=== PATIENT | female | born 1970 | race Caucasian/White ===

== ENCOUNTER 2020-07-25 13:26 | Outpatient (REF) | payer MEDICAID, SELFPAY | END 2020-07-25 13:27 | disposition home or self-care (01) | LOC: HO.LAB 13:26 | PROVIDERS: Visit Provider Internal Medicine | DX: Z20.828 Contact with and (suspected) exposure to other viral communicable diseases (principal) | CPT/HCPCS: 87635 ==

== ENCOUNTER 2020-08-11 09:08 | Outpatient (REF) | payer MEDICAID, SELFPAY | END 2020-08-11 09:09 | disposition home or self-care (01) | LOC: HO.LAB 09:08 | PROVIDERS: Visit Provider Internal Medicine | DX: Z20.828 Contact with and (suspected) exposure to other viral communicable diseases (principal) | CPT/HCPCS: C9803; U0003 ==

== ENCOUNTER 2020-08-18 15:43 | Outpatient (REF) | payer MEDICAID, SELFPAY | END 2020-08-18 15:44 | disposition home or self-care (01) | LOC: HO.LAB 15:43 | PROVIDERS: PCP Internal Medicine; Visit Provider Internal Medicine | DX: Z20.828 Contact with and (suspected) exposure to other viral communicable diseases (principal) | CPT/HCPCS: C9803; U0003 ==

== ENCOUNTER 2020-09-24 18:15 | Emergency (ER) | payer MEDICAID, SELFPAY ==
[2020-09-24 18:33] VITALS: BP 136/85; PULSE 84; RESP 18; TEMP 37.8; O2SAT 98; BMI 34.8
--- NOTE | 2020-09-24 18:36 | XR_ITS ---
EXAMINATION: PORTABLE CHEST 1 VIEW CLINICAL INFORMATION: Cough/ fever/ asthma . COMPARISON: 12/23/2016. TECHNIQUE: Portable frontal view of the chest was obtained. FINDINGS: The lungs are well expanded. No focal infiltrate, effusion, edema, or pneumothorax. Cardiac and mediastinal silhouettes are within normal limits for technique. No acute bony abnormality seen. XR/XR chest 1V IMPRESSION: No evidence of acute disease compared to 12/23/2016.
[2020-09-24] MEDS: Acetaminophen 325 MG TABLET 975 MG PO (18:50)
[2020-09-24] MEDS: predniSONE 20 MG TABLET 60 MG PO (18:50)
--- NOTE | 2020-09-24 19:15 | PC.NURSE ---
patient a&ox3, covid swab performed, cxr performed, pt medicated per order, vss, will continue to monitor.
[2020-09-24 19:50] LABS: Influenza A PCR NEGATIVE (Negative); Influenza B PCR NEGATIVE (Negative); Resp Syncy Virus RNA Qual PCR NEGATIVE (Negative); SARS COV2 PCR INHOUSE POSITIVE (Negative)
--- NOTE | 2020-09-24 20:41 | ED.URI ---
HPI - URI/Sore Throat General Chief Complaint: Upper Respiratory Symptoms Stated Complaint: COVID SYMPTONS Time Seen by Provider: 09/24/20 18:36 Source: patient Mode of arrival: ambulatory Limitations: no limitations History of Present Illness HPI Narrative: States since yesterday has had some slight ache, body aches, runny nose congestion and cough. Around this time of the year always has URI/influenza. No recent travel or sick contacts. Does have slight cough. Onset (ago): day(s) Exacerbating factors: nothing Treatments prior to arrival: none Related Data Previous Rx's Medication Instructions Recorded azithromycin [Zithromax Z-Gabriel] 250 mg PO DAILY 5 Days #6 tab 09/24/20 prednisone 60 mg PO DAILY 5 Days #15 tab 09/24/20 Allergies Allergy/AdvReac Type Severity Reaction Status Date / Time Sulfa (Sulfonamide Allergy Mild RASH, hives Verified 09/24/20 20:48 Antibiotics) [SULFA(SULFONAMIDE ANTIBIOTICS)] Review of Systems Review of Systems: Constitutional: No Weight loss, No Fever, No Chills, No Night Sweats, No Fatigue, No Malaise ENT/Mouth: No Hearing loss, No Ear Pain, + Nasal Congestion, + Sinus Pain, No Hoarseness, No sore throat, + Rhinorrhea, No Swallowing Difficulty Eyes: No Eye Pain, No Swelling, No Redness, No Foreign Body, No Discharge, No Vision Changes Cardiovascular: No Chest Pain, No SOB, No Dyspnea on Exertion, No Orthopnea, No Edema, No Palpitations Respiratory: + Cough, No Sputum, No Wheezing, No Smoke Exposure, No Dyspnea Gastrointestinal: No Nausea, No Vomiting, No Diarrhea, No Constipation, No abdominal Pain, No Hematochezia, No Melena Genitourinary: no irregular bleeding, No Dysuria, No Urinary Frequency, No Hematuria, No Urinary Incontinence, No Urgency, No Flank Pain, No Urinary Flow Changes Musculoskeletal: No joint pain, No Myalgias, No Joint Swelling Skin: No Skin Lesions, No rash Neuro: No Weakness, No Numbness, No Paresthesias, No Loss of Consciousness, No Dizziness, No Headache Psych: No Social Issues Heme/Lymph: No Bruising, No Bleeding,No Lymphadenopathy Endocrine: No Polyuria, No Polydipsia, No Temperature Intolerance Yes all other systems are reviewed and are negative [facility] Past Medical History Medical History Acid reflux Anemia Asthma HTN (hypertension) Sleep apnea Surgical History H/O bilateral salpingectomy Social History Social History Alcohol intake: current Alcohol intake frequency: holidays/special occasions only Smoking Status: Current some day smoker Use of substances other than those prescribed or required for medical reasons: No Advance Directives: No Advance Directives Information Provided: No Physical Exam Vital Signs: Vital Signs: Last Vital Signs Temp 100.1 F 09/24/20 18:33 Pulse 84 09/24/20 18:33 Resp 18 09/24/20 18:33 BP 136/85 09/24/20 18:33 Pulse Ox 98 09/24/20 18:33 Body Mass Index 34.8 Reviewed Const: General: cooperative and healthy appearing; No acute distress or intoxicated appearing Nutritional Appearance: average body habitus Orientation/consciousness: patient oriented x3 HENMT: Head: Yes normal to inspection Ears: hearing grossly normal bilaterally Eyes: General: appearance normal, both eyes and all related structures Visual De Los Santos: normal visual de los santos by confrontation Neck: Neck: Yes normal visual inspection, No positive Brudzinski's sign, No positive Kernig's sign and No tender Thyroid: Thyroid normal Chest: Chest palpation & inspection: normal inspection of the chest Breast/axilla inspection: normal inspection of the breasts Resp: Effort & Inspection: normal respiratory effort Auscultation: clear to auscultation bilaterally Cardio: Jugular venous distension: no JVD Rate: regular rate Rhythm: regular rhythm Heart sounds: S1 normal heart sound present and S2 normal heart sound present GI: Inspection: Yes normal to inspection Percussion: Yes normal to percussion Auscultation: normal bowel sounds : General: Yes no CVA tenderness Back/Spine/Pelvis: Back: no CVA tenderness Skin: General skin exam: no rashes or lesions noted Neuro: General: patient oriented x3 Extrem: General: Yes normal to inspection Course Course Course Narrative: MDM - URI/Sore Throat MDM Narrative Medical decision making narrative: Hemodynamically stable. Chest x-ray no acute disease. Pulse ox on room air 100. Will discharge home with short course prednisone. Clear home instructions, precautions and follow-up instructions provided. Feels comfortable plan. Stable for discharge. Differential Diagnosis Differential diagnosis: Likely upper respiratory infection, viral infection, bronchitis and influenza; Unlikely croup, otitis media, sinusitis and pharyngitis Lab Data Labs: Lab Results 09/24/20 Range/Units 18:53 Coronavirus (PCR) POSITIVE A (Negative) Influenza Type A (PCR) NEGATIVE (Negative) Influenza Type B (PCR) NEGATIVE (Negative) RSV RNA Qual (PCR) NEGATIVE (Negative) Imaging Data Chest x-ray: Radiologist's impression: [address] [address] XRay Report Signed Patient: Олег Walker#: [id number] : 1970Acct:[id number] Age/Sex: 50 / FADM Date: 09/24/20 Loc: .ED Attending Dr: Ordering Physician: Baen Capps NP Date of Service: 09/24/20 Procedure(s): XR chest 1V Accession Number(s): [id number] cc: Bean Capps STAFFING DIRECTOR~ EXAMINATION: PORTABLE CHEST 1 VIEW CLINICAL INFORMATION: Cough/ fever/ asthma . COMPARISON: 12/23/2016. TECHNIQUE: Portable frontal view of the chest was obtained. FINDINGS: The lungs are well expanded. No focal infiltrate, effusion, edema, or pneumothorax. Cardiac and mediastinal silhouettes are within normal limits for technique. No acute bony abnormality seen. XR/XR chest 1V IMPRESSION: No evidence of acute disease compared to 12/23/2016. Dictated By:HERNANDEZ EAGLE MD Signed By:<Electronically signed by HERNANDEZ EAGLE MD in OV>09/24/204 DD/ 1836 TD/TT: Agriculture Research Director: [place] Discharge Plan Discharge Clinical Impression: Asthma exacerbation, COVID-19 Patient Disposition: Home, Self-Care Instructions: Asthma (ED), How to Use a Nebulizer (ED), COVID-19 (Coronavirus Disease 2019) (ED) Additional Instructions: Self-isolation Social distancing Home care as instructed Take medication prescribed Return if any concerns or worsening symptoms Thank you Prescriptions: New azithromycin [Zithromax Z-Gabriel] 250 mg tablet 250 mg PO DAILY 5 Days Qty: 6 RF: 0 prednisone 20 mg tablet 60 mg PO DAILY 5 Days Qty: 15 RF: 0 Referrals: Melani Anderson MD [Primary Care Provider] - 1 week (Phone visit)
== END 2020-09-24 21:05 | disposition home or self-care (01) ==
PROVIDERS: Nurse Practitioner Primary Care; Emergency Provider Emergency Medicine; PCP Internal Medicine
DX: U07.1 COVID-19 (principal); J45.901 Unspecified asthma with (acute) exacerbation; I10 Essential (primary) hypertension; F17.200 Nicotine dependence, unspecified, uncomplicated
CPT/HCPCS: 0241U; 71045; 99284

== ENCOUNTER 2020-09-30 20:55 | Emergency (ER) | payer MEDICAID, SELFPAY ==
[2020-09-30 21:03] VITALS: PULSE 110; RESP 16; TEMP 38.6; O2SAT 96; BMI 33.2
--- NOTE | 2020-09-30 21:24 | CT_ITS ---
EXAMINATION: CT ABDOMEN AND PELVIS WITHOUT CONTRAST CLINICAL INFORMATION: Abdominal pain. COMPARISON: None TECHNIQUE: Multidetector volumetric imaging was performed from the superior aspect of the liver through the pubic symphysis. Sagittal and coronal reformatted images were obtained on the technologist's workstation. This CT examination was performed using dose optimization techniques as appropriate, variously including the following: *Automated exposure control *Adjustment of mA and/or kV according to patient size (this includes techniques or standardized protocols for targeted exams where dose is matched to indication/reason for exam; i.e. extremities or head) *Use of iterative reconstruction technique DLP: 617 mGy-cm FINDINGS: LUNG BASES: Multifocal airspace opacities in the visualized lower lungs, with peripheral distribution. Findings raise concern for infectious or inflammatory process. LIVER, GALLBLADDER, AND BILIARY TREE: No focal liver lesion. No biliary duct dilatation. Gallbladder appears unremarkable PANCREAS: Unremarkable. SPLEEN: Unremarkable. ADRENAL GLANDS: Unremarkable. KIDNEYS AND URETERS: The kidneys are normal in size, shape, and attenuation. No hydronephrosis, hydroureter, or calculi seen. No perinephric stranding. BLADDER: Unremarkable. GASTROINTESTINAL TRACT: There is a hiatal hernia present. There is apparent prominence of the wall of the stomach, with apparent rugal prominence. This could be due to lack of distention versus gastritis. No dilated small bowel loops. There is moderate fecal matter in the ascending and transverse colon. No colonic wall thickening or pericolonic inflammatory changes. Appendix is normal. No ascites. ABDOMINAL WALL: No significant hernia is appreciated. LYMPH NODES: No lymphadenopathy. VASCULAR: Normal caliber aorta. PELVIC VISCERA: Anteverted uterus. Focus of calcification in the uterus, probable calcified fibroid. No adnexal masses. OSSEOUS STRUCTURES: No suspicious findings. CT/CT abdomen pelvis wo con IMPRESSION: 1. Multifocal airspace opacities in the visualized lower lungs, with peripheral distribution. Findings raise concern for infectious or inflammatory process. 2. Small to moderate hiatal hernia present. Stomach wall appears prominent, with apparent rugal prominence which could be related to lack of distention versus gastritis. 3. Moderate fecal matter in the large colon. No acute inflammatory changes seen.
--- NOTE | 2020-09-30 21:31 | ECG_ITS ---
Test Reason : ABD PAIN Blood Pressure : / mmHG Vent. Rate : 095 BPM Atrial Rate : 095 BPM P-R Int : 178 ms QRS Dur : 088 ms QT Int : 354 ms P-R-T Axes : 047 004 021 degrees QTc Int : 444 ms Normal sinus rhythm Normal ECG No previous ECGs available Referred By: Caryl Abbott Electronically Signed By:ZULMA HERNANDEZ MD
--- NOTE | 2020-09-30 21:45 | PC.NURSE ---
PT OFF FLOOR TO CT.
--- NOTE | 2020-09-30 21:52 | ED.FEVER ---
HPI - Fever General Chief Complaint: Fever Stated Complaint: covid positive Time Seen by Provider: 09/30/20 21:19 Source: patient Mode of arrival: ambulatory Limitations: no limitations History of Present Illness HPI Narrative: 50-year-old female known COVID positive presents with fever, chest tightness and diffuse abdominal pain. She was given azithromycin and prednisone on 09/24/2020 which she took in its entirety. She also reports taking 1000 mg of Tylenol every 4 hours since Friday with the exception of when she was sleeping. She reports muscle aches, fevers, chills, abdominal pain, right upper quadrant tenderness, nausea, vomiting and weakness. Related Data Previous Rx's Medication Instructions Recorded azithromycin [Zithromax Z-Gabriel] 250 mg PO DAILY 5 Days #6 tab 09/24/20 prednisone 60 mg PO DAILY 5 Days #15 tab 09/24/20 ondansetron HCl [Zofran] 4 mg PO Q8H PRN #14 tab 10/01/20 Allergies Allergy/AdvReac Type Severity Reaction Status Date / Time Sulfa (Sulfonamide Allergy Mild RASH, hives Verified 09/24/20 20:48 Antibiotics) [SULFA(SULFONAMIDE ANTIBIOTICS)] Review of Systems Review of Systems: Constitutional: positive Fever, positive Chills, positive fatigue, positive Malaise ENT/Mouth: No sore throat, positive runny nose Eyes: No Discharge Cardiovascular: No Chest Pain, No SOB Respiratory: No Cough, No Sputum, No Wheezing, No Smoke Exposure, No Dyspnea Gastrointestinal: Positive abdominal pain, Positive Nausea, positive Vomiting, No Diarrhea Genitourinary: no irregular bleeding, No Dysuria, No Urinary Frequency, No Hematuria, No Urinary Incontinence, No Urgency, No Flank Pain, Musculoskeletal: positive Myalgia Skin: No rash Neuro: No Headache Yes all other systems are reviewed and are negative PMFSH Past Medical History Source: old records reviewed Medical History Acid reflux Anemia Asthma HTN (hypertension) Sleep apnea Surgical History H/O bilateral salpingectomy Social History Social History Alcohol intake: current Alcohol intake frequency: a few times a month Smoking Status: Light tobacco smoker Advance Directives: No Physical Exam Vital Signs: Vital Signs: Last Vital Signs Temp 99.1 F 09/30/20 23:17 Pulse 92 09/30/20 23:17 Resp 20 09/30/20 23:17 BP 121/81 09/30/20 23:17 Pulse Ox 95 09/30/20 23:17 Body Mass Index 33.2 Appearance: Alert. Oriented X3. Moderate distress. Tachycardic, tachypneic, febrile Eyes: Pupils equal, round and reactive to light. ENT: Pharynx normal. Neck: Normal inspection. Neck supple. CVS: Tachycardic heart rate and rhythm. Pulses normal. Respiratory: No respiratory distress. Breath sounds normal. Abdomen: Soft and diffusely tender, positive Contreras Skin: Skin warm and dry. Normal skin color. Normal skin turgor. Extremities: No lower extremity edema. Neuro: No motor deficit. No sensory deficit. Course Course Course Narrative: 50-year-old female COVID positive on 09/24/2020, given azithromycin and prednisone. Patient stated that she has been taking her medications but feels much worse. Her abdomen is tender to palpation, has nausea, vomiting, and cannot get comfortable. She does report taking 1000 mg of Tylenol approximately every 4 hours since Friday except while she was sleeping. Significant concerns for Tylenol toxicity, RN advised to call poison Control, EKG, rule out ACS, labs and CT scan of abdomen pending. At 10:[address] scan is normal, Tylenol level is 23 micrograms/milliliter, AST and ALT minimally elevated at 32 and 33, alk-phos 34 creatinine kinase 25. After 2 L of normal saline, patient states she feels better, vital signs within normal limits. Plan of care is to discharge home, patient verbalized understanding of and agrees to plan of care. MDM - Fever Differential Diagnosis Differential diagnosis: Likely gastroenteritis, pyelonephritis, viral infection, sepsis and influenza Medical Records Attestation: I reviewed the patient's medical records. Lab Data Attestation: I reviewed the patient's lab results. Result diagrams: 09/30/20 22:07 09/30/20 22:07 Labs: Lab Results 09/30/20 09/30/20 09/30/20 Range/Units 22:07 22:07 22:07 WBC 9.3 (4.8-10.8) X10*3/uL RBC 4.94 (4.20-5.50) X10*6/uL Hgb 12.5 (12.0-16.0) g/dl Hct 39.3 (37-47) % MCV 79.6 L (80-98) fL MCH 25.3 L (27.0-33.0) pg MCHC 31.8 (31.0-35.0) g/dl RDW 15.1 (11.0-16.0) % Plt Count 308 (160-400) X10*3/uL MPV 10.1 (9.4-12.3) fL Immature Gran % (Auto) 0.2 (0.0-0.4) % Neut % (Auto) 68.2 (45-73) % Lymph % (Auto) 28.0 (20-40) % Otero % (Auto) 3.4 (2-11) % Eos % (Auto) 0.0 (0-4) % Baso % (Auto) 0.2 (0-2) % Lymph # (Auto) 2.6 (1.2-4.9) X10*3/uL Otero # (Auto) 0.3 (0.1-1.2) X10*3/uL Eos # (Auto) 0.0 (0.0-0.4) X10*3/uL Baso # (Auto) 0.0 (0.0-0.2) X10*3/uL Abs Immat Gran (auto) 0.02 (0.00-0.03) X10*3/uL Absolute Neuts (auto) 6.3 (2.0-8.3) X10*3/uL Absolute Nucleated RBC 0.000 (0.0-0.012) X10*3/uL Nucleated RBC % (auto) 0.0 (0.0-0.2) /100WBC PT (10.8-13.0) SEC INR (0.9-1.1) APTT (24.1-38.0) SEC Sodium 137 (135-145) mmol/L Potassium 3.9 (3.3-5.1) mmol/l Chloride 101 (96-108) mmol/L Carbon Dioxide 24 (22-29) mmol/L Anion Gap 16 (12-20) BUN 11 (9-16) mg/dL Creatinine 0.87 (0.5-1.4) mg/dL Estim Creat Clear Calc 71.0 Estimated GFR > 60 Random Glucose 90 (60-115) mg/dL Lactic Acid 2.0 (0.5-2.0) mmol/L Calcium 8.5 (8.4-10.2) mg/dL Total Bilirubin 0.3 (0.0-1.0) mg/dL Direct Bilirubin < 0.2 (0.0-0.5) mg/dL AST 32 H (5-31) U/L ALT 33 H (0-31) U/L Alkaline Phosphatase 34 L (39-117) U/L Total Creatine Kinase (26-140) U/L Troponin I High Sens (<3.5-17.0) ng/L Total Protein 7.3 (6.5-8.0) g/dL Albumin 4.0 (3.5-5.0) g/dL Lipase 78 (8-78) U/L Acetaminophen 23 (<30) mcg/mL 09/30/20 09/30/20 09/30/20 Range/Units 22:07 22:07 22:07 WBC (4.8-10.8) X10*3/uL RBC (4.20-5.50) X10*6/uL Hgb (12.0-16.0) g/dl Hct (37-47) % MCV (80-98) fL MCH (27.0-33.0) pg MCHC (31.0-35.0) g/dl RDW (11.0-16.0) % Plt Count (160-400) X10*3/uL MPV (9.4-12.3) fL Immature Gran % (Auto) (0.0-0.4) % Neut % (Auto) (45-73) % Lymph % (Auto) (20-40) % Otero % (Auto) (2-11) % Eos % (Auto) (0-4) % Baso % (Auto) (0-2) % Lymph # (Auto) (1.2-4.9) X10*3/uL Otero # (Auto) (0.1-1.2) X10*3/uL Eos # (Auto) (0.0-0.4) X10*3/uL Baso # (Auto) (0.0-0.2) X10*3/uL Abs Immat Gran (auto) (0.00-0.03) X10*3/uL Absolute Neuts (auto) (2.0-8.3) X10*3/uL Absolute Nucleated RBC (0.0-0.012) X10*3/uL Nucleated RBC % (auto) (0.0-0.2) /100WBC PT 12.2 (10.8-13.0) SEC INR 1.0 (0.9-1.1) APTT 31.9 (24.1-38.0) SEC Sodium (135-145) mmol/L Potassium (3.3-5.1) mmol/l Chloride (96-108) mmol/L Carbon Dioxide (22-29) mmol/L Anion Gap (12-20) BUN (9-16) mg/dL Creatinine (0.5-1.4) mg/dL Estim Creat Clear Calc Estimated GFR Random Glucose (60-115) mg/dL Lactic Acid (0.5-2.0) mmol/L Calcium (8.4-10.2) mg/dL Total Bilirubin (0.0-1.0) mg/dL Direct Bilirubin (0.0-0.5) mg/dL AST (5-31) U/L ALT (0-31) U/L Alkaline Phosphatase (39-117) U/L Total Creatine Kinase 25 L (26-140) U/L Troponin I High Sens < 3.5 (<3.5-17.0) ng/L Total Protein (6.5-8.0) g/dL Albumin (3.5-5.0) g/dL Lipase (8-78) U/L Acetaminophen (<30) mcg/mL Imaging Data CT scan - abdomen: Attestation: I personally reviewed and interpreted this imaging study as follows: Radiologist's impression: EXAMINATION: CT ABDOMEN AND PELVIS WITHOUT CONTRAST CLINICAL INFORMATION: Abdominal pain. COMPARISON: None TECHNIQUE: Multidetector volumetric imaging was performed from the superior aspect of the liver through the pubic symphysis. Sagittal and coronal reformatted images were obtained on the technologist's workstation. This CT examination was performed using dose optimization techniques as appropriate, variously including the following: *Automated exposure control *Adjustment of mA and/or kV according to patient size (this includes techniques or standardized protocols for targeted exams where dose is matched to indication/reason for exam; i.e. extremities or head) *Use of iterative reconstruction technique DLP: 617 mGy-cm FINDINGS: LUNG BASES: Multifocal airspace opacities in the visualized lower lungs, with peripheral distribution. Findings raise concern for infectious or inflammatory process. LIVER, GALLBLADDER, AND BILIARY TREE: No focal liver lesion. No biliary duct dilatation. Gallbladder appears unremarkable PANCREAS: Unremarkable. SPLEEN: Unremarkable. ADRENAL GLANDS: Unremarkable. KIDNEYS AND URETERS: The kidneys are normal in size, shape, and attenuation. No hydronephrosis, hydroureter, or calculi seen. No perinephric stranding. BLADDER: Unremarkable. GASTROINTESTINAL TRACT: There is a hiatal hernia present. There is apparent prominence of the wall of the stomach, with apparent rugal prominence. This could be due to lack of distention versus gastritis. No dilated small bowel loops. There is moderate fecal matter in the ascending and transverse colon. No colonic wall thickening or pericolonic inflammatory changes. Appendix is normal. No ascites. ABDOMINAL WALL: No significant hernia is appreciated. LYMPH NODES: No lymphadenopathy. VASCULAR: Normal caliber aorta. PELVIC VISCERA: Anteverted uterus. Focus of calcification in the uterus, probable calcified fibroid. No adnexal masses. OSSEOUS STRUCTURES: No suspicious findings. CT/CT abdomen pelvis wo con IMPRESSION: 1. Multifocal airspace opacities in the visualized lower lungs, with peripheral distribution. Findings raise concern for infectious or inflammatory process. 2. Small to moderate hiatal hernia present. Stomach wall appears prominent, with apparent rugal prominence which could be related to lack of distention versus gastritis. 3. Moderate fecal matter in the large colon. No acute inflammatory changes seen. ECG Data ECG #1: Attestation: I personally reviewed and interpreted this ECG as follows: ECG interpretation date: 09/30/20 ECG interpretation time: 22:48 Prior ECG tracings: not available for review Interpretation: Vent. Rate : 095 BPM Atrial Rate : 095 BPM P-R Int : 178 ms QRS Dur : 088 ms QT Int : 354 ms P-R-T Axes : 047 004 021 degrees QTc Int : 444 ms Normal sinus rhythm Normal ECG No previous ECGs available Critical Care Time Critical Care Time Critical Care Time: Yes Total Critical Care Time: 65 Attestation: I have personally provided critical care time exclusive of time spent on separately billable procedures. Time includes review of laboratory data, radiology results, discussion with consultants, and monitoring for potential decompensation. Interventions were performed as documented. Discharge Plan Discharge Clinical Impression: COVID-19 Abdominal pain Qualifiers: Abdominal location: right upper quadrant Qualified Code(s): R10.11 - Right upper quadrant pain Patient Disposition: Home, Self-Care Instructions: Abdominal Pain (ED), COVID-19 (Coronavirus Disease 2019) (ED) Additional Instructions: You were evaluated for abdominal pain, nausea, vomiting and shortness of breath consistent with COVID-19. You were dangerously close to overdosing on Tylenol. Tylenol overdose is deadly and will cause irreversible liver damage. Please do not exceed 3000 mg of Tylenol per day. You may alternate Tylenol and Motrin to manage fevers and pain. Please use Zofran as needed for nausea and vomiting. Your lab values were within normal limits, your CT scan of the abdomen was negative for acute findings requiring emergent intervention. Thank you for choosing this emergency department for evaluation. Please follow-up with primary care physician as needed. Return to the emergency department for any new, concerning, or worsening symptoms. Prescriptions: New ondansetron HCl [Zofran] 4 mg tablet 4 mg PO Q8H PRN (Reason: nausea and vomiting) Qty: 14 RF: 0 No Action azithromycin [Zithromax Z-Gabriel] 250 mg tablet 250 mg PO DAILY 5 Days Qty: 6 RF: 0 prednisone 20 mg tablet 60 mg PO DAILY 5 Days Qty: 15 RF: 0 Discharge Date/Time: 10/01/20 00:55
[2020-09-30] MEDS: 0.9 % Sodium Chloride 1,000 ML 999 ML IVCONT ×2 (22:12→23:17)
[2020-09-30] MEDS: ondansetron HCL 4 MG/2 ML VIAL IVPUSH (22:13)
[2020-09-30] MEDS: Ketorolac Tromethamine 30 MG/ML VIAL IVPUSH (22:13)
--- NOTE | 2020-09-30 22:18 | PC.NURSE ---
Spoke w/ Poison Control [phone] stated all orders were fine, no further recommendations at this time. Call back when labs have resulted at number provided.
[2020-09-30 22:19] VITALS: BP 134/95; PULSE 95; RESP 18; O2SAT 96
[2020-09-30 22:23] LABS: Basophils Percent Auto 0.2 % (0-2); Hematocrit 39.3 % (37-47); Hemoglobin 12.5 g/dl (12.0-16.0); Imm Gran Abs Auto 0.02 X10*3/uL (0.00-0.03); Imm Gran Pct Auto 0.2 % (0.0-0.4); Lymphocytes Absolute Auto 2.6 X10*3/uL (1.2-4.9); MANUAL DIFF FLAG NO; Mean Corpuscular HGB Conc 31.8 g/dl (31.0-35.0); Mean Corpuscular Hemoglobin 25.3 pg (27.0-33.0); Mean Corpuscular Volume 79.6 fL (80-98); Mean Platelet Volume 10.1 fL (9.4-12.3); Monocytes Absolute Auto 0.3 X10*3/uL (0.1-1.2); Monocytes Percent Auto 3.4 % (2-11); Neutrophils Absolute Auto 6.3 X10*3/uL (2.0-8.3); Neutrophils Percent Auto 68.2 % (45-73); Platelet Count 308 X10*3/uL (160-400); Red Blood Count 4.94 X10*6/uL (4.20-5.50); Red Cell Distribution Width 15.1 % (11.0-16.0); White Blood Count 9.3 X10*3/uL (4.8-10.8)
--- NOTE | 2020-09-30 22:23 | PC.NURSE ---
IV ACCESS OBTAINED, BLOOD SAMPLES SENT TO LAB, IVF HUNG AND INFUSING WITHOUT DIFFICULTY. ADVERTISING COLUMNIST APPLIED. SINUS TACH ON MONITOR. PT MEDICATED PER DEC FOR HEADACHE/BODY ACHES/ GEN ABD PAIN. PT REPORTS TAKING 1G TYLENOL 4 TIMES IN PAST 24 HOURS- STATES SHE HAS BEEN DOING THAT SINCE FRIDAY. REPORTS HEADACHE, GENERALIZED BODY ACHES, AND DIFFUSE ABD PAIN WITH UNCONTROLLED FEVERS. DENIES N/V/D. DENIES SOB/RESP SYMPTOMS. COVID + ON FRIDAY.
[2020-09-30 22:30] LABS: Prothrombin Time 12.2 SEC (10.8-13.0)
[2020-09-30 22:33] LABS: Partial Thromboplastin Time 31.9 SEC (24.1-38.0)
[2020-09-30 22:59] LABS: Acetaminophen LAB 23 mcg/mL (<30); Alanine Aminotransferase 33 U/L (0-31); Alkaline Phosphatase 34 U/L (39-117); Anion Gap 16 (12-20); Aspartate Amino Transferase 32 U/L (5-31); Bilirubin Direct < 0.2 mg/dL (0.0-0.5); Bilirubin Total 0.3 mg/dL (0.0-1.0); Blood Urea Nitrogen 11 mg/dL (9-16); Calcium 8.5 mg/dL (8.4-10.2); Carbon Dioxide 24 mmol/L (22-29); Chloride 101 mmol/L (96-108); Estimated Glomerular Filt Rate > 60; Glucose Random 90 mg/dL (60-115); Lipase 78 U/L (8-78); Potassium 3.9 mmol/l (3.3-5.1); Sodium 137 mmol/L (135-145); Total Protein 7.3 g/dL (6.5-8.0)
[2020-09-30 23:00] LABS: Troponin-I High Sensitivity < 3.5 ng/L (<3.5-17.0)
--- NOTE | 2020-09-30 23:09 | PC.NURSE ---
spoke with poison control. updated with lab results and ekg. no further recommendations. closing case.
[2020-09-30 23:17] VITALS: BP 121/81; PULSE 92; RESP 20; TEMP 37.3; O2SAT 95
--- NOTE | 2020-09-30 23:18 | PC.NURSE ---
ADDITIONAL LITER OF IVF HUNG AND INFUSING WITHOUT DIFFICULTY. VSS. SINUS TACH ON MONITOR. AWAITING FLUIDS TO FINISH AND PLAN TO DC HOME.PT AWARE OF PLAN OF CARE.
== END 2020-10-01 00:55 | disposition home or self-care (01) ==
PROVIDERS: Nurse Practitioner Family; Emergency Provider Emergency Medicine
DX: U07.1 COVID-19 (principal); R10.11 Right upper quadrant pain; Z79.899 Other long term (current) drug therapy
CPT/HCPCS: 36415; 74176; 80048; 80076; 82550; 83605; 83690; 84484; 85025; 85610; 85730; 87040; 93005; 96361; 96374; 96375; 99284; 99291; G0480; J1885; J2405

== ENCOUNTER 2020-10-02 19:11 | Emergency (ER) | payer MEDICAID, SELFPAY ==
[2020-10-02 19:28] VITALS: BP 105/102; PULSE 87; RESP 18; TEMP 37.4; O2SAT 95; BMI 33.0
--- NOTE | 2020-10-02 19:30 | ECG_ITS ---
Test Reason : CP Blood Pressure : / mmHG Vent. Rate : 086 BPM Atrial Rate : 086 BPM P-R Int : 158 ms QRS Dur : 090 ms QT Int : 368 ms P-R-T Axes : 039 -02 025 degrees QTc Int : 440 ms Normal sinus rhythm Normal ECG When compared with ECG of 30-SEP-2020 22:48, No significant change was found Referred By: Generic ED Physician Electronically Signed By:KVNG SCHULTZ
--- NOTE | 2020-10-02 19:45 | ED.GENADULT ---
HPI - General Adult General Chief complaint: Upper Respiratory Symptoms Stated complaint: UPPER RESPIRATORY Time Seen by Provider: 10/02/20 19:33 Source: patient Mode of arrival: ambulatory Limitations: no limitations History of Present Illness HPI narrative: Patient comes emergency room complaining of a headache. Patient is known to be COVID positive, she was prescribed azithromycin and prednisone on September 24. At this time, patient denies shortness of breath, complaining of severe headache. Patient states she has history of migraines, complaining of right-sided headache. Patient denies vomiting, complaining of nausea, no diarrhea. No abdominal pain. Related Data Previous Rx's Medication Instructions Recorded azithromycin [Zithromax Z-Gabriel] 250 mg PO DAILY 5 Days #6 tab 09/24/20 prednisone 60 mg PO DAILY 5 Days #15 tab 09/24/20 ondansetron HCl [Zofran] 4 mg PO Q8H PRN #14 tab 10/01/20 tppwzhuajc-jaypupgeebibl-ihlj 1 cap PO TID PRN #10 cap 10/02/20 [Fioricet] Allergies Allergy/AdvReac Type Severity Reaction Status Date / Time Sulfa (Sulfonamide Allergy Mild RASH, hives Verified 09/24/20 20:48 Antibiotics) [SULFA(SULFONAMIDE ANTIBIOTICS)] Review of Systems Review of Systems: Constitutional : No Weight loss, No Fever, No Chills, No Night Sweats, No Fatigue, No Malaise ENT/Mouth : No Hearing loss, No Ear Pain, No Nasal Congestion, No Sinus Pain, No Hoarseness, No sore throat, No Rhinorrhea, No Swallowing Difficulty Eyes: No Eye Pain, No Swelling, No Redness, No Foreign Body, No Discharge, No Vision Changes, complaining photophobia Cardiovascular : No Chest Pain, No SOB, No Dyspnea on Exertion, No Orthopnea, No Edema, No Palpitations Respiratory : No Cough, No Sputum, No Wheezing, No Smoke Exposure, No Dyspnea Gastrointestinal : No Nausea, No Vomiting, No Diarrhea, No Constipation, No abdominal Pain, No Hematochezia, No Melena Genitourinary : no irregular bleeding, No Dysuria, No Urinary Frequency, No Hematuria, No Urinary Incontinence, No Urgency, No Flank Pain, No Urinary Flow Changes, No Hesitancy Musculoskeletal : No joint pain, No Myalgias, No Joint Swelling Skin : No Skin Lesions, No rash Neuro : No Weakness, No Numbness, No Paresthesias, No Loss of Consciousness, No Dizziness, complaining right-sided headache Psych : No Anxiety/Panic, No Depression, No SI/HI/AH/VH, No Social Issues, Heme/Lymph: No Bruising, No Bleeding,No Lymphadenopathy Endocrine : No Polyuria, No Polydipsia, No Temperature Intolerance PMFSH Past Medical History Medical History (Updated 10/02/20 @ 23:47 by Cami Ortiz MD) Acid reflux Anemia Asthma HTN (hypertension) Migraines Sleep apnea Surgical History H/O bilateral salpingectomy Social History Social History Alcohol intake: current Alcohol intake frequency: holidays/special occasions only Smoking Status: Unknown if ever smoked Smoked in Last 30 Days: No Use of substances other than those prescribed or required for medical reasons: No Advance Directives: No Advance Directives Information Provided: No Physical Exam Vital Signs: Vital Signs: Last Vital Signs Temp 97.1 F 10/02/20 22:00 Pulse 85 10/02/20 22:00 Resp 15 10/02/20 22:00 BP 128/81 10/02/20 22:00 Pulse Ox 97 10/02/20 22:00 Body Mass Index 33.0 Appearance: Alert. Oriented X3. No acute distress. Eyes: Pupils equal, round and reactive to light. Photophobia ENT: Pharynx normal. Neck: Normal inspection. Neck supple. No lymph nodes noted. No crepitus CVS: Normal heart rate and rhythm. Pulses normal. Normal S1 and S2 Respiratory: No respiratory distress. Breath sounds normal. No Wheezing. No rales Abdomen: Soft and nontender. No rigidity. No distention. good BS x4 Skin: Skin warm and dry. Normal skin color. Normal skin turgor. Extremities: No lower extremity edema. No lower extremity edema. No Lacerations. No Rash Neuro: Oriented X 3. No motor deficit. No sensory deficit. Moving all extermities. No slurred speech. Course Course Course Narrative: Patient states she still had headache after IV Toradol. First it given. Patient states that she feels much better after the tablets of Fioricet. No longer having mild. Discharge Plan Discharge Clinical Impression: Migraines Qualifiers: Migraine type: unspecified Status migrainosus presence: without status migrainosus Intractability: not intractable Qualified Code(s): G43.909 - Migraine, unspecified, not intractable, without status migrainosus Patient Disposition: Home, Self-Care Instructions: Migraine Headache (ED) Additional Instructions: Please follow-up with your primary care physician tomorrow. If you have any worsening or new symptoms, please return to the emergency room or call 911 Prescriptions: New klchiyigum-bxgfqxsafjacm-ucxj [Fioricet] 50-300-40 mg capsule 1 cap PO TID PRN (Reason: pain) Qty: 10 RF: 0 No Action azithromycin [Zithromax Z-Gabriel] 250 mg tablet 250 mg PO DAILY 5 Days Qty: 6 RF: 0 prednisone 20 mg tablet 60 mg PO DAILY 5 Days Qty: 15 RF: 0 ondansetron HCl [Zofran] 4 mg tablet 4 mg PO Q8H PRN (Reason: nausea and vomiting) Qty: 14 RF: 0
[2020-10-02] MEDS: diphenhydrAMINE HCL 50 MG/ML VIAL IVPUSH (19:53)
[2020-10-02] MEDS: ondansetron HCL 4 MG/2 ML VIAL IVPUSH (19:53)
[2020-10-02] MEDS: Ketorolac Tromethamine 30 MG/ML VIAL IVPUSH (19:54)
[2020-10-02 20:00] VITALS: BP 127/81; PULSE 82; RESP 16; TEMP 37.6; O2SAT 96
[2020-10-02 21:07] VITALS: PULSE 75; O2SAT 95
[2020-10-02 22:00] VITALS: BP 128/81; PULSE 85; RESP 15; TEMP 36.2; O2SAT 97
[2020-10-02] MEDS: Butalb/Acetamin/Caff 50/325/40 TABLET 2 TAB PO (22:55)
== END 2020-10-03 00:11 | disposition home or self-care (01) ==
PROVIDERS: Emergency Provider Emergency Medicine
DX: G43.909 Migraine, unspecified, not intractable, without status migrainosus (principal); Z86.19 Personal history of other infectious and parasitic diseases; I10 Essential (primary) hypertension; J45.909 Unspecified asthma, uncomplicated; Z79.899 Other long term (current) drug therapy
CPT/HCPCS: 93005; 96374; 96375; 99284; 99285; J1200; J1885; J2405

== ENCOUNTER 2020-10-09 14:40 | Outpatient (REF) | payer MEDICAID, SELFPAY | END 2020-10-09 14:41 | disposition home or self-care (01) | LOC: HO.LAB 14:40 | PROVIDERS: PCP Internal Medicine; Visit Provider Internal Medicine | DX: Z20.822 Contact with and (suspected) exposure to COVID-19 (principal) | CPT/HCPCS: 36415; C9803; U0003 ==

== ENCOUNTER 2020-12-07 08:38 | Outpatient (REF) | payer MEDICAID, SELFPAY | END 2020-12-07 08:39 | disposition home or self-care (01) | LOC: HO.LAB 08:38 | PROVIDERS: Visit Provider Internal Medicine | DX: Z20.822 Contact with and (suspected) exposure to COVID-19 (principal) | CPT/HCPCS: 36415; C9803; U0003; U0005 ==

== ENCOUNTER 2020-12-11 13:30 | Outpatient (REF) | payer MEDICAID, SELFPAY ==
--- NOTE | ~2020-12-11 | MM_ITS ---
EXAMINATION: MM SCREENING DIGITAL BREAST TOMOSYNTHESIS, BILATERAL CLINICAL INFORMATION: Screening. Asymptomatic. The lifetime risk of breast cancer based on the Tyrer-Cuzick Model is 5%. COMPARISON: Mammography: 07/14/2019, 07/03/2018, 06/13/2017, 12/14/2015 TECHNIQUE: Digital breast tomosynthesis is performed in both the craniocaudal and mediolateral oblique views along with computer-aided detection (CAD). Synthesized 2D images are generated from the tomosynthesis. FINDINGS: There are scattered areas of fibroglandular density (ACR BI-RADS breast composition Category b). There are no significant masses, abnormal calcifications, or other abnormalities. Breast tissue composition borders on heterogeneously dense. Parenchymal pattern is similar to prior studies. No developing density. No significant changes. MM/MM tomosynthesis screening BI IMPRESSION: No mammographic evidence of malignancy. ASSESSMENT: BI-RADS 1: Negative RECOMMENDATION: Routine annual mammography screening. This patient's information was entered into a reminder system with a target due date for their next mammogram.
== END 2020-12-11 13:31 | disposition home or self-care (01) ==
LOC: HO.MAMMO 13:30
PROVIDERS: PCP Internal Medicine; Visit Provider Internal Medicine
DX: Z12.31 Encounter for screening mammogram for malignant neoplasm of breast (principal)
CPT/HCPCS: 77063; 77067

== ENCOUNTER → 2021-02-21 13:04 | Outpatient (BNVA) | payer MEDICAID, SELFPAY | PROVIDERS: PCP Internal Medicine; Visit Provider Physician Assistant | DX: K59.09 Other constipation (principal) | CPT/HCPCS: 99212 ==

== ENCOUNTER 2021-08-25 20:23 | Emergency (ER) | payer MEDICAID, SELFPAY ==
[2021-08-25 21:27] VITALS: BP 144/87; PULSE 67; RESP 18; TEMP 36.9; O2SAT 98; BMI 35.2
[2021-08-25] MEDS: Silver Nitrate Applicator STICK..EA. 2 APPL TOPICAL (23:04)
[2021-08-25] MEDS: Lidocaine HCl 1 % MPF 5 ML VIAL SUBCUT (23:04)
--- NOTE | 2021-08-25 23:41 | ED.LOWEXIN ---
HPI - Extremity Injury (Lower) General Chief Complaint: Extremity Injury, Lower Stated Complaint: Toe pain Time Seen by Provider: 08/25/21 22:57 History of Present Illness HPI Narrative: Patient is a 51-year-old female presents today with having history of ingrown toenail on the left great toe. Complaining of pain is been ongoing. No fever no chills no nausea no vomiting. No systemic complaints Related Data Home Medications Medication Instructions Recorded Confirmed budesonide-formoterol HFA 160 2 puff INHALATION BID 02/21/21 04/24/21 mcg-4.5 mcg/actuation aerosol inhaler (Symbicort) omeprazole 20 mg capsule,delayed 20 mg PO DAILY 02/21/21 04/24/21 release Previous Rx's Medication Instructions Recorded ondansetron HCl 4 mg tablet 4 mg PO Q8H PRN #14 tab 10/01/20 (Zofran) pxyxnucrmr-fwptacsgsdnvo-gzgszehf 1 cap PO TID PRN #10 cap 10/02/20 50 mg-300 mg-40 mg capsule (Fioricet) bisacodyl 10 mg rectal suppository 10 mg TX DAILY PRN #20 ea 02/21/21 (Dulcolax (bisacodyl)) bisacodyl 5 mg tablet,delayed 5 mg PO BEDTIME #20 tab 02/21/21 release (Dulcolax (bisacodyl)) hydrocortisone 2.5 % topical cream 1 appl TX BID PRN #30 g 02/21/21 with perineal applicator (Proctozone-HC) linaclotide 72 mcg capsule 72 mcg PO QAM #30 cap 06/27/21 (Linzess) cephalexin 500 mg capsule 500 mg PO TID #14 cap 08/25/21 ibuprofen 400 mg tablet 400 mg PO Q6H PRN #20 tab 08/25/21 Allergies Allergy/AdvReac Type Severity Reaction Status Date / Time Sulfa (Sulfonamide Allergy Mild RASH, hives Verified 09/24/20 20:48 Antibiotics) [SULFA(SULFONAMIDE ANTIBIOTICS)] Review of Systems Review of Systems: No fever no chills no systemic complaints no trauma Yes all other systems are reviewed and are negative PMFSH Past Medical History Attestation statement: The following information was validated with the patient. Medical History Acid reflux Anemia Asthma Chronic constipation HTN (hypertension) Migraines Sleep apnea Surgical History H/O bilateral salpingectomy H/O hernia repair Hx of carpal tunnel repair Family History Family History Mother Uterine cancer Father HTN (hypertension) Pacemaker Paternal Aunt History of open heart surgery Social History Social History Household Members: None Alcohol intake: current Alcohol intake frequency: a few times a month Advance Directives: No Advance Directives Information Provided: No Patient : No Current occupational status: unemployed Physical Exam Vital Signs: Vital Signs: Last Vital Signs Temp 98.4 F 08/25/21 21:27 Pulse 67 08/25/21 21:27 Resp 18 08/25/21 21:27 BP 144/87 H 08/25/21 21:27 Pulse Ox 98 08/25/21 21:27 Body Mass Index 35.2 Appearance: Alert. Oriented X3. No acute distress. Eyes: Pupils equal, round and reactive to light. ENT: Pharynx normal. Neck: Normal inspection. Neck supple. No lymph nodes noted. No crepitus CVS: Normal heart rate and rhythm. Pulses normal. Normal S1 and S2 Respiratory: No respiratory distress. Breath sounds normal. No Wheezing. No rales Abdomen: Soft and nontender. No rigidity. No distention. good BS x4 Skin: Skin warm and dry. Normal skin color. Normal skin turgor. Extremities: Positive ingrown toenail to the left great toe. Positive redness to the medial aspect of the great toe Neuro: Oriented X 3. No motor deficit. No sensory deficit. Moving all extermities. No slurred speech MDM - Extremity Injury (Lower) MDM Narrative Medical decision making narrative: Patient's toe was clean with alcohol. Subsequently digital block was applied using 1% lidocaine. There is good anesthesia achieved. The medial aspect of the great toes nail was dissected. Subsequently cut made to remove the nail. The matrix was clear of germinal cells using silver nitrate. Wound was clean. Petroleum gauze used to cover the wound. There was no complications. Dressing was applied. Discharge Plan Discharge Clinical Impression: Ingrown left greater toenail Patient Disposition: Home, Self-Care Instructions: Ingrown Nail (ED), Partial Nail Avulsion for Ingrown Nail (DC) Prescriptions: New ibuprofen 400 mg tablet 400 mg PO Q6H PRN (Reason: pain) Qty: 20 RF: 0 cephalexin 500 mg capsule 500 mg PO TID Qty: 14 RF: 0 No Action Linzess 72 mcg capsule 72 mcg PO QAM Qty: 30 RF: 11 ondansetron HCl [Zofran] 4 mg tablet 4 mg PO Q8H PRN (Reason: nausea and vomiting) Qty: 14 RF: 0 rypvmqfqor-yqnlrkjgepord-nnao [Fioricet] 50-300-40 mg capsule 1 cap PO TID PRN (Reason: pain) Qty: 10 RF: 0 budesonide-formoterol [Symbicort] 160-4.5 mcg/actuation HFA aerosol inhaler 2 puff inhalation BID RF: 0 omeprazole 20 mg capsule,delayed release(DR/EC) 20 mg PO DAILY RF: 0 bisacodyl [Dulcolax (bisacodyl)] 10 mg suppository 10 mg TX DAILY PRN (Reason: constipation) Qty: 20 RF: 0 hydrocortisone [Proctozone-HC] 2.5 % cream with perineal applicator 1 appl TX BID PRN (Reason: hemorrhoids) Qty: 30 RF: 3 bisacodyl [Dulcolax (bisacodyl)] 5 mg tablet,delayed release (DR/EC) 5 mg PO BEDTIME Qty: 20 RF: 0 Referrals: Melani Anderson MD [Primary Care Provider] - 2 days
--- NOTE | 2021-08-26 00:26 | PC.NURSE ---
PT RIGHT LARGE TOE NAIL PARTIALLY REMOVED BY DR. GARCIA. XEREFORM DSAndrea HUBBARD.
== END 2021-08-26 00:29 | disposition home or self-care (01) ==
PROVIDERS: Emergency Provider Emergency Medicine Emergency Medical Services; PCP Internal Medicine
DX: L60.0 Ingrowing nail (principal); I10 Essential (primary) hypertension; J45.909 Unspecified asthma, uncomplicated
CPT/HCPCS: 11750; 99283; 99284

== ENCOUNTER 2021-10-08 14:34 | Outpatient (REF) | payer MEDICAID, SELFPAY ==
--- NOTE | ~2021-10-08 | US_ITS ---
EXAMINATION: US PELVIS CLINICAL INFORMATION: Persistent lower abdominal pain. Date of LMP in 2013. COMPARISON: Selected images of the CT abdomen and pelvis of 09/30/2020 TECHNIQUE: Real-time scanning of the pelvis is acquired via transabdominal and transvaginal approach. Transvaginal imaging is performed due to inadequate visualization transabdominally. FINDINGS: Uterus: The uterus is anteflexed and measures 6.0 x 3.0 x 3.8 cm. Cervical length is 2.5 cm. The double wall endometrial thickness is 2 mm. The uterus is smooth in contour and has normal myometrial echogenicity. A shadowing 0.8 cm coarse calcification is noted in the posterior lower uterine body representing a small calcified fibroid. Adnexa: Both ovaries are visualized. There is no pelvic ascites or fluid collection. Right ovary measures 1.6 x 0.8 x 1.7 cm, with a volume of 1.1 mL. Left ovary measures 1.9 x 1.3 x 1.4 cm, with a volume of 1.9 mL. US/US pelvic complete IMPRESSION: A 0.8 cm coarse calcification in the posterior lower uterine body is a stable finding since the previous study of 09/30/2020, finding is of no clinical significance. Otherwise, unremarkable pelvic ultrasound examination.
== END 2021-10-08 14:35 | disposition home or self-care (01) ==
LOC: HO.HMGCX 14:34
PROVIDERS: PCP Internal Medicine; Visit Provider Nurse Practitioner Primary Care
DX: R10.2 Pelvic and perineal pain (principal)
CPT/HCPCS: 76856

== ENCOUNTER 2021-12-26 11:18 | Outpatient (REF) | payer MEDICAID, SELFPAY ==
--- NOTE | ~2021-12-26 | MM_ITS ---
EXAMINATION: MM SCREENING DIGITAL BREAST TOMOSYNTHESIS, BILATERAL CLINICAL INFORMATION: Screening. Asymptomatic. The lifetime risk of breast cancer based on the Tyrer-Cuzick Model is 5.2%. COMPARISON: Mammography: December 11, 2020 and studies dating back to April 14, 2014 TECHNIQUE: Digital breast tomosynthesis is performed in both the craniocaudal and mediolateral oblique views along with computer-aided detection (CAD). Synthesized 2D images are generated from the tomosynthesis. FINDINGS: There are scattered areas of fibroglandular density (ACR BI-RADS breast composition Category b). There are no significant masses, abnormal calcifications, or other abnormalities. MM/MM tomosynthesis screening BI IMPRESSION: There are no significant changes from prior study. ASSESSMENT: BI-RADS 1: Negative RECOMMENDATION: Routine annual mammography screening. This patient's information was entered into a reminder system with a target due date for their next mammogram.
== END 2021-12-26 11:19 | disposition home or self-care (01) ==
LOC: HO.MAMMO 11:18
PROVIDERS: PCP Internal Medicine; Visit Provider Internal Medicine
DX: Z12.31 Encounter for screening mammogram for malignant neoplasm of breast (principal)
CPT/HCPCS: 77063; 77067

== ENCOUNTER 2022-01-24 12:48 | Outpatient (REF) | payer MEDICAID, SELFPAY ==
--- NOTE | ~2022-01-24 | XR_ITS ---
EXAMINATION: XR HAND, LEFT CLINICAL INFORMATION: Pain, worst in the first digit. COMPARISON: X-ray 03/01/2016 TECHNIQUE: PA, lateral, and oblique views of the left hand. FINDINGS: No acute fracture or dislocation. No fracture. Alignment is anatomic. Joint spaces are maintained. No erosions or soft tissue calcifications. XR/XR hand LT min 3V IMPRESSION: No significant osseous abnormality
== END 2022-01-24 12:49 | disposition home or self-care (01) ==
LOC: HO.XRAY 12:48
PROVIDERS: Absent Provider Internal Medicine; PCP Internal Medicine; Visit Provider Nurse Practitioner Primary Care
DX: M79.645 Pain in left finger(s) (principal)
CPT/HCPCS: 73130

== ENCOUNTER 2023-02-05 09:44 | Emergency (ER) | payer OTHER, MEDICAID, SELFPAY ==
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
[2023-02-05 10:18] VITALS: BP 114/67; RESP 18; TEMP 36.6; O2SAT 98; BMI 33.0
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
[2023-02-05] MEDS: Cyclobenzaprine HCl 5 MG TABLET PO (11:10)
[2023-02-05] MEDS: Ketorolac Tromethamine 30 MG/ML VIAL IM (11:11)
== END 2023-02-05 13:41 | disposition home or self-care (01) ==
PROVIDERS: Emergency Provider Student in an Organized Health Care Education/Training Program; PCP Internal Medicine
DX: S39.012A Strain of muscle, fascia and tendon of lower back, initial encounter (principal); V43.52XA Car driver injured in collision with other type car in traffic accident, initial encounter; M79.10 Myalgia, unspecified site; Y93.89 Activity, other specified; Y92.414 Local residential or business street as the place of occurrence of the external cause; Y99.9 Unspecified external cause status
CPT/HCPCS: 72100; 73030; 73090; 96372; 99283; 99284; J1885

== ENCOUNTER 2023-10-11 15:20 | Emergency (ER) | payer OTHER, MEDICAID, SELFPAY ==
--- NOTE | 2023-10-11 16:48 | ED.LOWEXIN ---
HPI - Extremity Injury (Lower) General Chief Complaint: Extremity Injury, Lower Stated Complaint: left knee pain swollen no inj Time Seen by Provider: 10/11/23 18:43 Source: patient and family Mode of arrival: wheelchair Limitations: no limitations History of Present Illness HPI Narrative: 53-year-old female with a past medical history of GERD, anemia, asthma, HTN, migraines, sleep apnea here with complaints of left knee pain intermittent x months with no known injury or trauma. Has not seen her PCP for this problem. Unrelieved with home tramadol. Pain worsening over the last few weeks. No associated redness, swelling, fevers, chills, numbness, tingling or weakness. Related Data Home Medications Medication Instructions Recorded Confirmed budesonide-formoterol HFA 160 2 puff inhalation BID 02/21/21 04/24/21 mcg-4.5 mcg/actuation aerosol inhaler (Symbicort) omeprazole 20 mg capsule,delayed 20 mg PO DAILY 02/21/21 04/24/21 release Previous Rx's Medication Instructions Recorded ondansetron HCl 4 mg tablet 4 mg PO Q8H PRN nausea and 10/01/20 (Zofran) vomiting #14 tabs jiasfskixx-cujwfptyetqri-nxpemrou 1 cap PO TID PRN pain #10 caps 10/02/20 50 mg-300 mg-40 mg capsule (Fioricet) bisacodyl 10 mg rectal suppository 10 mg AL DAILY PRN constipation 02/21/21 (Dulcolax (bisacodyl)) #20 ea bisacodyl 5 mg tablet,delayed 5 mg PO BEDTIME #20 tabs 02/21/21 release (Dulcolax (bisacodyl)) hydrocortisone 2.5 % topical cream 1 appl AL BID PRN hemorrhoids #30 02/21/21 with perineal applicator grams (Proctozone-HC) linaclotide 72 mcg capsule 72 mcg PO QAM #30 caps 06/27/21 (Linzess) cephalexin 500 mg capsule 500 mg PO TID #14 caps 08/25/21 ibuprofen 400 mg tablet 400 mg PO Q6H PRN pain #20 tabs 08/25/21 acetaminophen 500 mg tablet 500 mg PO Q6H PRN fever or pain 02/05/23 (Tylenol Extra Strength) #14 tabs cyclobenzaprine 5 mg tablet 5 mg PO Q8H PRN pain (scale score 02/05/23 7-10) 5 days #14 tabs lidocaine 5 % topical patch 1 patch topical DAILY PRN pain #30 02/05/23 (Lidoderm) ea naproxen 500 mg tablet 500 mg PO BID PRN pain 10 days #20 02/05/23 tabs ibuprofen 600 mg tablet 600 mg PO Q8H PRN fever or pain 10/11/23 #30 tabs tramadol 50 mg tablet 50 mg PO Q8H PRN pain #6 tabs 10/11/23 Allergies Allergy/AdvReac Type Severity Reaction Status Date / Time Sulfa (Sulfonamide Allergy Mild RASH, hives Verified 10/11/23 16:49 Antibiotics) [SULFA(SULFONAMIDE ANTIBIOTICS)] Review of Systems Review of Systems: Yes all other systems are reviewed and are negative Constitutional: Constitutional: Reports no additional constitutional complaints, Denies body ache(s), Denies chills, Denies fever(s), Denies headache(s) and Denies weakness Eyes: Eyes: Reports no additional eye complaints and Denies change in vision ENT: Reports system reviewed and no additional complaints, except as documented, Denies dizziness, Denies headache(s), Denies nasal congestion, Denies nasal discharge and Denies neck pain Cardiovascular: Cardiovascular: Reports no additional cardiovascular complaints, Denies chest pain, Denies leg edema and Denies dyspnea Respiratory: Respiratory: Reports no additional respiratory complaints, Denies cough and Denies dyspnea Gastrointestinal: Gastrointestinal: Reports no additional gastrointestinal complaints, Denies abdominal pain, Denies diarrhea, Denies nausea and Denies vomiting Genitourinary: Genitourinary: Reports no additional female genitourinary complaints and Denies urinary incontinence Musculoskeletal: Musculoskeletal: Reports no additional musculoskeletal complaints, Denies back pain, Reports arthralgias, Denies joint swelling, Denies limited range of motion, Denies neck pain, Denies numbness and Denies tingling Integumentary/Breasts: Skin/Breast: Reports system reviewed and no additional complaints, except as docu and Denies rash Neurologic: Reports system reviewed and no additional complaints, except as documented, Denies Abnormal speech present, Denies dizziness, Denies headache(s), Denies numbness, Denies tingling and Denies weakness PMFSH Past Medical History Attestation statement: The following information was validated with the patient. Source: old records reviewed and nursing notes reviewed Onset Date is defined in the Problem List Problems that require an onset date and time if occurred within 24 hrs of arrival to the ED Aortic Dissection and Rupture; Neurologic impairment; Cardiopulmonary Arrest; Endotracheal Intubation; Insertion or Replacement of Mechanical Circulatory Assist Device Medical History Chronic constipation Migraines Acid reflux HTN (hypertension) Sleep apnea Anemia Asthma Surgical History H/O hernia repair Hx of carpal tunnel repair H/O bilateral salpingectomy Family History Family History Mother Uterine cancer Father HTN (hypertension) Pacemaker Paternal Aunt History of open heart surgery Social History Social History Household Members: None Alcohol intake: current Alcohol intake frequency: a few times a month Advance Directives: No Advance Directives Information Provided: No Current occupational status: unemployed Physical Exam Vital Signs: Vital Signs: Last Vital Signs Temp 97.3 F 10/11/23 16:49 Pulse 58 10/11/23 16:49 Resp 18 10/11/23 16:49 BP 133/85 10/11/23 16:49 Pulse Ox 99 10/11/23 16:49 O2 Del Method Room Air 10/11/23 16:49 BMI result Body Mass Index 34.2 Const: General: cooperative, healthy appearing, comfortable and no acute distress Orientation/consciousness: patient oriented x3 Limitations: no limitations HEENT: Head: Yes normal to inspection Ears: hearing grossly normal bilaterally General nose exam: Normal external nose present Face and sinus: Yes normal facial exam Mouth: Normal oral and palatal mucosa present Throat: Yes posterior oropharynx normal Eyes: General: appearance normal, both eyes and all related structures Pupils: Equal, round and reactive pupils present Neck: Neck: Yes normal visual inspection Chest: Chest palpation & inspection: normal inspection of the chest Resp: Effort & Inspection: normal respiratory effort Auscultation: clear to auscultation bilaterally Cardio: Rate: regular rate Rhythm: regular rhythm Peripheral pulses: Peripheral pulses 2+ throughout GI: Inspection: Yes normal to inspection Palpation (GI): Soft to palpation and nontender Auscultation: normal bowel sounds Back/Spine/Pelvis: Thoracic/Lumbar Spine: thoracic and lumbar spine normal to inspection Skin: General skin exam: no rashes or lesions noted Neuro: General: patient oriented x3, no focal motor deficits and normal sensation to monofilament Cranial nerves: Yes Equal, round and reactive pupils present Cognition (Neuro): normal cognition Speech: No Abnormal speech present Gait exam (Neuro): Normal gait present Motor exam (neuro): 5/5 motor strength present throughout Extrem: Other: TTP to left anterior knee/medial joint line with full active and passive ROM. 2+ DP/PT pulses. Normal distal sensation, No calf pain or swelling. No erythema or warmth or swelling. General: Yes normal to inspection Course Course Course Narrative: This is a rapid medical exam. Deferred additional HPI, ROS, PE to primary provider. 53 yo female with history of anemia, migraines, KELBY here with complaints of left knee pain intermittent x months with no known injury or trauma. Has not seen her PCP for this problem. Unrelieved with home tramadol. Will obtain x-rays VSS Reevaluation(s) Reevaluation #1: x-ray shows denies. Patient will be discharged home with NSAID and small prescription for tramadol. Recommend follow-up with orthopedics outpatient. Reviewed worrisome signs symptoms of when to return to the emergency room. Comfortable plan for discharge home. Medical Decision Making Medical Decision Making MDM Narrative: 53-year-old female with a past medical history of GERD, anemia, asthma, HTN, migraines, sleep apnea here with complaints of left knee pain intermittent x months with no known injury or trauma. Has not seen her PCP for this problem. Unrelieved with home tramadol. Pain worsening over the last few weeks. No associated redness, swelling, fevers, chills, numbness, tingling or weakness. TTP to left anterior knee/medial joint line with full active and passive ROM. 2+ DP/PT pulses. Normal distal sensation, No calf pain or swelling. No erythema or warmth or swelling. Will obtain x-rays Differential Diagnosis Differential Diagnoses: The differential diagnosis associated with the presentation includes tendonitis, sprain, strain, OA No calf pain or calf swelling or risk factors for DVT low concern for fracture, dislocation or vascular injury with no reports of trauma Admission/Observation Consideration of admission/observation: Escalation of care including admission/observation considered No calf pain or calf swelling or risk factors for DVT low concern for fracture, dislocation or vascular injury with no reports of trauma I do not feel the patient needs advanced imaging, urgent orthopedic consultation Independent Interpretation I performed an independent interpretation of an: Plain X-Ray Interpretation: I independently reviewed the x-ray and agree with Radiology report Radiology Impression Discussion of test interpretation with radiology: I have reviewed the radiologist's reading. Radiologist Impression: ECHNIQUE: Four views of the left knee. FINDINGS: No fracture or joint effusion. Alignment is anatomic. Joint spaces are maintained. No abnormal soft tissue calcification. There is mild enthesopathy at the patella XR/XR knee LT 3V IMPRESSION: Patellar enthesopathy. No fracture or joint effusion Independent Historian Clinical information obtained from an independent historian. History obtained from or confirmed by: Spouse Tests considered The following testing was considered but not selected: see discussion above Prescription Management I considered prescription management with: Pain Medication Discharge Plan Discharge Clinical Impression: Patellar tendinitis Patient Disposition: Home, Self-Care Instructions: Patellar Tendinitis (ED) Additional Instructions: heat or ice Gentle stretching Follow-up with [facility] as discussed Prescriptions: New tramadol 50 mg tablet 50 mg PO Q8H PRN (Reason: pain) Qty: 6 0RF ibuprofen 600 mg tablet 600 mg PO Q8H PRN (Reason: fever or pain) Qty: 30 0RF No Action Linzess 72 mcg capsule 72 mcg PO QAM Qty: 30 11RF ondansetron HCl [Zofran] 4 mg tablet 4 mg PO Q8H PRN (Reason: nausea and vomiting) Qty: 14 0RF jqmqnfbadt-xrwhmwsaazmrx-xynh [Fioricet] 50-300-40 mg capsule 1 cap PO TID PRN (Reason: pain) Qty: 10 0RF ibuprofen 400 mg tablet 400 mg PO Q6H PRN (Reason: pain) Qty: 20 0RF cephalexin 500 mg capsule 500 mg PO TID Qty: 14 0RF acetaminophen [Tylenol Extra Strength] 500 mg tablet 500 mg PO Q6H PRN (Reason: fever or pain) Qty: 14 0RF lidocaine [Lidoderm] 5 % adhesive patch,medicated 1 patch topical DAILY MDD remove after 12 hours PRN (Reason: pain) Qty: 30 0RF Rx Instructions: leave on most painful area for up to 12 hrs naproxen 500 mg tablet 500 mg PO BID PRN (Reason: pain) 10 Days Qty: 20 0RF cyclobenzaprine 5 mg tablet 5 mg PO Q8H PRN (Reason: pain (scale score 7-10)) 5 Days Qty: 14 0RF budesonide-formoterol [Symbicort] 160-4.5 mcg/actuation HFA aerosol inhaler 2 puff inhalation BID omeprazole 20 mg capsule,delayed release(DR/EC) 20 mg PO DAILY bisacodyl [Dulcolax (bisacodyl)] 10 mg suppository 10 mg AL DAILY PRN (Reason: constipation) Qty: 20 0RF hydrocortisone [Proctozone-HC] 2.5 % cream with perineal applicator 1 appl AL BID PRN (Reason: hemorrhoids) Qty: 30 3RF Rx Instructions: apply AL BID prn bisacodyl [Dulcolax (bisacodyl)] 5 mg tablet,delayed release (DR/EC) 5 mg PO BEDTIME Qty: 20 0RF Referrals: Melani Anderson MD [Primary Care Provider] - 1 week Interventions: ED Discharge Assessment Last Done: 10/11/23 19:31 Discharge Date/Time: 10/11/23 19:32
[2023-10-11 16:49] VITALS: BP 133/85; PULSE 58; RESP 18; TEMP 36.3; O2SAT 99; BMI 34.2
== END 2023-10-11 19:32 | disposition home or self-care (01) ==
PROVIDERS: Emergency Provider Emergency Medicine; PCP Internal Medicine
DX: M76.52 Patellar tendinitis, left knee (principal)
CPT/HCPCS: 73562; 99282; 99283

== ENCOUNTER 2023-11-03 13:26 | Outpatient (REF) | payer OTHER, MEDICAID, SELFPAY ==
[2023-11-04 16:48] LABS: C. trachomatis RNA TMA NOT DETECTED (NOT DETECTED); Candida glabrata RNA NOT DETECTED (NOT DETECTED); Candida species RNA NOT DETECTED (NOT DETECTED); N. gonorrhoeae RNA TMA NOT DETECTED (NOT DETECTED); Trichomonas vaginalis RNA NOT DETECTED (NOT DETECTED)
== END 2023-11-03 13:27 | disposition home or self-care (01) ==
LOC: HO.HHCLNP 13:26
PROVIDERS: Visit Provider Nurse Practitioner Family
DX: R30.0 Dysuria (principal); N89.8 Other specified noninflammatory disorders of vagina
CPT/HCPCS: 81513; 87086; 87481; 87491; 87591; 87661

== ENCOUNTER 2024-01-26 15:35 | Outpatient (REF) | payer OTHER, MEDICAID, SELFPAY ==
--- NOTE | ~2024-01-26 | XR_ITS ---
EXAMINATION: XR LUMBOSACRAL SPINE CLINICAL INFORMATION: Chronic low back pain with bilateral sciatica. COMPARISON: 02/05/2023 TECHNIQUE: 4 views of the lumbar spine. FINDINGS: Slight rightward curvature of the lumbar spine. Facet arthritis in the lower lumbar spine. Bilateral sacroiliac joints appear symmetric. Mild multilevel lumbar spondylosis with loss of disc space height at L5-S1. Mild grade 1 anterolisthesis of L5 on S1. XR/XR lumbar spine 2-3V IMPRESSION: Mild multilevel lumbar spondylosis with loss of disc space height at L5-S1.
== END 2024-01-26 15:36 | disposition home or self-care (01) ==
LOC: HO.HHCX 15:35
PROVIDERS: Visit Provider Internal Medicine
DX: M54.41 Lumbago with sciatica, right side (principal); M54.42 Lumbago with sciatica, left side; G89.29 Other chronic pain
CPT/HCPCS: 72100

== ENCOUNTER 2024-02-10 21:40 | Emergency (ER) | payer MEDICAID, SELFPAY ==
--- NOTE | 2024-02-10 | ECG_ITS ---
Test Reason : HEARTBURN Blood Pressure : / mmHG Vent. Rate : 071 BPM Atrial Rate : 071 BPM P-R Int : 170 ms QRS Dur : 086 ms QT Int : 420 ms P-R-T Axes : 034 004 016 degrees QTc Int : 456 ms Normal sinus rhythm with sinus arrhythmia Normal ECG When compared with ECG of 02-OCT-2020 19:30, No significant change was found Referred By: Generic ED Physician Electronically Signed By:Cristopher Larsen
[2024-02-10 21:46] VITALS: BP 121/90; PULSE 85; RESP 20; TEMP 37.1; O2SAT 98
[2024-02-10 23:04] LABS: MANUAL DIFF FLAG NO
--- OUTSIDE RECORDS SUMMARY | 2024-02-10 23:04 | XMS_ITS | Continuity of Care Document ---
Author Organization [facility] Address [address] [place] [id number]- Care Team Providers Care Echocardiography Radiology Technologist Name Role Phone Endy Xiong MD, Melani Dueñas Primary Care Physici an Encounter [facility] [place] Date(s): 07/04/23 - 08/03/23 [facility] [address] [place] [id number]- Encounter Diagnosis Asthma(Discharge Diagnosis) - 07/04/23 Allergies, Adverse Reactions, Alerts Substance Reaction Severity Status sulfa drugs hives Active Immunizations Given and Recorded Vaccine Date Status Refusal Reason pneumococcal 23-valent vaccine 03/23/17 Given Medications acetaminophen/butalbital/caffeine 325 mg-50 mg-40 mg oral tablet TAKE 1 TO 2 TABLETS BY MOUTH EVERY 6 HOURS NEEDED .MAX 6/DAY Start Date: 11/09/20 Status: Ordered Aerochamber See Instructions, # 1 each, Maintenance, use with all inhalers, 10/11/19 14:59:00 EST, Compound, 152.4, cm, 10/11/19 14:54:00 EST, Height Start Date: 10/11/19 Status: Ordered Aerochamber See Instructions, # 1 each, Maintenance, For use with MDI, 12/20/22 10:15:00 EDT, Supply, 152.4, cm, 12/20/22 9:37:00 EDT, Height Start Date: 12/20/22 Status: Ordered Albuterol (Eqv-ProAir HFA) 90 mcg/inh inhalation aerosol 2 puffs, Inhalation, Every 6 hours, PRN Wheezing/Shortness of Breath, j44.9, # 3 each, 1 Refills, Maintenance, 04/03/23 16:15:00 EDT, [id number], Partial fill upon patient request if the prescription is for a schedule II opioid drug., 2 puffs... Start Date: 04/03/23 Status: Ordered albuterol 0.083% inhalation solution 3 mL = 2.5 mg, Neb, Every 6 hours, USE 1 VIAL VIA NEBULIZER EVERY 4 HOURS NEEDED, # 60 each, 6 Refills, Maintenance, 12/12/21 14:58:00 EST, Inhalation Solution, [facility]pharmacy #[id number], 152.4, cm, 12/12/21 14:44:00 EST, Height Start Date: 12/12/21 Status: Ordered amitriptyline 25 mg oral tablet TAKE 1 TABLET BY MOUTH EVERYDAY AT BEDTIME Start Date: 11/09/20 Status: Ordered Asmanex HFA 100 mcg/inh inhalation aerosol 2 puffs, Inhalation, 2 times a day, rinse mouth and throat after use j 45.991,, # 1 each, 5 Refills, Maintenance, 01/07/22 11:44:00 EDT, Aerosol, [facility]/pharmacy #[id number], 152.4, cm, 12/12/21 14:44:00 EST,Height Start Date: 01/07/22 Status: Ordered BiPAP Machine See Instructions, # 1 each, Maintenance, AutoBiPAP with Max IPAP of 15 with Min EPAP 7 with PS 6, 02/06/23 16:38:00 EDT, Compound Start Date: 02/06/23 Status: Ordered famotidine 20 mg oral tablet 20 mg, 1, tablet, By Mouth, 2 times a day, Refills 0, Maintenance, 01/29/17 9:39:29 Start Date: 01/29/17 Status: Ordered Ferrous Sulfate Ferrous Sulfate, 324 mg, By Mouth, Daily, Refills 0, Maintenance, 12/24/17 14:42:31 EDT, Compound Start Date: 12/24/17 Status: Ordered Flonase 50 mcg/inh nasal spray 2 sprays, Nares, Both, Daily, # 1 each, 0 Refills, Maintenance, 01/13/17 15:51:20, [place] Start Date: 01/13/17 Stop Date: 01/20/17 Status: Ordered ibuprofen 800 mg oral tablet prn Start Date: 01/29/17 Status: Ordered metoprolol 25 mg oral tablet 25 mg, 1, tablet, By Mouth, Daily, Refills 0, Maintenance, 07/14/17 13:34:10 Start Date: 07/14/17 Status: Ordered montelukast 10 mg oral tablet 10 mg, By Mouth, Daily, J45.991, # 90 tablet, Refills 1, Tot. Refills 1, Maintenance, 04/03/23 16:49:00 EDT, Route to Pharmacy Electronically, [facility]/pharmacy #[id number], 152.4, cm, 02/06/23 15:52:00 EDT, Height Start Date: 04/03/23 Status: Ordered Nebulizer/Compressor See Instructions, # 1 each, Refills 11, Tot. Refills 11, Maintenance, E0570 Nebulizer A7003 Neb Disp Set A7014 Neb non-Disp Filter A7005 Neb Non-Disp set A7015 Aerosol Mask A7013 Neb Disp Filter length of need lifetime 99 months for home use dx... Start Date: 12/12/21 Status: Ordered omeprazole 20 mg oral enteric coated capsule 1 capsule = 20 mg, By Mouth, Daily, # 30 capsule, 0 Refills, Maintenance, 01/29/17 9:12:07 EDT, EC Capsule Start Date: 01/29/17 Status: Ordered ondansetron 4 mg oral tablet 1 tablet = 4 mg, By Mouth, Every 8 hours, PRN as needed for nausea/vomiting, # 90 tablet, 1 Refills, Maintenance, 04/28/17 9:15:39, Tablet Start Date: 04/28/17 Status: Ordered Pepcid AC Maximum Strength 20 mg oral tablet 20 mg, 1, tablet, By Mouth, 2 times a day, # 20 tablet, Refills 0, Tot. Refills 0, Maintenance, 01/13/17 16:03:40, Print Requisition Start Date: 01/13/17 Status: Ordered polyethylene glycol 3350 oral powder for reconstitution TAKE (17G) BY ORAL ROUTE EVERY DAY MIXED WITH 8 OZ. WATER, JUICE, SODA, COFFEE OR TEA Start Date: 01/29/17 Status: Ordered ProAir HFA 90 mcg/inh inhalation aerosol with adapter 2, puffs, Inhalation, 4 times a day, PRN, j 44.9, # 1 each, Refills 11, Tot. Refills 11, Maintenance, 12/12/21 14:55:00 EST, Inhaler, Route to Pharmacy Electronically, [id number], [facility]/pharmacy #[id number], 152.4, cm, 12/12/21 14:44... Start Date: 12/12/21 Status: Ordered Spiriva Respimat 1.25 mcg/inh inhalation aerosol 2 puffs, Inhalation, Daily, j44.9, # 3 each, 1 Refills, Maintenance, 07/04/23 16:22:00 EDT, Aerosol, [facility]/pharmacy #[id number], Partial fill upon patient request if the prescription is for a schedule II opioid drug., 152.4, cm, 02/06/23 15:52:00 EDT, Height Start Date: 07/04/23 Status: Ordered Stool Softner Stool Softner, By Mouth, Daily, Refills 0, Maintenance, 10/11/19 14:57:00 EST, Compound Start Date: 10/11/19 Status: Ordered Symbicort 160mcg/4.5mcg Inhaler 2, puffs, Inhalation, 2 times a day, rinse mouth and throat after use, j44.9, # 3 each, Refills 1, Tot. Refills 1, Maintenance, 04/03/23 16:16:00 EDT, Aerosol, Route to Pharmacy Electronically, NCPDP_[id number], [facility]/pharmacy #[id number], 152.4, cm, 02/06/23... Start Date: 04/03/23 Status: Ordered Problem List Condition Confirmation Course Effective Dates Status Health [facility] Informant Asthma Confirmed Active Central sleep apnea Confirmed Active GERD (gastroesophageal reflux disease) Confirmed Active Migraine Confirmed Active Obese class I Confirmed Active Obstructive sleep apnea Confirmed Active Vocal cord dysfunction Confirmed Active Diagnosis Diagnosis Type Effective Dates Health Status [facility] Informant Asthma Discharge Diagnosis 07/04/23 Non-Specified Social History Social History Type Response Smoking Status Former smoker; Other : Occasional smoker; entered on: 03/09/18 Sex Patient Care team information Care Team Personnel Name: Melani Anderson MD Position: [facility] Outreach Member Role: PCP Address: Address: [address] [place] [address] [address] [place], [place] [id number] Name: Elizabeth Burroughs RN Position: [facility] RN Member Role: Primary Care Nurse Name: Deneen Gerber RN Position: [facility] RN Member Role: Primary Care Nurse Care Team Related Persons Name: LILLY SHORT Address: [address] [place] [address] Name: BRITNI SEARS Address: home [address] [place] [id number]
--- OUTSIDE RECORDS SUMMARY | 2024-02-10 23:04 | XMS_ITS | Continuity of Care Document ---
Author Organization [facility] Address [address] [place] [address]- Care Team Providers Care Sheet Metal Worker Supervisor Name Role Phone Endy Xiong MD, Melani Dueñas Primary Care Physici an [place] [facility] [place] [id number] Date(s): 12/20/22 - 01/19/23 [facility] [address] [place] [address] Attending Physician: Aissatou Mike Admitting Physician: Aissatou Mike Referring Physician: AdmAissatou manzo Allergies, Adverse Reactions, Alerts Substance Reaction Severity [...] Every 6 hours, PRN Wheezing/Shortness of Breath, # 1 each, 6 Refills, Maintenance, 12/20/22 10:16:00 EDT[id number] Partial fill upon patient request if the prescription is for a schedule II opioid drug., 2 puffs Inhalat... Start Date: 12/20/22 Status: Ordered albuterol 0.083% inhalation solution 3 mL = 2.5 mg, Neb, Every 6 hours, USE 1 VIAL VIA NEBULIZER EVERY 4 HOURS NEEDED, # 60 each, 6 Refills, Maintenance, 12/12/21 14:58:00 EST, Inhalation Solution, [facility]/pharmacy #[id number], 152.4, cm, 12/12/21 14:44:00 EST, Height Start Date: 12/12/21 Status: Ordered amitriptyline 25 mg oral tablet TAKE 1 TABLET BY MOUTH EVERYDAY AT BEDTIME Start Date: 11/09/20 Status: Ordered Asmanex HFA 100 mcg/inh inhalation aerosol 2 puffs, Inhalation, 2 times a day, rinse mouth and throat after use j 45.991,, # 1 each, 5 Refills, Maintenance, 01/07/22 11:44:00 EDT, Aerosol, [facility]/pharmacy #[id number], 152.4, cm, 12/12/21 14:44:00 EST,Height Start Date: 01/07/22 Status: Ordered BiPAP Machine See Instructions, # 1 each, Maintenance, AutoBiPAP with Max IPAP of 15 with Min EPAP 7 with PS 6, 09/26/22 17:35:00 EST, Compound Start Date: 09/26/22 Status: Ordered famotidine 20 mg oral tablet [...] 1 each, 0 Refills, Maintenance, 01/13/17 15:51:20, [place] Start Date: 01/13/17 Stop Date: 01/20/17 Status: Ordered ibuprofen 800 mg oral tablet prn Start Date: 01/29/17 Status: Ordered metoprolol 25 mg oral tablet 25 mg, 1, tablet, By Mouth, Daily, Refills 0, Maintenance, 07/14/17 13:34:10 Start Date: 07/14/17 Status: Ordered montelukast 10 mg oral tablet 10 mg, By Mouth, Daily, J45.991, # 30 tablet, Refills 11, Tot. Refills 11, Maintenance, 12/12/21 14:54:00 EST, Route to Pharmacy Electronically, [facility]/pharmacy #[id number], 152.4, cm, 12/12/21 14:44:00 EST, Height Start Date: 12/12/21 Status: Ordered Nebulizer/Compressor See Instructions, # 1 [...] 14:55:00 EST, Inhaler, Route to Pharmacy Electronically, [id number], [facility]/pharmacy #[id number], 152.4, cm, 12/12/21 14:44... Start Date: 12/12/21 Status: Ordered Spiriva Respimat 1.25 mcg/inh inhalation aerosol 2 puffs, Inhalation, Daily, # 1 each, 11 Refills, Maintenance, 12/20/22 10:15:00 EDT, Aerosol, [facility]/pharmacy #[id number], Partial fill upon patient request if the prescription is for a schedule II opioid drug., 152.4, cm, 12/20/22 9:37:00 EDT, Height Start Date: 12/20/22 Status: Ordered Stool Softner Stool Softner, By Mouth, Daily, Refills 0, Maintenance, 10/11/19 14:57:00 EST, Compound Start Date: 10/11/19 Status: Ordered Symbicort 160mcg/4.5mcg Inhaler 2, puffs, Inhalation, 2 times a day, rinse mouth and throat after use, j44.9, # 1 each, Refills 4, Tot. Refills 4, Maintenance, 12/18/22 14:02:00 EDT, Aerosol, Route to Pharmacy Electronically, [id number], [facility]/pharmacy #[id number],... Start Date: 12/18/22 Status: Ordered Problem List Condition Confirmation Course Effective Dates Status Health St atus Informant Asthma Confirmed Active Central sleep apnea Confirmed Active GERD (gastroesophageal reflux disease) Confirmed Active Migraine Confirmed Active Obese class I Confirmed Active Obstructive sleep apnea Confirmed Active Vocal cord dysfunction Confirmed Active Social History Social History Type Response Smoking Status Former smoker; Other : Occasional smoker; entered on: 03/09/18 Sex Patient Care team information Care Team Personnel Name: Melani Anderson MD Position: [facility] Outreach Member Role: PCP Address: Address: [address] [place] [address] [address] [place] [address]- Name: Deneen Gerber RN Position: [facility] RN Member Role: Primary Care Nurse Care Team Related Persons Name: LILLY SHORT Address: home [address] [place] [address] Name: BRITNI SEARS Address: home [address] [place] [address]
--- OUTSIDE RECORDS SUMMARY | 2024-02-10 23:04 | XMS_ITS | Continuity of Care Document ---
Author Organization [facility] Address [address] [place] [address]- Care Team Providers Care Department Store Door Greeter Name Role Phone Endy Xiong MD, Melani Dueñas Primary Care Physici an Encounter [facility] [place] Date(s): 10/27/20 - 11/26/20 [facility] [address] [place] [address]- Allergies, Adverse Reactions, Alerts Substance Reaction Severity [...] EST, Height Start Date: 10/11/19 Status: Ordered albuterol 0.083% inhalation solution USE 1 VIAL VIA NEBULIZER EVERY 4 HOURS NEEDED Start Date: 01/29/17 Status: Ordered amitriptyline 25 mg oral tablet TAKE 1 TABLET BY MOUTH EVERYDAY AT BEDTIME Start Date: 11/09/20 Status: Ordered Asmanex HFA 100 mcg/inh inhalation aerosol 2 puffs, Inhalation, 2 times a day, rinse mouth and throat after use j 45.991,, # 1 each, 3 Refills, Maintenance, 08/19/19 15:53:00 EST, Aerosol Start Date: 08/19/19 Status: Ordered Asmanex HFA 200 mcg/inh inhalation aerosol 2 puffs, Inhalation, 2 times a day, rinse mouth and throat after use, # 1 each, 5 Refills, Maintenance, 09/06/20 8:12:00 EST, Aerosol, [facility]/pharmacy #[id number], 152.4, cm, 10/11/19 14:54:00 EST, Height Start Date: 09/06/20 Status: Ordered BiPAP Machine See Instructions, # 1 each, Maintenance, AutoBiPAP with Max IPAP of 18 with Min EPAP 9 with PS 6, 08/03/18 16:14:47 EDT, Compound Start Date: 08/03/18 Status: Ordered famotidine 20 mg oral tablet [...] 1 each, 0 Refills, Maintenance, 01/13/17 15:51:20, [facility] Start Date: 01/13/17 Stop Date: 01/20/17 Status: Ordered ibuprofen 800 mg oral tablet prn Start Date: 01/29/17 Status: Ordered metoprolol 25 mg oral tablet 25 mg, 1, tablet, By Mouth, Daily, Refills 0, Maintenance, 07/14/17 13:34:10 Start Date: 07/14/17 Status: Ordered montelukast 10 mg oral tablet 10 mg, By Mouth, Daily, J45.991, # 30 tablet, Refills 6, Tot. Refills 6, Maintenance, 10/27/20 12:37:00 EST, Route to Pharmacy Electronically, [facility]/pharmacy #[id number], 152.4, cm, 10/11/19 14:54:00 EST, Height Start Date: 10/27/20 Status: Ordered omeprazole 20 mg oral enteric [...] each, Refills 11, Tot. Refills 11, Maintenance, 06/08/19 12:38:00 EDT, Inhaler, Route to Pharmacy Electronically, [id number], [facility]/pharmacy #[id number] Start Date: 06/08/19 Status: Ordered Spiriva HandiHaler 18 mcg inhalation capsule 1 capsule = 18 mcg, Inhalation, Daily, # 30 capsule, 11 Refills, Maintenance, 04/11/20 15:26:00 EDT, [facility]/pharmacy #[id number], ICD Code J45.41, 152.4, cm, 10/11/19 14:54:00 EST, Height Start Date: 04/11/20 Status: Ordered Stool Softner Stool Softner, By Mouth, Daily, Refills 0, Maintenance, 10/11/19 14:57:00 EST, Compound Start Date: 10/11/19 Status: Ordered Symbicort 160mcg/4.5mcg Inhaler 2, puffs, Inhalation, 2 times a day, j45.991 rinse mouth and throat after use NO SUBSTITUTIONS, # 1each, Refills 6, Tot. Refills 6, Maintenance, 11/15/20 14:14:00 EST, Aerosol, Route to Pharmacy Electronically, [id number]... Start Date: 11/15/20 Status: Ordered Triamcinolone Acetonide prn apply by topical route 2 times every day a thin layer to the affected area(s), 0 Refills, Maintenance, 01/29/17 9:36:52 Start Date: 01/29/17 Status: Ordered Problem List Condition Effective Dates Status Health Status Inform ant Asthma(Confirmed) Active Central sleep apnea(Confirmed) Active GERD (gastroesophageal reflu x disease)(Confirmed) Active Migraine(Confirmed) Active Obstructive sleep apnea(Confirmed) Active Vocal cord dysfunction(Confirmed) Active Social History Social History Type Response Smoking Status Former smoker; Other : Occasional smoker; entered on: 03/09/18 Sex
--- OUTSIDE RECORDS SUMMARY | 2024-02-10 23:04 | XMS_ITS | Continuity of Care Document ---
Author Organization [facility] Address [address] [place] [address]- Care Team Providers Care Refrigeration System Installer Name Role Phone Endy Xiong MD, Melani Dueñas Primary Care Physici an En[place] [facility] [place] Date(s): 09/10/19 - 11/18/19 [facility] [address] [place] [address]- [facility] Attending Physician: Thiago Kate MD Admitting Physician: Thiago Kate MD Allergies, Adverse Reactions, Alerts Substance Reaction Severity Status sulfa drugs hives Active Immunizations Given and Recorded Vaccine Date Status Refusal Reason pneumococcal 23-valent vaccine 03/23/17 Given Medications Aerochamber See Instructions, # 1 each, Maintenance, use with all inhalers, 10/11/19 14:59:00 EST, Compound, 152.4, cm, 10/11/19 14:54:00 EST, Height Start Date: 10/11/19 Status: Ordered albuterol 0.083% inhalation solution USE 1 VIAL VIA NEBULIZER EVERY 4 HOURS NEEDED Start Date: 01/29/17 Status: Ordered Asmanex HFA 100 mcg/inh inhalation aerosol 2 puffs, Inhalation, 2 times a day, rinse mouth and throat after use j 45.991,, # 1 each, 3 Refills, Maintenance, 08/19/19 15:53:00 EST, Aerosol Start Date: 08/19/19 Status: Ordered Asmanex HFA 200 mcg/inh inhalation aerosol 2 puffs, Inhalation, 2 times a day, rinse mouth and throat after use, # 13 Gm, 1 Refills, Maintenance, 10/11/19 14:59:00 EST, Aerosol, [facility][id number], 152.4, cm, 10/11/19 14:54:00 EST, Height Start Date: 10/11/19 Status: Ordered BiPAP Machine See Instructions, # [...] 1 each, 0 Refills, Maintenance, 01/13/17 15:51:20, [place] Start Date: 01/13/17 Stop Date: 01/20/17 Status: Ordered ibuprofen 800 mg oral tablet prn Start Date: 01/29/17 Status: Ordered metoprolol 25 mg oral tablet 25 mg, 1, tablet, By Mouth, Daily, Refills 0, Maintenance, 07/14/17 13:34:10 Start Date: 07/14/17 Status: Ordered montelukast 10 mg oral tablet 10 mg, By Mouth, Daily, J45.991, # 30 tablet, Refills 3, Tot. Refills 3, Maintenance, 08/19/19 15:53:00 EST, Route to Pharmacy Electronically, [id number], [facility]/pharmacy #[id number] Start Date: 08/19/19 Status: Ordered omeprazole 20 mg oral enteric [...] 12:38:00 EDT, Inhaler, Route to Pharmacy Electronically, [id number], [facility]/pharmacy #[id number] Start Date: 06/08/19 Status: Ordered Spiriva HandiHaler 18 mcg inhalation capsule 1 capsule = 18 mcg, Inhalation, Daily, j 45.40, # 30 capsule, 5 Refills, Maintenance, 07/21/19 16:03:00 EDT Start Date: 07/21/19 Status: Ordered Stool Softner Stool Softner, By Mouth, Daily, Refills 0, Maintenance, 10/11/19 14:57:00 EST, Compound Start Date: 10/11/19 Status: Ordered Symbicort 160mcg/4.5mcg Inhaler 2, puffs, Inhalation, 2 times a day, j45.991 rinse mouth and throat after use,, # 1 each, Refills 3, Tot. Refills 3, Maintenance, 08/19/19 15:53:00 EST, Aerosol, Route to Pharmacy Electronically, [id number], [facility]/pharmacy #[id number] Start Date: 08/19/19 Status: Ordered Triamcinolone Acetonide prn apply by [...]
--- OUTSIDE RECORDS SUMMARY | 2024-02-10 23:04 | XMS_ITS | Continuity of Care Document ---
Author Organization [facility] Address [address] [place] [address]- Care Team Providers Care Science Teacher Name Role Phone Endy Xiong MD, Melani Dueñas Primary Care Physici an [place] [facility] [place] 05/03/23 [facility] [address] [place] [address]- Encounter Diagnosis Asthma(Discharge Diagnosis) - 04/03/23 Allergies, Adverse Reactions, Alerts Substance Reaction Severity [...] Refills, Maintenance, 12/12/21 14:58:00 EST, Inhalation Solution, [facility]/pharmacy #[id number], 152.4, cm, 12/12/21 [...] 5 Refills, Maintenance, 01/07/22 11:44:00 EDT, Aerosol, [facility]/pharmacy #[id number], 152.4, cm, 12/12/21 [...] 1 each, 0 Refills, Maintenance, 01/13/17 15:51:20, [place] Start Date: 01/13/17 Stop Date: 01/20/17 Status: [...] 04/03/23 16:49:00 EDT, Route to Pharmacy Electronically, [facility]/pharmacy #[id number], 152.4, cm, 02/06/23 [...] 14:55:00 EST, Inhaler, Route to Pharmacy Electronically, [id number], [facility]/pharmacy #0693, 152.4, cm, 12/12/21 14:44... Start Date: 12/12/21 Status: Ordered Spiriva Respimat 1.25 mcg/inh inhalation aerosol 2 puffs, Inhalation, Daily, j44.9, # 3 each, 1 Refills, Maintenance, 04/03/23 16:15:00 EDT, Aerosol, [facility]/pharmacy #[id number], Partial fill upon patient request if the prescription is for a schedule II opioid drug., 152.4, cm, 02/06/23 15:52:00 EDT, Height Start Date: 04/03/23 Status: Ordered Stool Softner Stool Softner, By Mouth, Daily, Refills 0, Maintenance, 10/11/19 14:57:00 EST, Compound Start Date: 10/11/19 Status: Ordered Symbicort 160mcg/4.5mcg Inhaler 2, puffs, Inhalation, 2 times a day, rinse mouth and throat after use, j44.9, # 3 each, Refills 1, Tot. Refills 1, Maintenance, 04/03/23 16:16:00 EDT, Aerosol, Route to Pharmacy Electronically, NCPDP_[id number], [facility]/pharmacy #0693, 152.4, cm, 02/06/23... [...] [facility] Informant Asthma Discharge Diagnosis 04/03/23 Non-Specified Social History Social History Type Response Smoking Status Former smoker; Other : Occasional smoker; entered on: 03/09/18 Sex Patient Care team information Care Team Personnel Name: Melani Anderson MD Position: [facility] Outreach Member Role: PCP Address: Address: [address] [place] [address] [address] [place], [place] [address] Name: Deneen Gerber RN Position: [facility] RN Member Role: Primary Care Nurse Care Team Related Persons Name: LILLY SHORT Address: home [address] [place] [address] Name: BRITNI SEARS Address: home [address] [place] [address]
--- OUTSIDE RECORDS SUMMARY | 2024-02-10 23:04 | XMS_ITS | Continuity of Care Document ---
Author Organization [facility] Address [address] [place] [address]- Care Team Providers Care Student Assistant Name Role Phone Endy Xiong MD, Melani Dueñas Primary Care Physici an [place] [facility] [place] [id number] Date(s): 02/06/23 - 03/08/[address] [address]- Attending Physician: Aissatou Mike Admitting Physician: Aissatou Mike Referring Physician: Aissatou Mike Allergies, Adverse Reactions, Alerts Substance Reaction Severity [...] PRN Wheezing/Shortness of Breath, # 1 each, 5 Refills, Maintenance, 02/28/23 10:28:00 EDT, [id number] Partial fill upon patient request if the prescription is for a schedule II opioid drug., 2 puffs Inhalat... Start Date: 02/28/23 Status: Ordered albuterol 0.083% inhalation solution 3 mL = 2.5 mg, Neb, Every 6 hours, USE 1 VIAL VIA NEBULIZER EVERY 4 HOURS NEEDED, # 60 each, 6 Refills, Maintenance, 12/12/21 14:58:00 EST, Inhalation Solution, [facility]/pharmacy #[id number], 152.4, cm, 12/12/21 14:44:00 EST, Height Start Date: 12/12/21 Status: Ordered amitriptyline 25 mg oral tablet TAKE 1 TABLET BY MOUTH EVERYDAY AT BEDTIME Start Date: 11/09/20 Status: Ordered Asmanex HFA 100 mcg/inh inhalation aerosol 2 puffs, Inhalation, 2 times a day, rinse mouth and throat after use j 45.991,, # 1 each, 5 Refills, Maintenance, 01/07/22 11:44:00 EDT, [facility]erosol, [facility], 152.4, cm, 12/12/21 14:44:00 EST,Height Start [...] 1 each, 0 Refills, Maintenance, 01/13/17 15:51:20, [place] Start Date: 01/13/17 Stop Date: 01/20/17 Status: Ordered ibuprofen 800 mg oral tablet prn Start Date: 01/29/17 Status: Ordered metoprolol 25 mg oral tablet 25 mg, 1, tablet, By Mouth, Daily, Refills 0, Maintenance, 07/14/17 13:34:10 Start Date: 07/14/17 Status: Ordered montelukast 10 mg oral tablet 10 mg, By Mouth, Daily, J45.991, # 30 tablet, Refills 6, Tot. Refills 6, Maintenance, 01/30/23 8:19:00 EDT, Route to Pharmacy Electronically, [facility]/pharmacy #[id number], 152.4, cm, 12/20/22 9:37:00 EDT, Height Start Date: 01/30/23 Status: Ordered Nebulizer/Compressor See Instructions, # 1 [...] 14:55:00 EST, Inhaler, Route to Pharmacy Electronically, [id number], [facility]/pharmacy #[id number], 152.4, cm, 12/12/21 14:44... Start Date: 12/12/21 Status: Ordered Spiriva Respimat 1.25 mcg/inh inhalation aerosol 2 puffs, Inhalation, Daily, # 1 each, 5 Refills, Maintenance, 02/28/23 10:29:00 EDT, Aerosol, [facility]/pharmacy #[id number], Partial fill upon patient request if the prescription is for a schedule II opioid drug., 152.4, cm, 02/06/23 15:52:00 EDT, Height Start Date: 02/28/23 Status: Ordered Stool Softner Stool Softner, By Mouth, Daily, Refills 0, Maintenance, 10/11/19 14:57:00 EST, Compound Start Date: 10/11/19 Status: Ordered Symbicort 160mcg/4.5mcg Inhaler 2, puffs, Inhalation, 2 times a day, rinse mouth and throat after use, j44.9, # 1 each, Refills 5, Tot. Refills 5, Maintenance, 02/28/23 10:28:00 EDT, Aerosol, Route to Pharmacy Electronically, NCPDP_[id number], [facility]/pharmacy #[id number], 152.4, cm, 02/06/23... Start Date: 02/28/23 Status: Ordered Problem List Condition Confirmation Course [...] Team Personnel Name: Melani Anderson MD Position: [facility] Outreach Member Role: PCP Address: Address: [address] [place] [address] [address] [place] [address]- Name: Deneen Gerber RN Position: [facility] RN Member Role: Primary Care Nurse Care Team Related Persons Name: LILLY SHORT Address: home [address] [place] [address] Name: BRITNI SEARS Address: home [address] [place] [address]
--- OUTSIDE RECORDS SUMMARY | 2024-02-10 23:04 | XMS_ITS | Continuity of Care Document ---
Author Organization [facility] Address [address] [place] [address]- Care Team Providers Care Eye Specialist Name Role Phone Endy Xiong MD, Melani Dueñas Primary Care Physici an Encounter [facility] [place] Date(s): 06/07/21 - 07/07/21 [facility] [address] [place] [address]- [place] Allergies, Adverse Reactions, Alerts Substance Reaction Severity [...] 5 Refills, Maintenance, 09/06/20 8:12:00 EST, Aerosol, [facility]/pharmacy #[id number], 152.4, cm, 10/11/19 14:54:00 EST, Height Start Date: 09/06/20 Status: Ordered BiPAP Machine See Instructions, # 1 each, Maintenance, AutoBiPAP with Max IPAP of 17 with Min EPAP 9 with PS 6, 06/27/21 17:37:00 EDT, Compound Start Date: 06/27/21 Status: Ordered famotidine 20 mg oral tablet [...] 1 each, 0 Refills, Maintenance, 01/13/17 15:51:20, [place] Start Date: 01/13/17 Stop Date: 01/20/17 Status: Ordered ibuprofen 800 mg oral tablet prn Start Date: 01/29/17 Status: Ordered metoprolol 25 mg oral tablet 25 mg, 1, tablet, By Mouth, Daily, Refills 0, Maintenance, 07/14/17 13:34:10 Start Date: 07/14/17 Status: Ordered montelukast 10 mg oral tablet 10 mg, By Mouth, Daily, J45.991, # 30 tablet, Refills 6, Tot. Refills 6, Maintenance, 06/07/21 11:38:00 EDT, Route to Pharmacy Electronically, [facility]/pharmacy #[id number], 152.4, cm, 11/09/20 12:51:00 EST, Height Start Date: 06/07/21 Status: Ordered omeprazole 20 mg oral enteric [...] 12:38:00 EDT, Inhaler, Route to Pharmacy Electronically, [id number], [facility]/pharmacy #[id number] Start Date: 06/08/19 Status: Ordered Spiriva HandiHaler 18 mcg inhalation capsule See Instructions, INHALE 1 CAPSULE VIA HANDIHALER ONCE DAILY AT THE SAME TIME EVERY DAY, # 30 inhalation, 5 Refills, Maintenance, [facility], 152.4, cm, 11/09/20 12:51:00 EST, Height Start Date: 05/03/21 Status: Ordered Stool Softner Stool Softner, By Mouth, Daily, Refills 0, Maintenance, 10/11/19 14:57:00 EST, Compound Start Date: 10/11/19 Status: Ordered Symbicort 160mcg/4.5mcg Inhaler 2, puffs, Inhalation, 2 times a day, j45.991 rinse mouth and throat after use NO SUBSTITUTIONS, # 1each, Refills 6, Tot. Refills 6, Maintenance, 11/15/20 14:14:00 EST, Aerosol, Route to Pharmacy Electronically, [id number]... Start Date: 11/15/20 Status: Ordered Triamcinolone Acetonide [...]
--- OUTSIDE RECORDS SUMMARY | 2024-02-10 23:04 | XMS_ITS | Continuity of Care Document ---
Author Organization [facility] Address [address] [place] [address]- Care Team Providers Care Deputy Chief Executive Name Role Phone Endy Xiong MD, Melani Dueñas Primary Care Physici an En[place] [facility] [place](s): 10/19/19 - 10/29/19 [facility] [address] [place] [address] [facility] Attending Physician: Aissatou Mike Admitting Physician: Aissatou [...] 1 each, 0 Refills, Maintenance, 01/13/17 15:51:20, [place] Start Date: 01/13/17 Stop Date: 01/20/17 Status: [...] 08/19/19 15:53:00 EST, Route to Pharmacy Electronically, [id number], [id number] Start Date: 08/19/19 Status: Ordered omeprazole [...] 12:38:00 EDT, Inhaler, Route to Pharmacy Electronically, [id number], [facility]/pharmacy #[id number] Start Date: 06/08/19 Status: Ordered [...] 15:53:00 EST, Aerosol, Route to Pharmacy Electronically, [id number], [facility]/pharmacy #[id number] Start Date: 08/19/19 Status: Ordered [...]
--- OUTSIDE RECORDS SUMMARY | 2024-02-10 23:04 | XMS_ITS | Continuity of Care Document ---
Author Organization [facility] Address [address] [place] [address]- Care Team Providers Care Top Bottom Attaching Machine Operator Name Role Phone Endy Xiong MD, Melani Dueñas Primary Care Physici an [place] [facility] [place] [id number] Date(s): 06/27/21 - 07/27/[address] [address]- Attending Physician: Aissatou Mike Admitting Physician: Aissatou [...] 5 Refills, Maintenance, 09/06/20 8:12:00 EST, Aerosol, [facility]/pharmacy #[id number], 152.4, cm, 10/11/19 14:54:00 EST, [...] 1 each, 0 Refills, Maintenance, 01/13/17 15:51:20, [place] Start Date: 01/13/17 Stop Date: 01/20/17 Status: [...] 06/07/21 11:38:00 EDT, Route to Pharmacy Electronically, [facility]/pharmacy #[id number], 152.4, cm, 11/09/20 12:51:00 EST, [...] 12:38:00 EDT, Inhaler, Route to Pharmacy Electronically, [id number], [facility]/pharmacy #[id number] Start Date: 06/08/19 Status: Ordered Spiriva HandiHaler 18 mcg inhalation capsule See Instructions, INHALE 1 CAPSULE VIA HANDIHALER ONCE DAILY AT THE SAME TIME EVERY DAY, # 30 inhalation, 5 Refills, Maintenance, [facility] 550[facility], 152.4, cm, 11/09/20 12:51:00 EST, Height Start [...] 14:14:00 EST, Aerosol, Route to Pharmacy Electronically, [id number]... Start Date: 11/15/20 Status: Ordered Triamcinolone Acetonide [...]
--- OUTSIDE RECORDS SUMMARY | 2024-02-10 23:04 | XMS_ITS | Continuity of Care Document ---
Author Organization [facility] Address [address] [place] [address]- Care Team Providers Care Rn Admission Name Role Phone Endy Xiong MD, Melani Dueñas Primary Care Physici an [id number] Date(s): 06/27/21 - 07/04/[address] [address]- Attending Physician: Kellie TINAJERO, Ronaldo Garcia Admitting Physician: Kellie TINAJERO, Ronaldo Garcia Allergies, Adverse Reactions, Alerts Substance Reaction Severity [...] Refills, Maintenance, 09/06/20 8:12:00 EST, Aerosol, [facility]/pharmacy #[id number], 152.4, cm, 10/11/19 14:54:00 EST, [...] 1 each, 0 Refills, Maintenance, 01/13/17 15:51:20, [place] Start Date: 01/13/17 Stop Date: 01/20/17 Status: [...] 11:38:00 EDT, Route to Pharmacy Electronically, [facility]/pharmacy #[id number], 152.4, cm, 11/09/20 12:51:00 EST, [...] 12:38:00 EDT, Inhaler, Route to Pharmacy Electronically, [id number], [facility]/pharmacy #[id number] Start Date: 06/08/19 Status: Ordered Spiriva HandiHaler 18 mcg inhalation capsule See Instructions, INHALE 1 CAPSULE VIA HANDIHALER ONCE DAILY AT THE SAME TIME EVERY DAY, # 30 inhalation, 5 Refills, Maintenance, [facility], 152.4, cm, 11/09/20 12:51:00 EST, Height Start [...] 14:14:00 EST, Aerosol, Route to Pharmacy Electronically, [id number]... Start Date: 11/15/20 Status: Ordered Triamcinolone Acetonide [...] sleep apnea(Confirmed) Active Vocal cord dysfunction(Confirmed) Active Vital Signs Most recent to oldest [Reference Range]: 1 Height 152.40 cm (06/27/21 3:16 PM) Weight 81.0 kg (06/27/21 3:16 PM) Pulse Rate [55-90 bpm] 66 bpm (06/27/21 3:16 PM) Body Mass Index [18.5-24.99] 34.88 *>HHI* (06/27/21 3:16 PM) Blood Pressure [90-138/55-84 mm Hg] 117/ 81mm Hg (06/27/21 3:16 PM) Temperature [96.8-100.4 DegF] 96.3 DegF *L* (06/27/21 3:16 PM) Blood pressure sites Arm, left (06/27/21 3:16 PM) Temperature Route Temporal (06/27/21 3:16 PM) Social History Social History Type Response Smoking Status Former smoker; Other : Occasional smoker; entered on: 03/09/18 Sex
--- OUTSIDE RECORDS SUMMARY | 2024-02-10 23:04 | XMS_ITS | Continuity of Care Document ---
Author Organization [facility] Address [address] [place] [address]- Care Team Providers Care Optician Manager Name Role Phone Endy Xiong MD, Melani Dueñas Primary Care Physici an En[place] [facility] [place](s): 12/10/21 - 01/09/22 [facility] [address] [place] [address]- Allergies, Adverse Reactions, Alerts Substance Reaction Severity [...] 10/11/19 Status: Ordered albuterol 0.083% inhalation solution 3 mL = 2.5 mg, Neb, Every 6 hours, USE 1 VIAL VIA NEBULIZER EVERY 4 HOURS NEEDED, # 60 each, 6 Refills, Maintenance, 12/12/21 14:58:00 EST, Inhalation Solution, [facility]/pharmacy #[id number], 152.4, cm, 12/12/21 14:44:00 EST, Height Start Date: 12/12/21 Status: Ordered amitriptyline 25 mg oral tablet TAKE 1 TABLET BY MOUTH EVERYDAY AT BEDTIME Start Date: 11/09/20 Status: Ordered Asmanex HFA 100 mcg/inh inhalation aerosol 2 puffs, Inhalation, 2 times a day, rinse mouth and throat after use j 45.991,, # 1 each, 5 Refills, Maintenance, 01/07/22 11:44:00 EDT, [id number] 152.4, cm, 12/12/21 14:44:00 EST,Height Start Date: 01/07/22 Status: Ordered BiPAP Machine See Instructions, # 1 each, Maintenance, AutoBiPAP with Max IPAP of 16 with Min EPAP 7 with PS 6, 09/27/21 16:11:00 EST, Compound Start Date: 09/27/21 Status: Ordered famotidine 20 mg oral tablet [...] 1 each, 0 Refills, Maintenance, 01/13/17 15:51:20, [place] Start Date: 01/13/17 Stop Date: 01/20/17 Status: [...] 12/12/21 14:54:00 EST, Route to Pharmacy Electronically, [facility]/pharmacy #[id number], 152.4, cm, 12/12/21 14:44:00 EST, Height [...] 14:55:00 EST, Inhaler, Route to Pharmacy Electronically, [id number], [facility]/pharmacy #0693, 152.4, cm, 12/12/21 14:44... Start Date: 12/12/21 Status: Ordered Spiriva HandiHaler 18 mcg inhalation capsule See Instructions, INHALE 1 CAPSULE VIA HANDIHALER ONCE DAILY AT THE SAME TIME EVERY DAY, # 30 capsule, 11 Refills, 12/12/21 14:56:00 EST, [facility]/pharmacy #[id number], 152.4, cm, 12/12/21 14:44:00 EST, Height Start Date: 12/12/21 Status: Ordered Stool Softner Stool Softner, By Mouth, Daily, Refills 0, Maintenance, 10/11/19 14:57:00 EST, Compound Start Date: 10/11/19 Status: Ordered Symbicort 160mcg/4.5mcg Inhaler 2, puffs, Inhalation, 2 times a day, rinse mouth and throat after use, # 1 each, Refills 11, Tot. Refills 11, Maintenance, 12/12/21 14:57:00 EST, Aerosol, Route to Pharmacy Electronically, [id number], [facility]/pharmacy #0693, 152.... Start Date: 12/12/21 Status: Ordered Problem List Condition Effective Dates Status Health Status Inform ant Asthma(Confirmed) Active Central sleep apnea(Confirmed) Active GERD (gastroesophageal reflu x disease)(Confirmed) Active Migraine(Confirmed) Active Obese class I(Confirmed) Active Obstructive sleep apnea(Confirmed) Active Vocal cord dysfunction(Confirmed) Active Social History Social History Type Response Smoking Status Former smoker; Other : Occasional smoker; entered on: 03/09/18 Sex
--- OUTSIDE RECORDS SUMMARY | 2024-02-10 23:04 | XMS_ITS | Continuity of Care Document ---
Author Organization [facility] Address [address] [place] [address]- Care Team Providers Care Fireworks Inspector Name Role Phone Endy Xiong MD, Melani Dueñas Primary Care Physici an Encounter [facility] Date(s): 04/12/20 - 05/12/20 [facility] [address] [place] [address]- [facility] Allergies, Adverse Reactions, Alerts Substance Reaction Severity [...] 1 each, 0 Refills, Maintenance, 01/13/17 15:51:20, [place] Start Date: 01/13/17 Stop Date: 01/20/17 Status: [...] 08/19/19 15:53:00 EST, Route to Pharmacy Electronically, [id number], [facility]/pharmacy #[id number] Start Date: 08/19/19 Status: Ordered [...] 12:38:00 EDT, Inhaler, Route to Pharmacy Electronically, [id number], [facility]/pharmacy #0693 Start Date: 06/08/19 Status: Ordered Spiriva HandiHaler 18 mcg inhalation capsule 1 capsule = 18 mcg, Inhalation, Daily, # 30 capsule, 11 Refills, Maintenance, 04/11/20 15:26:00 EDT, [facility], ICD Code J45.41, 152.4, cm, 10/11/19 14:54:00 EST, Height Start Date: 04/11/20 Status: Ordered Stool Softner Stool Softner, By Mouth, Daily, Refills 0, Maintenance, 10/11/19 14:57:00 EST, Compound Start Date: 10/11/19 Status: Ordered Symbicort 160mcg/4.5mcg Inhaler 2, puffs, Inhalation, 2 times a day, j45.991 rinse mouth and throat after use,, # 1 each, Refills 5, Tot. Refills 5, Maintenance, 04/12/20 10:55:00 EDT, Aerosol, Route to Pharmacy Electronically, [id number], [facility]/pharmacy #06... Start Date: 04/12/20 Status: Ordered Triamcinolone Acetonide prn apply by [...]
--- OUTSIDE RECORDS SUMMARY | 2024-02-10 23:04 | XMS_ITS | Continuity of Care Document ---
Author Organization [facility] Address [address] [place] [address]- Care Team Providers Care Staff Veterinarian Name Role Phone Endy Xiong MD, Melani Dueñas Primary Care Physici an [place] [facility] [place]s): 09/05/20 - 10/05/20 [facility] [address] [place] [id number] Allergies, Adverse Reactions, Alerts Substance Reaction Severity [...] 5 Refills, Maintenance, 09/06/20 8:12:00 EST, Aerosol, [id number], 152.4, cm, 10/11/19 [...] 1 each, 0 Refills, Maintenance, 01/13/17 15:51:20, [place] Start Date: 01/13/17 Stop Date: 01/20/17 Status: [...] 08/19/19 15:53:00 EST, Route to Pharmacy Electronically, [id number], [facility]/pharmacy #0693 Start Date: 08/19/19 Status: Ordered omeprazole [...] 12:38:00 EDT, Inhaler, Route to Pharmacy Electronically, [id number], [facility]/pharmacy #0693 Start Date: 06/08/19 Status: Ordered Spiriva [...] 10:55:00 EDT, Aerosol, Route to Pharmacy Electronically, [id number], [facility]/pharmacy #06... Start Date: 04/12/20 Status: Ordered Triamcinolone [...]
--- OUTSIDE RECORDS SUMMARY | 2024-02-10 23:04 | XMS_ITS | Continuity of Care Document ---
Author Organization [facility] Address [address] [place] [address]- Care Team Providers Care Gauge Machine Operator Name Role Phone Endy Xiong MD, Melani Dueñas Primary Care Physici an [place] [facility] [place] [id number] Date(s): 11/09/20 - 12/09/20 [facility] [address] [place] [address]- Attending Physician: Aissatou Mike Admitting Physician: Aissatou [...] 5 Refills, Maintenance, 09/06/20 8:12:00 EST, Aerosol, [facility]/pharmacy #[id number], 152.4, cm, 10/11/19 [...] 1 each, 0 Refills, Maintenance, 01/13/17 15:51:20, [place] Start Date: 01/13/17 Stop Date: 01/20/17 Status: [...] 10/27/20 12:37:00 EST, Route to Pharmacy Electronically, [facility]/pharmacy #[id number], 152.4, cm, 10/11/19 [...] 12:38:00 EDT, Inhaler, Route to Pharmacy Electronically, [id number], [facility]/pharmacy #[id number] Start Date: 06/08/19 Status: Ordered Spiriva HandiHaler 18 mcg inhalation capsule 1 capsule = 18 mcg, Inhalation, Daily, # 30 capsule, 11 Refills, Maintenance, 04/11/20 15:26:00 EDT, [facility]/pharmacy #0693, ICD Code J45.41, [...] 14:14:00 EST, Aerosol, Route to Pharmacy Electronically, [id number]... Start Date: 11/15/20 Status: Ordered Triamcinolone Acetonide [...]
--- OUTSIDE RECORDS SUMMARY | 2024-02-10 23:04 | XMS_ITS | Continuity of Care Document ---
Author Organization [facility] Address [address] [place] [address]- Care Team Providers Care Sports Fitness And Wellness Director Name Role Phone Endy Xiong MD, Melani Dueñas Primary Care Physici an [place] [facility] [place] - 11/12/23 [facility] [address] [place] [address]- Encounter Diagnosis Asthma(Discharge Diagnosis) - 10/13/23 Allergies, Adverse Reactions, Alerts Substance Reaction Severity [...] j44.9, # 3 each, 1 Refills, Maintenance, 10/13/23 16:02:00 EST, [facility]/pharmacy #0693, Partial fill upon patient request if the prescription is for a schedule II opioid drug., 2 puffs... Start Date: 10/13/23 Status: Ordered albuterol 0.083% inhalation solution 3 mL = 2.5 mg, Neb, Every 6 hours, USE 1 VIAL VIA NEBULIZER EVERY 4 HOURS NEEDED, # 60 each, 6 Refills, Maintenance, 12/12/21 14:58:00 EST, [facility] 152.4, cm, 12/12/21 14:44:00 EST, Height Start Date: 12/12/21 Status: Ordered amitriptyline 25 mg oral tablet TAKE 1 TABLET BY MOUTH EVERYDAY AT BEDTIME Start Date: 11/09/20 Status: Ordered Asmanex HFA 100 mcg/inh inhalation aerosol 2 puffs, Inhalation, 2 times a day, rinse mouth and throat after use j 45.991,, # 3 each, 1 Refills, Maintenance, 10/13/23 16:03:00 EST, [facility]erosol, [facility] 152.4, cm, 02/06/23 15:52:00 EDT,Height Start Date: 10/13/23 Status: Ordered BiPAP Machine See Instructions, # [...] 1 each, 0 Refills, Maintenance, 01/13/17 15:51:20, [place] Start Date: 01/13/17 Stop Date: 01/20/17 Status: Ordered ibuprofen 800 mg oral tablet prn Start Date: 01/29/17 Status: Ordered metoprolol 25 mg oral tablet 25 mg, 1, tablet, By Mouth, Daily, Refills 0, Maintenance, 07/14/17 13:34:10 Start Date: 07/14/17 Status: Ordered montelukast 10 mg oral tablet 10 mg, By Mouth, Daily, J45.991, # 90 tablet, Refills 1, Tot. Refills 1, Maintenance, 10/13/23 16:03:00 EST, Route to Pharmacy Electronically, [facility]/pharmacy #0693, 152.4, cm, 02/06/23 15:52:00 EDT, Height Start Date: 10/13/23 Status: Ordered Nebulizer/Compressor See Instructions, # 1 [...] 14:55:00 EST, Inhaler, Route to Pharmacy Electronically, [id number], [facility]/pharmacy #0693, 152.4, cm, 12/12/21 14:44... Start Date: 12/12/21 Status: Ordered Spiriva Respimat 1.25 mcg/inh inhalation aerosol 2 puffs, Inhalation, Daily, j44.9, # 3 each, 1 Refills, Maintenance, 10/13/23 16:03:00 EST, Aerosol, [facility]/pharmacy #0693, Partial fill upon patient request if the prescription is for a schedule II opioid drug., 152.4, cm, 02/06/23 15:52:00 EDT, [place] Start Date: 10/13/23 Status: Ordered Stool Softner Stool Softner, By Mouth, Daily, Refills 0, Maintenance, 10/11/19 14:57:00 EST, Compound Start Date: 10/11/19 Status: Ordered Symbicort 160mcg/4.5mcg Inhaler 2, puffs, Inhalation, 2 times a day, rinse mouth and throat after use, j44.9, # 3 each, Refills 1, Tot. Refills 1, Maintenance, 10/13/23 16:03:00 EST, Aerosol, Route to Pharmacy Electronically, NCPDP_[id number], [facility]/pharmacy #0693, 152.4, cm, 02/06/23... Start Date: 10/13/23 Status: Ordered Problem List Condition Confirmation Course Effective Dates Status Health [facility] Informant Asthma Confirmed Active Central sleep apnea Confirmed Active GERD (gastroesophageal reflux disease) Confirmed Active Migraine Confirmed Active Obese class I Confirmed Active Obstructive sleep apnea Confirmed Active Vocal cord dysfunction Confirmed Active Diagnosis Diagnosis Type Effective Dates Health Status [facility] Informant Asthma Discharge Diagnosis 10/13/23 Non-Specified Social History Social History Type Response Smoking Status Former smoker; Other : Occasional smoker; entered on: 03/09/18 Sex Patient Care team information Care Team Personnel Name: Melani Anderson MD Position: [facility] Outreach Member Role: PCP Address: Address: [address] [place] [address] [address] [place], [place] [address] Name: Elizabeth Burroughs RN Position: [facility] RN Member Role: Primary Care Nurse Name: Deneen Gerber RN Position: [place] RN Member Role: Primary Care Nurse Care Team Related Persons Name: LILLY SHORT Address: home [address] [place] [address] Name: BRITNI SEARS Address: [address] [place] [address]
--- OUTSIDE RECORDS SUMMARY | 2024-02-10 23:04 | XMS_ITS | Continuity of Care Document ---
Author Organization [facility] Address [address] [place] [address]- Care Team Providers Care Animal Impersonator Name Role Phone Endy Xiong MD, Melani Dueñas Primary Care Physici [id number]/16[facility] - 06/16/[address] [address]- Attending Physician: Elsa Sanchez MD Admitting Physician: Elsa Sanchez MD Referring Physician: Endy Xiong MD, Melani Dueñas Allergies, Adverse Reactions, Alerts Substance Reaction Severity [...] Refills, Maintenance, 12/12/21 14:58:00 EST, Inhalation Solution, [facility], 152.4, cm, 12/12/21 14:44:00 EST, [place] Start Date: 12/12/21 Status: Ordered amitriptyline 25 mg oral tablet TAKE 1 TABLET BY MOUTH EVERYDAY AT BEDTIME Start Date: 11/09/20 Status: Ordered Asmanex HFA 100 mcg/inh inhalation aerosol 2 puffs, Inhalation, 2 times a day, rinse mouth and throat after use j 45.991,, # 1 each, 5 Refills, Maintenance, 01/07/22 11:44:00 EDT, Aerosol, [facility]/pharmacy #0693, 152.4, cm, 12/12/21 14:44:00 EST,[place] Start Date: 01/07/22 Status: Ordered BiPAP Machine See Instructions, # 1 each, Maintenance, AutoBiPAP with Max IPAP of 15 with Min EPAP 7 with PS 6, 06/14/22 16:09:00 EDT, Compound Start Date: 06/14/22 Status: Ordered famotidine 20 mg oral tablet [...] 1 each, 0 Refills, Maintenance, 01/13/17 15:51:20, [place] Start Date: 01/13/17 Stop Date: 01/20/17 Status: [...] 12/12/21 14:54:00 EST, Route to Pharmacy Electronically, [facility]/pharmacy #0693, 152.4, cm, 12/12/21 14:44:00 EST, [...] 14:55:00 EST, Inhaler, Route to Pharmacy Electronically, [id number], [facility]/pharmacy #0693, 152.4, cm, 12/12/21 14:44... Start Date: 12/12/21 Status: Ordered Spiriva HandiHaler 18 mcg inhalation capsule See Instructions, INHALE 1 CAPSULE VIA HANDIHALER ONCE DAILY AT THE SAME TIME EVERY DAY, # 30 capsule, 11 Refills, 12/12/21 14:56:00 EST, [facility], 152.4, cm, 12/12/21 14:44:00 EST, Height [...] 14:57:00 EST, Aerosol, Route to Pharmacy Electronically, [id number], [facility]/pharmacy #0693, 152.... Start Date: 12/12/21 Status: Ordered Problem List Condition Effective Dates Status Health Status Inform ant Asthma(Confirmed) Active Central sleep apnea(Confirmed) Active GERD (gastroesophageal reflu x disease)(Confirmed) Active Migraine(Confirmed) Active Obese class I(Confirmed) Active Obstructive sleep apnea(Confirmed) Active Vocal cord dysfunction(Confirmed) Active Social History Social History Type Response Smoking Status Former smoker; Other : Occasional smoker; entered on: 03/09/18 Sex Care Team Personnel Name: Melani Anderson MD Address: [address] [place] [address] [address]
--- OUTSIDE RECORDS SUMMARY | 2024-02-10 23:04 | XMS_ITS | Continuity of Care Document ---
Author Organization [facility] Address [address] [place] [address]- Care Team Providers Care Project Management Name Role Phone Endy Xiong MD, Melani Dueñas Primary Care Physici an [place] [facility] [place](s): 04/11/20 - 05/11/20 [facility] [address] [place] [address]- [facility] Allergies, Adverse Reactions, Alerts Substance Reaction Severity [...] 1 each, 0 Refills, Maintenance, 01/13/17 15:51:20, [place] Start Date: 01/13/17 Stop Date: 01/20/17 Status: [...] 08/19/19 15:53:00 EST, Route to Pharmacy Electronically, [id number], [facility]/pharmacy #[id number] Start Date: 08/19/19 Status: Ordered omeprazole [...] 12:38:00 EDT, Inhaler, Route to Pharmacy Electronically, [id number], [facility]/pharmacy #0693 Start Date: [...] 10:55:00 EDT, Aerosol, Route to Pharmacy Electronically, [id number], [facility]/pharmacy #06... Start Date: 04/12/20 Status: Ordered Triamcinolone [...]
--- OUTSIDE RECORDS SUMMARY | 2024-02-10 23:04 | XMS_ITS | Continuity of Care Document ---
Author Organization [facility] Address [address] [place] [address]- Care Team Providers Care Osteopathy Doctor Name Role Phone Endy Xiong MD, Melani Dueñas Primary Care Physici an Encounter [facility] [place] [id number] Date(s): 12/12/21 - 01/11/22 [facility] [address] [place] [address]- Attending Physician: Aissatou Mike Admitting Physician: Aissatou [...] 5 Refills, Maintenance, 01/07/22 11:44:00 EDT, Aerosol, [facility]/pharmacy #0693, 152.4, cm, 12/12/21 14:44:00 EST,Height Start [...] 1 each, 0 Refills, Maintenance, 01/13/17 15:51:20, [place] Start Date: 01/13/17 Stop Date: 01/20/17 Status: [...] 14:55:00 EST, Inhaler, Route to Pharmacy Electronically, [id number], [facility]/pharmacy #0693, 152.4, [...] 14:57:00 EST, Aerosol, Route to Pharmacy Electronically, [id number], [facility]/pharmacy #0693, 152.... [...]
--- OUTSIDE RECORDS SUMMARY | 2024-02-10 23:04 | XMS_ITS | Continuity of Care Document ---
Author Organization [facility] Address [address] [place] [address]- Care Team Providers Care Provider Relations Representative Name Role Phone Endy Xiong MD, Melani Dueñas Primary Care Physici an En[place] [facility] [place] Date(s): 10/25/21 - 11/24/21 [facility] [address] [place] [address]- Allergies, Adverse Reactions, Alerts Substance Reaction Severity [...] 5 Refills, Maintenance, 09/06/20 8:12:00 EST, Aerosol, [facility]/pharmacy #0693, 152.4, cm, 10/11/19 14:54:00 [...] 1 each, 0 Refills, Maintenance, 01/13/17 15:51:20, [place] Start Date: 01/13/17 Stop Date: 01/20/17 Status: [...] 06/07/21 11:38:00 EDT, Route to Pharmacy Electronically, [facility]/pharmacy #0693, 152.4, cm, 11/09/20 12:51:00 EST, Height [...] 12:38:00 EDT, Inhaler, Route to Pharmacy Electronically, [id number], [facility]/pharmacy #0693 Start Date: 06/08/19 Status: Ordered Spiriva HandiHaler 18 mcg inhalation capsule See Instructions, INHALE 1 CAPSULE VIA HANDIHALER ONCE DAILY AT THE SAME TIME EVERY DAY, # 30 capsule, 5 Refills, 10/25/21 14:19:00 EST, [facility]/pharmacy #0693, 152.4, cm, 09/27/21 10:40:00 EST, [place] Start Date: 10/25/21 Status: Ordered Stool Softner Stool Softner, By Mouth, Daily, Refills 0, Maintenance, 10/11/19 14:57:00 EST, [place] Start Date: 10/11/19 Status: Ordered Symbicort 160mcg/4.5mcg Inhaler 2, puffs, Inhalation, 2 times a day, j45.991 rinse mouth and throat after use NO SUBSTITUTIONS, # 1each, Refills 6, Tot. Refills 6, Maintenance, 11/15/20 14:14:00 EST, Aerosol, Route to Pharmacy Electronically, [id number]... Start Date: 11/15/20 Status: Ordered Triamcinolone Acetonide [...]
--- OUTSIDE RECORDS SUMMARY | 2024-02-10 23:04 | XMS_ITS | Continuity of Care Document ---
Author Organization [facility] Address [address] [place] [id number]- Care Team Providers Care Camp Head Counselor Name Role Phone Endy Xiong MD, Melani Dueñas Primary Care Physici an [place]counter [facility] [place](s): 06/13/23 - 07/13/[address] [address]- Allergies, Adverse Reactions, Alerts Substance Reaction Severity [...] 1 Refills, Maintenance, 04/03/23 16:15:00 EDT, [id number], Partial fill upon patient request if the prescription is for a schedule II opioid drug., 2 puffs... Start Date: 04/03/23 Status: Ordered albuterol 0.083% inhalation solution 3 mL = 2.5 mg, Neb, Every 6 hours, USE 1 VIAL VIA NEBULIZER EVERY 4 HOURS NEEDED, # 60 each, 6 Refills, Maintenance, 12/12/21 14:58:00 EST, Inhalation Solution, [facility]/pharmacy #[id number], 152.4, cm, 12/12/21 14:44:00 EST, Height Start Date: 12/12/21 Status: Ordered amitriptyline 25 mg oral tablet TAKE 1 TABLET BY MOUTH EVERYDAY AT BEDTIME Start Date: 11/09/20 Status: Ordered Asmanex HFA 100 mcg/inh inhalation aerosol 2 puffs, Inhalation, 2 times a day, rinse mouth and throat after use j 45.991,, # 1 each, 5 Refills, Maintenance, 01/07/22 11:44:00 EDT, Aerosol, [facility]/pharmacy #[id number], 152.4, cm, 12/12/21 14:44:00 EST,Height Start [...] 1 each, 0 Refills, Maintenance, 01/13/17 15:51:20, [place] Start Date: 01/13/17 Stop Date: 01/20/17 Status: [...] 04/03/23 16:49:00 EDT, Route to Pharmacy Electronically, [facility]/pharmacy #[id number], 152.4, cm, 02/06/23 15:52:00 EDT, Height [...] 14:55:00 EST, Inhaler, Route to Pharmacy Electronically, [id number], [facility]/pharmacy #[id number], 152.4, cm, 12/12/21 14:44... Start Date: 12/12/21 Status: Ordered Spiriva Respimat 1.25 mcg/inh inhalation aerosol 2 puffs, Inhalation, Daily, j44.9, # 3 each, 1 Refills, Maintenance, 07/04/23 16:22:00 EDT, Aerosol, [facility]/pharmacy #[id number], Partial fill upon patient request if [...] 16:16:00 EDT, Aerosol, Route to Pharmacy Electronically, NCPDP_[id number], [facility]/pharmacy #[id number], 152.4, cm, 02/06/23... Start Date: 04/03/23 [...] Team Personnel Name: Melani Anderson MD Position: [facility] Outreach Member Role: PCP Address: Address: [address] [place] [address] [place] [id number] Name: Elizabeth Burroughs RN Position: [facility] RN Member Role: Primary Care Nurse Name: Deneen Gerber RN Position: S RN Member Role: Primary Care Nurse Care Team Related Persons Name: LILLY SHORT Address: home [address] [place] [address] Name: BRITNI SEARS Address: home [address] [place] [address]
[2024-02-10 23:05] LABS: Basophils Absolute Auto 0.1 X10*3/uL (0.0-0.2); Basophils Percent Auto 0.5 % (0-2); Eosinophils Absolute Auto 0.1 X10*3/uL (0.0-0.4); Eosinophils Percent Auto 0.4 % (0-4); Hematocrit 36.3 % (37.0-47.0); Hemoglobin 11.4 g/dl (12.0-16.0); Imm Gran Abs Auto 0.06 X10*3/uL (0.00-0.03); Imm Gran Pct Auto 0.4 % (0.0-0.4); Lymphocytes Absolute Auto 2.8 X10*3/uL (1.2-4.9); Lymphocytes Percent Auto 16.4 % (20-40); Mean Corpuscular HGB Conc 31.4 g/dl (31.0-35.0); Mean Corpuscular Hemoglobin 24.7 pg (27.0-33.0); Mean Corpuscular Volume 78.6 fL (80.0-98.0); Mean Platelet Volume 10.9 fL (9.4-12.3); Monocytes Absolute Auto 0.9 X10*3/uL (0.1-1.2); Monocytes Percent Auto 5.6 % (2-11); Neutrophils Absolute Auto 12.9 x10*3/uL (2.0-8.3); Neutrophils Percent Auto 76.7 % (45-73); Platelet Count 330 X10*3/uL (160-400); Red Blood Count 4.62 X10*6/uL (4.20-5.50); White Blood Count 16.8 X10*3/uL (4.8-10.8)
[2024-02-10 23:30] LABS: Troponin-I High Sensitivity 3.4 ng/L (<3.5-17.0)
[2024-02-10 23:35] LABS: Alanine Aminotransferase 53 U/L (0-31); Albumin Level 4.1 g/dL (3.5-5.0); Alkaline Phosphatase 45 U/L (39-117); Anion Gap 15 (12-20); Aspartate Amino Transferase 53 U/L (5-31); Bilirubin Total 0.2 mg/dL (0.0-1.0); Blood Urea Nitrogen 11 mg/dL (9-16); Calcium 9.9 mg/dL (8.4-10.2); Carbon Dioxide 24 mmol/L (22-29); Chloride 105 mmol/L (96-108); Creatinine Clr Calc Pharmacy 72.1; Estimated Glomerular Filt Rate > 60; Glucose Random 111 mg/dL (60-115); Lipase 27 U/L (8-78); Magnesium 1.9 mg/dL (1.6-2.6); Sodium 140 mmol/L (135-145); Total Protein 7.8 g/dL (6.5-8.0)
--- NOTE | 2024-02-11 01:02 | ED.ABDPAIN ---
HPI - Abdominal Pain General Chief Complaint: Abdominal Pain Stated Complaint: heartburn x3 wks Time Seen by Provider: 02/11/24 00:17 Source: patient Mode of arrival: ambulatory History of Present Illness HPI narrative: 53-year-old female who reports 3 weeks epigastric discomfort that extends up into her chest and not associated with fever/chills/nausea/vomiting/diarrhea/lower abdominal discomfort, denies any urinary symptoms and endorses that she does smoke cigarettes and consume alcohol. Patient reports that when she coughs that the pain radiates onto the right side. Related Data Home Medications ?Medication ?Instructions ?Recorded ?Confirmed budesonide-formoterol HFA 160 2 puff inhalation BID 02/21/21 04/24/21 mcg-4.5 mcg/actuation aerosol inhaler (Symbicort) omeprazole 20 mg capsule,delayed 20 mg PO DAILY 02/21/21 04/24/21 release Previous Rx's ?Medication ?Instructions ?Recorded ondansetron HCl 4 mg tablet 4 mg PO Q8H PRN nausea and 10/01/20 (Zofran) vomiting #14 tabs bxnalaokza-ccjaaziidviya-irzgkdsm 1 cap PO TID PRN pain #10 caps 10/02/20 50 mg-300 mg-40 mg capsule (Fioricet) bisacodyl 10 mg rectal suppository 10 mg WV DAILY PRN constipation 02/21/21 (Dulcolax (bisacodyl)) #20 ea bisacodyl 5 mg tablet,delayed 5 mg PO BEDTIME #20 tabs 02/21/21 release (Dulcolax (bisacodyl)) hydrocortisone 2.5 % topical cream 1 appl WV BID PRN hemorrhoids #30 02/21/21 with perineal applicator grams (Proctozone-HC) linaclotide 72 mcg capsule 72 mcg PO QAM #30 caps 06/27/21 (Linzess) cephalexin 500 mg capsule 500 mg PO TID #14 caps 08/25/21 ibuprofen 400 mg tablet 400 mg PO Q6H PRN pain #20 tabs 08/25/21 acetaminophen 500 mg tablet 500 mg PO Q6H PRN fever or pain 02/05/23 (Tylenol Extra Strength) #14 tabs cyclobenzaprine 5 mg tablet 5 mg PO Q8H PRN pain (scale score 02/05/23 7-10) 5 days #14 tabs lidocaine 5 % topical patch 1 patch topical DAILY PRN pain #30 02/05/23 (Lidoderm) ea naproxen 500 mg tablet 500 mg PO BID PRN pain 10 days #20 02/05/23 tabs ibuprofen 600 mg tablet 600 mg PO Q8H PRN fever or pain 10/11/23 #30 tabs tramadol 50 mg tablet 50 mg PO Q8H PRN pain #6 tabs 10/11/23 sucralfate 100 mg/mL oral 10 ml PO BID #420 mL 02/11/24 suspension (Carafate) Allergies Allergy/AdvReac Type Severity Reaction Status Date / Time Sulfa (Sulfonamide Allergy Mild RASH, hives Verified 02/10/24 21:50 Antibiotics) [SULFA(SULFONAMIDE ANTIBIOTICS)] Review of Systems Review of Systems Pertinent positives and negatives as stated in HPI [facility] Past Medical History Source: nursing notes reviewed Medical History Chronic constipation Migraines Acid reflux HTN (hypertension) Sleep apnea Anemia Asthma Surgical History H/O hernia repair Hx of carpal tunnel repair H/O bilateral salpingectomy Family History Family History Mother Uterine cancer Father HTN (hypertension) Pacemaker Paternal Aunt History of open heart surgery Social History Social History Household Members: None Alcohol intake: current Alcohol intake frequency: a few times a month Advance Directives: No Advance Directives Information Provided: Yes Do you have a plan to hurt others: No Plan Current occupational status: unemployed Physical Exam ED Vital Signs: Vital Signs - 24 hr 02/10/24 21:46 Temperature 98.8 F Pulse Rate 85 Respiratory Rate 20 Blood Pressure 121/90 H Pulse Oximetry 98 Oxygen Delivery Method Room Air BMI result Body Mass Index 30.0 VITAL SIGNS: Reviewed. GENERAL: Well developed, well nourished, in no acute distress. HEAD: Normocephalic/atraumatic EYES: PERRLA, EOMI EARS: Ext canals without abnormality NOSE: Nares patent bilateral OROPHARYNX: no oral lesions noted, posterior pharynx clear NECK: Supple, no adenopathy LUNGS: Normal breath sounds. No adventitious sounds or accessory muscle use. SpO2<98> CARDIOVASCULAR: Regular rate and rhythm without noted murmurs ABDOMEN: Soft, non-tender, non-distended with bowel sounds. MUSCULOSKELETAL: No tenderness, deformities, or effusions noted on gross inspection. EXTREMITIES: No cyanosis, clubbing or edema. SKIN: Inspection of the skin reveals no rashes NEUROLOGIC: Alert and oriented x 4. Strength and sensation to light touch were grossly intact x 4. Medical Decision Making Medical Decision Making [facility] Narrative: 53-year-old female with history and clinical presentation, DDX: Gastritis, GERD, no clinical suspicion for cholecystitis/pancreatitis, possible viral illness and no clinical suspicion for pneumonia I reviewed all investigations and patient has a chronically elevated noninfectious leukocytosis, she is otherwise afebrile. Patient has a chronic anemia and no thrombocytopenia. Chemistry indices negative for DAVE/electrolyte derangements, high sensitivity troponin is detectable but not elevated and there is a slight elevation of AST/ALT. Patient provided with GI cocktail and Carafate solution and all results and findings discussed with her at bedside and she will be discharged on a course of Carafate and instructed to follow-up with your primary care doctor. Differential Diagnosis Differential Diagnoses: The differential diagnosis associated with the presentation includes Please see the discussion above Admission/Observation Consideration of admission/observation: Escalation of care including admission/observation considered Please see the discussion above Lab Data [facility] Lab Attestation statement: I reviewed the patient's lab results. Please see the discussion above 02/10/24 22:51 02/10/24 22:51 Labs: Lab Results 02/10/24 Range/Units 22:51 WBC 16.8 H (4.8-10.8) X10*3/uL RBC 4.62 (4.20-5.50) X10*6/uL Hgb 11.4 L (12.0-16.0) g/dl Hct 36.3 L (37.0-47.0) % MCV 78.6 L (80.0-98.0) fL MCH 24.7 L (27.0-33.0) pg MCHC 31.4 (31.0-35.0) g/dl RDW 15.0 (11.0-16.0) % Plt Count 330 (160-400) X10*3/uL MPV 10.9 (9.4-12.3) fL Immature Gran % (Auto) 0.4 (0.0-0.4) % Neut % (Auto) 76.7 H (45-73) % Lymph % (Auto) 16.4 L (20-40) % [place] % (Auto) 5.6 (2-11) % Eos % (Auto) 0.4 (0-4) % Baso % (Auto) 0.5 (0-2) % Lymph # (Auto) 2.8 (1.2-4.9) X10*3/uL [place] # (Auto) 0.9 (0.1-1.2) X10*3/uL Eos # (Auto) 0.1 (0.0-0.4) X10*3/uL Baso # (Auto) 0.1 (0.0-0.2) X10*3/uL Abs Immat Gran (auto) 0.06 H (0.00-0.03) X10*3/uL Absolute Neuts (auto) 12.9 H (2.0-8.3) x10*3/uL Absolute Nucleated RBC 0.000 (0.0-0.012) X10*3/uL Nucleated RBC % (auto) 0.0 (0.0-0.2) /100WBC Sodium 140 (135-145) mmol/L Potassium 4.0 (3.3-5.1) mmol/L Chloride 105 (96-108) mmol/L Carbon Dioxide 24 (22-29) mmol/L Anion Gap 15 (12-20) BUN 11 (9-16) mg/dL Creatinine 0.92 (0.5-1.4) mg/dL Estim Creat Clear Calc 72.1 Estimated GFR > 60 Random Glucose 111 (60-115) mg/dL Calcium 9.9 D (8.4-10.2) mg/dL Magnesium 1.9 (1.6-2.6) mg/dL Total Bilirubin 0.2 (0.0-1.0) mg/dL AST 53 H (5-31) U/L ALT 53 H (0-31) U/L Alkaline Phosphatase 45 (39-117) U/L Troponin I High Sens 3.4 (<3.5-17.0) ng/L Total Protein 7.8 (6.5-8.0) g/dL Albumin 4.1 (3.5-5.0) g/dL Lipase 27 (8-78) U/L Independent Interpretation I performed an independent interpretation of an: EKG Interpretation: Sinus rhythm, HR-71, no STEMI, WV/QRS/QTC is within normal limits External Record Review External record reviewed: Outpatient record, Prior outpatient labs and Prior outpatient radiology Critical Care Time Critical Care Time Critical Care Time: Yes Total Critical Care Time: 30 Attestation: I personally attest to this time spent taking care of the patient. Discharge Plan Discharge Clinical Impression: GERD (gastroesophageal reflux disease), Gastritis Patient Disposition: Home, Self-Care Instructions: Gastritis (ED), Diet for Stomach Ulcers and Gastritis (ED), Gastroesophageal Reflux Disease (ED) Additional Instructions: 1. Resume all medications, a prescription for Carafate has been provided to you. 2. Please follow-up with your primary care doctor. Your workup has otherwise been negative today. Return to the ED for any worsening symptoms Prescriptions: New sucralfate [Carafate] 100 mg/mL suspension 10 ml PO BID Qty: 420 0RF No Action Linzess 72 mcg capsule 72 mcg PO QAM Qty: 30 11RF ondansetron HCl [Zofran] 4 mg tablet 4 mg PO Q8H PRN (Reason: nausea and vomiting) Qty: 14 0RF bqpodggfxv-tlvsallvxpghh-cllx [Fioricet] 50-300-40 mg capsule 1 cap PO TID PRN (Reason: pain) Qty: 10 0RF ibuprofen 400 mg tablet 400 mg PO Q6H PRN (Reason: pain) Qty: 20 0RF cephalexin 500 mg capsule 500 mg PO TID Qty: 14 0RF acetaminophen [Tylenol Extra Strength] 500 mg tablet 500 mg PO Q6H PRN (Reason: fever or pain) Qty: 14 0RF lidocaine [Lidoderm] 5 % adhesive patch,medicated 1 patch topical DAILY MDD remove after 12 hours PRN (Reason: pain) Qty: 30 0RF Rx Instructions: leave on most painful area for up to 12 hrs naproxen 500 mg tablet 500 mg PO BID PRN (Reason: pain) 10 Days Qty: 20 0RF cyclobenzaprine 5 mg tablet 5 mg PO Q8H PRN (Reason: pain (scale score 7-10)) 5 Days Qty: 14 0RF tramadol 50 mg tablet 50 mg PO Q8H PRN (Reason: pain) Qty: 6 0RF ibuprofen 600 mg tablet 600 mg PO Q8H PRN (Reason: fever or pain) Qty: 30 0RF budesonide-formoterol [Symbicort] 160-4.5 mcg/actuation HFA aerosol inhaler 2 puff inhalation BID omeprazole 20 mg capsule,delayed release(DR/EC) 20 mg PO DAILY bisacodyl [Dulcolax (bisacodyl)] 10 mg suppository 10 mg WV DAILY PRN (Reason: constipation) Qty: 20 0RF hydrocortisone [Proctozone-HC] 2.5 % cream with perineal applicator 1 appl WV BID PRN (Reason: hemorrhoids) Qty: 30 3RF Rx Instructions: apply WV BID prn bisacodyl [Dulcolax (bisacodyl)] 5 mg tablet,delayed release (DR/EC) 5 mg PO BEDTIME Qty: 20 0RF Referrals: Melani Anderson MD [Primary Care Provider] - Print Language: Fijian
[2024-02-11 01:28] VITALS: BP 112/72; PULSE 77; RESP 14; TEMP 36.7; O2SAT 97
[2024-02-11] MEDS: Sucralfate Oral Suspension 1 GM/10 ML ORAL.SUSP PO (01:31)
[2024-02-11] MEDS: Magnesium Hydrox/Alum Hydrox 30 ML ORAL.SUSP PO (01:31)
[2024-02-11] MEDS: Lidocaine HCl Viscous 2 % 15 ML SOLUTION 10 ML MUCOUS MEM (01:31)
[2024-02-11 01:45] VITALS: BP 112/72; PULSE 77; RESP 14; TEMP 36.7; O2SAT 97
== END 2024-02-11 01:46 | disposition home or self-care (01) ==
PROVIDERS: Emergency Provider Student in an Organized Health Care Education/Training Program; PCP Internal Medicine
DX: K29.70 Gastritis, unspecified, without bleeding (principal); K21.9 Gastro-esophageal reflux disease without esophagitis; I10 Essential (primary) hypertension
CPT/HCPCS: 36415; 80053; 83690; 83735; 84484; 85025; 93005; 99283; 99285

== ENCOUNTER → 2024-02-10 22:39 | Outpatient (BNV) | payer MEDICAID, SELFPAY | PROVIDERS: Emergency Provider Student in an Organized Health Care Education/Training Program; PCP Internal Medicine; Visit Provider Internal Medicine Cardiovascular Disease | DX: R12 Heartburn (principal) | CPT/HCPCS: 93010 ==

== ENCOUNTER 2024-03-05 13:50 | Outpatient (REF) | payer MEDICAID, SELFPAY ==
[2024-03-05 15:58] LABS: MANUAL DIFF FLAG NO
[2024-03-05 16:19] LABS: Basophils Absolute Auto 0.1 X10*3/uL (0.0-0.2); Basophils Percent Auto 0.5 % (0-2); Eosinophils Absolute Auto 0.3 X10*3/uL (0.0-0.4); Eosinophils Percent Auto 1.3 % (0-4); Hematocrit 36.9 % (37.0-47.0); Hemoglobin 11.6 g/dl (12.0-16.0); Imm Gran Abs Auto 0.08 X10*3/uL (0.00-0.03); Imm Gran Pct Auto 0.4 % (0.0-0.4); Lymphocytes Absolute Auto 2.7 X10*3/uL (1.2-4.9); Lymphocytes Percent Auto 13.9 % (20-40); Mean Corpuscular HGB Conc 31.4 g/dl (31.0-35.0); Mean Corpuscular Hemoglobin 24.7 pg (27.0-33.0); Mean Corpuscular Volume 78.7 fL (80.0-98.0); Mean Platelet Volume 11.4 fL (9.4-12.3); Monocytes Absolute Auto 0.9 X10*3/uL (0.1-1.2); Monocytes Percent Auto 4.7 % (2-11); Neutrophils Absolute Auto 15.6 x10*3/uL (2.0-8.3); Neutrophils Percent Auto 79.2 % (45-73); Platelet Count 407 X10*3/uL (160-400); Red Blood Count 4.69 X10*6/uL (4.20-5.50); Red Cell Distribution Width 15.4 % (11.0-16.0); White Blood Count 19.7 X10*3/uL (4.8-10.8)
[2024-03-05 16:40] LABS: Alanine Aminotransferase 35 U/L (0-31); Albumin Level 4.1 g/dL (3.5-5.0); Alkaline Phosphatase 47 U/L (39-117); Anion Gap 9 (12-20); Aspartate Amino Transferase 28 U/L (5-31); Bilirubin Total 0.3 mg/dL (0.0-1.0); Blood Urea Nitrogen 18 mg/dL (9-16); Calcium 10.1 mg/dL (8.4-10.2); Carbon Dioxide 25 mmol/L (22-29); Chloride 91 mmol/L (96-108); Estimated Glomerular Filt Rate > 60; Glucose Random 116 mg/dL (60-115); Lipase 53 U/L (8-78); Potassium 3.2 mmol/L (3.3-5.1); Sodium 122 mmol/L (135-145)
== END 2024-03-05 13:51 | disposition home or self-care (01) ==
LOC: HO.HHCL 13:50
PROVIDERS: Visit Provider General Practice
DX: R10.84 Generalized abdominal pain (principal)
CPT/HCPCS: 36415; 80053; 83690; 85025

== ENCOUNTER 2024-03-12 14:41 | Outpatient (REF) | payer MEDICAID, SELFPAY ==
[2024-03-12 16:04] LABS: MANUAL DIFF FLAG NO
[2024-03-12 16:13] LABS: Basophils Absolute Auto 0.1 X10*3/uL (0.0-0.2); Basophils Percent Auto 0.7 % (0-2); Eosinophils Absolute Auto 0.2 X10*3/uL (0.0-0.4); Hematocrit 35.5 % (37.0-47.0); Hemoglobin 11.1 g/dl (12.0-16.0); Imm Gran Abs Auto 0.06 X10*3/uL (0.00-0.03); Imm Gran Pct Auto 0.4 % (0.0-0.4); Lymphocytes Absolute Auto 3.2 X10*3/uL (1.2-4.9); Lymphocytes Percent Auto 19.5 % (20-40); Mean Corpuscular HGB Conc 31.3 g/dl (31.0-35.0); Mean Corpuscular Hemoglobin 24.7 pg (27.0-33.0); Mean Corpuscular Volume 79.1 fL (80.0-98.0); Mean Platelet Volume 11.2 fL (9.4-12.3); Monocytes Absolute Auto 1.1 X10*3/uL (0.1-1.2); Monocytes Percent Auto 6.8 % (2-11); Neutrophils Absolute Auto 11.9 x10*3/uL (2.0-8.3); Neutrophils Percent Auto 71.6 % (45-73); Platelet Count 356 X10*3/uL (160-400); Red Blood Count 4.49 X10*6/uL (4.20-5.50); Red Cell Distribution Width 15.6 % (11.0-16.0); White Blood Count 16.6 X10*3/uL (4.8-10.8)
[2024-03-12 16:25] LABS: Anion Gap 14 (12-20); Blood Urea Nitrogen 13 mg/dL (9-16); Calcium 9.7 mg/dL (8.4-10.2); Carbon Dioxide 26 mmol/L (22-29); Chloride 106 mmol/L (96-108); Estimated Glomerular Filt Rate > 60; Glucose Random 91 mg/dL (60-115); Potassium 3.8 mmol/L (3.3-5.1); Sodium 142 mmol/L (135-145)
== END 2024-03-12 14:42 | disposition home or self-care (01) ==
LOC: HO.HHCL 14:41
PROVIDERS: Visit Provider General Practice
DX: E87.1 Hypo-osmolality and hyponatremia (principal); D72.829 Elevated white blood cell count, unspecified
CPT/HCPCS: 36415; 80048; 85025

== ENCOUNTER 2024-05-05 08:39 | Outpatient (REF) | payer MEDICAID, SELFPAY ==
[2024-05-05 11:22] LABS: MANUAL DIFF FLAG NO
[2024-05-05 11:34] LABS: Basophils Absolute Auto 0.1 X10*3/uL (0.0-0.2); Basophils Percent Auto 0.6 % (0-2); Eosinophils Absolute Auto 0.1 X10*3/uL (0.0-0.4); Hematocrit 32.5 % (37.0-47.0); Hemoglobin 10.1 g/dl (12.0-16.0); Imm Gran Abs Auto 0.04 X10*3/uL (0.00-0.03); Imm Gran Pct Auto 0.4 % (0.0-0.4); Lymphocytes Absolute Auto 4.5 X10*3/uL (1.2-4.9); Lymphocytes Percent Auto 40.1 % (20-40); Mean Corpuscular HGB Conc 31.1 g/dl (31.0-35.0); Mean Corpuscular Hemoglobin 24.8 pg (27.0-33.0); Mean Corpuscular Volume 79.7 fL (80.0-98.0); Mean Platelet Volume 12.2 fL (9.4-12.3); Monocytes Absolute Auto 0.7 X10*3/uL (0.1-1.2); Monocytes Percent Auto 5.9 % (2-11); Neutrophils Absolute Auto 5.8 x10*3/uL (2.0-8.3); Platelet Count 302 X10*3/uL (160-400); Red Blood Count 4.08 X10*6/uL (4.20-5.50); Red Cell Distribution Width 16.3 % (11.0-16.0); White Blood Count 11.2 X10*3/uL (4.8-10.8)
[2024-05-05 12:05] LABS: Anion Gap 10 (12-20); Blood Urea Nitrogen 13 mg/dL (9-16); Calcium 9.6 mg/dL (8.4-10.2); Carbon Dioxide 27 mmol/L (22-29); Chloride 108 mmol/L (96-108); Cholesterol 130 mg/dL (<200); Estimated Glomerular Filt Rate > 60; Glucose Random 106 mg/dL (60-115); HDL Cholesterol 37 mg/dL (>40); Iron 66 mcg/dL (30-160); LDL Cholesterol Calculated 68 mg/dL (<100); Percent Iron Saturation 22 % (15-50); Potassium 3.8 mmol/L (3.3-5.1); Sodium 141 mmol/L (135-145); Total Iron Binding Capacity 302 mcg/dL (228-428); Triglycerides 128 mg/dL (<150); Unsaturated Iron Binding 236 ug/dL
[2024-05-05 13:05] LABS: Reflex LDLD? No
== END 2024-05-05 08:40 | disposition home or self-care (01) ==
LOC: HO.HHCL 08:39
PROVIDERS: Visit Provider Internal Medicine
DX: I10 Essential (primary) hypertension (principal); D64.9 Anemia, unspecified
CPT/HCPCS: 36415; 80048; 80061; 83540; 85025

== ENCOUNTER → 2024-06-10 15:03 | Outpatient (RCR) | payer MEDICAID, SELFPAY ==
[2020-10-24 12:45] VITALS: BP 131/88; PULSE 90; RESP 14; TEMP 36.6; O2SAT 98; BMI 33.2
--- NOTE | 2020-10-24 13:07 | PM.HEMONCPN ---
Medical Summary - Medical Summary Date of Service: 10/24/20 Chief complaint: Follow-up Medical Summary: DIAGNOSIS: Long-standing iron deficiency anemia. Attributes this to hemorrhoidal bleeding. Unable to tolerate oral iron because of constipation. Serum protein electrophoresis consistent with acute inflammation. No monoclonal protein. Normal LDH. Normal B12, thyroid functions, kidney and liver functions. Postmenopausal since 40s. EGD/colonoscopy performed in 2019, polypectomy. Interval History Interval history: Patient is here in follow-up. She is doing much better now but she was diagnosed with COVID-19 in September. She had bad body aches and fevers. She did not have significant shortness of breath and did not need hospitalization. She was treated with antibiotics and prednisone. She continues to have constipation and hemorrhoids that bleed occasionally. She is now on a stool softener. She is scheduled for another colonoscopy in 5 years from the last one. She denies any abdominal complaints such as bloating, heartburn or reflux symptoms. No melena. She denies any exertional chest pain or shortness of breath. Review of Systems - Constitutional Reports as per HPI, Reports no additional constitutional complaints - Gastrointestinal Reports no additional gastrointestinal complaints [facility] Medical History: Medical History (Last Updated 10/02/20 @ 19:47 by Cami Ortiz MD) Acid reflux Anemia Asthma HTN (hypertension) Migraines Sleep apnea Family History: Family History (Last Updated 10/24/20 @ 12:52 by Sammi Arboleda) Mother Uterine cancer Father HTN (hypertension) Pacemaker Paternal Aunt History of open heart surgery Surgical History: Surgical History (Last Updated 10/24/20 @ 12:54 by Sammi Arboleda) H/O bilateral salpingectomy H/O hernia repair Hx of carpal tunnel repair Smoking status: Light tobacco smoker Home Medications and Allergies Allergies Allergy/AdvReac Type Severity Reaction Status Date / Time Sulfa (Sulfonamide Allergy Mild RASH, hives Verified 09/24/20 20:48 Antibiotics) [SULFA(SULFONAMIDE ANTIBIOTICS)] Exam Vital signs: Vital Signs Temp 97.9 F 10/24/20 12:45 Pulse 90 10/24/20 12:45 Resp 14 10/24/20 12:45 BP 131/88 10/24/20 12:45 Pulse Ox 98 10/24/20 12:45 Intake & Output 10/23/20 10/24/20 10/24/20 18:59 06:59 18:59 Other: Weight 77.1 kg Weight 77.1 kg Body Mass Index 33.2 - Constitutional Present: no acute distress - Routine HEENT Exam Head: Present: normal inspection Eye: Present: EOMI, conjunctivae pink - Routine Respiratory Exam Absent: respiratory distress - Routine Cardiovascular Exam Cardiovascular: Present: S1, S2 Progress Note: A/P (1) Anemia Status: Chronic Assessment and plan: 1. This is a pleasant 49-year-old lady, with chronic Iron Deficiency Anemia. She received Iron Dextran, in February 2019. She responded well. She is not on any oral iron supplementation at this time, she does not tolerate it because of constipation. CBC in September 2020 showed normal hemoglobin. 2. Chronic intermittent neutrophilic leukocytosis. Probably related to smoking. Hematological workup was negative. Follow-up in 6 months. - Time Spent With Patient Total time spent is greater than 50% in coordination of care (as documented) at patient's floor/unit and/or counseling patient: 15 - 24 minutes
[2021-04-24 15:25] VITALS: BP 124/64; PULSE 72; RESP 12; TEMP 36.4; O2SAT 99; BMI 35.5
--- NOTE | 2021-04-24 15:34 | P.PNHO_ITS ---
Medical Summary - Medical Summary Date of Service: 04/24/21 Chief complaint: Fatigue Medical Summary: DIAGNOSIS: Long-standing iron deficiency anemia. Attributes this to hemorrhoidal bleeding. Unable to tolerate oral iron because of constipation. Serum protein electrophoresis consistent with acute inflammation. No monoclonal protein. Normal LDH. Normal B12, thyroid functions, kidney and liver functions. Postmenopausal since 40s. EGD/colonoscopy performed in 2019, polypectomy. Interval History Interval history: Patient is here in follow-up. She states that ever since her COVID infection in September she has been feeling rather tired. She no longer menstruates. She denies any gastrointestinal symptoms such as abdominal discomfort, change in bowel habits, hematochezia melena. No exertional chest pain or shortness of breath. She just feels like sleeping all the time and wakes up tired. Review of Systems - Constitutional Reports system reviewed and no additional complaints, except as documented - Eyes Reports system reviewed and no additional complaints, except as documented - ENT Reports system reviewed and no additional complaints, except as documented - Cardiovascular Reports system reviewed and no additional complaints, except as documented - Respiratory Reports no additional respiratory complaints - Gastrointestinal Reports system reviewed and no additional complaints, except as documented - Genitourinary Reports no additional female genitourinary complaints - Musculoskeletal Reports system reviewed and no additional complaints, except as documented - Integumentary/Breasts Skin/Breast: Reports no additional skin complaints - Neurologic Reports system reviewed and no additional complaints, except as documented - Psychiatric Reports system reviewed and no additional complaints, except as documented - Endocrine Reports no additional endocrine complaints - Hematologic/Lymphatic Reports system reviewed and no additional complaints, except as documented - Allergic/Immunologic Reports system reviewed and no additional complaints, except as documented PMFSH Medical History: Medical History (Last Reviewed 04/24/21 @ 15:38 by Radha Luu) Acid reflux Anemia Asthma Chronic constipation HTN (hypertension) Migraines Sleep apnea Family History: Family History (Last Reviewed 04/24/21 @ 15:38 by Radha Luu) Mother Uterine cancer Father HTN (hypertension) Pacemaker Paternal Aunt History of open heart surgery Surgical History: Surgical History (Last Reviewed 04/24/21 @ 15:38 by Radha Luu) H/O bilateral salpingectomy H/O hernia repair Hx of carpal tunnel repair Social History: Social History (Last Reviewed 02/21/21 @ 15:53 by Olivia Nickerson PA-C) Living Situation History: Household Members: None Alcohol History: Alcohol intake: current Alcohol History Details: Alcohol intake frequency: a few times a month Substance Use History: Use of substances other than those prescribed or required for medical reasons : No Occupation Assessmet: Current occupational status: unemployed Oncology Screenings - ECOG Performance Status ECOG Performance Status: 1 Home Medications and Allergies Home Medications Medication Instructions Recorded Confirmed Type budesonide-formoterol HFA 160 2 puff INHALATION BID 02/21/21 04/24/21 History mcg-4.5 mcg/actuation aerosol inhaler omeprazole 20 mg capsule,delayed 20 mg PO DAILY 02/21/21 04/24/21 History release Allergies Allergy/AdvReac Type Severity Reaction Status Date / Time Sulfa (Sulfonamide Allergy Mild RASH, hives Verified 09/24/20 20:48 Antibiotics) [SULFA(SULFONAMIDE ANTIBIOTICS)] Exam Vital signs: Vital Signs Temp 97.9 F 10/24/20 12:45 Pulse 90 10/24/20 12:45 Resp 14 10/24/20 12:45 BP 131/88 10/24/20 12:45 Pulse Ox 98 10/24/20 12:45 Weight 77.1 kg Body Mass Index 33.2 - Constitutional Present: no acute distress - Routine HEENT Exam Head: Present: normal inspection - Routine Respiratory Exam Absent: respiratory distress - Routine Cardiovascular Exam Cardiovascular: Present: S1, S2 Data - Labs CBC & Chem 7: 04/24/21 15:25 Progress Note: A/P (1) Anemia Status: Chronic Assessment and plan: 1. This is a pleasant 49-year-old lady, with chronic Iron Deficiency Anemia. She received Iron Dextran, in February 2019. She responded well. She is not on any oral iron supplementation at this time, she does not tolerate it because of constipation. She has worsening anemia and slight worsening of neutrophilic leukocytosis. Iron studies are normal. Submit blood flow cytometry and bcr/ abl translocation. Follow-up in 3 months. - Time Spent With Patient Time Spent with Patient (in minutes): 15
[2021-04-24 15:36] LABS: Hematocrit 34.9 % (37-47); Hemoglobin 10.9 g/dl (12.0-16.0); Mean Corpuscular HGB Conc 31.2 g/dl (31.0-35.0); Mean Corpuscular Hemoglobin 25.4 pg (27.0-33.0); Mean Corpuscular Volume 81.4 fL (80-98); Mean Platelet Volume 11.1 fL (9.4-12.3); Platelet Count 319 X10*3/uL (160-400); Red Blood Count 4.29 X10*6/uL (4.20-5.50); Red Cell Distribution Width 15.8 % (11.0-16.0); White Blood Count 15.5 X10*3/uL (4.8-10.8)
[2021-04-24 15:55] LABS: Iron 70 mcg/dL (30-160); Percent Iron Saturation 22 % (15-50); Total Iron Binding Capacity 324 mcg/dL (228-428); Unsaturated Iron Binding 254 ug/dL
--- NOTE | 2021-04-24 16:23 | MHC.HEMONCMA ---
Pt was in today for hem f/u and states she is feeling tired ever since she had COVID.pt had labs drawn. clinical data was updated and patient will be in for follow up in 3 months.
[2021-04-24 17:17] LABS: Retic HGB Equivalent 29.9 pg (30.0-35.0); Reticulocyte Percent 1.4 % (0.5-1.8); Reticulocytes Absolute 0.062 X10*6/uL (0.026-0.095)
[2021-04-24 17:23] LABS: Lactate Dehydrogenase 180 U/L (122-220)
[2021-04-25 16:41] LABS: Vitamin B12 405 pg/mL (200-900)
--- NOTE | 2021-05-10 13:09 | MHC.HEMONC ---
pt called re: ? need for iron infusion s/p labs on 04/24. She also asked about special bloodwork on 04/[address] Mckeon had ordered. Dr Garcia (covering) reviewed all of the above and I called pt with report. Pt is not deficient in iron and does not need iron. She also had negative leukemia w/u. She was relieved. She will come in for July appt to f/u with Dr Mckeon.
== END | disposition home or self-care (01) ==
LOC: HO.ONC 10-24 12:30
PROVIDERS: PCP Internal Medicine; Visit Provider Internal Medicine
DX: D50.9 Iron deficiency anemia, unspecified (principal); D72.829 Elevated white blood cell count, unspecified
CPT/HCPCS: 36415; 81206; 81207; 82607; 82746; 83540; 83615; 85027; 85045; 88184; 88185; 99213

== ENCOUNTER → 2024-06-16 14:00 | Outpatient (BNV) | payer MEDICAID, SELFPAY | PROVIDERS: PCP Internal Medicine; Referring Provider Internal Medicine; Visit Provider Internal Medicine | DX: D64.9 Anemia, unspecified (principal) | CPT/HCPCS: 99204 ==

== ENCOUNTER 2024-08-03 14:00 | Outpatient (RCR) | payer MEDICAID, SELFPAY | END 2024-08-10 14:20 | disposition home or self-care (01) | LOC: HO.PT 14:00 | PROVIDERS: PCP Internal Medicine; Visit Provider Internal Medicine | DX: S93.492D Sprain of other ligament of left ankle, subsequent encounter (principal) | CPT/HCPCS: 97110; 97140; 97162; 97530 ==

== ENCOUNTER 2024-09-20 17:33 | Outpatient (REF) | payer MEDICAID, SELFPAY ==
[2024-09-21 11:44] LABS: Bacterial Vaginosis PCR NEGATIVE (Negative); Candida Group PCR DETECTED (Not Detect); Candida glab krusei PCR NOT DETECTED (Not Detect); Trichomonas vaginalis PCR NOT DETECTED (Not Detect)
[2024-09-21 14:02] LABS: CT PCR NOT DETECTED (Not Detect.); NG PCR NOT DETECTED (Not Detect.)
== END 2024-09-20 17:34 | disposition home or self-care (01) ==
LOC: HO.HHCLNP 17:33
PROVIDERS: Visit Provider Nurse Practitioner Family
DX: N76.0 Acute vaginitis (principal)
CPT/HCPCS: 0352U; 87491; 87591

== ENCOUNTER 2024-12-07 10:30 | Outpatient (REF) | payer MEDICAID, SELFPAY ==
[2024-12-07 11:25] LABS: MANUAL DIFF FLAG NO
[2024-12-07 11:33] LABS: Basophils Absolute Auto 0.1 X10*3/uL (0.0-0.2); Basophils Percent Auto 0.5 % (0-2); Eosinophils Absolute Auto 0.1 X10*3/uL (0.0-0.4); Eosinophils Percent Auto 1.1 % (0-4); Hematocrit 32.8 % (37.0-47.0); Hemoglobin 10.2 g/dl (12.0-16.0); Imm Gran Abs Auto 0.04 X10*3/uL (0.00-0.03); Imm Gran Pct Auto 0.4 % (0.0-0.4); Lymphocytes Absolute Auto 3.7 X10*3/uL (1.2-4.9); Mean Corpuscular HGB Conc 31.1 g/dl (31.0-35.0); Mean Corpuscular Hemoglobin 23.9 pg (27.0-33.0); Mean Platelet Volume 11.6 fL (9.4-12.3); Monocytes Absolute Auto 0.6 X10*3/uL (0.1-1.2); Monocytes Percent Auto 6.1 % (2-11); Neutrophils Absolute Auto 5.4 x10*3/uL (2.0-8.3); Neutrophils Percent Auto 54.9 % (45-73); Platelet Count 317 X10*3/uL (160-400); Red Blood Count 4.26 X10*6/uL (4.20-5.50); Red Cell Distribution Width 15.4 % (11.0-16.0); White Blood Count 9.9 X10*3/uL (4.8-10.8)
[2024-12-07 11:48] LABS: Immature Retic Fraction 11.1 % (3.0-15.9); Retic HGB Equivalent 26.9 pg (30.0-35.0); Reticulocytes Absolute 0.043 X10*6/uL (0.026-0.095)
[2024-12-07 11:51] LABS: Estimated Average Glucose 123 mg/dL; Hemoglobin A1C 111.8263 umol/L; Hemoglobin A1c % 5.9 % (<6.0); Total Hemoglobin (HGBA1C) 2721.0564 umol/L
[2024-12-07 12:38] LABS: HIV AB/AG Nonreactive (Nonreactive); HIV Num 1 0.07 S/CO (0.00-0.99); ~HepC Num1 0.12 S/CO (0.00-0.79); ~Hepatitis C Antibody Nonreactive (Nonreactive)
--- OUTSIDE RECORDS SUMMARY | 2024-12-07 12:45 | XMS_ITS | Encounter Summary ---
Author Organization [employer] Address [address] [place] [address] Care Team Providers Care Supervisor Twisting Department Name Role Phone Melani Anderson MD Primary Care Provide r Reason for Visit * Reason Comments Med Refill Encounter Details Date Type Department Care Team ([facility] Contact Info) Description 12/06/2024 Refill [facility] [address] [place], [place] [id number] Kaykay Dunlap MD [address] [place] [address] Social History Tobacco Use Types Packs/Day Years Used Date Smoking Tobacco: Some Days Cigarettes Passive Smoke Exposure: Current Passive Exposure Comments:oc Alcohol Use Standard Drinks/Week Comments Yes 0 (1 standard drink = 0.6 oz pur e alcohol) oca Depression Answer Date Recorded Patient Health Questionnaire-9 Score 0 12/07/2024 Patient Health Questionnaire-9 Score 0 12/07/2024 Last PHQ-9: Questionnaire Data Not on file 0 12/07/2024 Housing Stability Answer Date Recorded What is your housing situation today? I have jacquie weathers 04/19/[address] you li ve. Do you have problems with any of the following? None of the above 04/19/2024 Food Insecurity Answer Date Recorded Within the past 12 months, y ou worried that your food would run out before you got money to buy more: Never True 04/19/2024 Within the past 12 months,th e food you bought just didn't last and you didn't have enough money to get more: Never True Transportation Answer Date Recorded In the past 12 months, has l ack of transportation kept you from medical appts, meetings, work or from getting things needed for daily living? No 04/19/2024 Utilities Answer Date Recorded In the past 12 months, has t he electric, gas, oil or water company threatened to shut off services in your home? No 04/19/2024 Depression Answer Date Recorded Patient Health Questionnaire-2 Score 0 12/07/2024 Internet Access Answer Date Recorded Internet Access Q1 Yes 06/07/2024 Internet Access Q2 Not on file 06/07/2024 Comments Unknown Sex and Gender Information Value Date Recorded Sex Assigned at Female 08/05/2022 10:16 AM EDT Legal Sex Female 10:16 AM EDT Gender Identity Female 08/05/2022 10:16 AM EDT Sexual Orientation Choose not to disclose 2021 10:16 AM EDT documented as of this encounter Plan of Treatment Not on file documented as of this encounter Visit Diagnoses Not on filedocumented in this encounter Additional Health Concerns Assessment Noted Time PHQ-9 Depression Total Score: 1 02/11/20 24 11:34 AM EDT documented as of this encounter Care Teams Supervisor Twisting Department Relationship Specialty Start Date End Date Melani Anderson MD [address] [place] [id number] PCP - General Family Medicine 07/20/19 Darlene Lassiter Storm Window InstallerControl Room Operator 10/08/23 Marilynn Garcia Storm Window InstallerControl Room Operator 08/19/24 documented as of this encounter
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
--- OUTSIDE RECORDS SUMMARY | 2024-12-07 12:45 | XMS_ITS | Encounter Summary ---
Author Organization [employer] Address [address] [place] [address] Care Team Providers Care Textile Screen Printer Name Role Phone Melani Anderson MD Primary Care Provide r Encounter Details Date Type Department Care Team (Latest Contact Info) Description 12/07/2024 Travel Social History Tobacco Use Types Packs/Day Years [...] documented as of this encounter Care Teams Textile Screen Printer Relationship Specialty Start Date End Date Melani Anderson MD [address] [place] [phone] PCP - General Family Medicine 07/20/19 Darlene Lassiter Sandwich And Drink Cart OperatorMotors And Controls Tester 10/08/23 Marilynn Garcia Sandwich And Drink Cart OperatorMotors And Controls Tester 08/19/24 documented as of this encounter
--- OUTSIDE RECORDS SUMMARY | 2024-12-07 12:45 | XMS_ITS | Encounter Summary ---
Author Organization [employer] Address [address] [place] [address] Care Team Providers Care Certified Detention Deputy Name Role Phone Melani Anderson MD Primary Care Provide r Reason for Visit * Reason Onset Date Comments Med Refill 10/13/2023 Encounter Details Date Type Department Care Team ([facility] st Contact Info) Description 10/13/[address] [facility] [address] [place] [address] Melani Anderson MD [address] [place] [address] Multiple joint pain (Primary Dx) Social History Tobacco Use Types Packs/Day Years Used Date Smoking Tobacco: Former Cigarettes Alcohol Use Standard Drinks/Week Comments Yes 0 (1 standard drink = 0.6 oz pur e alcohol) Comments Unknown Sex and Gender Information Value Date Recorded Sex Assigned at Female 08/05/2022 10:16 AM EDT Legal Sex Female 10:16 AM EDT Gender Identity Female 08/05/2022 10:16 AM EDT Sexual Orientation Choose not to disclose 2021 10:16 AM EDT documented as of this encounter Miscellaneous Notes * Telephone Encounter - Julia Mancilla - 10/13/2023 3:12 PM EST TC from pt requesting medication refill. Medications needing refill : Tramadol To be sent to: [facility]/pharmacy #[id number] - [place] - [address] documented in this encounter Plan of Treatment Not on file documented as of this encounter Visit Diagnoses Diagnosis Multiple joint pain- Primary Pain in joint, multiple sites documented in this encounter Care Teams Certified Detention Deputy Relationship Specialty Start Date End Date Melani Anderson MD [address] [place] [address] PCP - General Family Medicine 07/20/[address] WorkerFile Keeper 10/08/[address] WorkerFile Keeper 08/19/24 documented as of this encounter
--- OUTSIDE RECORDS SUMMARY | 2024-12-07 12:45 | XMS_ITS | Encounter Summary ---
Author Organization [employer] Address [address] [facility] [address] [place] [address] Care Team Providers Care Student Counselor Name Role Phone Melani Anderson MD Primary Care Provide r Reason for Visit * Reason Comments Pre-visit Planning (Unable to complete PVP screening due to poor environmental health physician of phone line) Encounter Details Date Type Department Care Team ([facility] Contact Info) Description 11/25/2024 Patient Outreach [facility] [address] [place] [address] Melani Anderson MD [address] [place] [address] Pre-visit Planning ((Unable to complete PVP screening due to poor environmental health physician of phone line)) Social History Tobacco Use Types Packs/Day Years Used Date Smoking Tobacco: Some Days Cigarettes Passive Smoke Exposure: Current Passive Exposure Comments:oc Alcohol Use Standard Drinks/Week Comments Yes 0 (1 standard drink = 0.6 oz pur e alcohol) oca Depression Answer Date Recorded Patient Health Questionnaire-9 Score 1 02/11/2024 Patient Health Questionnaire-9 Score 1 02/11/2024 Last PHQ-9: Questionnaire Data Not on file 0 02/11/2024 Housing Stability Answer Date Recorded What is [...] Date Recorded Patient Health Questionnaire-2 Score 0 02/11/2024 Internet Access Answer Date Recorded Internet Access Q1 Yes 06/07/2024 Internet Access Q2 Not on file 06/07/2024 Comments Unknown Sex and Gender Information Value Date Recorded Sex Assigned at Female 08/05/2022 10:16 AM EDT Legal Sex Female 10:16 AM EDT Gender Identity Female 08/05/2022 10:16 AM EDT Sexual Orientation Choose not to disclose 2021 10:16 AM EDT documented as of this encounter Progress Notes * Shantell Daley - 11/25/2024 8:41 AM EST CC Shantell placed successful outbound call to patient for pre-visit planning. Patient name and confirmed. Patient confirms appt date and time, unable to complete screening due to poor environmental health physician stewart completed in office documented in this encounter Plan of Treatment Not on file documented as of this encounter Visit Diagnoses Not on filedocumented in this encounter Additional Health Concerns Assessment Noted Time PHQ-9 Depression Total Score: 1 02/11/20 11:34 AM EDT documented as of this encounter Care Teams Student Counselor Relationship Specialty Start Date End Date Melani Anderson MD [address] [place] [phone] PCP - General Family Medicine 07/20/[address] AbstractorBefore School Babysitter 10/08/[address] AbstractorBefore School Babysitter 08/19/24 documented as of this encounter
--- OUTSIDE RECORDS SUMMARY | 2024-12-07 12:45 | XMS_ITS | Encounter Summary ---
Author Organization [employer] Address [address] [facility] 7t [place] [address] Care Team Providers Care Materials Scientist Name Role Phone Melani Anderson MD Primary Care Provide r Encounter Details Date Type Department Care Team ([facility] st Contact Info) Description 11/01/2022 Telephone [facility] ADULT DENTAL [address] [place], [place] [id number] Sanchez Edwards, DMD [address] [place] [address] Social History Tobacco Use Types Packs/Day Years Used Date Smoking Tobacco: Never Assessed Comments Unknown Sex and Gender Information Value [...] Diagnoses Not on filedocumented in this encounter Care Teams Materials Scientist Relationship Specialty Start Date End Date Melani Anderson MD [address] [place] [address] PCP - General Family Medicine 07/20/19 Darlene Lassiter Folder Stitcher OperatorChemistry Manager 10/08/23 Marilynn Garcia Folder Stitcher OperatorChemistry Manager 08/19/24 documented as of this encounter
--- OUTSIDE RECORDS SUMMARY | 2024-12-07 12:45 | XMS_ITS | Encounter Summary ---
Author Organization [employer] Address [address] [facility] 7t [place] [address] Care Team Providers Care Swage Tender Name Role Phone Mealni Anderson MD Primary Care Provide r Reason for Visit * Reason Onset Date Comments Med Refill 12/19/2022 Encounter Details Date Type Department Care Team ([facility] st Contact Info) Description 12/19/2022 Telephone [facility] MEDICINE [address] [place] [address] Melani Anderson MD [address] [place] [address] Med Refill Social History Tobacco Use Types Packs/Day Years [...] not to disclose 2021 10:16 AM EDT COVID-19 Exposure Response Date Recorded In the last 10 days, have yo u been in contact with someone who was confirmed or suspected to have Coronavirus/COVID-19? No / Unsure 12/19/2022 9:41 AM EDT documented as of this encounter Miscellaneous Notes * Telephone Encounter - Julia Graves Charo - 12/19/2022 2:22 PM EDT Tc from pt requesting med refill status on previous message. * Telephone Encounter - Anjelkimberley Star Mancilla - 12/19/2022 12:06 PM EDT Tc from pt requesting med refill on Tramadol 50 mg tablet. Please sen to [facility]/pharmacy #[id number] - LEVI DIAZ - [facility] documented in this encounter Plan of Treatment Not on file documented as of this encounter Visit Diagnoses Not on filedocumented in this encounter Care Teams Swage Tender Relationship Specialty Start Date End Date Melani Anderson MD [address] [place] [address] PCP - General Family Medicine 07/20/19 Darlene Lassiter Pilot Control Operator HelperElementary Summer School Teacher 10/08/23 Marilynn Garcia Pilot Control Operator HelperElementary Summer School Teacher 08/19/24 documented as of this encounter
--- OUTSIDE RECORDS SUMMARY | 2024-12-07 12:45 | XMS_ITS | Clinical Summary ---
Author Organization [address] [facility] Address [address] [place] [address] Phone Care Team Providers Care Manufacturing Technology Professor Name Role Phone Manjula Brasher VANDA Primary Care Provider [phone] Social History Tobacco Use Types Packs/Day Years Used Date Smoking Tobacco: Never Assessed Comments Unknown Sex and Gender Information Value Date Recorded Sex Assigned at Not on file Legal Sex Female 12:51 PM EST Gender Identity Not on file Sexual Orientation Not on file Plan of Treatment Upcoming Encounters Date Type Department Care Team ([facility] Contact Info) Description 01/12/2025 2:45 PM EDT Consult Orthopedic Surgery [place] [id number] [phone] Sergio Martino, DPM [address] [address] Health Maintenance Due Date Last Done Comments Breast Cancer Screening 1970 DTaP,Tdap,and Td Vaccines (1 - Tdap) 1989 Hepatitis B Vaccines (1 of 3 - 19+ 3-dose series) 1989 Cervical Cancer Screening: P ap Smear 1991 Pneumococcal Vaccine: 50+ Ye ars (1 of 1 - PCV) 2020 Zoster Vaccines (1 of 2) 2020 COVID-19 Vaccine ( - 2023-2 5 season) 2024 Influenza Vaccine (#1) 2024 Colorectal Cancer Screening: Colonoscopy 11/18/2024 Depression Screening 11/18/2024 HIV Screening 11/18/2024 Hepatitis C Screening 11/18/2024 Social Influencers of Health Screening 11/18/2024 HIB Vaccines Aged Out No longer eligi ble based on patient's age to complete this topic HPV Vaccines Aged Out No longer eligi ble based on patient's age to complete this topic Hepatitis A Vaccines Aged Out No long er eligible based on patient's age to complete this topic IPV Vaccines Aged Out No longer eligi ble based on patient's age to complete this topic MMR Vaccines Aged Out No longer eligi ble based on patient's age to complete this topic Meningococcal ACWY Vaccine Aged Out N o longer eligible based on patient's age to complete this topic Meningococcal B Vacine Aged Out No lo nger eligible based on patient's age to complete this topic Pneumococcal Vaccine: Pediat rics (0 to 5 Years) and At-Risk Patients (6 to 64 Years) Aged Out No longer eligible b ased on patient's age to complete this topic RSV Immunization Patients Un jesus 20 months Aged Out No longer eligible b ased on patient's age to complete this topic Varicella Vaccines Aged Out No longer eligible based on patient's age to complete this topic [place] [id number] Care Teams Manufacturing Technology Professor Relationship Specialty Start Date End Date Manjula Brasher FNP [address] [place] [address] PCP - General Nurse Practitioner 11/17/24
--- OUTSIDE RECORDS SUMMARY | 2024-12-07 12:45 | XMS_ITS | Encounter Summary ---
Author Organization [employer] Address [address] [place] [address] [address] [place] [address] Care Team Providers Care Engineering Administrator Name Role Phone Melani Anderson MD Primary Care Provide r Reason for Visit * Reason Comments Med Refill Encounter Details Date Type Department Care Team ([facility] st Contact Info) Description 2023 Refill [facility] MEDICINE [address] [place] [address] Sherice Kramer MD [address] [place] [phone] Left shoulder tendinitis Social History Tobacco Use Types Packs/Day Years [...] as of this encounter Visit Diagnoses Diagnosis Left shoulder tendinitis documented in this encounter Care Teams Engineering Administrator Relationship Specialty Start Date End Date Melani Anderson MD [address] [place] [address] PCP - General Family Medicine 07/20/19 Darlene Lassiter Potato SorterInteractive Media Marketing Director 10/08/23 Marilynn Garcia Potato SorterInteractive Media Marketing Director 08/19/24 documented as of this encounter
--- OUTSIDE RECORDS SUMMARY | 2024-12-07 12:45 | XMS_ITS | Encounter Summary ---
Author Organization [employer] Address [address] [facility] [address] [place] [address] Care Team Providers Care Furnace Maintenance Name Role Phone Melani Anderson MD Primary Care Provide r Encounter Details Date Type Department Care Team ([facility] Contact Info) Description 12/07/2024 Orders Only GENERIC EXTERNAL DATA DEPARTMENT Provider, Generic External Data Social History Tobacco Use Types Packs/Day Years [...] on file documented as of this encounter Procedures Procedure Name Priority Date/Time Associated Diagnosis Comments RETICULOCYTE COUNT Routine 12/07/2024 10 :36 AM EST documented in this encounter Results * (ABNORMAL) Reticulocyte Count (12/07/2024 10:36 AM EST) Reticulocytes Absolute 0.043 0.026 - 0.095 X10*6/uL [facility] Immature Retic Fraction 11.1 3.0 - 15.9 % [facility] Retic HGB Equivalent 26.9(L) 30.0 - 35.0 pg [facility] Reticulocyte Percent 1.0 0.5 - 1.8 % [facility] 12/07/2024 10:3 6 AM EST 12/07/2024 11:19 AM EST us Generic External Data Provider LAB BLOOD ORDERAB LES Final Result [facility] [address] [place] [address] [phone] documented in this encounter Visit Diagnoses Not on filedocumented in this encounter Additional Health Concerns Assessment Noted Time PHQ-9 Depression Total Score: 0 12/08/19 25 9:41 AM EST documented as of this encounter Care Teams Furnace Maintenance Relationship Specialty Start Date End Date Melani Anderson MD [address] [place] [phone] PCP - General Family Medicine 07/20/19 Darlene Lassiter Boot TurnerSoftware Computer Specialist 10/08/23 Marilynn Garcia Boot TurnerSoftware Computer Specialist 08/19/24 documented as of this encounter
--- OUTSIDE RECORDS SUMMARY | 2024-12-07 12:45 | XMS_ITS | Encounter Summary ---
Author Organization [employer] Address [address] [place] [address] [address] [place] [address] Care Team Providers Care Manager Completions Name Role Phone Melani Anderson MD Primary Care Provide r Reason for Visit * Reason Comments Med Refill Encounter Details Date Type Department Care Team ([facility] st Contact Info) Description 10/11/2023 Refill [facility] MEDICINE [address] [place] [address] Sherice Kramer MD [address] [place] [phone] Left shoulder tendinitis Social History Tobacco Use [...] tendinitis documented in this encounter Care Teams Manager Completions Relationship Specialty Start Date End Date Melani Anderson MD [address] [place] [address] PCP - General Family Medicine 07/20/19 Darlene Lassiter Administrative CoordinatorOrthotic/Prosthetic Clinician 10/08/23 Marilynn Garcia Administrative CoordinatorOrthotic/Prosthetic Clinician 08/19/24 documented as of this encounter
--- OUTSIDE RECORDS SUMMARY | 2024-12-07 12:46 | XMS_ITS | Clinical Summary ---
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 collection, concurrent antibiotic therapy,or the number of organisms in the specimen which may bebelow the sensitivity of the test. As with many diagnostictests, results from the Xpert CT/NG assay should beinterpreted in conjunction with other laboratory andclinical data available to the clinician.Xpert CT/NG performance has not been evaluated in patientsless than 14 years of age. The assay should not be used forthe evaluationof suspected sexual abuse or for other medico-legalindications. Additional testing is recommended in anycircumstance when false positive or false negative resultscould lead to adverse medical, social or psychologicalconsequences. Swab Cervical swab / Unknown 09/20/2024 4:20 PM EST 09/20/2024 5:35 PM EST Narrative [facility] - 09/21/2024 2:02 PM EST Vaginal us Manjula Brasher NP LAB MICROBIOLOGY - GENERAL ORDER MEENA Final Result [facility] [address] [place] [phone] * (ABNORMAL) Lipid Panel with Reflex to Direct LDL (05/05/2024 8:44 AM EDT) Triglycerides 128 <150 mg/dL [facility] Comment:Desirable Triglyceri de: less than 150 mg/dLBorderline High Triglyceride 150-199 mg/dLHigh Triglyceride: 200-499 mg/dLVery High Triglyceride: greater than or equal to 5OO mg/dL Cholesterol 130 <200 mg/dL [facility] Comment:Desirable Cholestero l: less than 200 mg/dLBorderline High Cholesterol: 200-239 mg/dLHigh Cholesterol: greater than 239 mg/dL LDL Cholesterol Calculated 68 <100 mg/dL [facility] Comment:Desirable LDL: less than 100 mg/dLNear Optimal/Above Optimal LDL: 110- 129 mg/dLBorderline High LDL: 130-159 mg/dLHigh LDL: 160-189 mg/dLVery High LDL: greater than or equal to 190 mg/dL HDL Cholesterol 37(L) >40 mg/dL [facility] Comment:Desirable HDL: great er than 40 mg/dL Note: This HDL assay may give artificially low results in patients with liver disease. Blood 05/05/2024 8:44 AM EDT 05/05/2024 11:17 AM EDT Melani Xiong MD LAB BLOOD ORDERABLES Final Result [facility] [address] [place] [phone] * Mammography Report 1 (12/26/2021 11:45 AM EDT) Anatomical Region Laterality Modality Breast Bilateral Mammography 12/26/2021 11:4 5 AM EDT Narrative 12/27/2021 5:11 PM EDT Refer to the Notes tab for result details [facility] Procedure: Mammography Report 1 Procedure Note Provider, Zuri, - 12/29/2022 Refer to the Notes tab for result details [facility] Procedure: Mammography Report 1 Melani Xiong MD IMG BI PROCEDURES Fin al Result * THINPREP PAP (04/24/2021 12:00 AM EDT) Clinical Information: None given [facility] COMMENT SEE COMMENT [facility] Comment: EXPLANATORY NOTE: ? The Pap is a screening test for cervical cancer. It is ?? not a diagnostic test and is subject to false negative ?? and false positive results. It is most reliable when a ?? satisfactory sample, regularly obtained, is submitted ?? with relevant clinical findings and history, and when ?? the Pap result is evaluated along with historic and ?? current clinical information. ?? Field Consultant : SEE COMMENT [facility] Comment: HJP, CT(ASCP) CT screening location: [address] ??[id number] Infection Shift in vaginal tomasa suggestive of bacterial vaginosis. [facility] Interpretation/R esult: Negative for intraepithelial lesion or malignancy. [facility] LMP: NONE [facility]IV[facility] Prev. BX: NONE [facility]IV[facility] Prev. PAP: NONE [facility]IV[facility] SOURCE: None given [facility] Statement Of Adequacy: SEE COMMENT [facility] Comment: Satisfactory for evaluation. Endocervical/transformation zone component absent. Age and/or menstrual status not provided 04/24/2021 Melani Xiong MD LAB PATHOLOGY ORDERAB LES Final Result Performing Organization Address [facility] de Phone Number [facility] [address] * HPV GENOTYPES 16,18/45 (04/24/2021 12:00 AM EDT) HPV 16 RNA NOT DETECTED NOT DETECTED [facility] HPV 18/45 RNA NOT DETECTED NOT DETECTED [facility] Comment: Methodology: Supervisor Special Effects Mediated Amplification The analytical performance characteristics of this assay have been determined by [employer]. The modifications have not been cleared or approved by the FDA. This assay has been validated pursuant to the CLIA regulations and is used for clinical purposes. 04/24/2021 Melani Xiong MD LAB BLOOD ORDERABLES Final Result Performing Organization Address [facility] de Phone Number [facility] [address] from Last 3 Months or Most Recently Relevant to Health Maintenance Insurance [facility] C3 DENTAL-[facility] MEDICAID STAND ADULT Care Teams Push Bench Operator Helper Relationship Specialty Start Date End Date Melani Anderson MD [address] [place] [phone] PCP - General Family Medicine 07/20/19 Darlene Lassiter Finish Production ManagerClinic Office Assistant 10/08/23 Marilynn Garcia Finish Production ManagerClinic Office Assistant 08/19/24
--- OUTSIDE RECORDS SUMMARY | 2024-12-07 12:46 | XMS_ITS | Encounter Summary ---
Author Organization [employer] Address [address] [place] [address] Care Team Providers Care Supervisor Filter Assembly Name Role Phone Melani Anderson MD Primary Care Provide r Encounter Details Date Type Department Care Team ([facility] Contact Info) Description 09/13/2024 Orders Only [facility] [address] [place], [place] [phone] Kaykay Dunlap MD [address] [place] [address] Social History Tobacco Use Types Packs/Day Years [...] as of this encounter Care Teams Supervisor Filter Assembly Relationship Specialty Start Date End Date Melani Anderson MD [address] [place] [phone] PCP - General Family Medicine 07/20/19 Darlene Lassiter Cotton OpenerCustodial Engineer 10/08/23 Marilynn Garcia Cotton OpenerCustodial Engineer 08/19/24 documented as of this encounter
--- OUTSIDE RECORDS SUMMARY | 2024-12-07 12:46 | XMS_ITS | Encounter Summary ---
Author Organization [employer] [facility] Address [address] [place] [address] [address] [place] [address] Care Team Providers Care Hat Lining Blocker Name Role Phone Melani Anderson MD Primary Care Provide r Encounter Details Date Type Department Care Team (Latest Contact Info) Description 06/08/2021 Abstract [facility] CONVERSIONS Dental, Provider, DDS Social History Tobacco Use Types Packs/Day Years [...] on filedocumented in this encounter Care Teams Hat Lining Blocker Relationship Specialty Start Date End Date Melani Anderson MD [address] [place] [phone] PCP - General Family Medicine 07/20/19 Darlene Lassiter Head Bander And Liner OperatorHigh Lift Mule Operator 10/08/23 Marilynn Garcia Head Bander And Liner OperatorHigh Lift Mule Operator 08/19/24 documented as of this encounter
--- OUTSIDE RECORDS SUMMARY | 2024-12-07 12:46 | XMS_ITS | Encounter Summary ---
Author Organization [employer] Address [address] [facility] 7t [place] [address] Care Team Providers Care Manager Visual Name Role Phone Melani Anderson MD Primary Care Provide r Reason for Visit * Reason Onset Date Comments Error 09/08/2024 Encounter Details Date Type Department Care Team ([facility] Contact Info) Description 09/08/2024 Telephone [facility] [address] [place] [address] Melani Anderson MD [address] [place] [address] Error Social History Tobacco Use Types Packs/Day Years [...] your housing situation today? I have jacquie sarahy 04/19/[address] you li [...] documented as of this encounter Care Teams Manager Visual Relationship Specialty Start Date End Date Melani Anderson MD [address] [place] [phone] PCP - General Family Medicine 07/20/19 Darlene Lassiter Spot WasherBasket Weaver 10/08/23 Marilynn Garcia Spot WasherBasket Weaver 08/19/24 documented as of this encounter
--- OUTSIDE RECORDS SUMMARY | 2024-12-07 12:46 | XMS_ITS | Encounter Summary ---
Author Organization [employer] Address [address] [place] [address] Care Team Providers Care Sheet Metal Apprentice Name Role Phone Melani Anderson MD Primary Care Provide r Encounter Details Date Type Department Care Team ([facility] Contact Info) Description 06/12/2024 Orders Only [facility] [place] [address] [place] [address] Joby Smallwood MD [address] [place] [address] Social History Tobacco Use Types Packs/Day Years [...] documented as of this encounter Care Teams Sheet Metal Apprentice Relationship Specialty Start Date End Date Melani Anderson MD [address] [place] [phone] PCP - General Family Medicine 07/20/19 Darlene Lassiter Side Door ManHr Associate 10/08/23 Marilynn Garcia Side Door ManHr Associate 08/19/24 documented as of this encounter
--- OUTSIDE RECORDS SUMMARY | 2024-12-07 12:46 | XMS_ITS | Encounter Summary ---
Author Organization [employer] Address [address] [facility] [address]t [place] [address] Care Team Providers Care Bouffant Curtain Machine Tender Name Role Phone Melani Anderson MD Primary Care Provide r Reason for Visit * Reason Onset Date Comments Nurse Triage 09/13/2024 Encounter Details Date Type Department Care Team ([facility] Contact Info) Description 09/13/2024 Telephone [facility] [address] [place] [address] Melani Anderson MD [address] [place] [address] Nurse Triage Social History Tobacco Use Types Packs/Day Years [...] encounter Miscellaneous Notes * Telephone Encounter - Kelsea Caceres RN - 09/13/2024 10:23 AM EST Triage call Pt reports right middle toe with pus present, redness, swelling. Neg for injury, fever.Pt is concerned about the possibility of infection. Pt does have allergies and is taking antihistamines. Pt is advised to use tylenol/motrin for pain as needed. Pt is advised to come to [facility] for Provider to see Pt. Pt agrees with this disposition . Insurance is verified as active. Protocol Used: Toe Pain (Adult) Protocol-Based Disposition: See in Office or Video Visit Today Positive Triage Question: * Yellow pus seen in skin around toenail (cuticle area), or pus seen under toenail * All higher-acuity triage questions were negative * Telephone Encounter - Robyn Baltazar - 09/13/2024 9:53 AM EST Symptom: Toe Pain - Not From Injury Outcome: Schedule an urgent appointment (within 1 hour) or talk to a nurse or provider soon Reason: Severe pain now The caller accepted this outcome. Contact pt at [phone] documented in this encounter Plan of Treatment Not on file documented as of this encounter Visit Diagnoses Not on filedocumented in this encounter Additional Health Concerns Assessment Noted Time PHQ-9 Depression Total Score: 1 02/11/20 24 11:34 AM EDT documented as of this encounter Care Teams Bouffant Curtain Machine Tender Relationship Specialty Start Date End Date Melani Anderson MD [address] [place] [phone] PCP - General Family Medicine 07/20/19 Darlene Lasister Merchandise Support AssociateVault Worker 10/08/23 Marilynn Garcia Merchandise Support AssociateVault Worker 08/19/24 documented as of this encounter
--- OUTSIDE RECORDS SUMMARY | 2024-12-07 12:46 | XMS_ITS | Data Portability ---
Author Organization [place] [facility], Allergy Address [address] [address] Care Team Providers Care Local Company Truck Driver Name Role Phone MATTHEW CONN, SHEREE Primary Care Provider Assessment Encounter Date Assessment Date Assessment LastModified by Organization Details LastModified Time 11/09/2024 11/09/2024 Patient describes dysphagia to liquids and ice cream with choking episode over the summer. Review of chart identifies that she has had dysphagia in the past, her most recent visit to the office in 2019 she was recommended to have a modified barium swallow as well but did not completed. Fiberoptic laryngoscopy today was benign with no pooling of secretions or abnormal findings of the larynx. Recommend modified barium swallow. We may review results through the portal [email or web address] Not available 11/09/2024 13:27:15 Plan of Treatment Reminders Order Date Submit Date Provider Last Modified By Organization Details Last Modified Time Details Appointments None recorded. Lab None recorded. Referral None recorded. Procedures None recorded. Surgeries None recorded. Imaging [place], modified barium swallow study [address] [facility] Diagnosit Imaging Dept, [address] [place], [address], 12:42:17 Medication Orders None recorded. Patient TargetsNo targets recorded. Patient InstructionsNo instructions recorded. Reason for Referral None Reported. Problems Name Problem SNOMED Code Status Onset Date Resolution Date Notes Provider Name and Address Organization Details Recorded Time Otalgia of left ear 1621116909 Active 2015 Otalgia, left ear; Note: Date Diagnosed : 01/17/2016 2:00 PM (H92.02) Not Available [facility] 4 03:15:30 Dysphagia 47525321 Active 2018 Dysphagia , unspecifi ed; Note: Date Diagnosed : 01/05/2019 11:10 AM (R13.10) Not Available [facility] 4 03:15:29 Dysphonia 42471828 Active 2017 Other voice and resonance disorders ; Note: Date Diagnosed : 05/22/2018 9:13 AM (R49.8) Not Available [facility] 4 03:15:30 Finding of resonance of voice 224392700 Active 2017 Other voice and resonance disorders ; Note: Date Diagnosed : 05/22/2018 9:13 AM (R49.8) Not Available [facility] 4 03:15:30 Problem Notes None recorded. Procedures Surgical History Date Name Laterality Status Provider Name and Address Organization Details Recorded Time 11/09/2024 FOL_DP completed MARYJANE ELI MD [address] [place] [address], [phone] 11/09/2024 13:23:35 Imaging Results None recorded. Procedure Notes None recorded. Medical Equipment None Reported. Allergies Allergen ID Allergen Name Allergen Category Reaction Reaction Severity Criticality Documentation Date Start Date Code Code System Note Provider Name and Address Organization Details Recorded Time 678365 acetamino phen / oxycodone medicatio n other Not available Not available 02/17/2024 41050 3 RxNorm React ion: unkno wn, unspe cifie d;; Not Available [facility] 4 01:20:45 615784 Substance with sulfonami de structure and antibacte rial mechanism of action (substanc e) medicatio n other Not available Not available 02/17/2024 76357 8003 SNOMED React ion: unkno wn, unspe cifie d;; Not Available [facility] 4 01:20:46 Medications Name Sig Start Date Stop Date Status Note LastModified by Organization Details LastModified Time cyclobenz aprine 10 mg tablet TAKE 1 TABLET BY MOUTH EVERYDAY AT BEDTIME FOR 10 DAYS 11/09 completed Not Available Not Available Not Available clotrimaz ole 10 mg carrington TAKE 1 TABLET (10 MG) BY MOUTH 5 (FIVE) TIMES A DAY FOR 10 DAYS. 11/09 completed Not Available Not Available Not Available atorvasta tin 80 mg tablet TAKE 1 TABLET BY MOUTH AT BEDTIME active Not Available Not Available No t Available Carafate 100 mg/mL oral suspensio n SHAKE WELL AND TAKE 10 ML BY MOUTH TWICE DAILY. 11/09 completed Not Available Not Available Not Available cetirizin e 10 mg tablet TAKE 1 TABLET BY MOUTH EVERY DAY IN THE MORNING 11/09 completed Not Available Not Available Not Available ibuprofen 800 mg tablet TAKE 1 TABLET BY MOUTH THREE TIMES A DAY IF NEEDED. TAKE WITH FOOD. 11/09 completed Not Available Not Available Not Available fluconazo le 150 mg tablet TAKE 1 TABLET (150 MG) BY MOUTH EVERY 3RD (THIRD) DAY FOR 6 DAYS. 11/09 completed Not Available Not Available Not Available meloxicam 15 mg tablet 11/09 completed Medicati on ID: [id number] D uration Value: 30 Brand Name: marky smith Send Method: E-Prescr ibed Sub s Allowed: subs OK Speci al Instruct ion: TAKE 1 TABLET BY MOUTH WITH FOOD NEEDED Leeanna hess nGeneric Name: marky smith Not Available Not Available Not Available polyvinyl alcohol 1.4 % eye drops PLACE 1 DROP IN EACH EYE THREE TIMES DAILY IN THE MORNING, AT NOON, AND AT BEDTIME NEEDED FOR DRY EYES active Not Available Not Available No t Available ondansetr on HCl 4 mg tablet TAKE 1 TABLET BY MOUTH EVERY 8 HOURS NEEDED FOR NAUSEA AND VOMITING FOR UP TO 7 DAYS 11/09 completed Not Available Not Available Not Available topiramat e 25 mg tablet TAKE 1 TABLET BY MOUTH EVERY DAY active Not Available Not Available No t Available clopidogr el 75 mg tablet TAKE 1 TABLET BY MOUTH EVERY DAY active Not Available Not Available No t Available fexofenad ine 180 mg tablet TAKE 1 TABLET (180 MG) BY MOUTH IF NEEDED EACH DAY (ALLERGI ES). active Not Available Not Available No t Available aspirin 81 mg tablet,de layed release TAKE 1 TABLET BY MOUTH EVERY DAY TOO SOON, RETRY ON OR AFTER 05/15 active Not Available Not Available No t Available tramadol 50 mg tablet TAKE 1 TABLET (50 MG) BY MOUTH EVERY 6 (SIX) HOURS IF NEEDED FOR SEVERE PAIN FOR UP TO 7 DAYS. active Not Available Not Available No t Available acetamino phen 500 mg tablet TAKE 2 TABLETS (1,000 MG) BY MOUTH EVERY 8 (EIGHT) HOURS IF NEEDED FOR MILD PAIN FOR UP TO 10 DAYS. active Not Available Not Available No t Available nicotine (polacril ex) 4 mg gum CHEW 1 EACH (4 MG) IF NEEDED FOR SMOKING CESSATIO N (USE IN PLACE OF CIGARETT ES). active Not Available Not Available No t Available cephalexi n 500 mg capsule TAKE 1 CAPSULE BY MOUTH 2 TIMES DAILY FOR 5 DAYS. 11/09 completed Not Available Not Available Not Available pantopraz ole 40 mg tablet,de layed release TAKE 1 TABLET BY MOUTH TWICE A DAY. DO NOT CRUSH, CHEW OR SPLIT. active Not Available Not Available No t Available lidocaine 5 % topical patch APPLY 1 PATCH TOPICALL Y TO SKIN, LEAVE ON FOR 12 HOURS AND OFF FOR 12 HOURS DIRECTED active Not Available Not Available No t Available diclofena c potassium 50 mg tablet TAKE 1 TABLET BY MOUTH 3 TIMES DAILY 11/09 completed Not Available Not Available Not Available docusate sodium 100 mg capsule TAKE 1 CAPSULE BY MOUTH TWICE A DAY active Not Available Not Available No t Available omeprazol e 20 mg capsule,d elayed release TAKE 1 CAPSULE BY MOUTH TWICE DAILY 11/09 completed Not Available Not Available Not Available monteluka st 10 mg tablet TAKE 1 TABLET BY MOUTH DAILY. active Not Available Not Available No t Available codeine 10 mg-guaife nesin 100 mg/5 mL oral liquid TAKE 5 ML'S BY MOUTH EVERY 6 HOURS IF NEEDED FOR COUGH FOR UP TO 5 DAYS. 11/09 completed Not Available Not Available Not Available bisacodyl 5 mg tablet,de layed release TAKE 1 TABLET BY MOUTH EVERY DAY NEEDED FOR CONSTIPA TION active Not Available Not Available No t Available lisinopri l 5 mg tablet 2018 active Medicati on ID: [id number] D uration Value: 30 Brand Name: lisinopr il Send Method: E-Prescr ibed Sub s Allowed: subs OK Speci al Instruct ion: TAKE 1 TABLET BY MOUTH EVERY DAY Medi cationGe nericNam e: lisinopr il Not Available Not Available Not Available mupirocin 2 % topical ointment APPLY TOPICALL Y IN THE MORNING, AT NOON, AND AT BEDTIME FOR 10 DAYS 11/09 completed Not Available Not Available Not Available metoprolo l succinate ER 25 mg tablet,ex tended release 24 hr TAKE 1 TABLET BY MOUTH EVERY DAY IN THE MORNING active Not Available Not Available No t Available azelastin e 137 mcg (0.1 %) nasal spray USE 2 SPRAYS INTO EACH NOSTRIL DAILY NEEDED FOR ALLERGIE S active Not Available Not Available No t Available Ventolin HFA 90 mcg/actua tion aerosol inhaler INHALE 2 PUFFS INTO THE LUNGS EVERY 6 HOURS NEEDED FOR WHEEZING /SHORTNE SS OF BREATH,J 44.9 active Not Available Not Available No t Available Spiriva with HandiHale r 18 mcg and inhalatio n capsules INHALE 1 CAPSULE VIA HANDIHAL ER USING 2 INHALATI ONS ONCE DAILY AT THE SAME TIME EVERY DAY 11/09 completed Not Available Not Available Not Available duloxetin e 30 mg capsule,d elayed release 2017 active Medicati on ID: [id number] D uration Value: 30 Brand Name: duloxeti ne Send Method: E-Prescr ibed Sub s Allowed: subs OK Speci al Instruct ion: TAKE 1 CAPSULE BY MOUTH EVERY DAY Medi cationGe nericNam e: duloxeti ne Not Available Not Available Not Available Symbicort 160 mcg-4.5 mcg/actua tion HFA aerosol inhaler INHALE 2 PUFFS BY MOUTH 2 TIMES A DAY, RINSE MOUTH AND THROAT AFTER USE active Not Available Not Available No t Available diclofena c 1 % topical gel APPLY 1 INCH TOPICALL Y IF NEEDED IN THE MORNING AND AT BEDTIME (PAIN). active Not Available Not Available No t Available cholecalc iferol (vitamin D3) 50 mcg (2,000 unit) capsule TAKE 1 CAPSULE (50 MCG) BY MOUTH IN THE MORNING active Not Available Not Available No t Available Miriamluke aguilera Lilian [facility] spacer 2015 active Medicati on ID: [id number] D uration Value: 1 Brand Name: Miriam neumann Lilian [facility] Send Method: E-Prescr ibed Sub s Allowed: subs OK Medic ationGen ericName : Miriam Quintana [facility] Not Available Not Available Not Available Asmanex HFA 100 mcg/actua tion aerosol inhaler INHALE 2 PUFFS INTO THE LUNGS 2 TIMES A DAY, RINSE MOUTH AND THROAT AFTER USE J 45.991, active Not Available Not Available No t Available Spiriva Respimat 1.25 mcg/actua tion solution for inhalatio n INHALE 2 PUFFS INTO THE LUNGS DAILY, J45.40 active Not Available Not Available No t Available Vitals Date Recorded Body height Body mass index (BMI) Body weight Provider Name and Address Organization Details Last Updated DateTime 11/09/2024 152.4 cm 33.2 kg/m2 21600.7 g Almita Chicas [place] [facility] 11/09/2024 12:59:13 Social History None recorded. Functional Status None recorded. Mental Status None recorded. Family History Nothing Reported. Medical History No medical history recorded. Gynecological HistoryNo gynecological history recorded. Obstetrics History GPAL:G 0 P 0 0 0 0 Past Encounters Encounter ID Performer Location Encounter Start Date Encounter Closed Date Diagnosis/Indication Diagnosis SNOMED-CT Code Diagnosis ICD10 Code Diagnosis Note [id number] MARYJANE ELI MD [facility] [address] [address] 11/09/2024 12:49:40 11/09/2024 13:27:39 Dysphagia 27472419 R13.10 Health Concerns Section Related Observation LastModified by Organization Detai ls LastModified Time None Recorded Concern Status LastModified by Organization Details LastModified Time None Recorded Advance Directives Directive None Recorded Payers Encounter Date Sequence Insurance Name Policy Number Policy Norris Covered Member ID Norris Member ID Guarantor Name 11/09/2024 1 [place] [facility] PL[facility] [id number] [facility] Notes Date Note Type Note Provider Name and Address Organization Details Recorded Time 11/09/2024 text/html dysphagiachoking on water, ice creamno swallow evaluationno CVA hx pmhx - 2022 NSTEMI, cath, stents PV 01/05/2019 Hieu dysphagia for saliva, mod ba swallow requested MARYJANE ELI MD [address] [place] [address], [place], [address], [place] [facility] 11/09/2024 13:27:41 OBGyn Episode No OBEpisode recorded.
--- OUTSIDE RECORDS SUMMARY | 2024-12-07 12:46 | XMS_ITS | Encounter Summary ---
Author Organization [employer] [facility] Address [address] [facility] [address]t [place] [address] Care Team Providers Care Tube Buffer Name Role Phone Melani Anderson MD Primary Care Provide r Encounter Details Date Type Department Care Team (Latest Contact Info) Description 11/03/2019 Abstract [facility] CONVERSIONS Dental, Provider, DDS Social [...] on filedocumented in this encounter Care Teams Tube Buffer Relationship Specialty Start Date End Date Melani Anderson MD [address] [place] [address] PCP - General Family Medicine 07/20/19 Darlene Lassiter Book MenderGroundskeeping Maintenance Worker 10/08/23 Marilynn Garcia Book MenderGroundskeeping Maintenance Worker 08/19/24 documented as of this encounter
--- OUTSIDE RECORDS SUMMARY | 2024-12-07 12:47 | XMS_ITS | Continuity of Care Document ---
Author Organization [place] [facility], [facility] Address [address] [place] [address] Care Team Providers Care Staff Antisubmarine Officer Name Role Phone MATTHEW CONNSHEREE Primary Care Provider Assessment Encounter Date Assessment [...] We may review results through the portal [employer] Not available 11/09/2024 13:27:15 Plan of Treatment Reminders Order Date Submit Date Provider Last Modified By Organization Details Last Modified Time Details Appointments None recorded. Lab None recorded. Referral None recorded. Procedures None recorded. Surgeries None recorded. Imaging [place], modified barium swallow study 2024 025 [facility] Diagnosit Imaging Dept, [address] [place], [address], 12:42:17 Medication Orders None recorded. Patient TargetsNo targets recorded. Patient InstructionsNo instructions recorded. Reason for Referral None Reported. Problems Name Problem SNOMED Code Status Onset Date Resolution Date Notes Provider Name and Address Organization Details Recorded Time Otalgia of left ear 4488523117 Active 2015 Otalgia, left ear; Note: Date Diagnosed : 01/17/2016 2:00 PM (H92.02) Not Available [facility] 4 03:15:30 Dysphagia 81929083 Active 2018 Dysphagia , unspecifi ed; Note: Date Diagnosed : 01/05/2019 11:10 AM (R13.10) Not Available [facility] 4 03:15:29 Dysphonia 56013726 Active 2017 Other voice and resonance disorders ; Note: Date Diagnosed : 05/22/2018 9:13 AM (R49.8) Not Available [facility] 4 03:15:30 Finding of resonance of voice 311523890 Active 2017 Other voice and resonance disorders ; Note: Date Diagnosed : 05/22/2018 9:13 AM (R49.8) Not Available [facility] 4 03:15:30 Problem Notes None recorded. Procedures Surgical History Date Name Laterality Status Provider Name and Address Organization Details Recorded Time 11/09/2024 FOL_DP completed MARYJANE ELI MD [address] [place] [address], [phone] 11/09/2024 13:23:35 Imaging Results None recorded. Procedure Notes None recorded. Medical Equipment None Reported. Allergies Allergen ID Allergen Name Allergen Category Reaction Reaction Severity Criticality Documentation Date Start Date Code Code System Note Provider Name and Address Organization Details Recorded Time 869557 acetamino phen / oxycodone medicatio n other Not available Not available 02/17/2024 41910 3 RxNorm React ion: unkno wn, unspe cifie d;; Not Available [facility] 4 01:20:45 730225 Substance with sulfonami de structure and antibacte rial mechanism of action (substanc e) medicatio n other Not available Not available 02/17/2024 09014 8003 SNOMED React ion: unkno wn, unspe cifie d;; Not Available [facility] 4 01:20:46 Medications Name Sig Start Date [...] mg tablet 11/09 completed Medicati on ID: [id number] D uration Value: 30 Brand Name: marky smith Send Method: E-Prescr ibed Sub s Allowed: subs OK Speci al Instruct ion: TAKE 1 TABLET BY MOUTH WITH FOOD NEEDED M edicatio nGeneric Name: marky smith Not Available Not [...] mg tablet 2018 active Medicati on ID: 973050 D uration Value: 30 Brand Name: lisinopr [...] elayed release 2017 active Medicati on ID: 172415 D uration Value: 30 Brand Name: duloxeti [...] Not Available Not Available No t Available [employer] [facility] spacer 2015 active Medicati on ID: [id number] D uration Value: 1 Brand Name: Miriam Quintana [facility] Send Method: E-Prescr ibed Sub s Allowed: subs OK Medic ationGen ericName : Miriam neumann [facility] Not Available Not Available Not Available Asmanex [...] Updated DateTime 11/09/2024 152.4 cm 33.2 kg/m2 52079.7 g Almita Chicas [place] - [facility] 11/09/2024 12:59:13 Social History None recorded. Functional Status None recorded. Mental Status None recorded. Family History Nothing Reported. Medical History No medical history recorded. Gynecological HistoryNo gynecological history recorded. Obstetrics History GPAL:G 0 P 0 0 0 0 Past Encounters Encounter ID Performer Location Encounter Start Date Encounter Closed Date Diagnosis/Indication Diagnosis SNOMED-CT Code Diagnosis ICD10 Code Diagnosis Note [id number] MARYJANE ELI MD [facility] [address] [address] 11/09/2024 12:49:40 11/09/2024 13:27:39 Dysphagia 59460094 R13.10 Health Concerns Section Related Observation LastModified by Organization Detai ls LastModified Time None Recorded Concern Status LastModified by Organization Details LastModified Time None Recorded Payers Encounter Date Sequence Insurance Name Policy Number Policy Norris Covered Member ID Norris Member ID Guarantor Name 11/09/2024 1 [place] [facility] [id number] [facility] Notes Date Note Type Note Provider Name and Address Organization Details Recorded Time 11/09/2024 text/html dysphagiachoking on water, ice creamno swallow evaluationno CVA hx pmhx - 2022 NSTEMI, cath, stents PV 01/05/2019 Hieu dysphagia for saliva, mod ba swallow requested MARYJANE ELI MD [address] [place] [address], [place], [address], [place] [facility] 11/09/2024 13:27:41 OBGyn Episode No OBEpisode recorded.
[2024-12-07 12:48] LABS: Anion Gap 12 (12-20); TSH reflex Free T4 0.85 uIU/mL (0.32-4.0); Vitamin D 25-OH Total 54.5 ng/mL (>30)
[2024-12-07 12:53] LABS: Alanine Aminotransferase 47 U/L (0-31); Albumin Level 3.7 g/dL (3.5-5.0); Alkaline Phosphatase 41 U/L (39-117); Aspartate Amino Transferase 56 U/L (5-31); Bilirubin Total 0.3 mg/dL (0.0-1.0); Blood Urea Nitrogen 18 mg/dL (9-16); Calcium 9.1 mg/dL (8.4-10.2); Carbon Dioxide 25 mmol/L (22-29); Chloride 109 mmol/L (96-108); Cholesterol 193 mg/dL (<200); Estimated Glomerular Filt Rate > 60; Glucose Random 104 mg/dL (60-115); HDL Cholesterol 34 mg/dL (>40); LDL Cholesterol Calculated 123 mg/dL (<100); Potassium 4.5 mmol/L (3.3-5.1); Sodium 141 mmol/L (135-145); Triglycerides 183 mg/dL (<150)
[2024-12-09 18:38] LABS: Copper, serum 149 mcg/dL (70-175)
[2024-12-10 11:58] LABS: Hematocrit 33.1 % (35.0-45.0); Hemoglobin 10.3 g/dL (11.7-15.5); MCH 24.4 pg (27.0-33.0); MCV 78.4 fL (80.0-100.0); RBC 4.22 Million/uL (3.80-5.10); RDW 14.8 % (11.0-15.0)
[2024-12-10 14:43] LABS: Venous Lead 1.5 mcg/dL (<3.5)
[2024-12-10 16:18] LABS: LEAD 1.4 mcg/dL (<40.0)
== END 2024-12-07 10:31 | disposition home or self-care (01) ==
LOC: HO.HHCL 10:30
PROVIDERS: Internal Medicine; Visit Provider Internal Medicine
DX: Z00.00 Encounter for general adult medical examination without abnormal findings (principal); D64.9 Anemia, unspecified
CPT/HCPCS: 36415; 80053; 80061; 82306; 82525; 83020; 83036; 83655; 84202; 84443; 85014; 85018; 85025; 85041; 85045; 86803; 87389

== ENCOUNTER → 2025-01-17 15:30 | Outpatient (BNV) | payer MEDICAID, SELFPAY | PROVIDERS: PCP Internal Medicine; Visit Provider Internal Medicine | DX: Z12.31 Encounter for screening mammogram for malignant neoplasm of breast (principal) | CPT/HCPCS: 77063; 77067 ==

== ENCOUNTER 2025-01-17 15:32 | Outpatient (REF) | payer MEDICAID, SELFPAY ==
--- OUTSIDE RECORDS SUMMARY | 2025-01-17 18:00 | XMS_ITS | Encounter Summary ---
Author Organization [employer] Address [address] [facility] 7t [place] [address] Care Team Providers Care Gearman Name Role Phone Melani Anderson MD Primary Care Provide r Encounter Details Date Type Department Care Team ([facility] Contact Info) Description 11/01/2022 Telephone [facility] [address] [place] [address] Sanchez Edwards, JOSÉ [address] [place] [address] Social History Tobacco Use Types Packs/Day Years Used Date Smoking Tobacco: Never Assessed Comments Unknown Sex and Gender Information Value Date Recorded Sex Assigned at Female 08/05/2022 10:16 AM EDT Legal Sex Female 10:16 AM EDT Gender Identity Female 08/05/2022 10:16 AM EDT Sexual Orientation Choose not to disclose 2021 10:16 AM EDT documented as of this encounter Plan of Treatment Upcoming Encounters Date Type Department Care Team ([facility] Contact Info) Description 03/09/2025 9:00 AM EDT Office Visit [facility] [address] [place] [address] Melani Anderson MD [address] [place] [address] documented as of this encounter Visit Diagnoses Not on filedocumented in this encounter Care Teams Gearman Relationship Specialty Start Date End Date Melani Anderson MD [address] [place] [address] PCP - General Family Medicine 07/20/19 Darlene Lassiter Virology TeacherSplicing Technician 10/08/23 Marilynn Garcia Virology TeacherSplicing Technician 08/19/24 documented as of this encounter
--- OUTSIDE RECORDS SUMMARY | 2025-01-17 18:00 | XMS_ITS | Encounter Summary ---
Author Organization [email or web address] Address [address] [facility] [address]t [place] [address] Care Team Providers Care Student Recruiter Name Role Phone Melani Anderson MD Primary Care Provide r Reason for Visit * Reason Onset Date Comments Nurse Triage 09/13/2024 Encounter Details Date Type Department Care Team ([facility] Contact Info) Description 09/13/2024 Telephone [facility] [address] [place] [address] Melani Anderson MD [address] [place] [address] Nurse Triage Social History Tobacco Use Types [...] needed. Pt is advised to come to [facility] for Provider to see Pt. Pt [...] caller accepted this outcome. Contact pt at [phone] documented in this encounter Plan of Treatment Upcoming Encounters Date Type Department Care Team (Late st Contact Info) Description 03/09/2025 9:00 AM EDT Office Visit [facility] [address] [place] [address] Melani Anderson MD [address] [place] [address] documented as of this encounter Visit Diagnoses Not on filedocumented in this encounter Additional Health Concerns Assessment Noted Time PHQ-9 Depression Total Score: 1 02/11/20 24 11:34 AM EDT documented as of this encounter Care Teams Student Recruiter Relationship Specialty Start Date End Date Melani Anderson MD [address] [place] [address] PCP - General Family Medicine 07/20/19 Darlene Lassiter Cardiothoracic PhysiotherapistLife Consultant 10/08/23 Marilynn Garcia Cardiothoracic PhysiotherapistLife Consultant 08/19/24 documented as of this encounter
--- OUTSIDE RECORDS SUMMARY | 2025-01-17 18:00 | XMS_ITS | Encounter Summary ---
Author Organization [employer] Address [address] [facility] 7t [place] [address] Care Team Providers Care Car Wash Attendant Automatic Name Role Phone Melani Anderson MD Primary Care Provide r Reason for Visit * Reason Onset Date Comments Error 09/08/2024 Encounter Details Date Type Department Care Team ([facility] Contact Info) Description 09/08/2024 Telephone [facility] [address] [place] [address] Melani Anderson MD [address] [place] [address] Error Social History Tobacco Use Types Packs/Day [...] Description 03/09/2025 9:00 AM EDT Office Visit [facility] [address] [place] [address] Melani Anderson MD [address] [place] [address] documented as of this encounter Visit Diagnoses Not on filedocumented in this encounter Additional Health Concerns Assessment Noted Time PHQ-9 Depression Total Score: 1 02/11/20 24 11:34 AM EDT documented as of this encounter Care Teams Car Wash Attendant Automatic Relationship Specialty Start Date End Date Melani Anderson MD [address] [place] [address] PCP - General Family Medicine 07/20/19 Darlene Lassiter Sales Service TechnicianCorn Breeder 10/08/23 Marilynn Garcia Sales Service TechnicianCorn Breeder 08/19/24 documented as of this encounter
--- OUTSIDE RECORDS SUMMARY | 2025-01-17 18:00 | XMS_ITS | Encounter Summary ---
Author Organization [employer] Address [address] [facility] [address] [place] [address] Care Team Providers Care Mix Crusher Operator Name Role Phone Melani Anderson MD Primary Care Provide r Encounter Details Date Type Department Care Team ([facility] Contact Info) Description 09/13/2024 Orders Only [facility] [address] [place], [place] [phone] Kaykay Dunlap MD [address] [place] [address] Social History Tobacco Use Types Packs/Day Years [...] Description 03/09/2025 9:00 AM EDT Office Visit [facility] MEDICINE [address] [place] [address] Melani Anderson MD [address] [place] [address] documented as of this encounter Visit Diagnoses Not on filedocumented in this encounter Additional Health Concerns Assessment Noted Time PHQ-9 Depression Total Score: 1 02/11/20 24 11:34 AM EDT documented as of this encounter Care Teams Mix Crusher Operator Relationship Specialty Start Date End Date Melani Anderson MD [address] [place] [address] PCP - General Family Medicine 07/20/19 Darlene Lassiter Social Media Campaign ManagerFood Service Representative 10/08/23 Marilynn Garcia Social Media Campaign ManagerFood Service Representative 08/19/24 documented as of this encounter
--- OUTSIDE RECORDS SUMMARY | 2025-01-17 18:00 | XMS_ITS | Encounter Summary ---
Author Organization [employer] [facility] Address [address] [facility] 7t [place] [address] Care Team Providers Care Milk Handler Name Role Phone Melani Anderson MD Primary Care Provide r Encounter Details Date Type Department Care Team (Latest Contact Info) Description 06/08/2021 Abstract [facility] CONVERSIONS Dental, Provider, DDS Social History Tobacco [...] Description 03/09/2025 9:00 AM EDT Office Visit [facility] MEDICINE [address] [place] [address] Melani Anderson MD [address] [place] [address] documented as of this encounter Visit Diagnoses Not on filedocumented in this encounter Care Teams Milk Handler Relationship Specialty Start Date End Date Melani Anderson MD [address] [place] [address] [phone] PCP - General Family Medicine 07/20/19 Darlene Lassiter Doll DresserCement Cutter 10/08/23 Marilynn Garcia Doll DresserCement Cutter 08/19/24 documented as of this encounter
--- OUTSIDE RECORDS SUMMARY | 2025-01-17 18:00 | XMS_ITS | Encounter Summary ---
Author Organization [employer] [facility] Address [address] [facility] 7t [place] [address] Care Team Providers Care Manager Progressive Care Name Role Phone Melani Anderson MD Primary Care Provide r Encounter Details Date Type Department Care Team (Latest Contact Info) Description 11/03/2019 Abstract [facility] CONVERSIONS Dental, Provider, DDS Social [...] Upcoming Encounters Date Type Department Care Team ([facility] st Contact Info) Description 03/09/2025 9:00 AM EDT Office Visit [facility] MEDICINE [address] [place] [address] Melani Anderson MD [address] [place] [address] documented as of this encounter Visit Diagnoses Not on filedocumented in this encounter Care Teams Manager Progressive Care Relationship Specialty Start Date End Date Melani Anderson MD [address] [place] [phone] PCP - General Family Medicine 07/20/19 Darlene Lassiter Plating And Point Assembly SupervisorRoller Inspector And Mender 10/08/23 Marilynn Garcia Plating And Point Assembly SupervisorRoller Inspector And Mender 08/19/24 documented as of this encounter
--- OUTSIDE RECORDS SUMMARY | 2025-01-17 18:00 | XMS_ITS | Encounter Summary ---
Author Organization [employer] Address [address] [facility] 7t [place] [address] Care Team Providers Care Broadband Technician Name Role Phone Melani Anderson MD Primary Care Provide r Reason for Visit * Reason Onset Date Comments Med Refill 12/19/2022 Encounter Details Date Type Department Care Team ([facility] st Contact Info) Description 12/19/2022 Telephone [facility] MEDICINE [address] [place] [address] Melani Anderson MD [address] [place] [address] Med Refill Social History Tobacco Use Types [...] on previous message. * Telephone Encounter - Julia Mancilla - 12/19/2022 12:06 PM EDT Tc from pt requesting med refill on Tramadol 50 mg tablet. Please sen to [facility]/pharmacy #[id number] - [place]I DIAZ - [facility] documented in this encounter Plan of Treatment Upcoming Encounters Date Type Department Care Team (Late st Contact Info) Description 03/09/2025 9:00 AM EDT Office Visit [facility] MEDICINE [address] [place] [phone] Melani Anderson MD [address] [place] [address] documented as of this encounter Visit Diagnoses Not on filedocumented in this encounter Care Teams Broadband Technician Relationship Specialty Start Date End Date Melani Anderson MD [address] [place] [address] [phone] PCP - General Family Medicine 07/20/19 Darlene Lassiter Seasonal Package HandlerProperty Management Coordinator 10/08/23 Marilynn Garcia Seasonal Package HandlerProperty Management Coordinator 08/19/24 documented as of this encounter
--- OUTSIDE RECORDS SUMMARY | 2025-01-17 18:00 | XMS_ITS | Clinical Summary ---
Author Organization [facility] Address [address] [place] [address] Phone Care Team Providers Care Swimming Coach Name Role Phone Manjula rBasher VANDA Primary Care Provider [phone] Social History Tobacco Use Types Packs/Day Years Used Date Smoking Tobacco: Never Assessed Comments Unknown Sex and Gender Information Value Date Recorded Sex Assigned at Not on file Legal Sex Female 12:51 PM EST Gender Identity Not on file Sexual Orientation Not on file Plan of Treatment Upcoming Encounters Date Type Department Care Team ([facility] Contact Info) Description 03/03/2025 9:[address] [facility] Xray [address] [place] [address] Health Maintenance Due Date Last Done Comments Breast Cancer Screening 1970 DTaP,Tdap,and Td Vaccines (1 - Tdap) 1989 Hepatitis B Vaccines (1 of 3 - 19+ 3-dose series) 1989 Cervical Cancer Screening: P ap Smear 1991 Pneumococcal Vaccine: 50+ Ye ars (1 of 1 - PCV) 2020 Zoster Vaccines (1 of 2) 2020 COVID-19 Vaccine ( - 2023-2 5 season) 2024 Colorectal Cancer Screening: Colonoscopy 11/18/2024 Depression Screening 11/18/2024 HIV Screening 11/18/2024 Hepatitis C Screening 11/18/2024 Social Influencers of Health Screening 11/18/2024 Influenza Vaccine (Season Ended) 2025 HIB Vaccines Aged Out No longer eligi [...] age to complete this topic Meningococcal B Vaccine Aged Out No l onger eligible based on patient's age to complete [...] complete this topic Insurance MEDICAID - [place] Care Teams Swimming Coach Relationship Specialty Start Date End Date Manjula Brasher FNP [address] [place] [phone] PCP - General Nurse Practitioner 11/17/24
--- OUTSIDE RECORDS SUMMARY | 2025-01-17 18:00 | XMS_ITS | Encounter Summary ---
Author Organization [employer] Address [address] [place] [address] 7t [place] [address] Care Team Providers Care Metal Washing Machine Operator Name Role Phone Melani Anderson MD Primary Care Provide r Reason for Visit * Reason Comments Med Refill Encounter Details Date Type Department Care Team ([facility] Contact Info) Description 10/11/2023 Refill [facility] MEDICINE [address] [place] [address] [phone] Sherice Kramer MD [address] [place] [address] [phone] Left shoulder tendinitis Social History Tobacco Use [...] Upcoming Encounters Date Type Department Care Team ([facility] Contact Info) Description 03/09/2025 9:00 AM EDT Office Visit [facility] MEDICINE [address] [place], [place] [phone] Melani Anderson MD [address] [place] [address] [phone] documented as of this encounter Visit Diagnoses Diagnosis Left shoulder tendinitis documented in this encounter Care Teams Metal Washing Machine Operator Relationship Specialty Start Date End Date Melani Anderson MD [address] [place] [phone] PCP - General Family Medicine 07/20/19 Darlene Lassiter Shop CooperOre Tester 10/08/23 Marilynn Garcia Shop CooperOre Tester 08/19/24 documented as of this encounter
--- OUTSIDE RECORDS SUMMARY | 2025-01-17 18:00 | XMS_ITS | Encounter Summary ---
Author Organization [employer] Address [address] [facility] 7t [place] [address] Care Team Providers Care Employment Clerk Name Role Phone Melani Anderson MD Primary Care Provide r Reason for Visit * Reason Onset Date Comments Med Refill 10/13/2023 Encounter Details Date Type Department Care Team ([facility] st Contact Info) Description 10/13/2023 Refill [facility] MEDICINE [address] [place] [address] Melani Anderson MD [address] [place] [address] Multiple joint pain (Primary Dx) Social History [...] : Tramadol To be sent to: [facility]/pharmacy #[id number] - [place] DIAZ - [address] documented in this encounter Plan of Treatment Upcoming Encounters Date Type Department Care Team (Late st Contact Info) Description 03/09/2025 9:00 AM EDT Office Visit [facility] MEDICINE [address] [place] [address] Melani Anderson MD [address] [place], [place] [phone] documented as of this encounter Visit Diagnoses Diagnosis Multiple joint pain- Primary Pain in joint, multiple sites documented in this encounter Care Teams Employment Clerk Relationship Specialty Start Date End Date Melani Anderson MD [address] [place] [address] [phone] PCP - General Family Medicine 07/20/19 Darlene Lassiter Director OrganizationalNut Steamer 10/08/23 Marilynn Garcia Director OrganizationalNut Steamer 08/19/24 documented as of this encounter
--- OUTSIDE RECORDS SUMMARY | 2025-01-17 18:00 | XMS_ITS | Encounter Summary ---
Author Organization [employer] Address [address] [place] [address] 7t [place] [address] Care Team Providers Care Cook Relief Name Role Phone Melani Anderson MD Primary Care Provide r Reason for Visit * Reason Comments Med Refill Encounter Details Date Type Department Care Team ([facility] Contact Info) Description 2023 Refill [facility] MEDICINE [address] [place] [address] [phone] Sherice Kramer MD [address] [place] [address] [phone] Left shoulder tendinitis Social History Tobacco Use [...] Upcoming Encounters Date Type Department Care Team ([facility] Contact Info) Description 03/09/2025 9:00 AM EDT Office Visit [facility] MEDICINE [address] [place], [place] [phone] Melani Anderson MD [address] [place] [address] [phone] documented as of this encounter Visit Diagnoses Diagnosis Left shoulder tendinitis documented in this encounter Care Teams Cook Relief Relationship Specialty Start Date End Date Melani Anderson MD [address] [place] [phone] PCP - General Family Medicine 07/20/19 Darlene Lassiter Insurance Agents SupervisorBlind Eyeletter 10/08/23 Marilynn Garcia Insurance Agents SupervisorBlind Eyeletter 08/19/24 documented as of this encounter
--- OUTSIDE RECORDS SUMMARY | 2025-01-17 18:00 | XMS_ITS | Clinical Summary ---
Author Organization [employer] Address [address] [place] [address] 7[address] [place] [address] Care Team Providers Care Teenage Babysitter Name Role Phone Melani Anderson MD Primary Care Provide r Allergies Active Allergy Reactions Criticality Noted Date Comments Sulfa Antibiotics Hives Low 12/19/2022 Other reaction(s): RASH, hives Other Reaction(s): RASH, hives Medications Nebulizers (Comp Air Compressor Nebulizer) [facility] [place] Instructions, # 1 each, Refills 11, Tot. Refills 11, Maintenance, E0570 Nebulizer A7003 Neb Disp Set A7014 Neb non-Disp Filter A7005 Neb Non-Disp set A7015 Aerosol Mask A7013 Neb Disp Filter length of need lifetime 99 months for home use dx... 12/13/19 22 Active albuterol (2.5 MG/3ML) 0.083% nebulizer solution INHALE 1 VIAL VIA NEBULIZER EVERY 4 HOURS NEEDED 12/13/19 22 Active Sod Fluoride-Potass ium Nitrate (Sodium Fluoride 5000 Sensitive) 1.1-5 % paste USE TO BRUSH TEETH TWICE DAILY 01/06/20 22 Active Symbicort 160-4.5 MCG/ACT inhaler INHALE 2 PUFFS BY MOUTH TWICE A DAY for control of asthma. Use one puff for rescue every 6 hours as needed. RINSE MOUTH AND THROAT AFTER USE. 1 each 02/15/20 23 Active bisacodyl (Bisacodyl EC) 5 MG EC tabletIndicatio ns:Left shoulder tendinitis TAKE 1 TABLET BY MOUTH EVERY DAY NEEDED FOR CONSTIPATION 90 tablet 1 11/25/19 24 Active montelukast (Singulair) 10 MG tabletIndicatio ns:Moderate persistent asthma without complication Take 1 tablet (10 mg) by mouth Once per day. 30 tablet 2 01/26/20 24 Active ProAir HFA 108 (90 Base) MCG/ACT inhalerIndicati ons:Moderate persistent asthma without complication TAKE 2 PUFF INHALATIONS 4 TIMES DAILY NEEDED FOR WHEEZING 18 g 2 01/26/20 24 Active docusate sodium (Colace) 100 MG capsuleIndicati ons:Chronic constipation TAKE 1 CAPSULE BY MOUTH TWICE A DAY 180 capsule 3 02/03/20 24 Active tiotropium (Spiriva HandiHaler) 18 MCG inhalation capsuleIndicati ons:Moderate persistent asthma without complication USE 1 CAPSULE FOR INHALATION ONCE A DAY DO NOT SWALLOW CAPSULE AT THE SAME TIME 30 capsule 3 02/18/20 24 Active Aspirin Low Dose 81 MG EC tablet Take 1 tablet by mouth Once per day. 02/18/20 24 Active atorvastatin (Lipitor) 80 MG tablet Take 1 tablet by mouth at bedtime. 02/18/20 24 Active clopidogrel (Plavix) 75 MG tablet Take 1 tablet by mouth Once per day. 02/18/20 24 Active Asmanex HFA 100 MCG/ACT aerosol Inhale 2 puffs 2 times daily. RINSE MOUTH AND THROAT AFTER USE Active sucralfate (Carafate) 1 GM/10ML suspension Take 1 g by mouth. 02/15/20 24 Active calcium carbonate (Tums) 500 MG chewable tablet Chew 500 mg. 02/15/20 24 Active lidocaine (Lidoderm) 5 % patch Apply 1 patch topically Once per day. Remove & discard patch within 12 hours or as directed by MD. 30 patch 3 03/05/20 24 Active nicotine polacrilex (Nicorette) 4 MG gumIndications: Tobacco use Chew 1 each (4 mg) if needed for smoking cessation (use in place of cigarettes). 100 each 1 03/05/20 24 Active topiramate (Topamax) 25 MG tabletIndicatio ns:Migraine without status migrainosus, not intractable, unspecified migraine type TAKE 1 TABLET BY MOUTH EVERY DAY 90 tablet 1 03/09/20 24 Active cholecalciferol VITAMIN D (Vitamin D-3) 50 MCG (2000 UT) capsule TAKE 1 CAPSULE (50 MCG) BY MOUTH IN THE MORNING 90 capsule 1 07/26/20 24 Active cetirizine (ZyrTEC) 10 MG tablet TAKE 1 TABLET BY MOUTH EVERY DAY IN THE MORNING 90 tablet 2 08/26/20 24 Active pantoprazole (ProtoNix) 40 MG EC tablet TAKE 1 TABLET BY MOUTH TWICE A DAY. DO NOT CRUSH, CHEW OR SPLIT. 180 tablet 09/08/20 24 Active azelastine (Astelin) 0.1 % nasal spray Administer 1 spray into each nostril 2 times daily. Use in each nostril as directed 30 mL 12 09/13/20 24 2024 Active dextran 70-hypromellose (artificial tears) 0.1-0.3 % ophthalmic solutionIndicat ions:Dry eyes, bilateral Administer 1 drop into both eyes if needed in the morning, at noon, and at bedtime for dry eyes. 15 mL 6 09/15/20 24 2024 Active Acetaminophen Extra Strength 500 MG tabletIndicatio ns:Pain, unspecified TAKE 2 TABLETS (1,000 MG) BY MOUTH EVERY 8 (EIGHT) HOURS IF NEEDED FOR MILD PAIN FOR UP TO 10 DAYS. 90 tablet 1 10/22/19 25 Active bacitracin-poly myxin b (Polysporin) ointment Apply topically 2 times daily. 15 g 10/22/19 25 Active fexofenadine (Darlyn) 180 MG tablet TAKE 1 TABLET BY MOUTH EVERY DAY NEEDED FOR ALLERGIES 90 tablet 12/08/19 25 Active fexofenadine (Darlyn) 180 MG tabletIndicatio ns:Seasonal allergies Take 1 tablet (180 mg) by mouth if needed each day (Allergies). 30 tablet 2 12/08/19 25 2024 Active metoprolol succinate XL (Toprol-XL) 25 MG 24 hr tabletIndicatio ns:Essential hypertension TAKE 1 TABLET BY MOUTH EVERY DAY IN THE MORNING 90 tablet 1 01/05/20 25 Active metoprolol succinate XL (Toprol-XL) 25 MG 24 hr tabletIndicatio ns:Essential hypertension TAKE 1 TABLET BY MOUTH EVERY DAY IN THE MORNING 90 tablet 1 06/24/20 24 2024 Discontinued Active Problems Problem Noted Date Diagnosed Date [...] has f/u with cards 03/16, cardiac rehab 03/17, and sleep medicine for KELBY 04/06 Is [...] to take x 1 month sent to [facility] - counsled regarding weight reduction Assessment & Plan (01/26/2024 3:39 PM EDT): I advise patient to avoid NSAIDs, spicy and acid food, I advise to eat at the same time every day, I advise to elevate the head of the bed and take medications as prescribe Encounters Date Type Department Care Team Description 01/03/2025 Refill [facility] MEDICINE [address] [place] [phone] Melani Anderson MD Essential hypertension 12/17/2024 Population Health Risk Score [facility] (C3) Department [address] [place] [phone] Provider, Population Health Generic 12/08/[address] [address] Melani Anderson MD 12/08/2024 Orders Only [address] [address] Melani Anderson MD Hair loss (Primary Dx) 12/07/2024 9:30 AM EST Office Visit [address] [address] Melani Anderson MD Encounter for preventive care (Primary Dx); Essential hypertension; Coronary artery disease due to calcified coronary lesion; Encounter for screening mammogram for malignant neoplasm of breast; Hair loss; Acute pain of left knee; Seasonal allergies; Encounter for immunization 12/07/2024 Orders Only GENERIC EXTERNAL DATA DEPARTMENT Provider, Generic External Data 12/07/2024 Travel 12/06/2024 Refill [facility] CHC MED & PEDS [address] [place], [place] [phone] Kaykay Dunlap MD 11/25/2024 Patient Outreach [address] [address] Melani Anderson MD Pre-visit Planning ((Unable to complete PVP screening due to poor sign language instructor of phone line)) 10/28/2024 Outside Procedure [facility] OPTOMETRY [address] [place] [phone] Godfrey, Bernadette, OD Presbyopia (Primary Dx) 10/27/2024 Telephone [facility] MEDICINE [address] [place] [address] [phone] Zenia Cunningham, RN NTTS 10/26/2024 2:30 PM EST Office Visit [facility] OPTOMETRY [address] [place] [address] [phone] Godfrey, Bernadette, OD Hypermetropia, bilateral (Primary Dx) 10/22/2024 3:20 PM EST Office Visit [facility] WALK-IN CENTER [address] [place], [place] [phone] Sherice Kramer MD Bilateral chronic knee pain (Primary Dx); Chronic bilateral low back pain with bilateral sciatica; Pain, unspecified; Multiple joint pain 10/22/2024 Telephone [facility] MEDICINE [address] [place] [phone] Cony Chaparro MD 10/22/2024 Travel 10/22/2024 Telephone [facility] MEDICINE [address] [place] [address] Melani Anderson MD Error (VOID this visit) 10/22/2024 Refill [facility] MEDICINE [address] [place], [place] [phone] Melani Anderson MD Pain, unspecified; Chronic bilateral low back pain with bilateral sciatica 10/22/2024 Telephone [facility] MEDICINE [address] [place], [place] [phone] Melani Anderson MD Nurse Triage from Last 3 Months Immunizations Name Administration [...] 12/07/2024 9:40 AM EST Plan of Treatment Upcoming Encounters Date Type Department Care Team (Late st Contact Info) Description 03/09/2025 9:00 AM EDT Office Visit [facility] MEDICINE [address] [place], [place] [phone] Melani Anderson MD [address] [place], [place] [phone] Health Maintenance Due Date Last Done Comments CT Colonography 1970 Colonoscopy 1970 Colorectal Cancer Screening 1970 Dental Prophylaxis 1970 Dental X-Ray: Bitewings 1970 Dental X-Ray: Full Mouth 1970 FIT DNA/Cologuard 1970 FIT 1970 FOBT 1970 Sigmoidoscopy 1970 Zoster Vaccines (1 of 2) 2020 Dental Oral Exam 05/28/2023 11/27/2022 DTaP/Tdap/Td Vaccines (2 - Td or Tdap) 11/02/2023 11/02/2013, 10/06/2007 Mammogram 12/27/2023 12/26/2021, 05/2021, 07/15/2019, Additional history exists Pap Smear 04/24/2024 04/24/2021 COVID-19 Vaccine ( season) 2024 02/22/2021, 01/25/2021 Influenza Vaccine (#1) 2024 SDOH Screening 04/19/2025 04/19/2024 Alcohol/Substance Use Screening 12/07/2025 12/07/2024 Depression Screening 12/07/2025 12/07/2024, 12/08/19 Diabetes: Hemoglobin A1C 12/07/2025 025, 04/27/2024, 08/28/2021, Additional history exists Tobacco Screening 12/07/2025 12/07/2024 Cervical Cancer Screening 04/24/2026 HPV/Cotest 04/24/2026 04/24/2021, 03/10/2017 Lipid Panel 12/07/2029 12/07/2024, 04/07, 08/28/2021 RSV Patients and Patients Aged 60 [...] Procedure Name Priority Date/Time Associated Diagnosis Comments LEAD (VENOUS), OSHA AND ZINC PROTOPORPHYRIN EVALUATION Routine 12/07/2024 10:36 AM EST LEAD (VENOUS) Routine 12/07/2024 10:36 AM EST HEMOGLOBIN ELECTROPHORESIS Routine 12/07/2024 10:36 AM EST COPPER Routine 12/07/2024 10:36 AM EST RETICULOCYTE COUNT Routine 12/07/2024 10 :36 AM EST TSH W/REFLEX TO FT4 Routine 12/07/2024 1 0:36 AM EST Encounter for preventive care VITAMIN D,25-OH,TOTAL,IA Routine 12/07/2024 10:36 AM EST Encounter for preventive care LIPID PANEL, STANDARD Routine 12/07/2024 10:36 AM EST Encounter for preventive care HEPATITIS C AB W/REFL TO HCV RNA, QN, PCR Routine 12/07/2024 10:36 AM EST Encounter for preventive care HIV 1/2 ANTIGEN/ANTIBODY, FOURTH GENERATION W/RFL Routine 12/07/2024 10:36 AM EST Encounter for preventive care HEMOGLOBIN A1C Routine 12/07/2024 10:36 AM EST Encounter for preventive care COMPREHENSIVE METABOLIC PANEL Routine 12/07/2024 10:36 AM EST Encounter for preventive care CBC WITH AUTO DIFFERENTIAL Routine 12/07/2024 10:36 AM EST Encounter for preventive care PERIODIC ORAL EVALUATION - ESTABLISHED PATIENT Routine 11/27/2022 2:30 PM EST MAMMOGRAM GENERIC Routine 12/26/2021 11: 45 AM EDT HPV GENOTYPES 16,18/45 Routine 12:00 AM EDT THINPREP PAP Routine 04/24/2021 12:00 AM EDT from Last 3 Months or Most Recently Relevant to Health Maintenance Results * Lead (Venous), OSHA and Zinc Protoporphyrin Evaluation (12/07/2024 10:36 AM EST) Zinc Protoporphyrin (ZZP) <50 <100 mcg/dL [facility] Comment:Industrial Exposure <100 mcg/dL(Refer to current Occupational Safety and HealthAdministration (OSHA) regulation for exposure criteria)This test was developed and its analytical performancecharacteristics have been determined by [employer] [place], [place]. It hasnot been cleared or approved by the U.S. Food and DrugAdministration. This assay has been validated pursuantto the CLIA regulations and is used for clinicalpurposes.THIS TEST WAS PERFORMED AT:[employer] [place] [address]HCJNSBCMICHAEL RANDALL MD,PHD Lead (Venous), OSHA 1.4 <40.0 mcg/dL [facility] Comment:Industrial exposure: <40.0 mcg/dL mcg/dL = mcg/100g for OSHA(Refer to current governmental regulations for exposurecriteria.)Analysis was performed by Inductively CoupledPlasma Mass Spectrometry (ICPMS)This test was developed and its analytical performancecharacteristics have been determined by [employer] [place], [place]. It hasnot been cleared or approved by the U.S. Food and DrugAdministration. This assay has been validated pursuantto the CLIA regulations and is used for clinicalpurposes.THIS TEST WAS PERFORMED AT:[employer] [place] [address]LIVMLKYMICHAEL RANDALL MD,PHD 12/07/2024 10:3 6 AM EST 12/07/2024 11:19 AM EST us Generic External Data Provider LAB BLOOD ORDERAB LES Final Result Performing Organization Address [facility]/ZIP Co de Phone Number [facility] [address] [place] [phone] * Vitamin D, 25-Hydroxy, Total, Immunoassay (12/07/2024 10:36 AM EST) Vitamin D 25-OH Total 54.5 >30 ng/mL [facility] Comment:Health Based Referen ce Values*< 20 ng/mL Hwstmtaii85-53 ng/mL Insufficient> 30 ng/mL Sufficient*Dorita BUTLER. N Engl J Med. 2007;357:266-280Care must be taken in interpreting Vitamin D results fromdifferent laboratories and methodologies. Published datademonstrated that results from patients undergoinghemodialysis may show a negative bias when tested withvarious automated 25-OH vitamin D assays when compared toLC-MS/MS.When testing samples from patients whose predominant form ofVitamin D is Vitamin D2, such as patients receiving VitaminD2 supplementation, results that are subtherapeutic shouldbe confirmed with another method such as LC-MS/MS. Blood Venous blood specimen / Unknown 12/07/2024 10:36 AM EST 12/07/2024 11:19 AM EST us Melani Xiong MD LAB BLOOD ORDERABLES Final Result [facility] [address] [place] [phone] [phone] * TSH with Reflex to Free T4 (12/07/2024 10:36 AM EST) Pathologist [facility] TSH reflex Free T4 0.85 0.32 - 4.0 uIU/mL [facility] Blood Venous blood specimen / Unknown 12/07/2024 10:36 AM EST 12/07/2024 11:19 AM EST us Melani Xiong MD LAB BLOOD ORDERABLES Final Result [facility] [address] [place] [phone] * (ABNORMAL) CBC auto differential (12/07/2024 10:36 AM EST) Pathologist [facility] White Blood Count 9.9 4.8 - 10.8 X10*3/uL [facility] Red Blood Count 4.26 4.20 - 5.50 X10*6/uL [facility] Hemoglobin 10.2(L) 12.0 - 16.0 g/dl [facility] Hematocrit 32.8(L) 37.0 - 47.0 % [facility] Mean Corpuscular Volume 77.0(L) 80.0 - 98.0 fL [facility] Mean Corpuscular Hemoglobin 23.9(L) 27.0 - 33.0 pg [facility] Mean Corpuscular HGB Conc 31.1 31.0 - 35.0 g/dl [facility] Red Cell Distribution Width 15.4 11.0 - 16.0 % [facility] Platelet Count 317 160 - 400 X10*3/uL [facility] Mean Platelet Volume 11.6 9.4 - 12.3 fL [facility] Neutrophils Percent Auto 54.9 45 - 73 % [facility] Imm Gran Pct Auto 0.4 0.0 - 0.4 % [facility] Lymphocytes Percent Auto 37.0 20 - 40 % [facility] Monocytes Percent Auto 6.1 2 - 11 % [facility] Eosinophils Percent Auto 1.1 0 - 4 % [facility] Basophils Percent Auto 0.5 0 - 2 % [facility] NRBC Pct Auto 0.0 0.0 - 0.2 /100WBC [facility] Neutrophils Absolute Auto 5.4 2.0 - 8.3 x10*3/uL [facility] Imm Gran Abs Auto 0.04(H) 0.00 - 0.03 X10*3/uL [facility] Lymphocytes Absolute Auto 3.7 1.2 - 4.9 X10*3/uL [facility] Monocytes Absolute Auto 0.6 0.1 - 1.2 X10*3/uL [facility] Eosinophils Absolute Auto 0.1 0.0 - 0.4 X10*3/uL [facility] Basophils Absolute Auto 0.1 0.0 - 0.2 X10*3/uL [facility] NRBC Abs Auto 0.000 0.0 - 0.012 X10*3/uL [facility] Blood Venous blood specimen / Unknown 12/07/2024 10:36 AM EST 12/07/2024 11:19 AM EST us Melani Xiong MD LAB BLOOD ORDERABLES Final Result [facility] [address] [place] [address] [phone] * (ABNORMAL) Hemoglobin Electrophoresis (12/07/2024 10:36 AM EST) RBC 4.22 3.80 - 5.10 Million/u L [facility] Hemoglobin 10.3(A) 11.7 - 15.5 g/dL [facility] Hematocrit 33.1(A) 35.0 - 45.0 % [facility] MCV 78.4(A) 80.0 - 100.0 fL [facility] MCH 24.4(A) 27.0 - 33.0 pg [facility] RDW 14.8 11.0 - 15.0 % [facility] Hemoglobin A 97.4 >96.0 % [facility] Hemoglobin A2 2.6 2.0 - 3.2 % [facility] Hemoglobin F <1.0 <2.0 % [facility] Hemoglobin S TNP [facility] Hemoglobin C TNP [facility] Hemoglobin E TNP [facility] Other Hemoglobin TNP [facility] Other Hemoglobin 2 TNP H [facility] Hgb Interpretation SEE NOTE H [facility] Comment:Microcytosis and nor mal hemoglobin pattern may be seen in irondeficiency or alpha thalassemia. If iron deficiency is corrected /ruled out but MCV remains in low range molecular testing should beconsidered for genetic counselling reasons ([employer] TestCode 89715).THIS TEST WAS PERFORMED AT:[email or web address] [place] [phone] MCMULLEN MD 12/07/2024 10:3 6 AM EST 12/07/2024 11:19 AM EST us Generic External Data Provider LAB BLOOD ORDERAB LES Final Result Performing Organization Address [facility]/ZIP Co de Phone Number [facility] [address] [place] [phone] * Hepatitis C Antibody with Reflex to HCV, RNA, Quantitative, Real-Time PCR (12/07/2024 10:36 AM EST) Hepatitis C Antibody Nonreactive Nonreactive [facility] Comment:Antibodies to HCV no t detected; does not exclude early acuteHCV infection. Blood Venous blood specimen / Unknown 12/07/2024 10:36 AM EST 12/07/2024 11:19 AM EST us Melani Xiong MD LAB BLOOD ORDERABLES Final Result Performing Organization Address [facility]/ZIP Co de Phone Number [facility] [address] [place] [phone] * Copper (12/07/2024 10:36 AM EST) Copper 149 70 - 175 mcg/dL [facility] Comment:This test was develo ped and its analytical performancecharacteristics have been determined by [employer] [place], [place]. It hasnot been cleared or approved by the U.S. Food and DrugAdministration. This assay has been validated pursuantto the CLIA regulations and is used for clinicalpurposes.THIS TEST WAS PERFORMED AT:[employer] [place] [address]AQPMPTIMICHAEL RANDALL MD,PHD 12/07/2024 10:3 6 AM EST 12/07/2024 11:19 AM EST us Generic External Data Provider LAB BLOOD ORDERAB LES Final Result [facility] [address] [place] [phone] * HIV-1/2 Antigen and Antibodies, Fourth Generation, with Reflexes (12/07/2024 10:36 AM EST) Pathologist [facility] HIV AB/AG Nonreactive Nonreactive [facility] Comment:HIV-1 p24 Ag and/or HIV-1/HIV-2 Ab not detected.A test result that is nonreactive does not exclude thepossibility of exposure to or infection with HIV-1 and/orHIV-2. Nonreactive results in this assay for individualswith prior exposure to HIV-1 and/or HIV-2 may be due toantigen and antibody levels that are below the limit ofdetection of this assay.The [employer] HIV Ag/Ab Combo assay result andsupplemental assay results should be interpreted inconjunction with the patient's clinical presentation,history and other laboratory results. If the results areinconsistent with clinical evidence, additional testing issuggested to confirm the result. Blood Venous blood specimen / Unknown 12/07/2024 10:36 AM EST 12/07/2024 11:19 AM EST us Melani Xiong MD LAB BLOOD ORDERABLES Final Result Performing Organization Address [facility] Co de Phone Number [facility] [address] [place] [phone] * (ABNORMAL) Reticulocyte Count (12/07/2024 10:36 AM EST) Pathologist [facility] Reticulocytes Absolute 0.043 0.026 - 0.095 X10*6/uL [facility] Immature Retic Fraction 11.1 3.0 - 15.9 % [facility] Retic HGB Equivalent 26.9(L) 30.0 - 35.0 pg [facility] Reticulocyte Percent 1.0 0.5 - 1.8 % [facility] 12/07/2024 10:3 6 AM EST 12/07/2024 11:19 AM EST us Generic External Data Provider LAB BLOOD ORDERAB LES Final Result Performing Organization Address [facility] Co de Phone Number [facility] [address] [place] [phone] * Lead, Venous (12/07/2024 10:36 AM EST) Pathologist [facility] Venous Lead 1.5 <3.5 mcg/dL [facility] Comment:A blood lead referen ce value of <5 mcg/dL should applyto only [facility] residents per [facility].Analysis was performed by Inductively CoupledPlasma Mass Spectrometry (ICPMS)This test was developed and its analytical performancecharacteristics have been determined by [email or web address] [place], [place]. It hasnot been cleared or approved by the U.S. Food and DrugAdministration. This assay has been validated pursuantto the CLIA regulations and is used for clinicalpurposes.THIS TEST WAS PERFORMED AT:[employer]/[facility]FGTRUBBIA[address] [place] [address]NZVQJGNMICHAEL RANDALL MD,PHD 12/07/2024 10:3 6 AM EST 12/07/2024 11:19 AM EST Narrative [facility] - 12/10/2024 2:43 PM EST Venous us Generic External Data Provider LAB BLOOD ORDERAB LES Final Result Performing Organization Address [facility]/ZIP Co de Phone Number [facility] [address] [place] [phone] * Hemoglobin A1c (12/07/2024 10:36 AM EST) Hemoglobin A1c 5.9 <6.0 % [facility] Comment:Hemoglobin A1C Refer ence Range Adults: 4.8 - 6.0 % Non diabetic: < 6.0 % Goal: < 7.0 %Additional Action Suggested: > 8.0 %Note: Hemoglobin A1c results are invalid for patients with abnormal amounts of HbF. Blood transfusions may impact the HbA1c concentration in the patient sample. Estimated Average Glucose 123 mg/dL [facility] Comment:eAG = Estimated ave rage glucose which is %A1C expressed asaverage glucose, using the formula of the P6P-KerxzkeCmzldkw Glucose study (ADAG), Diabetes Care, Vol.31,#8,May. 2007 Blood Venous blood specimen / Unknown 12/07/2024 10:36 AM EST 12/07/2024 11:19 AM EST us Melani Xiong MD LAB BLOOD ORDERABLES Final Result Performing Organization Address City/[facility]/ZIP Co de Phone Number [facility] [address] [place] [phone] * (ABNORMAL) Lipid Panel, Standard (12/07/2024 10:36 AM EST) Triglycerides 183(H) <150 mg/dL [facility] Comment:Desirable Triglyceri de: less than 150 mg/dLBorderline High Triglyceride 150-199 mg/dLHigh Triglyceride: 200-499 mg/dLVery High Triglyceride: greater than or equal to 5OO mg/dL Cholesterol 193 <200 mg/dL [facility] Comment:Desirable Cholestero l: less than 200 mg/dLBorderline High Cholesterol: 200-239 mg/dLHigh Cholesterol: greater than 239 mg/dL LDL Cholesterol Calculated 123(H) <100 mg/dL [facility] [facility] Comment:Desirable LDL: less than 100 mg/dLNear Optimal/Above Optimal LDL: 110- 129 mg/dLBorderline High LDL: 130-159 mg/dLHigh LDL: 160-189 mg/dLVery High LDL: greater than or equal to 190 mg/dL HDL Cholesterol 34(L) >40 mg/dL [facility] Comment:Desirable HDL: great er than 40 mg/dL Note: This HDL assay may give artificially low results in patients with liver disease. Blood Venous blood specimen / Unknown 12/07/2024 10:36 AM EST 12/07/2024 11:19 AM EST Melani Xiong MD LAB BLOOD ORDERABLES Final Result [facility] [address] [place] [address] [phone] * (ABNORMAL) Comprehensive Metabolic Panel (12/07/2024 10:36 AM EST) Sodium 141 135 - 145 mmol/L [facility] Potassium 4.5 3.3 - 5.1 mmol/L [facility] Comment:MILD HEMOLYSIS.Inter pret result with caution Chloride 109(H) 96 - 108 mmol/L [facility] Carbon Dioxide 25 22 - 29 mmol/L [facility] Anion Gap 12 12 - 20 [facility] Urea Nitrogen (BUN) 18(H) 9 - 16 mg/dL [facility] Creatinine, Serum 0.87 0.5 - 1.4 mg/dL [facility] Estimated Glomerular Filt Rate >60 [facility] Comment:Chronic Kidney Disea se: Estimated GFR < 60 mL/min/1.64e6Doazgj Kidney Disease: Estimated GFR < 15 mL/min/1.73m2 Glucose 104 60 - 115 mg/dL [facility] Calcium 9.1 8.4 - 10.2 mg/dL [facility] Bilirubin, Total 0.3 0.0 - 1.0 mg/dL [facility] Aspartate Amino Transferase 56(H) 5 - 31 U/L [facility] Comment:Mild Hemolysis.Inter pret result with caution Alanine Aminotransferase 47(H) 0 - 31 U/L [facility] Total Protein 8.0 6.5 - 8.0 g/dL [facility] Comment:Mild Hemolysis.Inter pret result with caution Albumin Level 3.7 3.5 - 5.0 g/dL [facility] Alkaline Phosphatase 41 39 - 117 U/L [facility] Blood Venous blood specimen / Unknown 12/07/2024 10:36 AM EST 12/07/2024 11:19 AM EST us Melani Xiong MD LAB BLOOD ORDERABLES Final Result Performing Organization Address City/State/[facility] Co de Phone Number [facility] [address] [place] [phone] * Mammography Report 1 (12/26/2021 11:45 AM EDT) Anatomical Region Laterality Modality Breast Bilateral Mammography 12/26/2021 11:4 5 AM EDT Narrative 12/27/2021 5:11 PM EDT Refer to the Notes tab for result details [facility] Procedure: Mammography Report 1 Procedure Note ProviderZuri MD - 12/29/2022 Refer to the Notes tab for result details [facility] Procedure: Mammography Report 1 us Melani Xiong MD IMG BI PROCEDURES Fin al Result * THINPREP PAP (04/24/2021 12:00 AM EDT) Clinical Information: None given [facility] COMMENT SEE COMMENT [facility] [...] historic and ?? current clinical information. ?? Braille Typist : SEE COMMENT [facility] Comment: HJP, CT(ASCP) CT screening location: [address] ??[address] Infection Shift in vaginal tomasa suggestive of bacterial vaginosis. [facility] Interpretation/R esult: Negative for intraepithelial lesion or malignancy. [facility] LMP: NONE GIVEN [facility] Prev. BX: NONE GIVEN [facility] Prev. PAP: NONE GIVEN [facility] SOURCE: None given [facility] Statement Of Adequacy: SEE COMMENT [facility] Comment: Satisfactory for evaluation. Endocervical/transformation zone component absent. Age and/or menstrual status not provided 04/24/2021 us Melani Xiong MD LAB PATHOLOGY ORDERAB LES Final Result Performing Organization Address [facility] de Phone Number [facility] [address] * HPV GENOTYPES 16,18/45 (04/24/2021 12:00 AM EDT) HPV 16 RNA NOT DETECTED NOT DETECTED [facility] HPV 18/45 RNA NOT DETECTED NOT DETECTED [facility] Comment: Methodology: Record Clerk Salesperson Mediated Amplification The analytical performance characteristics of this assay have been determined by [employer]. The modifications have not been cleared or approved by the FDA. This assay has been validated pursuant to the CLIA regulations and is used for clinical purposes. 04/24/2021 Melani Xiong MD LAB CYTOLOGY ORDERABL ES Final Result Performing Organization Address [facility] de Phone Number [facility] [address] from Last 3 Months or Most Recently Relevant to Health Maintenance [place] [facility] ST[facility] AD[facility] Care Teams Teenage Babysitter Relationship Specialty Start Date End Date Melani Anderson MD [address] [place] [phone] PCP - General Family Medicine 07/20/19 Darlene Lassiter Architectural ManagerMaritime Officer 10/08/23 Marilynn Garcia Architectural ManagerMaritime Officer 08/19/24
--- OUTSIDE RECORDS SUMMARY | 2025-01-17 18:01 | XMS_ITS | Encounter Summary ---
Author Organization [employer] Address [address] [facility] [address] [place] [address] Care Team Providers Care Extension Supervisor Name Role Phone Melani Anderson MD Primary Care Provide r Encounter Details Date Type Department Care Team ([facility] Contact Info) Description 06/12/2024 Orders Only [facility] [address] [place] [address] Joby Smallwood MD [address] [place] [address] Social History Tobacco Use Types Packs/Day Years [...] 9:00 AM EDT Office Visit [facility] [address] [place] [address] Melani Anderson MD [address] [place] [address] documented as of this encounter Visit Diagnoses Not on filedocumented in this encounter Additional Health Concerns Assessment Noted Time PHQ-9 Depression Total Score: 1 02/11/20 24 11:34 AM EDT documented as of this encounter Care Teams Extension Supervisor Relationship Specialty Start Date End Date Melani Anderson MD [address] [place] [address] PCP - General Family Medicine 07/20/19 Darlene Lassiter Progress DeveloperOccupational Therapy Assist 10/08/23 Marilynn Garcia Progress DeveloperOccupational Therapy Assist 08/19/24 documented as of this encounter
--- OUTSIDE RECORDS SUMMARY | 2025-01-17 18:01 | XMS_ITS | Data Portability ---
Author Organization [place] - [facility], Allergy Address [address] [address] Care Team Providers Care Supervisor Pigment Making Name Role Phone MATTHEW CONN, SHEREE Primary Care Provider [phone] Assessment Encounter Date Assessment Date Assessment LastModified [...] We may review results through the portal [email or web address] Not available 11/09/2024 13:27:15 Plan of Treatment Reminders Order Date Submit Date Provider Last Modified By Organization Details Last Modified Time Details Appointments None recorded. Lab None recorded. Referral None recorded. Procedures None recorded. Surgeries None recorded. Imaging [place], modified barium swallow study 2024 025 [facility] Diagnosit Imaging Dept, [address] [place], [address], 10:04:28 Medication Orders None recorded. Patient TargetsNo targets recorded. Patient InstructionsNo instructions recorded. Reason for Referral None Reported. Problems Name Problem SNOMED Code Status Onset Date Resolution Date Notes Provider Name and Address Organization Details Recorded Time Otalgia of left ear 4376843793 Active 2015 Otalgia, left ear; Note: Date Diagnosed : 01/17/2016 2:00 PM (H92.02) Not Available [facility] 4 03:15:30 Dysphagia 18464306 Active 2018 Dysphagia , unspecifi ed; Note: Date Diagnosed : 01/05/2019 11:10 AM (R13.10) Not Available [facility] 4 03:15:29 Dysphonia 86587037 Active 2017 Other voice and resonance disorders ; Note: Date Diagnosed : 05/22/2018 9:13 AM (R49.8) Not Available [facility] 4 03:15:30 Finding of resonance of voice 189495802 Active 2017 Other voice and resonance disorders ; Note: Date Diagnosed : 05/22/2018 9:13 AM (R49.8) Not Available [facility] 4 03:15:30 Problem Notes None recorded. Procedures Surgical History Date Name Laterality Status Provider Name and Address Organization Details Recorded Time 11/09/2024 FOL_DP completed MARYJANE ELI MD [address] [place] [address], [phone] 11/09/2024 13:23:35 Imaging Results None recorded. Procedure Notes None recorded. Medical Equipment None Reported. Allergies Allergen ID Allergen Name Allergen Category Reaction Reaction Severity Criticality Documentation Date Start Date Code Code System Note Provider Name and Address Organization Details Recorded Time 878944 acetamino phen / oxycodone medicatio n other Not available Not available 02/17/2024 88511 3 RxNorm React ion: unkno wn, unspe cifie d;; Not Available [facility] 4 01:20:45 451897 Substance with sulfonami de structure and antibacte rial mechanism of action (substanc e) medicatio n other Not available Not available 02/17/2024 44104 8003 SNOMED React ion: unkno wn, unspe cifie d;; Not Available [facility] 4 01:20:46 Medications Name Sig Start [...] mg tablet 11/09 completed Medicati on ID: [id number] D uration Value: 30 Brand Name: marky [...] mg tablet 2018 active Medicati on ID: [id number] D uration Value: 30 Brand Name: lisinopr [...] elayed release 2017 active Medicati on ID: [id number] D uration Value: 30 Brand Name: duloxeti [...] Available No t Available Miriamluke aguilera Lilian [facility] spacer 2015 active Medicati on ID: [id number] D uration Value: 1 Brand Name: Miriam neumann Lilian [facility] Send Method: E-Prescr ibed Sub s Allowed: subs OK Medic ationGen ericName : Miriam Quintana [facility] Not Available Not Available Not Available [...] Updated DateTime 11/09/2024 152.4 cm 33.2 kg/m2 91517.7 g Almita Chicas [place] - [facility] 11/09/2024 12:59:13 Social History None recorded. Functional Status None recorded. Mental Status None recorded. Family History Nothing Reported. Medical History No medical history recorded. Gynecological HistoryNo gynecological history recorded. Obstetrics History GPAL:G 0 P 0 0 0 0 Past Encounters Encounter ID Performer Location Encounter Start Date Encounter Closed Date Diagnosis/Indication Diagnosis SNOMED-CT Code Diagnosis ICD10 Code Diagnosis Note [id number] MARYJANE ELI MD [facility] [address] [phone] 11/09/2024 12:49:40 11/09/2024 13:27:39 Dysphagia 24333132 R13.10 Health Concerns Section Related Observation LastModified by Organization Detai ls LastModified Time None Recorded Concern Status LastModified by Organization Details LastModified Time None Recorded Advance Directives Directive None Recorded Payers Encounter Date Sequence Insurance Name Policy Number Policy Norris Covered Member ID Norris Member ID Guarantor Name 11/09/2024 1 [place] [facility] [id number] [facility] Notes Date Note Type Note Provider Name and Address Organization Details Recorded Time 11/09/2024 text/html dysphagiachoking on water, ice creamno swallow evaluationno CVA hx pmhx - 2022 NSTEMI, cath, stents PV 01/05/2019 Hieu dysphagia for saliva, mod ba swallow requested MARYJANE ELI MD [address] [place] [address], [place], [phone], [place] - [facility] 11/09/2024 13:27:41 OBGyn Episode No OBEpisode recorded.
== END 2025-01-17 15:33 | disposition home or self-care (01) ==
LOC: HO.MAMMO 15:32
PROVIDERS: PCP Internal Medicine; Visit Provider Internal Medicine
DX: Z12.31 Encounter for screening mammogram for malignant neoplasm of breast (principal)
CPT/HCPCS: 77063; 77067

== ENCOUNTER 2025-07-12 13:44 | Outpatient (REF) | payer MEDICAID, SELFPAY ==
--- NOTE | ~2025-07-12 | XR_ITS ---
EXAMINATION: XR SHOULDER, LEFT CLINICAL INFORMATION: pain COMPARISON: 02/05/2023 TECHNIQUE: AP external rotation, Grashey, scapular Y, and axillary views of the left shoulder. FINDINGS: Normal bone mineralization. No fracture, dislocation, or suspicious bone lesion. Normal alignment. The glenohumeral joint is normal. The AC joint demonstrates minimal spurring. There is a neutral lateral acromion. No undersurface spurring. The subacromial space is preserved. There is mild calcification of the supraspinatus and infraspinatus tendons abutting the footplate attachment. Remainder of the soft tissue and bony structures appear normal. XR/XR shoulder LT min 2V IMPRESSION: 1. Mild calcific tendinopathy of the supraspinatus and infraspinatus tendons. 2. Otherwise normal right shoulder. Electronically signed by: Mao Moore MD 07/12/2025 02:07 PM EDT
--- OUTSIDE RECORDS SUMMARY | 2025-07-12 13:20 | XMS_ITS | Encounter Summary ---
Author Organization [employer] Address [address] [facility] [address] [place] [address] Care Team Providers Care Electroencephalographic Technician Name Role Phone Melani Anderson MD Primary Care Provide r Reason for Visit * Reason Comments Shoulder Pain Left. Patient report s was hit by a softball about 15 years ago. Reports pain for 3 years after that. Reports pain was relieved, now has returned. Encounter Details Date Type Department Care Team ([facility] st Contact Info) Description 07/12/2025 1:20 PM EDT Office Visit [facility] [address] [place] [address] Melani Anderson MD [address] [place] [address] Acute pain of left shoulder Social History Tobacco Use Types Packs/Day Years Used Date Smoking Tobacco: Some Days Cigarettes Passive Smoke Exposure: Current Passive Exposure Comments:oc Alcohol Use Standard Drinks/Week Comments Yes 0 (1 standard drink = 0.6 oz pur e alcohol) oca Depression Answer Date Recorded Patient Health Questionnaire-9 Score 1 03/09/2025 Patient Health Questionnaire-9 Score 1 03/09/2025 Last PHQ-9: Questionnaire Data Not on file 0 03/09/2025 Housing Stability Answer Date Recorded What is [...] Answer Date Recorded Patient Health Questionnaire-2 Score 1 03/09/2025 Internet Access Answer Date Recorded Internet Access [...] Sign Reading Time Taken Comments Blood Pressure 122/94 07/12/2025 1:16 PM EDT Pulse 68 07/12/2025 1:16 PM EDT Temperature 36.7 C (98.1 F) 07/12/2025 1:16 PM EDT Respiratory Rate 16 07/12/2025 1:16 PM EDT Oxygen Saturation - - Inhaled Oxygen Concentration - - Weight 73.8 kg (162 lb 12.8 oz) 07/12/2025 1:16 PM EDT Height - - Body Mass Index 31.79 06/03/2025 10:28 AM EDT documented in this encounter Progress Notes * Melani Xiong MD - 07/12/2025 1:20 PM EDT SUBJECTIVE: Krys Walker is a 55 y.o. year old female who presents for acute visit . Acute Concerns: Left shoulder pain reports for the past 2 weeks, she tells me she had trauma on this shoulder many years ago went away bit now she is having again same issue, denies any new trauma or triggering activity Social History Social History Narrative Not on file Problem List[1] Mitral valve regurgitation Back problem Bleeding external hemorrhoids Cannabis dependence (HCC) Chronic constipation Class 1 obesity Cocaine abuse (HCC) Depressive disorder Essential hypertension Fatigue GERD (gastroesophageal reflux disease) Iron deficiency anemia due to chronic blood loss Left shoulder tendinitis Migraine without aura, not refractory Moderate persistent asthma Multiple joint pain Central sleep apnea Onychomycosis Prediabetes Prolapsed hemorrhoids Tobacco dependence syndrome Vocal cord dysfunction Anemia Asthma Calcific tendinitis Migraines Myalgia Chronic bilateral low back pain with bilateral sciatica Bilateral chronic knee pain Costochondritis Patellar tendinitis Unstable angina (CMS/HCC) (HCC) Chronic tonsillar hypertrophy Leukocytosis Coronary artery disease due to calcified coronary lesion Other chest pain Hair loss Acute pain of left knee Seasonal allergies Class 1 obesity due to excess calories with serious comorbidity and body mass index (BMI) of 34.0 to 34.9 in adult Acute pain of left shoulder Family History[2] Review of Systems Constitutional: Negative. HENT: Negative. Respiratory: Negative. Cardiovascular: Negative. Musculoskeletal: Positive for arthralgias and myalgias. OBJECTIVE: Vitals: 07/12/25 1316 BP: (!) 122/94 BP Location: Right arm Patient Position: Sitting BP Cuff Size: Adult Pulse: 68 Resp: 16 Temp: 98.1 ??F (36.7 ??C) TempSrc: Temporal Weight: 162 lb 12.8 oz (73.8 kg) Physical Exam Constitutional: Appearance: Normal appearance. Cardiovascular: Rate and Rhythm: Normal rate and regular rhythm. Pulmonary: Effort: Pulmonary effort is normal. Breath sounds: Normal breath sounds. Musculoskeletal: Right shoulder: Normal. Left shoulder: Tenderness and bony tenderness present. Decreased range of motion. Neurological: Mental Status: She is alert. Follow Up: No follow-ups on file. Medications Ordered Prior to Encounter[3] Problem List Items Addressed This Visit Acute pain of left shoulder Relevant Medications tiZANidine (Zanaflex) 6 MG capsule Other Relevant Orders XR Shoulder 2+ Views Left (Completed) [1] Patient Active Problem List Diagnosis Mitral valve regurgitation Back problem Bleeding external hemorrhoids Cannabis dependence (HCC) Chronic constipation Class 1 obesity Cocaine abuse (HCC) Depressive disorder Essential hypertension Fatigue GERD (gastroesophageal reflux disease) Iron deficiency anemia due to chronic blood loss Left shoulder tendinitis Migraine without aura, not refractory Moderate persistent asthma Multiple joint pain Central sleep apnea Onychomycosis Prediabetes Prolapsed hemorrhoids Tobacco dependence syndrome Vocal cord dysfunction Anemia Asthma Calcific tendinitis Migraines Myalgia Chronic bilateral low back pain with bilateral sciatica Bilateral chronic knee pain Costochondritis Patellar tendinitis Unstable angina (CMS/HCC) (HCC) Chronic tonsillar hypertrophy Leukocytosis Coronary artery disease due to calcified coronary lesion Other chest pain Hair loss Acute pain of left knee Seasonal allergies Class 1 obesity due to excess calories with serious comorbidity and body mass index (BMI) of 34.0 to 34.9 in adult Acute pain of left shoulder [2] No family history on file. [3] Current Outpatient Medications on File Prior to Visit Medication Sig Dispense Refill Acetaminophen Extra Strength 500 MG tablet TAKE 2 TABLETS (1,000 MG) BY MOUTH EVERY 8 (EIGHT) HOURSIF NEEDED FOR MILD PAIN FOR UP TO 10 DAYS. 90 tablet 1 albuterol (2.5 MG/3ML) 0.083% nebulizer solution Asmanex HFA 100 MCG/ACT aerosol Inhale 2 puffs in the morning and 2 puffs in the evening. RINSE MOUTH AND THROAT AFTER USE. Aspirin Low Dose 81 MG EC tablet [...] TABLET BY MOUTH EVERY DAY NEEDED FOR FEUZHYOMIYEV14 tablet 1 calcium carbonate (Tums) 500 MG [...] bedtime for dry eyes. 15 mL 6 diphenhydrAMINE (BENADryl) 2 % cream Apply topically if needed in the morning, at noon, and at bedtime for itching. 30 g 0 diphenhydrAMINE (BENADryl) 25 MG tablet Take 1 tablet (25 mg) by mouth if needed at bedtime for itching. 30 tablet 0 docusate sodium (Colace) 100 MG capsule TAKE 1 CAPSULE BY MOUTH TWICE A DAY 180 capsule 3 fexofenadine (Darlyn) 180 MG tablet TAKE 1 TABLET BY MOUTH EVERY DAY NEEDED FOR ALLERGIES 90 tablet 0 fexofenadine (Darlyn) 180 MG tablet TAKE 1 [...] tablet 2 Nebulizers (Comp Air Compressor Nebulizer) misc nicotine polacrilex (Nicorette) 4 MG gum Chew 1 each (4 mg) if needed for smoking cessation (use inplace of cigarettes). 100 each 1 pantoprazole (ProtoNix) 40 MG EC tablet TAKE 1 TABLET BY MOUTH TWICE DAILY. DO NOT CRUSH, CHEW, OR SPLIT. 180 tablet 0 ProAir HFA 108 (90 Base) MCG/ACT inhaler TAKE 2 PUFF INHALATIONS 4 TIMES DAILY NEEDED FOR WHEEZING 18 g 2 Sod Fluoride-Potassium Nitrate (Sodium Fluoride 5000 Sensitive) 1.1-5 % paste sucralfate (Carafate) 1 GM/10ML suspension Take 1 [...] AT THE SAME TIME 30 capsule 3 Tirzepatide-Weight Management (Zepbound) 10 MG/0.5ML solution auto-injector Inject 0.5 mL (10 mg) under the skin 1 (one) time per week. INJECT ONE PEN (=10 MG) SUBCUTANEOUSLY ONCE A WEEK 2 mL 0 Tirzepatide-Weight Management (Zepbound) 2.5 MG/0.5ML solution auto-injector Inject 0.5 mL (2.5 mg)under the skin 1 (one) time per week. 2 mL 0 Tirzepatide-Weight Management (Zepbound) 7.5 MG/0.5ML solution auto-injector Inject 0.5 mL (7.5 mg)under the skin 1 (one) time per week. INJECT ONE PEN (=7.5 MG) SUBCUTANEOUSLY ONCE A WEEK 2 mL 0 topiramate (Topamax) 25 MG tablet TAKE 1 TABLET BY MOUTH EVERY DAY 90 tablet 1 triamcinolone (Kenalog) 0.1 % ointment Apply topically 2 times daily. 80 g 0 No current facility-administered medications on file prior to visit. documented in this encounter Plan of Treatment Upcoming Encounters Date Type Department Care Team (Late st Contact Info) Description 09/19/2025 10:00 AM EST Office Visit [facility] [address] [place] [phone] Melani Anderson MD [address] [place] [phone] documented as of this encounter Procedures Procedure Name Priority Date/Time Associated Diagnosis Comments XR SHOULDER 2+ VIEWS LEFT Routine 07/12/2025 2:00 PM EDT Acute pain of left shoulder documented in this encounter Results * XR Shoulder 2+ Views Left (07/12/2025 2:00 PM EDT) Anatomical Region Laterality Modality Upper Extremities, Shoulder Left Radi ographic Imaging 07/12/2025 2:00 PM EDT Narrative 07/12/2025 2:10 PM EDT [address] [address] XRay Report Signed Patient: Krys Walker MR#: [id number] 59 : 1970 Acct:[id number] Age/Sex: 55 / F ADM Date: 07/12/25 Loc: [facility] Attending Dr: Melani Xiong MD Ordering Physician: Melani Anderson MD Date of Service: 07/12/25 Procedure(s): XR shoulder LT min 2V Accession Number(s): [id number] cc: Melani Adnerson MD Reason for Exam: pain EXAMINATION: XR SHOULDER, LEFT CLINICAL INFORMATION: pain COMPARISON: 02/05/2023 TECHNIQUE: AP external rotation, Grashey, scapular Y, and axillary views of the left shoulder. FINDINGS: Normal bone mineralization. No fracture, dislocation, or suspicious bone lesion. Normal alignment. The glenohumeral joint is normal. The AC joint demonstrates minimal spurring. There is a neutral lateral acromion. No undersurface spurring. The subacromial space is preserved. There is mild calcification of the supraspinatus and infraspinatus tendons abutting the footplate attachment. Remainder of the soft tissue and bony structures appear normal. XR/XR shoulder LT min 2V IMPRESSION: 1. Mild calcific tendinopathy of the supraspinatus and infraspinatus tendons. 2. Otherwise normal right shoulder. Electronically signed by: Mao Moore MD 07/12/2025 02:07 PM EDT Dictated By: Mao Moore MD Signed By: <Electronically signed by Mao Moore MD in OV> 07/12/25 1407 DD/ 1400 TD/TT: 07/12/25 1402 Wire Setter: Procedure Note Donotuseinterpreter, Image - 07/12/[address] [address] XRay Report Signed Patient: Олег Walker#: [id number] 59 : 1970Acct:[id number] Age/Sex: 55 / FADM Date: 07/12/25 Loc: [facility] Attending Dr: Melani Xiong MD Ordering Physician: Melani Anderson MD Date of Service: 07/12/25 Procedure(s): XR shoulder LT min 2V Accession Number(s): [id number] cc: Melani Anderson MD Reason for Exam: pain EXAMINATION: XR SHOULDER, LEFT CLINICAL INFORMATION: pain COMPARISON: 02/05/2023 TECHNIQUE: AP external rotation, Grashey, scapular Y, and axillary views of the left shoulder. FINDINGS: Normal bone mineralization. No fracture, dislocation, or suspicious bone lesion. Normal alignment. The glenohumeral joint is normal. The AC joint demonstrates minimal spurring. There is a neutral lateral acromion. No undersurface spurring. The subacromial space is preserved. There is mild calcification of the supraspinatus and infraspinatus tendons abutting the footplate attachment. Remainder of the soft tissue and bony structures appear normal. XR/XR shoulder LT min 2V IMPRESSION: 1. Mild calcific tendinopathy of the supraspinatus and infraspinatus tendons. 2. Otherwise normal right shoulder. Electronically signed by: Mao Moore MD 07/12/2025 02:07 PM EDT RP Dictated By: Mao Moore MD Signed By: <Electronically signed by Mao Moore MD in OV> 07/12/25 1407 DD/ 1400 TD/TT: 07/12/25 1402 Wire Setter: Melani Xiong MD IMG XR PROCEDURES Fin al Result documented in this encounter Visit Diagnoses Diagnosis Acute pain of left shoulder documented in this encounter Additional Health Concerns Assessment Noted Time PHQ-9 Depression Total Score: 1 03/09/20 25 9:07 AM EDT documented as of this encounter Care Teams Electroencephalographic Technician Relationship Specialty Start Date End Date Melani Anderson MD [address] [place] [phone] PCP - General Family Medicine 07/20/19 Darlene Lassiter Geophysical Prospecting Permit AgentEmbroidery Worker 10/08/23 Marilynn Garcia Geophysical Prospecting Permit AgentEmbroidery Worker 08/19/24 documented as of this encounter
--- OUTSIDE RECORDS SUMMARY | 2025-07-12 16:56 | XMS_ITS | Encounter Summary ---
Author Organization [employer] Address [address] [place] [address] 7t [place] [address] Care Team Providers Care Secy Name Role Phone Melani Anderson MD Primary Care Provide r Reason for Visit * Reason Onset Date Comments Med Refill 10/13/2023 Encounter Details Date Type Department Care Team ([facility] st Contact Info) Description 10/13/2023 Refill [facility] MEDICINE [address] [place] [address] Melani Anderson MD [address] [place] [address] Multiple joint pain (Primary Dx) Social History [...] refill : Tramadol To be sent to: [facility]/pharmacy #[id number] - L[place]I DIAZ - [address] documented in this encounter Plan of Treatment Upcoming Encounters Date Type Department Care Team (Late st Contact Info) Description 09/19/2025 10:00 AM EST Office Visit [facility] MEDICINE [address] [place] [address] Melani Anderson MD [address] [place] [address] documented as of this encounter Visit Diagnoses Diagnosis Multiple joint pain- Primary Pain in joint, multiple sites documented in this encounter Care Teams Secy Relationship Specialty Start Date End Date Melani Anderson MD [address] [place] [id number] PCP - General Family Medicine 07/20/19 Darlene Lassiter Slide Forming Machine TenderChiller Operator 10/08/23 Marilynn Garcia Slide Forming Machine TenderChiller Operator 08/19/24 documented as of this encounter
--- OUTSIDE RECORDS SUMMARY | 2025-07-12 16:56 | XMS_ITS | Encounter Summary ---
Author Organization [email or web address] Address [address] [place] [address] Care Team Providers Care Tile Layer Drainage Name Role Phone Melani Anderson MD Primary Care Provide r Encounter Details Date Type Department Care Team ([facility] Contact Info) Description 09/13/2024 Orders Only [facility] CH[facility] MED & PEDS [address] [place], [place] [phone] Kaykay Dunlap MD [address] [place] [address] Social History Tobacco Use Types Packs/Day Years [...] Description 09/19/2025 10:00 AM EST Office Visit [facility] MEDICINE [address] [place] [address] Melani Anderson MD [address] [place] [address] documented as of this encounter Visit Diagnoses Not on filedocumented in this encounter Additional Health Concerns Assessment Noted Time PHQ-9 Depression Total Score: 1 02/11/20 24 11:34 AM EDT documented as of this encounter Care Teams Tile Layer Drainage Relationship Specialty Start Date End Date Melani Anderson MD [address] [place] [address] PCP - General Family Medicine 07/20/19 Darlene Lassiter Ice Cream VendorContact Lens Flashing Puncher 10/08/23 Marilynn Garcia Ice Cream VendorContact Lens Flashing Puncher 08/19/24 documented as of this encounter
--- OUTSIDE RECORDS SUMMARY | 2025-07-12 16:56 | XMS_ITS | Encounter Summary ---
Author Organization [employer] Address [address] [place] [address] 7t [place] [address] Care Team Providers Care Education Consultant Name Role Phone Melani Anderson MD Primary Care Provide r Encounter Details Date Type Department Care Team (Latest Contact Info) Description 06/08/2021 Abstract [facility] CONVERSIONS Dental, Provider, DDS Social History Tobacco [...] Upcoming Encounters Date Type Department Care Team ([facility] st Contact Info) Description 09/19/2025 10:00 AM EST Office Visit [facility] MEDICINE [address] [place] [address] Melani Anderson MD [address] [place] [address] documented as of this encounter Visit Diagnoses Not on filedocumented in this encounter Care Teams Education Consultant Relationship Specialty Start Date End Date Melani Anderson MD [address] [place] [address] PCP - General Family Medicine 07/20/19 Darlene Lassiter Floor SanderBrick Shader 10/08/23 Marilynn Garcia Floor SanderBrick Shader 08/19/24 documented as of this encounter
--- OUTSIDE RECORDS SUMMARY | 2025-07-12 16:56 | XMS_ITS | Encounter Summary ---
Author Organization [employer] Address [address] [place] [address] 7t [place] [address] Care Team Providers Care Ultrasonographer Name Role Phone Melani Anderson MD Primary Care Provide r Encounter Details Date Type Department Care Team (Latest Contact Info) Description 11/03/2019 Abstract [facility] CONVERSIONS Dental, Provider, DDS Social History Tobacco [...] Upcoming Encounters Date Type Department Care Team ([facility] st Contact Info) Description 09/19/2025 10:00 AM EST Office Visit [facility] MEDICINE [address] [place] [address] Melani Anderson MD [address] [place] [address] documented as of this encounter Visit Diagnoses Not on filedocumented in this encounter Care Teams Ultrasonographer Relationship Specialty Start Date End Date Melani Anderson MD [address] [place] [address] PCP - General Family Medicine 07/20/19 Darlene Lassiter Silverware SupervisorCryptanalyst 10/08/23 Marilynn Garcia Silverware SupervisorCryptanalyst 08/19/24 documented as of this encounter
--- OUTSIDE RECORDS SUMMARY | 2025-07-12 16:56 | XMS_ITS | Clinical Summary ---
Author Organization [facility] Address [address] [place] [address] Phone Care Team Providers Care Regulatory And Compliance Technician Name Role Phone Manjula Brasher GENERAL PRACTICE Primary Care Provider [phone] Allergies No known active allergies Encounters Date Type Department Care Team Description 07/04/2025 3:30 PM EDT Office Visit [facility] [address] [address] Sergio Martino DPM Ingrowing nail (Primary Dx) 05/16/2025 1:45 PM EDT Office Visit [place] [address] [address] Sergio Martino DPM Ingrowing nail (Primary Dx) from Last 3 Months Social History Tobacco Use Types Packs/Day Years Used Date Smoking Tobacco: Never Assessed Comments Unknown Sex and Gender Information Value Date Recorded Sex Assigned at Female 02/22/2025 10:43 PM EDT Legal Sex Female 12:51 PM EST Gender Identity Female 02/22/2025 10:43 PM EDT Sexual Orientation Straight 02/22/2025 10 :43 PM EDT Plan of Treatment Upcoming Encounters Date Type Department Care Team ([facility] st Contact Info) Description 09/05/2025 1:45 PM EST Office Visit [place] [address] [address] Sergio Martino DPM [address] [address] Health Maintenance Due Date Last Done Comments Breast Cancer Screening 1970 Colorectal Cancer Screening: Colonoscopy 1970 Hepatitis A Vaccines (1 of 2 - Risk 2-dose series) 1989 Cervical Cancer Screening: P ap Smear 1991 Zoster Vaccines (1 of 2) 2020 DTaP,Tdap,and Td Vaccines (3 - Td or Tdap) 11/02/2023 11/02/2013, 10/06/2007 Depression Screening 10/06/2024 Social Influencers of Health Screening 11/18/2024 COVID-19 Vaccine (3 - 2024-2 6 season) 2025 02/22/2021, 01/25/2021 Influenza Vaccine (#1) 2025 Hypertension/CHF/CAD Annual BMP Blood Test 12/07/2025 12/07/2024 Cholesterol Screening (Lipid Panel) 12/07/2029 12/07/2024 RSV Immunization Adult Patients (1 - 1-dose 75+ series) 2045 Hepatitis B Vaccines Completed 03/22/2011, 09/24/2010, 05/16/2010 HIV Screening Completed 12/07/2024 Hepatitis C Screening Completed 12/07/2024 Pneumococcal Vaccine: 50+ Years Completed 12/07/2024, 03/23/2017 [...] to complete this topic RSV Immunization Patients Under 20 months Aged Out No longer eligible b ased on patient's age to complete this topic Varicella Vaccines Aged Out No longer eligible based on patient's age to complete this topic [place] Care Teams Regulatory And Compliance Technician Relationship Specialty Start Date End Date Manjula Brasher FNP [address] [place] [id number] PCP - General Nurse Practitioner 11/17/24
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
--- OUTSIDE RECORDS SUMMARY | 2025-07-12 16:56 | XMS_ITS | Clinical Summary ---
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 validated pursuant to the CLIA regulations and is used for clinical purposes. 04/24/2021 Melani Xiong MD LAB CYTOLOGY ORDERABL ES Final Result Performing Organization Address [facility] de Phone Number [facility] [address] from Last 3 Months or Most Recently Relevant to Health Maintenance Insurance [facility] ST[facility] ADULT Care Teams Podiatric Medicine Professor Relationship Specialty Start Date End Date Melani Anderson MD [address] [place] [phone] PCP - General Family Medicine 07/20/19 Darlene Lassiter Automotive Lube TechnicianOnline Content Developer 10/08/23 Marilynn Garcia Automotive Lube TechnicianOnline Content Developer 08/19/24
--- OUTSIDE RECORDS SUMMARY | 2025-07-12 16:56 | XMS_ITS | Encounter Summary ---
Author Organization [employer] Address [address] [place] [address] 7 [place] [address] Care Team Providers Care Learning Specialist Name Role Phone Melani Anderson MD Primary Care Provide r Reason for Visit * Reason Comments Med Refill Encounter Details Date Type Department Care Team (Late Contact Info) Description 10/11/2023 Refill [facility] [address] [place] [address] [phone] Sherice Kramer MD [address] [place] [address] [phone] Left shoulder tendinitis Social History Tobacco Use [...] Upcoming Encounters Date Type Department Care Team ([facility] Contact Info) Description 09/19/2025 10:00 AM EST Office Visit [facility] [address] [place], [place] [phone] Melani Anderson MD [address] [place] [address] [phone] documented as of this encounter Visit Diagnoses Diagnosis Left shoulder tendinitis documented in this encounter Care Teams Learning Specialist Relationship Specialty Start Date End Date Melani Anderson MD [address] [place] [address] PCP - General Family Medicine 07/20/19 Darlene Lassiter Maple Products MakerTechnology Internship 10/08/23 Marilynn Garcia [employer] MakerTechnology Internship 08/19/24 documented as of this encounter
--- OUTSIDE RECORDS SUMMARY | 2025-07-12 16:56 | XMS_ITS | Encounter Summary ---
Author Organization [employer] Address [address] [facility] 7t [place] [address] Care Team Providers Care Ripsaw Grader Name Role Phone Melani Anderson MD Primary Care Provide r Reason for Visit * Reason Onset Date Comments Med Refill 12/19/2022 Encounter Details Date Type Department Care Team ([facility] Contact Info) Description 12/19/2022 Telephone [facility] 230 [place] [address] Melani Anderson MD 230 [place] [address] Med Refill Social History Tobacco Use Types [...] Miscellaneous Notes * Telephone Encounter - Julia rGaves Charo - 12/19/2022 2:22 PM EDT Tc from pt requesting med refill status on previous message. * Telephone Encounter - Julia Graves Mancilla - 12/19/2022 12:06 PM EDT Tc from pt requesting med refill on Tramadol 50 mg tablet. Please sen to [facility]/pharmacy #[id number] - LEVI DIAZ - [address] [facility] documented in this encounter Plan of Treatment Upcoming Encounters Date Type Department Care Team (Late st Contact Info) Description 09/19/2025 10:00 AM EST Office Visit [facility] [address] [place] [address] Melani Anderson MD [address] [place] [phone] documented as of this encounter Visit Diagnoses Not on filedocumented in this encounter Care Teams Ripsaw Grader Relationship Specialty Start Date End Date Melani Anderson MD [address] [place] [address] PCP - General Family Medicine 07/20/19 Darlene Lassiter Manager PhotoRegister Repairer 10/08/23 Marilynn Garcia Manager PhotoRegister Repairer 08/19/24 documented as of this encounter
--- OUTSIDE RECORDS SUMMARY | 2025-07-12 16:56 | XMS_ITS | Encounter Summary ---
Author Organization [employer] Address [address] [facility] 7t [place] [address] Care Team Providers Care Job Coach Name Role Phone Melani Anderson MD Primary Care Provide r Reason for Visit * Reason Comments Med Refill Encounter Details Date Type Department Care Team ([facility] st Contact Info) Description 04/03/2025 Refill [facility] 230 [place] [address] Melani Anderson MD 230 [place] [address] Class 1 obesity due to excess calories with serious comorbidity and body mass index (BMI) of 34.0 to 34.9 in adult Social History Tobacco Use Types Packs/Day Years [...] Description 09/19/2025 10:00 AM EST Office Visit [facility] [address] [place] [phone] Melani Anderson MD [address] [place] [phone] documented as of this encounter Visit Diagnoses Diagnosis Class 1 obesity due to excess calories with serious comorbidity and body mass index (BMI) of 34.0 to 34.9 in adult documented in this encounter Additional Health Concerns Assessment Noted Time PHQ-9 Depression Total Score: 1 03/09/20 25 9:07 AM EDT documented as of this encounter Care Teams Job Coach Relationship Specialty Start Date End Date Melani Anderson MD [address] [place] [address] PCP - General Family Medicine 07/20/19 Darlene Lassiter Antenna RiggerPanelboard Assembler 10/08/23 Marilynn Garcia Antenna RiggerPanelboard Assembler 08/19/24 documented as of this encounter
--- OUTSIDE RECORDS SUMMARY | 2025-07-12 16:56 | XMS_ITS | Encounter Summary ---
Author Organization [employer] Address [address] [facility] [address] 7t [place] [address] Care Team Providers Care Laundry Tub Maker Name Role Phone Melani Anderson MD Primary Care Provide r Encounter Details Date Type Department Care Team ([facility] Contact Info) Description 06/12/2024 Orders Only [facility] 230 [place] [address] Joby Smallwood MD 230 [place] [address] Social History Tobacco Use Types Packs/Day Years [...] Description 09/19/2025 10:00 AM EST Office Visit [facility] 230 [place] [address] Melani Anderson MD 230 [place] [address] documented as of this encounter Visit Diagnoses Not on filedocumented in this encounter Additional Health Concerns Assessment Noted Time PHQ-9 Depression Total Score: 1 02/11/20 24 11:34 AM EDT documented as of this encounter Care Teams Laundry Tub Maker Relationship Specialty Start Date End Date Melani Anderson MD 230 [place] [address] PCP - General Family Medicine 07/20/19 Darlene Lassiter Therapist RespiratoryInspection Engineer 10/08/23 Marilynn Garcia Therapist RespiratoryInspection Engineer 08/19/24 documented as of this encounter
--- OUTSIDE RECORDS SUMMARY | 2025-07-12 16:56 | XMS_ITS | Encounter Summary ---
Author Organization [employer] Address [address] [facility] 7t [place] [address] Care Team Providers Care Purchasing Specialist Name Role Phone Melani Anderson MD Primary Care Provide r Encounter Details Date Type Department Care Team (Latest Contact Info) Description 07/12/2025 Travel Social History Tobacco Use Types Packs/Day [...] Description 09/19/2025 10:00 AM EST Office Visit [facility] 230 [place], [place] [phone] Melani Anderson MD 230 [place] [address] documented as of this encounter Visit Diagnoses Not on filedocumented in this encounter Additional Health Concerns Assessment Noted Time PHQ-9 Depression Total Score: 1 03/09/20 25 9:07 AM EDT documented as of this encounter Care Teams Purchasing Specialist Relationship Specialty Start Date End Date Melani Anderson MD 230 [place] [address] PCP - General Family Medicine 07/20/19 Darlene Lassiter Platinum SmithBottom Brusher 10/08/23 Marilynn Garcia Platinum SmithBottom Brusher 08/19/24 documented as of this encounter
--- OUTSIDE RECORDS SUMMARY | 2025-07-12 16:56 | XMS_ITS | Encounter Summary ---
Author Organization [employer] Address [address] [place] [address] 7 [place] [address] Care Team Providers Care Technical Support Consultant Name Role Phone Melani Anderson MD Primary Care Provide r Reason for Visit * Reason Comments Med Refill Encounter Details Date Type Department Care Team ([facility] Contact Info) Description 2023 Refill [facility] [address] [place] [address] [phone] Sherice Kramer MD [address] [place] [address] [phone] Left shoulder tendinitis Social History Tobacco Use [...] Upcoming Encounters Date Type Department Care Team ([facility] Contact Info) Description 09/19/2025 10:00 AM EST Office Visit [facility] 230 [place], [place] [phone] Melani Anderson MD 230 [place], [place] [phone] documented as of this encounter Visit Diagnoses Diagnosis Left shoulder tendinitis documented in this encounter Care Teams Technical Support Consultant Relationship Specialty Start Date End Date Melani Anderson MD [address] [place] [address] PCP - General Family Medicine 07/20/19 Darlene Lassiter Technical Report WriterMuseum Service Scheduler 10/08/23 Marilynn Garcia Technical Report WriterMuseum Service Scheduler 08/19/24 documented as of this encounter
--- OUTSIDE RECORDS SUMMARY | 2025-07-12 16:56 | XMS_ITS | Encounter Summary ---
Author Organization [employer] Address [address] [facility] 7t [place] [address] Care Team Providers Care Ota Name Role Phone Melani Anderson MD Primary Care Provide r Reason for Visit * Reason Onset Date Comments Nurse Triage 09/13/2024 Encounter Details Date Type Department Care Team ([facility] Contact Info) Description 09/13/[address] [facility] 230 [place] [address] Melani Anderson MD [address] [place] [address] Nurse Triage Social History Tobacco Use Types [...] your housing situation today? I have jacquie sing 04/19/[address] you li [...] needed. Pt is advised to come to [facility] for Provider to see Pt. Pt agrees [...] caller accepted this outcome. Contact pt at [phone] documented in this encounter Plan of Treatment Upcoming Encounters Date Type Department Care Team (Late st Contact Info) Description 09/19/2025 10:00 AM EST Office Visit [facility] MED[facility] 230 [place] [address] Melani Anderson MD [address] [place], [place] [phone] documented as of this encounter Visit Diagnoses Not on filedocumented in this encounter Additional Health Concerns Assessment Noted Time PHQ-9 Depression Total Score: 1 02/11/20 24 11:34 AM EDT documented as of this encounter Care Teams Ota Relationship Specialty Start Date End Date Melani Anderson MD [address] [place] [address] PCP - General Family Medicine 07/20/19 Darlene Lassiter Straight Knife Machine CutterSupervisor White Sugar 10/08/23 Marilynn Garcia Straight Knife Machine CutterSupervisor White Sugar 08/19/24 documented as of this encounter
--- OUTSIDE RECORDS SUMMARY | 2025-07-12 16:56 | XMS_ITS | Encounter Summary ---
Author Organization [employer] Address [address] [place] [address] 7t [place] [address] Care Team Providers Care Image Assembler Name Role Phone Melani Anderson MD Primary Care Provide r Encounter Details Date Type Department Care Team ([facility] Contact Info) Description 11/01/2022 Telephone [facility] 230 [place] [address] Sanchez Edwards, JOSÉ [address] [place] [address] Social History Tobacco Use Types Packs/Day Years [...] Encounters Date Type Department Care Team (Late Contact Info) Description 09/19/2025 10:00 AM EST Office Visit [facility] [address] [place] [address] Melani Anderson MD 230 [place] [address] documented as of this encounter Visit Diagnoses Not on filedocumented in this encounter Care Teams Image Assembler Relationship Specialty Start Date End Date Melani Anderson MD [address] [place] [address] [place] [address] PCP - General Family Medicine 07/20/19 Darlene Lassiter Banking SpecialistProcess Description Writer 10/08/23 Marilynn Garcia Banking SpecialistProcess Description Writer 08/19/24 documented as of this encounter
--- OUTSIDE RECORDS SUMMARY | 2025-07-12 16:56 | XMS_ITS | Encounter Summary ---
Author Organization [employer] Address [address] [place] [address] 7t [place] [address] Care Team Providers Care Gas And Oil Checker Name Role Phone Melani Anderson MD Primary Care Provide r Reason for Referral * Consultation (Routine) - Pending Review Specialty Diagnoses / Procedures Referred By Robina march Referred To Contact Physical Therapy Diagnoses Tendinopathy of left shoulder Procedures [facility] [place] [facility] [address] [place] [address] Phone: tel: fax: Referral ID Status Reason Start Date Expiration Date Visits Requested Visits Authorized [id number] Pending Review Specialty Services Required 07/12/2025 07/12/2026 1 1 Encounter Details Date Type Department Care Team ([facility] st Contact Info) Description 07/12/2025 Results Follow-Up [facility] [address] [place] [address] Melani Anderson MD 230 [place], [place] [phone] XR Shoulder 2+ Views Left Social History Tobacco Use Types Packs/Day Years [...] encounter Miscellaneous Notes * Telephone Encounter - Mindy Giles RN - 07/12/2025 4:00 PM EDT TC placed to pt and the message below was dixcussed, pt want to use AT offices in [place] on [facility] ----- Message from Melani Xiong MD sent at 07/12/2025 3:17 PM EDT ----- Please let patient know I reviewed her x-ray she has mild calcified tendinopathy on her shoulder I recommend for her to have physical therapy I will put in the order right now thank you ----- Message ----- From: Interface, Ris Results In Sent: 07/12/2025 2:11 PM EDT To: Melani Xiong MD documented in this encounter Plan of Treatment Upcoming Encounters Date Type Department Care Team (Late st Contact Info) Description 09/19/2025 10:00 AM EST Office Visit [facility] [address] [place] [address] Melani Anderson MD [address] [place] [address] Scheduled Referrals Name Type Priority Associated Diagnoses Orde r Schedule Referral to Physical Therapy Outpatient Referral Routine Tendinopathy of left shoulder Expected: 07/12/2025 (Approximate), Expires: 07/12/2026 documented as of this encounter Visit Diagnoses Diagnosis Tendinopathy of left shoulder- Primary documented in this encounter Additional Health Concerns Assessment Noted Time PHQ-9 Depression Total Score: 1 03/09/20 25 9:07 AM EDT documented as of this encounter Care Teams Gas And Oil Checker Relationship Specialty Start Date End Date Melani Anderson MD [address] [place] [address] PCP - General Family Medicine 07/20/19 Darlene Lassiter Lot AssociateBlock Operator 10/08/23 Marilynn Garcia Lot AssociateBlock Operator 08/19/24 documented as of this encounter
--- OUTSIDE RECORDS SUMMARY | 2025-07-12 16:56 | XMS_ITS | Encounter Summary ---
Author Organization [employer] Address [address] [facility] 7t [place] [address] Care Team Providers Care Computerized Machine Fabric Cutter Name Role Phone Melani Anderson MD Primary Care Provide r Reason for Visit * Reason Onset Date Comments Error 09/08/2024 Encounter Details Date Type Department Care Team ([facility] st Contact Info) Description 09/08/2024 Telephone [facility] 230 [place] [address] Melani Anderson MD [address] [place] [address] Error Social History Tobacco Use Types Packs/Day [...] is your housing situation today? I have jacquieraudel weathers 04/19/[address] you [...] 10:00 AM EST Office Visit [facility] 230 [place] [address] Melani Anderson MD [address] [place] [address] documented as of this encounter Visit Diagnoses Not on filedocumented in this encounter Additional Health Concerns Assessment Noted Time PHQ-9 Depression Total Score: 1 02/11/20 24 11:34 AM EDT documented as of this encounter Care Teams Computerized Machine Fabric Cutter Relationship Specialty Start Date End Date Melani Anderson MD [address] [place] [address] PCP - General Family Medicine 07/20/19 Darlene Lassiter Ribbon TierQuality Control Microbiologist 10/08/23 Marilynn Garcia Ribbon TierQuality Control Microbiologist 08/19/24 documented as of this encounter
== END 2025-07-12 13:45 | disposition home or self-care (01) ==
LOC: HO.HHCX 13:44
PROVIDERS: Visit Provider Internal Medicine
DX: M25.512 Pain in left shoulder (principal)
CPT/HCPCS: 73030

== ENCOUNTER → 2025-07-12 13:46 | Outpatient (BNV) | payer MEDICAID, SELFPAY | PROVIDERS: Visit Provider Radiology Diagnostic Radiology | DX: M75.32 Calcific tendinitis of left shoulder (principal) | CPT/HCPCS: 73030 ==

== ENCOUNTER 2025-08-06 13:21 | Emergency (ER) | payer MEDICAID, SELFPAY ==
--- NOTE | 2025-08-06 13:28 | ED_ITS ---
HPI - Abdominal Pain General Chief Complaint: Abdominal Pain Stated Complaint: pain in mid abd radiating to back Time Seen by Provider: 08/06/25 13:52 Source: patient Mode of arrival: ambulatory Limitations: no limitations History of Present Illness ED Provider: Maricruz Blakely APRN HPI narrative: 55 yo female with history of anemia, migraines, chronic constipation, fatty liver disease on a GLP here with complaints of deep back pain since Friday. Denies injury or trauma. Has history of chronic back pain which she takes tramadol for. Pain is worsened with movement. This morning pain was worsened when she woke and she felt stiff and had a hard time getting out of bed. Denies radiation of pain. No numbness, tingling or weakness of the extremities. No numbness in the groin. No bowel or bladder incontinence. No fevers or chills. No abdominal pain, diarrhea. Patient has chronic constipation unchanged from baseline. She reports she had 2 episodes of nausea and vomiting is not feeling nauseous anymore. Related Data Home Medications ?Medication ?Instructions ?Recorded ?Confirmed budesonide-formoterol HFA 160 2 puff inhalation BID 06/13/25 mcg-4.5 mcg/actuation aerosol inhaler (Symbicort) omeprazole 20 mg capsule,delayed 20 mg PO DAILY 06/13/25 release tirzepatide (weight loss) 7.5 7.5 mg subcut QWEEK 05/3006/13/25 mg/0.5 mL subcutaneous pen injector (Zepbound) Previous Rx's ?Medication ?Instructions ?Recorded ondansetron HCl 4 mg tablet 4 mg PO Q8H PRN nausea and 10/01/20 (Zofran) vomiting #14 tabs tifwgfkvth-ayiokcqonvdzk-mireyiyj 1 cap PO TID PRN deepa n #10 caps 10/02/20 50 mg-300 mg-40 mg capsule (Fioricet) bisacodyl 10 mg rectal suppository 10 mg ME DAILY PRN constipation 02/21/21 (Dulcolax (bisacodyl)) #20 ea bisacodyl 5 mg tablet,delayed 5 mg PO BEDTIME #20 tabs 02/21/21 release (Dulcolax (bisacodyl)) hydrocortisone 2.5 % topical cream 1 appl ME BID PRN h emorrhoids #30 02/21/21 with perineal applicator grams (Proctozone-HC) linaclotide 72 mcg capsule 72 mcg PO QAM #30 caps 06/07 11/26 (Linzess) cephalexin 500 mg capsule 500 mg PO TID #14 caps 08/25 ibuprofen 400 mg tablet 400 mg PO Q6H PRN pain #20 t abs 08/25/21 acetaminophen 500 mg tablet 500 mg PO Q6H PRN fever or pain 02/05/23 (Tylenol Extra Strength) #14 tabs cyclobenzaprine 5 mg tablet 5 mg PO Q8H PRN pain (scal e score 02/05/23 7-10) 5 days #14 tabs lidocaine 5 % topical patch 1 patch topical DAILY PRN pain #30 02/05/23 (Lidoderm) ea naproxen 500 mg tablet 500 mg PO BID PRN pain 10 da ys #20 02/05/23 tabs ibuprofen 600 mg tablet 600 mg PO Q8H PRN fever or p ain 10/11/23 #30 tabs tramadol 50 mg tablet 50 mg PO Q8H PRN pain #6 tab s 10/11/23 sucralfate 100 mg/mL oral 10 ml PO BID #420 mL 4 suspension (Carafate) folic acid 1 mg tablet 1 mg PO DAILY #90 tabs 06/13 cyclobenzaprine 10 mg tablet 10 mg PO TID PRN muscle s pasm #15 08/06/25 tabs Allergies Allergy/AdvReac Type Severity Reaction Status Date / Time Sulfa (Sulfonamide Allergy Mild RASH, hives Verified 08/06/25 13:32 Antibiotics) (SULFA(SULFONAMIDE ANTIBIOTICS)) Review of Systems Review of Systems Yes all other systems are reviewed and are negative Constitutional: Reports no additional constitutional complaints, Denies body ache(s), Denies chills, Denies fever(s), Denies headache(s) and Denies weakness Eyes: Reports no additional eye complaints and Denies change in vision Reports system reviewed and no additional complaints, except as documented, Denies dizziness, Denies headache(s), Denies nasal congestion, Denies nasal discharge and Denies neck pain Cardiovascular: Reports no additional cardiovascular complaints, Denies chest pain, Denies leg edema and Denies dyspnea Respiratory: Reports no additional respiratory complaints, Denies cough and Denies dyspnea Gastrointestinal: Reports no additional gastrointestinal complaints, Denies abdominal pain, Denies diarrhea, Reports nausea and Reports vomiting Genitourinary: Reports no additional female genitourinary complaints and Denies urinary incontinence Musculoskeletal: Reports no additional musculoskeletal complaints, Reports back pain, Denies arthralgias, Denies joint swelling, Denies neck pain, Denies numbness and Denies tingling Skin/Breast: Reports system reviewed and no additional complaints, except as docu and Denies rash Reports system reviewed and no additional complaints, except as documented, Denies Abnormal speech present, Denies dizziness, Denies headache(s), Denies numbness, Denies tingling and Denies weakness PMFSH Past Medical History Attestation statement: The following information was validated with the patient. Source: old records reviewed and nursing notes reviewed Medical History Chronic constipation Migraines Acid reflux HTN (hypertension) Sleep apnea Anemia Asthma Surgical History H/O hernia repair Hx of carpal tunnel repair H/O bilateral salpingectomy Family History Family History Mother Uterine cancer Father HTN (hypertension) Pacemaker Paternal Aunt History of open heart surgery Social History Social History Household Members: None Alcohol intake: current Alcohol intake frequency: does not drink Patient Tobacco Use Status: Current everyday Tobacco user Tobacco use type: Cigarette Substance Use Type: Marijuana Advance Directives: No Advance Directives Information Provided: Yes Do you have a plan to hurt others: No Plan service: No Current occupational status: unemployed and disabled Gender identity: Female Physical Exam ED Vital Signs: Vital Signs - 24 hr 08/06/25 13:29 08/06/25 14:11 08/06/25 17:18 Temperature 97.6 F 97.6 F Pulse Rate 76 81 66 Respiratory Rate 18 16 16 Blood Pressure 160/84 H 143/91 H 141/77 H Pulse Oximetry 99 99 98 Oxygen Delivery Method Room Air Room Air Room Air 08/06/25 17:18 Temperature 97.6 F Pulse Rate 66 Respiratory Rate 16 Blood Pressure 141/77 H Pulse Oximetry 98 Oxygen Delivery Method Room Air BMI result Body Mass Index 30.8 Const General: cooperative, healthy appearing, comfortable and no acute distress Orientation/consciousness: patient oriented x3 Limitations: no limitations HENMT Head: Yes normal to inspection Ears: hearing grossly normal bilaterally General nose exam: Normal external nose present Face and sinus: Yes normal facial exam Mouth: Normal oral and palatal mucosa present Throat: Yes posterior oropharynx normal Eyes General: appearance normal, both eyes and all related structures Pupils: Equal, round and reactive pupils present Neck Neck: Yes normal visual inspection Chest Chest palpation & inspection: normal inspection of the chest Resp Effort & Inspection: normal respiratory effort Auscultation: clear to auscultation bilaterally Cardio Rate: regular rate Rhythm: regular rhythm Peripheral pulses: Peripheral pulses 2+ throughout GI Inspection: Yes normal to inspection and No distended Palpation (GI): Soft to palpation and nontender Auscultation: normal bowel sounds General: Yes no CVA tenderness Back/Spine/Pelvis Back: no CVA tenderness Thoracic/Lumbar Spine: thoracic and lumbar spine normal to inspection and straight leg raise positive Skin General skin exam: no rashes or lesions noted Neuro General: patient oriented x3, moves all extremities, no focal motor deficits and normal sensation to monofilament Cranial nerves: Yes CN's II-XII intact bilaterally, Yes Equal, round and reactive pupils present, Yes Bilaterally intact EOM present, Yes Nystagmus not present, Yes Normal facial strength present and Yes Midline tongue present Cognition (Neuro): normal cognition Speech: No Abnormal speech present Motor exam (neuro): 5/5 motor strength present throughout Sensory Exam: Normal double simultaneous stimulation for sensation Deep tendon reflexes (DTR's): Right patellar reflex intensity grade: 2+ and Left patellar reflex intensity grade: 2+ Extrem General: Yes normal to inspection Course Course Course Narrative: This is a Rapid Medical Exam performed in triage by Angy Holloway PA-C. Full HPI, ROS and PE to be performed by primary ED provider. 55yo F w/pmhx HTN, sleep apnea, migraines, asthma, anemia presenting to the ED c/o R side/back pain x few days w/assoc N/V. denies dysuria, hematuria. States she is on Zepbound PE: uncomfortable, abdomen soft w/mild right sided ttp, no rebound or guarding Plan: labs, UA Reevaluation(s) Reevaluation #1: Lab work is normal. Urine shows no signs of infection. Patient reports feeling improved after receiving Tylenol, Toradol and a dose of Valium. Pain seems more musculoskeletal. I recommend that she follow up outpatient with her primary care doctor. Reviewed worrisome signs and symptoms of when to return to the emergency room. Comfortable plan for discharge home. Medical Decision Making Medical Decision Making [facility] Narrative: 55 yo female with history of anemia, migraines, chronic constipation, fatty liver disease on a GLP here with complaints of deep back pain since Friday. Denies injury or trauma. Has history of chronic back pain which she takes tramadol for. Pain is worsened with movement. This morning pain was worsened when she woke and she felt stiff and had a hard time getting out of bed. Denies radiation of pain. No numbness, tingling or weakness of the extremities. No numbness in the groin. No bowel or bladder incontinence. No fevers or chills. No abdominal pain, diarrhea. Patient has chronic constipation unchanged from baseline. She reports she had 2 episodes of nausea and vomiting is not feeling nauseous anymore. I am unable to illicit any pain on exam NO AP/CVAT or lumbar bony tenderness Normal neuro exam with no focal deficits Pain is worsened with bilateral straight leg raise This likely a back source. Denies acute abdomen Will obtain labs, UA, provide analgesia Differential Diagnosis Differential Diagnoses: The differential diagnosis associated with the presentation includes Doubt epidural abscess, caude equina, cord compression, malignancy, fracture, ACS, AAA, pyelo, renal colic with no neurological deficits or red flag symptom Also r/o pancreatitis, acute chile Admission/Observation Consideration of admission/observation: Escalation of care including admission/observation considered Lab Data [facility] Lab Attestation statement: I reviewed the patient's lab results. 08/06/25 13:42 08/06/25 13:42 Labs: Lab Results 08/06/25 08/06/25 Range/Units 13:42 14:40 WBC 10.8 (4.8-10.8) X10*3/uL RBC 3.85 L (4.20-5.50) X10*6/uL Hgb 9.8 L (12.0-16.0) g/dl Hct 30.5 L (37.0-47.0) % MCV 79.2 L (80.0-98.0) fL MCH 25.5 L (27.0-33.0) pg MCHC 32.1 (31.0-35.0) g/dl RDW 15.9 (11.0-16.0) % Plt Count 305 (160-400) X10*3/uL MPV 10.3 (9.4-12.3) fL Immature Gran % (Auto) 0.2 (0.0-0.4) % Neut % (Auto) 61.3 (45-73) % Lymph % (Auto) 32.3 (20-40) % [place] % (Auto) 5.1 (2-11) % Eos % (Auto) 0.6 (0-4) % Baso % (Auto) 0.5 (0-2) % Lymph # (Auto) 3.5 (1.2-4.9) X10*3/uL [place] # (Auto) 0.6 (0.1-1.2) X10*3/uL Eos # (Auto) 0.1 (0.0-0.4) X10*3/uL Baso # (Auto) 0.1 (0.0-0.2) X10*3/uL Abs Immat Gran (auto) 0.02 (0.00-0.03) X10*3/uL Absolute Neuts (auto) 6.6 (2.0-8.3) x10*3/uL Absolute Nucleated RBC 0.000 (0.0-0.012) X10*3/uL Nucleated RBC % (auto) 0.0 (0.0-0.2) /100WBC Sodium 142 (135-145) mmol/L Potassium 3.7 (3.3-5.1) mmol/L Chloride 112 H (96-108) mmol/L Carbon Dioxide 22 (22-29) mmol/L Anion Gap 12 (12-20) BUN 18 H (9-16) mg/dL Creatinine 0.76 (0.5-1.4) mg/dL Estim Creat Clear Calc 73.8 Estimated GFR > 60 Random Glucose 80 (60-115) mg/dL Calcium 9.2 (8.4-10.2) mg/dL Magnesium 2.1 (1.6-2.6) mg/dL Total Bilirubin 0.1 (0.0-1.0) mg/dL Direct Bilirubin < 0.2 (0.0-0.5) mg/dL AST 30 (5-31) U/L ALT 20 (0-31) U/L Alkaline Phosphatase 46 (39-117) U/L Total Protein 7.2 (6.5-8.0) g/dL Albumin 4.0 (3.5-5.0) g/dL Lipase 63 (8-78) U/L Urine Color Yellow Urine Appearance Clear Urine pH 5.5 (5.0-9.0) Ur Specific [place] 1.015 (1.005-1.025) Urine Protein >=1000 (4+) H (Neg-Trace) mg/dL Urine Glucose (UA) Negative (Negative) mg/dL Urine Ketones Negative (Negative) mg/dL Urine Blood Small (1+) H (Negative) Urine Nitrite Negative (Negative) Ur Leukocyte Esterase Negative (Negative) Urine RBC 0-2 (0-2) /HPF Urine WBC 0-5 (0-5) /HPF Ur Squamous Epith Cells 6-10 (0-2) /HPF Urine Bacteria None Seen (None Seen) Hyaline Casts 0-2 (0-2) /LPF Urine Test NEGATIVE (NEGATIVE) Independent Historian Clinical information obtained from an independent historian. History obtained from or confirmed by: Spouse and EMS Prescription Management I considered prescription management with: Pain Medication Medications Administered Discontinued Medications Generic Name Dose Route Start Last Admin Trade Name Yesenia PRN Reason Stop Dose Admin Acetaminophen 975 mg 08/06/25 14:18 08/06/25 14:45 Acetaminophen 325 Mg Tablet PO 08/06/25 14:19 975 mg ONCE ONE Administration Diazepam 2 mg 08/06/25 14:18 08/06/25 14:45 Diazepam 2 Mg Tablet PO 08/06/25 14:19 2 mg ONCE ONE Administration Ketorolac Tromethamine 30 mg 08/06/25 14:18 08/06/25 14:46 Ketorolac Tromethamine 30 Mg/Ml Vial IM 08/06/25 14:19 30 mg ONCE ONE Administration Discharge Plan Discharge Clinical Impression: Back pain Patient Disposition: Home, Self-Care Instructions: Back Pain (ED) Additional Instructions: Continue tylenol, naproxen, tramadol as needed at home Gentle stretching No heavy lifting or bending Heat or ice to the area Follow-up with your PCP for any continued pain Prescriptions: New cyclobenzaprine 10 mg tablet 10 mg PO TID PRN (Reason: muscle spasm) Qty: 15 0RF No Action Linzess 72 mcg capsule 72 mcg PO QAM Qty: 30 11RF ondansetron HCl [Zofran] 4 mg tablet 4 mg PO Q8H PRN (Reason: nausea and vomiting) Qty: 14 0RF rtwfcwdajk-lcgdkqssxipkz-inld [Fioricet] 50-300-40 mg capsule 1 cap PO TID PRN (Reason: pain) Qty: 10 0RF ibuprofen 400 mg tablet 400 mg PO Q6H PRN (Reason: pain) Qty: 20 0RF cephalexin 500 mg capsule 500 mg PO TID Qty: 14 0RF acetaminophen [Tylenol Extra Strength] 500 mg tablet 500 mg PO Q6H PRN (Reason: fever or pain) Qty: 14 0RF lidocaine [Lidoderm] 5 % adhesive patch,medicated 1 patch topical DAILY MDD remove after 12 hours PRN (Reason: pain) Qty: 30 0RF Rx Instructions: leave on most painful area for up to 12 hrs naproxen 500 mg tablet 500 mg PO BID PRN (Reason: pain) 10 Days Qty: 20 0RF cyclobenzaprine 5 mg tablet 5 mg PO Q8H PRN (Reason: pain (scale score 7-10)) 5 Days Qty: 14 0RF tramadol 50 mg tablet 50 mg PO Q8H PRN (Reason: pain) Qty: 6 0RF ibuprofen 600 mg tablet 600 mg PO Q8H PRN (Reason: fever or pain) Qty: 30 0RF sucralfate [Carafate] 100 mg/mL suspension 10 ml PO BID Qty: 420 0RF Zepbound 7.5 mg/0.5 mL Pen Injector 7.5 mg SUBCUT QWEEK folic acid 1 mg Tablet 1 mg PO DAILY Qty: 90 2RF budesonide-formoterol [Symbicort] 160-4.5 mcg/actuation HFA aerosol inhaler 2 puff inhalation BID omeprazole 20 mg capsule,delayed release(DR/EC) 20 mg PO DAILY bisacodyl [Dulcolax (bisacodyl)] 10 mg suppository 10 mg ME DAILY PRN (Reason: constipation) Qty: 20 0RF hydrocortisone [Proctozone-HC] 2.5 % cream with perineal applicator 1 appl ME BID PRN (Reason: hemorrhoids) Qty: 30 3RF Rx Instructions: apply ME BID prn bisacodyl [Dulcolax (bisacodyl)] 5 mg tablet,delayed release (DR/EC) 5 mg PO BEDTIME Qty: 20 0RF Referrals: Melani Anderson MD [Primary Care Provider, Internal Medicine] Interventions: ED Discharge Assessment Last Done: 08/06/25 17:18 Discharge Date/Time: 08/06/25 17:19 Print Language: Greek
[2025-08-06 13:29] VITALS: BP 160/84; PULSE 76; RESP 18; TEMP 36.4; O2SAT 99; BMI 30.8
[2025-08-06 13:47] LABS: MANUAL DIFF FLAG NO
[2025-08-06 13:48] LABS: Hematocrit 30.5 % (37.0-47.0); Hemoglobin 9.8 g/dl (12.0-16.0); Imm Gran Abs Auto 0.02 X10*3/uL (0.00-0.03); Imm Gran Pct Auto 0.2 % (0.0-0.4); Lymphocytes Absolute Auto 3.5 X10*3/uL (1.2-4.9); Mean Corpuscular HGB Conc 32.1 g/dl (31.0-35.0); Mean Corpuscular Hemoglobin 25.5 pg (27.0-33.0); Mean Corpuscular Volume 79.2 fL (80.0-98.0); NRBC Abs Auto 0.000 X10*3/uL (0.0-0.012); NRBC Pct Auto 0.0 /100WBC (0.0-0.2); Platelet Count 305 X10*3/uL (160-400); Red Blood Count 3.85 X10*6/uL (4.20-5.50); White Blood Count 10.8 X10*3/uL (4.8-10.8)
--- OUTSIDE RECORDS SUMMARY | 2025-08-06 13:50 | XMS_ITS | Encounter Summary ---
Author Organization [employer] Address [address] [place] [address] [address] [place] [address] Care Team Providers Care Spring Clipper Name Role Phone Melani Anderson MD Primary Care Provide r Encounter Details Date Type Department Care Team (Latest Contact Info) Description 06/08/[address] [facility] CONVERSIONS Dental, Provider, DDS Social History [...] Upcoming Encounters Date Type Department Care Team ([facility] st Contact Info) Description 09/19/2025 10:00 AM EST Office Visit [facility] MEDICINE [address] [place] [phone] Melani Anderson MD [address] [place] [address] documented as of this encounter Visit Diagnoses Not on filedocumented in this encounter Care Teams Spring Clipper Relationship Specialty Start Date End Date Melani Anderson MD [address] [place] [id number] PCP - General Family Medicine 07/20/19 Darlene Lassiter Beef Cattle Farm ManagerHigh School Tutor 10/08/23 Marilynn Garcia Beef Cattle Farm ManagerHigh School Tutor 08/19/24 documented as of this encounter
--- OUTSIDE RECORDS SUMMARY | 2025-08-06 13:50 | XMS_ITS | Encounter Summary ---
Author Organization [employer] Address [address] [facility] [address] [place] [address] Care Team Providers Care Monogram Maker Name Role Phone Melani Anderson MD Primary Care Provide r Reason for Visit * Reason Onset Date Comments Nurse Triage 09/13/2024 Encounter Details Date Type Department Care Team ([facility] Contact Info) Description 09/13/2024 Telephone [facility] MEDICINE [address] [place] [address] Melani Anderson MD [address] [place] [address] Nurse Triage Social History Tobacco Use Types [...] needed. Pt is advised to come to [facility] for Provider to see Pt. Pt agrees [...] caller accepted this outcome. Contact pt at [phone] documented in this encounter Plan of Treatment Upcoming Encounters Date Type Department Care Team (Late st Contact Info) Description 09/19/2025 10:00 AM EST Office Visit [facility] MEDICINE [address] [place] [address] Melani Anderson MD [address] [place], [place] [phone] documented as of this encounter Visit Diagnoses Not on filedocumented in this encounter Additional Health Concerns Assessment Noted Time PHQ-9 Depression Total Score: 1 02/11/20 24 11:34 AM EDT documented as of this encounter Care Teams Monogram Maker Relationship Specialty Start Date End Date Melani Anderson MD [address] [place] [address] PCP - General Family Medicine 07/20/19 Darlene Lassiter Tank Terminal GaugerGlass Vial Filler 10/08/23 Marilynn Garcia Tank Terminal GaugerGlass Vial Filler 08/19/24 documented as of this encounter
--- OUTSIDE RECORDS SUMMARY | 2025-08-06 13:50 | XMS_ITS | Encounter Summary ---
Author Organization [employer] Address [address] [facility] [address] [place] [address] Care Team Providers Care Senior Mechanical Technician Name Role Phone Melani Anderson MD Primary Care Provide r Encounter Details Date Type Department Care Team ([facility] Contact Info) Description 09/13/2024 Orders Only [facility] MED & PEDS [address] [place], [place] [phone] Kaykay Dunlap MD [address] [place] [address] Social History Tobacco Use Types Packs/Day Years [...] Description 09/19/2025 10:00 AM EST Office Visit [facility] MEDICINE [address] [place] [address] Melani Anderson MD [address] [place] [address] documented as of this encounter Visit Diagnoses Not on filedocumented in this encounter Additional Health Concerns Assessment Noted Time PHQ-9 Depression Total Score: 1 02/11/20 24 11:34 AM EDT documented as of this encounter Care Teams Senior Mechanical Technician Relationship Specialty Start Date End Date Melani Anderson MD [address] [place] [address] PCP - General Family Medicine 07/20/19 Darlene Lassiter Soap Press FeederRetail Key Holder 10/08/23 Marilynn Garcia Soap Press FeederRetail Key Holder 08/19/24 documented as of this encounter
--- OUTSIDE RECORDS SUMMARY | 2025-08-06 13:50 | XMS_ITS | Encounter Summary ---
Author Organization [employer] Address [address] [place] [address] 7t [place] [address] Care Team Providers Care Anthropology Department Chair Name Role Phone Melani Anderson MD Primary Care Provide r Encounter Details Date Type Department Care Team (Latest Contact Info) Description 11/03/2019 Abstract [facility] CONVERSIONS Dental, Provider, DDS Social [...] [facility] st Contact Info) Description 09/19/2025 10:00 AM EST Office Visit [facility] MEDICINE [address] [place] [address] Melani Anderson MD [address] [place] [address] documented as of this encounter Visit Diagnoses Not on filedocumented in this encounter Care Teams Anthropology Department Chair Relationship Specialty Start Date End Date Melani Anderson MD [address] [place] [phone] PCP - General Family Medicine 07/20/19 Darlene Lassiter Food Service HelperStraw Hat Brim Raiser Operator 10/08/23 Marilynn Garcia Food Service HelperStraw Hat Brim Raiser Operator 08/19/24 documented as of this encounter
--- OUTSIDE RECORDS SUMMARY | 2025-08-06 13:50 | XMS_ITS | Encounter Summary ---
Author Organization [employer] Address [address] [place] [address] Care Team Providers Care Center Medical And Lab Director Name Role Phone Melani Anderson MD Primary Care Provide r Encounter Details Date Type Department Care Team ([facility] Contact Info) Description 07/27/2025 Orders Only [facility] MEDICINE [address] [place], [place] [phone] Melani Anderson MD [address] [place] [address] Social History Tobacco Use Types Packs/Day Years [...] Description 09/19/2025 10:00 AM EST Office Visit [facility] MEDICINE [address] [place] [address] Melani Anderson MD [address] [place] [address] documented as of this encounter Visit Diagnoses Not on filedocumented in this encounter Additional Health Concerns Assessment Noted Time PHQ-9 Depression Total Score: 1 03/09/20 25 9:07 AM EDT documented as of this encounter Care Teams Center Medical And Lab Director Relationship Specialty Start Date End Date Melani Anderson MD [address] [place] [address] PCP - General Family Medicine 07/20/19 Darlene Lassiter Commercial Finance AnalystResearch Archaeologist 10/08/23 Marilynn Garcia Commercial Finance AnalystResearch Archaeologist 08/19/24 documented as of this encounter
--- OUTSIDE RECORDS SUMMARY | 2025-08-06 13:50 | XMS_ITS | Encounter Summary ---
Author Organization [employer] Address [address] [facility] 7t [place] [address] Care Team Providers Care Ocean Forwarder Name Role Phone Melani Anderson MD Primary Care Provide r Reason for Visit * Reason Onset Date Comments Med Refill 12/19/2022 Encounter Details Date Type Department Care Team ([facility] Contact Info) Description 12/19/2022 Telephone [facility] MEDICINE [address] [place] [address] Melani Anderson MD [address] [place] [address] Med Refill Social History Tobacco Use Types [...] Tramadol 50 mg tablet. Please sen to [facility]pharmacy #[id number] - [place]IA[place] - [phone] [facility] documented in this encounter Plan of Treatment Upcoming Encounters Date Type Department Care Team (Late st Contact Info) Description 09/19/2025 10:00 AM EST Office Visit [facility]INE [address] [place] [address] Melani Anderson MD [address] [place] [phone] documented as of this encounter Visit Diagnoses Not on filedocumented in this encounter Care Teams Ocean Forwarder Relationship Specialty Start Date End Date Melani Anderson MD [address] [place] [phone] PCP - General Family Medicine 07/20/19 Darlene Lassiter Human Resources InternHousekeeper Cleaning Cooking 10/08/23 Marilynn Garcia Human Resources InternHousekeeper Cleaning Cooking 08/19/24 documented as of this encounter
--- OUTSIDE RECORDS SUMMARY | 2025-08-06 13:50 | XMS_ITS | Clinical Summary ---
Author Organization [employer] Address [address] [place] [address] 7t [place] [address] Care Team Providers Care Community Facilitator Name Role Phone Melani Anderson MD Primary [...] FOR CONSTIPATION 90 tablet 1 025 Active diphenhydrAMINE (BENADryl) 25 MG tabletIndicatio [...] MG) SUBCUTANEOUSLY ONCE A WEEK 2 mL Active pantoprazole (ProtoNix) 40 MG EC tablet TAKE 1 TABLET BY MOUTH TWICE DAILY. DO NOT CRUSH, CHEW, OR SPLIT. 180 tablet Active metoprolol succinate XL (Toprol-XL) 25 MG 24 hr tabletIndicatio ns:Essential hypertension TAKE 1 TABLET BY MOUTH EVERY DAY IN THE MORNING 90 tablet 1 Active tiZANidine (Zanaflex) 6 MG capsuleIndicati ons:Acute pain of left shoulder Take 1 capsule (6 mg) by mouth 3 times daily. 30 capsule 025 2025 Active triamcinolone (Kenalog) 0.1 % ointmentIndicat ions:Atopic dermatitis in adult APPLY TO AFFECTED AREA TWICE A DAY 80 g Active Tirzepatide-Neftaly ght Management (Zepbound) 12.5 MG/0.5ML solution auto-injector Inject 0.5 mL (12.5 mg) under the skin 1 (one) time per week. INJECT ONE PEN (=12.5 MG) SUBCUTANEOUSLY ONCE A WEEK 2 mL Active traMADol (Ultram) 50 MG tabletIndicatio ns:Acute pain of left knee Take 1 tablet (50 mg) by mouth every 6 (six) hours if needed for severe pain for up to 7 days. 28 tablet 025 2024 Discontinued triamcinolone (Kenalog) 0.1 % ointmentIndicat ions:Atopic dermatitis in adult Apply topically 2 times daily. 80 g 025 2024 Discontinued Tirzepatide-Neftaly ght Management (Zepbound) 10 MG/0.5ML solution auto-injector Inject 0.5 mL (10 mg) under the skin 1 (one) time per week. INJECT ONE PEN (=10 MG) SUBCUTANEOUSLY ONCE A WEEK 2 mL 025 2024 Discontinued traMADol (Ultram) 50 MG tabletIndicatio ns:Acute pain of left knee TAKE 1 TABLET (50 MG) BY MOUTH EVERY 6 (SIX) HOURS IF NEEDED FOR SEVERE PAIN FOR UP TO 7 DAYS. 28 tablet 025 2024 Active Problems Problem Noted Date Diagnosed Date [...] Leukocytosis 04/27/2024 Patellar tendinitis 03/05/2024 Unstable angina (CMS/HCC) 02/18/2024 Assessment & Plan (03/09/2025 12:01 PM [...] Encounters Date Type Department Care Team Description 08/06/2025 Orders Only GENERIC EXTERNAL DATA DEPARTMENT Provider, Generic External Data 07/27/2025 Orders Only [facility] MEDICINE [address] [place] [address] Melani Anderson MD 07/26/2025 Refill [facility] MEDICINE [address] [place] [address] Melani Anderson MD 07/16/2025 Refill [facility] MEDICINE [address] [place] [address] Melani Anderson MD Class 1 obesity due to excess calories with serious comorbidity and body mass index (BMI) of 34.0 to 34.9 in adult 07/16/2025 Refill [facility] MEDICINE [address] [place] [address] Marci Blackman CNP Atopic dermatitis in adult 07/16/2025 Refill [facility] MEDICINE [address] [place] [address] Vida Qureshi DO Acute pain of left knee 07/12/2025 1:20 PM EDT Office Visit [facility] WALK-IN CENTER [address] [place] [address] Melani Anderson MD Acute pain of left shoulder 07/12/2025 Results Follow-Up [facility] MEDICINE [address] [place] [address] Melani Anderson MD XR Shoulder 2+ Views Left 07/12/2025 Travel 07/12/2025 Telephone [facility] MEDICINE [address] [place] [address] Melani Anderson MD Nurse Triage 07/01/2025 Outside Procedure [facility] OPTOMETRY [address] [place] [address] Gaston Donahuen, OD Presbyopia (Primary Dx) 06/29/2025 10:45 AM EDT Office Visit [facility] OPTOMETRY [address] [place] [address] Bernadette Donahue, OD Hyperopia of left eye (Primary Dx) 06/29/2025 Travel 06/29/2025 Refill [facility] MEDICINE [address] [place] [address] Melani Anderson MD Essential hypertension 06/27/2025 Refill [facility] MEDICINE [address] [place] [address] Melani Anderson MD 06/07/2025 1:15 PM EDT Office Visit [facility] OPTOMETRY [address] [place] [address] Michelle Beck, OD Refractive amblyopia of right eye (Primary Dx); Hypermetropia, bilateral 06/07/2025 Travel 06/03/2025 10:30 AM EDT Office Visit [facility] MEDICINE [address] [place] [address] Eugene Sarabia MD Androgenic alopecia (Primary Dx); Xerosis of skin 06/03/2025 Travel 06/02/2025 Telephone [facility] OPTOMETRY [address] [place] [address] Michelle Beck, OD 06/02/2025 Refill [facility] MEDICINE [address] [place] [address] Melani Anderson MD Seasonal allergies 05/31/2025 Refill [facility] MEDICINE [address] [place] [address] Melani Anderson MD Class 1 obesity due to excess calories with serious comorbidity and body mass index (BMI) of 34.0 to 34.9 in adult 05/31/2025 Refill [facility] MEDICINE [address] [place] [address] Melani Anderson MD Seasonal allergies 05/12/2025 11:30 AM EDT Telemedicine [facility] MEDICINE [address] [place] [address] Melani Anderson MD Class 1 obesity (Primary Dx); Essential hypertension; Coronary artery disease due to calcified coronary lesion; Moderate persistent asthma without complication; Pain, unspecified 05/12/2025 Travel from Last 3 Months Immunizations Immunization Administration [...] t he electric, gas, oil or water [employer] threatened to shut off services in your [...] [facility] [address] [place] [address] Melani Anderson MD [address] [place] [address] Health Maintenance Due Date Last Done Comments [...] Vaccine (#1) 2025 Diabetes: Hemoglobin A1C 12/07/2025 025, 04/27/2024, 08/28/2021, Additional history exists Alcohol/Substance Use Screening 03/09/2026 03/09/2025 Depression Screening 03/09/2026 03/09/2025, 03/09/20 Disability Screening 03/09/2026 03/09/2025 SDOH Screening 03/09/2026 [...] Diagnosis Comments CBC WITH AUTO DIFFERENTIAL Routine 08/06/2025 1:42 PM EDT XR SHOULDER 2+ VIEWS LEFT Routine 07/12/2025 [...] Maintenance Results * (ABNORMAL) CBC auto differential (08/06/2025 1:42 PM EDT) White Blood Count 10.8 4.8 - 10.8 X10*3/uL [facility] Red Blood Count 3.85(L) 4.20 - 5.50 X10*6/uL [facility] Hemoglobin 9.8(L) 12.0 - 16.0 g/dl [facility] Hematocrit 30.5(L) 37.0 - 47.0 % [facility] Mean Corpuscular Volume 79.2(L) 80.0 - 98.0 fL [facility] Mean Corpuscular Hemoglobin 25.5(L) 27.0 - 33.0 pg [facility] Mean Corpuscular HGB Conc 32.1 31.0 - 35.0 g/dl [facility] Red Cell Distribution Width 15.9 11.0 - 16.0 % [facility] Platelet Count 305 160 - 400 X10*3/uL [facility] Mean Platelet Volume 10.3 9.4 - 12.3 fL [facility] Neutrophils Percent Auto 61.3 45 - 73 % [facility] Imm Gran Pct Auto 0.2 0.0 - 0.4 % [facility] Lymphocytes Percent Auto 32.3 20 - 40 % [facility] Monocytes Percent Auto 5.1 2 - 11 % [facility] Eosinophils Percent Auto 0.6 0 - 4 % [facility] Basophils Percent Auto 0.5 0 - 2 % [facility] NRBC Pct Auto 0.0 0.0 - 0.2 /100WBC [facility] Neutrophils Absolute Auto 6.6 2.0 - 8.3 x10*3/uL [facility] Imm Gran Abs Auto 0.02 0.00 - 0.03 X10*3/uL [facility] Lymphocytes Absolute Auto 3.5 1.2 - 4.9 X10*3/uL [facility] Monocytes Absolute Auto 0.6 0.1 - 1.2 X10*3/uL [facility] Eosinophils Absolute Auto 0.1 0.0 - 0.4 X10*3/uL [facility] Basophils Absolute Auto 0.1 0.0 - 0.2 X10*3/uL [facility] NRBC Abs Auto 0.000 0.0 - 0.012 X10*3/uL [facility] 08/06/2025 1:42 PM EDT 08/06/2025 1:46 PM EDT us Generic External Data Provider LAB BLOOD ORDERAB LES Final Result [facility] [address] [place] [address] [phone] * XR Shoulder 2+ Views Left (07/12/2025 2:00 PM EDT) Anatomical Region Laterality Modality Upper Extremities, Shoulder Left Radi ographic Imaging 07/12/2025 2:00 PM EDT Narrative 07/12/2025 2:10 PM EDT [facility] [address] [place] [address] XRay Report Signed Patient: Krys Walker MR#: [id number] [birth year] : 1970 Acct:[id number] Age/Sex: 55 / F ADM Date: 07/12/25 Loc: HO.HHCX Attending Dr: Melani Xiong MD Ordering Physician: Melani Anderson MD Date of Service: 07/12/25 Procedure(s): XR shoulder LT min 2V Accession Number(s): [id number] cc: Melani Anderson MD Reason for Exam: [...] 07/12/25 1407 DD/ 1400 TD/TT: 07/12/[address] Judge: Procedure Note Donotuseinterpreter, Image - 07/12/[address] [address] XRay Report Signed Patient: Олег Walker#: [id number] [birth year] : 1970Acct:[id number] Age/Sex: 55 / FADM Date: 07/12/25 Loc: .HHCX Attending Dr: Melani Xiong MD Ordering Physician: Melani Anderson MD Date of Service: 07/12/25 Procedure(s): XR shoulder LT min 2V Accession Number(s): [id number] cc: Melani Anderson MD Reason for Exam: [...] 07/12/25 1407 DD/ 1400 TD/TT: 07/12/[address] Judge: Melani Xiong MD IMG XR PROCEDURES Fin al Result * BI Mammogram Screening Tomosynthesis Bilateral (01/17/2025 3:33 PM EDT) Anatomical Region Laterality Modality Breast Bilateral Mammography 01/17/2025 3:33 PM EDT Narrative 01/28/2025 10:37 AM EDT [facility] [place] [address] Mammography Report Signed Patient: Krys Walker MR#: [id number] [birth year] : 1970 Acct:[id number] Age/Sex: 54 / F ADM Date: 01/17/25 Loc: HO.MAMMO Attending Dr: Melani Xiong MD Ordering Physician: Melani Anderson MD Results: 1Negative Date of Service: 01/17/25 Follow Up: 1 Year From [facility] Mammogram Procedure(s): MM tomosynthesis screening BI Accession Number(s): [id number] cc: Melani Anderson MD EXAMINATION: MM SCREENING [...] 01/28/25 1033 DD/ 1533 TD/TT: 01/17/[address] Judge: Procedure Note Donotuseinterpreter, Image - [facility]/28/20[facility] [address] [place] [address] Mammography Report Signed Patient: Олег Walker#: [id number] [birth year] : 1970Acct:[id number] Age/Sex: 54 / FADM Date: 01/17/25 Loc: HO.MAMMO Attending Dr: Melani Xiong MD Ordering Physician: Melani Anderson MDResults: 1Negative Date of Service: 01/17/25Follow Up: 1 Year From Orig inal Mammogram Procedure(s): MM tomosynthesis screening BI Accession Number(s): [id number] cc: Melani Anderson MD EXAMINATION: MM SCREENING [...] 01/28/25 1033 DD/ 1533 TD/TT: 01/17/[address] Judge: Melani Xiong MD IMG BI PROCEDURES Joshua hai Result - Final * Hepatitis C Antibody with Reflex to HCV, RNA, Quantitative, Real-Time PCR (12/07/2024 10:36 AM EST) Hepatitis C Antibody Nonreactive Nonreactive [facility] Comment:Antibodies to HCV no t detected; does not exclude early acuteHCV infection. Blood Venous blood specimen / Unknown 12/07/2024 10:36 AM EST 12/07/2024 11:19 AM EST Melani Xiong MD LAB BLOOD ORDERABLES Final Result [facility] [address] [place] [phone] * HIV-1/2 Antigen and Antibodies, Fourth Generation, with Reflexes (12/07/2024 10:36 AM EST) HIV AB/AG Nonreactive Nonreactive [facility] Comment:HIV-1 p24 Ag and/or HIV-1/HIV-2 Ab not detected.A test result that is nonreactive does not exclude thepossibility of exposure to or infection with HIV-1 and/orHIV-2. Nonreactive results in this assay for individualswith prior exposure to HIV-1 and/or HIV-2 may be due toantigen and antibody levels that are below the limit ofdetection of this assay.The ReamazeniCoinex-IO HIV Ag/Ab Combo assay result andsupplemental assay results should be interpreted inconjunction with the patient's clinical presentation,history and other laboratory results. If the results areinconsistent with clinical evidence, additional testing issuggested to confirm the result. Blood Venous blood specimen / Unknown 12/07/2024 10:36 AM EST 12/07/2024 11:19 AM EST us Melani Xiong MD LAB BLOOD ORDERABLES Final Result Performing Organization Address [facility] Co de Phone Number [facility] [address] [place] [phone] * Hemoglobin A1c (12/07/2024 10:36 AM EST) Hemoglobin A1c 5.9 <6.0 % [facility] Comment:Hemoglobin A1C Refer ence Range Adults: 4.8 - 6.0 % Non diabetic: < 6.0 % Goal: < 7.0 %Additional Action Suggested: > 8.0 %Note: Hemoglobin A1c results are invalid for patients with abnormal amounts of HbF. Blood transfusions may impact the HbA1c concentration in the patient sample. Estimated Average Glucose 123 mg/dL [facility] Comment:eAG = Estimated ave rage glucose which is %A1C expressed asaverage glucose, using the formula of the V6D-[id number] Glucose study (ADAG), Diabetes Care, Vol.31,#8,May. 2007 Blood Venous blood specimen / Unknown 12/07/2024 10:36 AM EST 12/07/2024 11:19 AM EST us Melani Xiong MD LAB BLOOD ORDERABLES Final Result Performing Organization Address [facility] Co de Phone Number [facility] [address] [place] [phone] * (ABNORMAL) Lipid Panel, Standard (12/07/2024 10:36 AM EST) Triglycerides 183(H) <150 mg/dL [facility] Comment:Desirable Triglyceri de: less than 150 mg/dLBorderline High Triglyceride 150-199 mg/dLHigh Triglyceride: 200-499 mg/dLVery High Triglyceride: greater than or equal to 5OO mg/dL Cholesterol 193 <200 mg/dL [facility] Comment:Desirable Cholestero l: less than 200 mg/dLBorderline High Cholesterol: 200-239 mg/dLHigh Cholesterol: greater than 239 mg/dL LDL Cholesterol Calculated 123(H) <100 mg/dL [facility] Comment:Desirable LDL: less than 100 mg/dLNear Optimal/Above Optimal LDL: 110- 129 mg/dLBorderline High LDL: 130-159 mg/dLHigh LDL: 160-189 mg/dLVery High LDL: greater than or equal to 190 mg/dL HDL Cholesterol 34(L) >40 mg/dL [facility] Comment:Desirable HDL: great er than 40 mg/dL Note: This HDL assay may give artificially low results in patients with liver disease. Blood Venous blood specimen / Unknown 12/07/2024 10:36 AM EST 12/07/2024 11:19 AM EST Melani Xiong MD LAB BLOOD ORDERABLES Final Result [facility] [address] [place] [phone] * THINPREP PAP (04/24/2021 12:00 AM EDT) Clinical Information: None given [facility] COMMENT SEE COMMENT [facility] [...] along with historic and current clinical information. Director Peoplesoft : SEE COMMENT [facility] Comment: HJP, CT(ASCP) CT screening location: [place] [address] Infection Shift in vaginal tomasa suggestive of bacterial vaginosis. [facility] Interpretation/R esult: Negative for intraepithelial lesion or malignancy. [facility] LMP: NONE GIVEN [facility] Prev. BX: NONE GIVEN [facility] Prev. PAP: NONE GIVEN [facility] SOURCE: None given [facility] Statement Of Adequacy: SEE COMMENT [facility] Comment: Satisfactory for evaluation. Endocervical/transformation zone component absent. Age and/or menstrual status not provided 04/24/2021 Melani Xiong MD LAB PATHOLOGY ORDERAB LES Final Result Performing Organization Address [facility] Co de Phone Number [facility] [address] * HPV GENOTYPES 16,18/45 (04/24/2021 12:00 AM EDT) HPV 16 RNA NOT DETECTED NOT DETECTED [facility] HPV 18/45 RNA NOT DETECTED NOT DETECTED [facility] Comment: Methodology: Control Room Helper Mediated Amplification The analytical performance characteristics of this assay have been determined by [employer]. The modifications have not been cleared or approved by the FDA. This assay has been validated pursuant to the CLIA regulations and is used for clinical purposes. 04/24/2021 Melani Xiong MD LAB CYTOLOGY ORDERABL ES Final Result Performing Organization Address [facility] Co de Phone Number [facility] [address] from Last 3 Months or Most Recently Relevant to Health Maintenance Insurance [facility] C[facility] [place] AD[place] Care Teams Community Facilitator Relationship Specialty Start Date End Date Melani Anderson MD [address] [place] [phone] PCP - General Family Medicine 07/20/19 Darlene Lassiter Psychiatric Aides TeacherPulmonary Nurse Practitioner 10/08/23 Marilynn Garcia Psychiatric Aides TeacherPulmonary Nurse Practitioner 08/19/24
--- OUTSIDE RECORDS SUMMARY | 2025-08-06 13:50 | XMS_ITS | Encounter Summary ---
Author Organization [employer] Address [address] [facility] [place] [address] Care Team Providers Care Review Manager Name Role Phone Melani Anderson MD Primary Care Provide r Encounter Details Date Type Department Care Team ([facility] Contact Info) Description 06/12/2024 Orders Only [facility]ALK[facility] [address] [place] [address] Joby Smallwood MD [address] [place] [address] Social History Tobacco Use Types Packs/Day Years [...] Description 09/19/2025 10:00 AM EST Office Visit [facility] MED[facility] [address] [place] [address] Melani Anderson MD [address] [place] [address] documented as of this encounter Visit Diagnoses Not on filedocumented in this encounter Additional Health Concerns Assessment Noted Time PHQ-9 Depression Total Score: 1 02/11/20 24 11:34 AM EDT documented as of this encounter Care Teams Review Manager Relationship Specialty Start Date End Date Melani Anderson MD [address] [place] [address] PCP - General Family Medicine 07/20/19 Darlene Lassiter Ship EngineerFlatwork Supervisor 10/08/23 Marilynn Garcia Ship EngineerFlatwork Supervisor 08/19/24 documented as of this encounter
--- OUTSIDE RECORDS SUMMARY | 2025-08-06 13:50 | XMS_ITS | Encounter Summary ---
Author Organization [employer] Address [address] [facility] 7t [place] [address] Care Team Providers Care Fur Liner Name Role Phone Melani Anderson MD Primary Care Provide r Reason for Visit * Reason Comments Med Refill Encounter Details Date Type Department Care Team ([facility] st Contact Info) Description 04/03/2025 Refill [facility] [address] [place] [address] Melani Anderson MD [address] [place] [address] Class 1 obesity due to excess calories [...] 10:00 AM EST Office Visit [facility] [address] [place] [phone] Melani Anderson MD [address] [place] [phone] documented as of this encounter Visit Diagnoses Diagnosis Class 1 obesity due to excess calories with serious comorbidity and body mass index (BMI) of 34.0 to 34.9 in adult documented in this encounter Additional Health Concerns Assessment Noted Time PHQ-9 Depression Total Score: 1 03/09/20 25 9:07 AM EDT documented as of this encounter Care Teams Fur Liner Relationship Specialty Start Date End Date Melani Anderson MD [address] [place] [phone] PCP - General Family Medicine 07/20/19 Darlene Lassiter Sewer HeadRegister Of Deeds 10/08/23 Marilynn Garcia Sewer HeadRegister Of Deeds 08/19/24 documented as of this encounter
--- OUTSIDE RECORDS SUMMARY | 2025-08-06 13:50 | XMS_ITS | Encounter Summary ---
Author Organization [employer] Address [address] [place] [address] 7t [place] [address] Care Team Providers Care Security Solutions Architect Name Role Phone Melani Anderson MD Primary Care Provide r Reason for Visit * Reason Onset Date Comments Med Refill 10/13/2023 Encounter Details Date Type Department Care Team ([facility] st Contact Info) Description 10/13/2023 Refill [facility] [address] [place] [address] Melani Anderson MD [address] [place] [address] Multiple joint pain (Primary Dx) Social History [...] refill : Tramadol To be sent to: [facility]/pharmacy #[id number] - [place]IAZ - [address] documented in this encounter Plan of Treatment Upcoming Encounters Date Type Department Care Team (Late st Contact Info) Description 09/19/2025 10:00 AM EST Office Visit [facility] MED[facility] [address] [place] [address] Melani Anderson MD [address] [place] [address] documented as of this encounter Visit Diagnoses Diagnosis Multiple joint pain- Primary Pain in joint, multiple sites documented in this encounter Care Teams Security Solutions Architect Relationship Specialty Start Date End Date Melani Anderson MD [address] [place] [address] PCP - General Family Medicine 07/20/19 Darlene Lassiter Staff Development EducatorInseam Trimming Machine Operator 10/08/23 Marilynn Garcia Staff Development EducatorInseam Trimming Machine Operator 08/19/24 documented as of this encounter
--- OUTSIDE RECORDS SUMMARY | 2025-08-06 13:50 | XMS_ITS | Encounter Summary ---
Author Organization [email or web address] Address [address] [facility] 7t [place] [address] Care Team Providers Care Print Traffic Manager Name Role Phone Melani Anderson MD Primary Care Provide r Reason for Visit * Reason Comments Med Refill Encounter Details Date Type Department Care Team ([facility] st Contact Info) Description 07/16/2025 Refill [facility] MED[facility]INE [address] [place] [address] Melani Anderson MD [address] [place] [address] Class 1 obesity due to excess calories [...] Description 09/19/2025 10:00 AM EST Office Visit [facility] MEDICINE [address] [place] [phone] Melani Anderson MD [address] [place] [phone] documented as of this encounter Visit Diagnoses Diagnosis Class 1 obesity due to excess calories with serious comorbidity and body mass index (BMI) of 34.0 to 34.9 in adult documented in this encounter Additional Health Concerns Assessment Noted Time PHQ-9 Depression Total Score: 1 03/09/20 25 9:07 AM EDT documented as of this encounter Care Teams Print Traffic Manager Relationship Specialty Start Date End Date Melani Anderson MD [address] [place] [phone] PCP - General Family Medicine 07/20/19 Darlene Lassiter Entry Level Sales RepresentativeManager Float 10/08/23 Marilynn Garcia Entry Level Sales RepresentativeManager Float 08/19/24 documented as of this encounter
--- OUTSIDE RECORDS SUMMARY | 2025-08-06 13:50 | XMS_ITS | Encounter Summary ---
Author Organization [employer] Address [address] [place] [address] 7t [place] [address] Care Team Providers Care Print Designer Name Role Phone Melani Anderson MD Primary Care Provide r Encounter Details Date Type Department Care Team ([facility] Contact Info) Description 11/01/2022 Telephone [facility] [address] [place] [address] Sanchez Edwrads, JOSÉ [address] [place] [address] Social History Tobacco Use Types Packs/Day Years [...] Description 09/19/2025 10:00 AM EST Office Visit [facility] [address] [place] [address] Melani Anderson MD [address] [place] [address] documented as of this encounter Visit Diagnoses Not on filedocumented in this encounter Care Teams Print Designer Relationship Specialty Start Date End Date Melani Anderson MD [address] [place] [address] [place] [address] PCP - General Family Medicine 07/20/19 Darlene Lassiter Warp Dyeing TenderLoan Review Analyst 10/08/23 Marilynn Garcia Warp Dyeing TenderLoan Review Analyst 08/19/24 documented as of this encounter
--- OUTSIDE RECORDS SUMMARY | 2025-08-06 13:50 | XMS_ITS | Clinical Summary ---
Author Organization [facility] Address [address] [place] [address] Phone Care Team Providers Care Exam Proctor Name Role Phone Manjula Brasher ASIAN STUDIES PROFESSOR Primary Care Provider Allergies No known active allergies Encounters Date Type Department Care Team Description 07/04/2025 3:30 PM EDT Office Visit [place] [address] [address] Sergio Martino DPM Ingrowing nail (Primary Dx) 05/16/2025 1:45 PM EDT Office Visit [facility] [address] [address] Sergio Martino DPM Ingrowing nail [...] [facility] st Contact Info) Description 09/05/2025 1:45 PM EST Office Visit [place] [address] [address] Sergio Martino DPM [address] [place] [phone] Health Maintenance Due Date Last Done Comments Breast Cancer Screening 1970 Colorectal Cancer Screening: Colonoscopy 1970 Hepatitis A Vaccines (1 of 2 - Risk 2-dose series) 1989 Cervical Cancer Screening: P ap Smear 1991 RSV Immunization Adult Patients (1 - Risk 50-74 years 1-dose series) 2020 Zoster Vaccines (1 of 2) 2020 DTaP,Tdap,and Td Vaccines (3 - Td or Tdap) 11/02/2023 11/02/2013, 10/06/2007 Depression Screening 10/06/2024 Social Influencers of Health Screening 11/18/2024 COVID-19 Vaccine (3 - 2024-2 6 season) 2025 02/22/2021, 01/25/2021 Influenza Vaccine (#1) 2025 Hypertension/CHF/CAD Annual BMP Blood Test 12/07/2025 12/07/2024 Cholesterol Screening (Lipid Panel) 12/07/2029 12/07/2024 Hepatitis B Vaccines Completed 03/22/2011, 09/24/2010, 05/16/2010 [...] topic Insurance MEDICAID - [place] Care Teams Exam Proctor Relationship Specialty Start Date End Date Manjula Brasher FNP [address] [place] [phone] PCP - General Nurse Practitioner 11/17/24
--- OUTSIDE RECORDS SUMMARY | 2025-08-06 13:50 | XMS_ITS | Encounter Summary ---
Author Organization [employer] Address [address] [place] [address] 7 [place] [address] Care Team Providers Care Chief Operator Lock Tender Name Role Phone Melani Anderson MD Primary Care Provide r Reason for Visit * Reason Comments Med Refill Encounter Details Date Type Department Care Team (Late Contact Info) Description 10/11/2023 Refill [facility] MEDICINE [address] [place] [address] [phone] Sherice Kramer MD [address] [place] [address] [phone] Left shoulder tendinitis Social History Tobacco Use [...] Upcoming Encounters Date Type Department Care Team ([facility] Contact Info) Description 09/19/2025 10:00 AM EST Office Visit [facility] MEDICINE [address] [place], [place] [phone] Melani Anderson MD [address] [place] [address] [phone] documented as of this encounter Visit Diagnoses Diagnosis Left shoulder tendinitis documented in this encounter Care Teams Chief Operator Lock Tender Relationship Specialty Start Date End Date Melani Anderson MD [address] [place] [address] PCP - General Family Medicine 07/20/19 Darlene Lassiter Industrial Cleaning TechnicianLidar Technician 10/08/23 Marilynn Garcia Industrial Cleaning TechnicianLidar Technician 08/19/24 documented as of this encounter
--- OUTSIDE RECORDS SUMMARY | 2025-08-06 13:50 | XMS_ITS | Data Portability ---
Author Organization [place] - [facility], Allergy Address [address] [place] [phone] Care Team Providers Care Clerical Clerk Name Role Phone MATTHEW CONN, SHEREE Primary [...] We may review results through the portal [employer] Not available 11/09/2024 13:27:15 Plan of Treatment Reminders Order Date Submit Date Provider Last Modified By Organization Details Last Modified Time Details Appointments None recorded. Lab None recorded. Referral None recorded. Procedures None recorded. Surgeries None recorded. Imaging NM, modified barium swallow study 2024 025 [facility] Diagnosit Imaging Dept, [address] [place], [address], 10:04:28 Medication Orders None recorded. Patient TargetsNo targets recorded. Patient InstructionsNo instructions recorded. Reason for Referral None Reported. Results Created Date Observation Date Name Description Value Unit Range Abnormal Flag Note LastModifiedBy Organization Detail LastModifiedTime 03/03/20 25 03/03/2025 proce shiela No observ ation record ed. ccomi [facility] U/S Dept [address] [facility], [place], [address], 03/14/2025 10:47:51 03/03/20 25 03/03/2025 xr dawson sterling ow with video and speec h See Note [facility] , a member of [facility] Erin march Name: GALE WALKER Date of : 1969 Reason for Exam: dyspha concha Exam Date: 2024 [id number] EST Report Status : Final Orderi ng Provid er: MARYJANE ELI PCP: [facility] HISTOR Y: dyspha concha. STUDY: Modifi ed barium swallo w study COMPAR KRISTINA: None. HISTOR Y: Erin march is a 54-yea r-old female with histor y of dyspha concha. TECHNI QUE: Multip le sequen tial fluoro scopic images of the latera l neck were obtain ed for a swallo wing functi on study. Barium enhanc ed consis tencie s of puddin g, honey, nectar , thin liquid , semi-s olid, and a 13 mm barium tablet were utiliz ed for evalua tion. Examin ation was perfor med with the speech therap ist kim WAYNE GS: There was no eviden ce for penetr ation or aspira tion of the variou s consis tencie s. 13mm barium tablet was swallo wed withou t diffic ulty with prompt passag e of pill from the esopha grover into the stomac h. Air kerma: 2.07 mGy IMPRES ISABEL: Normal swallo wing functi on. Please refer to the roshan valles speech pathol ogist report for furthe r detail s as clinic floresita valles. ------ -- FINAL REPORT ------ -- Dictat ed By: Karrie Rinaldi Dictat ed Date: 2024 10:37 ET Assign ed Physic flako: Ginger Obrien Review ed and Electr onical ly Signed By: Ginger Obrien Signed Date: 2024 16:09 ET Workst ation ID: [id number] Transc ribed By: Self Edit Transc ribed Date: 2024 10:39 ET Reside nt/PA/ WATER SUPERVISOR: Karrie Rinaldi [facility] U/S Dept [address] [place], [address], 03/14/2025 10:47:51 Result Notes None recorded. Problems Name Problem SNOMED Code Status Onset Date Resolution Date Notes Provider Name and Address Organization Details Recorded Time Otalgia of left ear 9386596341 Active 2015 Otalgia, left ear; Note: Date Diagnosed : 01/17/2016 2:00 PM (H92.02) Not Available [facility] 4 03:15:30 Dysphonia 90744674 Active 2017 Other voice and resonance disorders ; Note: Date Diagnosed : 05/22/2018 9:13 AM (R49.8) Not Available [facility] 4 03:15:30 Finding of resonance of voice 274579508 Active 2017 Other voice and resonance disorders ; Note: Date Diagnosed : 05/22/2018 9:13 AM (R49.8) Not Available [facility] 4 03:15:30 Dysphagia 55968367 Active 2018 Dysphagia , unspecifi ed; Note: Date Diagnosed : 01/05/2019 11:10 AM (R13.10) Not Available [facility] 4 03:15:29 Problem Notes None recorded. Procedures Surgical History Date Name Laterality Status Provider Name and Address Organization Details Recorded Time 11/09/2024 FOL_DP completed MARYJANE ELI MD [address] [place] [address], [phone], [place] - [facility] 11/09/2024 13:23:35 Imaging Results None recorded. Procedure Notes None recorded. Medical Equipment None Reported. Allergies Allergen ID Allergen Name Allergen Category Reaction Reaction Severity Criticality Documentation Date Start Date Code Code System Note Provider Name and Address Organization Details Recorded Time 918140 acetamino phen / oxycodone medicatio n other Not available Not available 02/17/2024 07312 3 RxNorm React ion: unkno wn, unspe cifie d;; Not Available [facility] 4 01:20:45 216016 Substance with sulfonami de structure and antibacte rial mechanism of action (substanc e) medicatio n other Not available Not available 02/17/2024 78939 8003 SNOMED React ion: unkno wn, unspe cifie d;; Not Available [facility] 4 01:20:46 Medications Name Sig Start Date [...] mg tablet 11/09 completed Medicati on ID: 514344 D uration Value: 30 Brand Name: marky [...] mg tablet 2018 active Medicati on ID: 113005 D uration Value: 30 Brand Name: lisinopr [...] elayed release 2017 active Medicati on ID: 043190 D uration Value: 30 Brand Name: duloxeti [...] Not Available Not Available No t Available Kristina Quintana [facility] spacer 2015 active Medicati on ID: 087119 D uration Value: 1 Brand Name: [facility] Send Method: E-Prescr ibed Sub s Allowed: subs [place] Medic at[facility] : [facility] Not Available Not Available Not Available [employer] [...] Updated DateTime 11/09/2024 152.4 cm 33.2 kg/m2 10528.7 g Almita Hale [facility] 11/09/2024 12:59:13 Social History None recorded. Functional Status None recorded. Mental Status None recorded. Family History Nothing Reported. Medical History No medical history recorded. Gynecological HistoryNo gynecological history recorded. Obstetrics History GPAL:G 0 P 0 0 0 0 Past Encounters Encounter ID Performer Location Encounter Start Date Encounter Closed Date Diagnosis/Indication Diagnosis SNOMED-CT Code Diagnosis ICD10 Code Diagnosis IMO Codes Diagnosis Note [id number] MARYJANE ELI MD [facility] [address] [phone] 11/09/2024 12:49:40 11/09/2024 13:27:39 Dysphagia 06100385 R13.10 Health Concerns Section Related Observation LastModified by Organization Detai ls LastModified Time None Recorded Concern Status LastModified by Organization Details LastModified Time None Recorded Advance Directives Directive None Recorded Payers Insurance Date Sequence Insurance Name Policy Number Policy Norris Covered Member ID Norris Member ID Guarantor Name 11/09/2024 1 [place] [facility] Krys Walker [id number] Krys Jaquanpas 11/09/2024 1 [place] [facility] Krys Partidapas [id number] Krys Jaquanpas Notes Date Note Type Note Provider Name and Address Organization Details Recorded Time 11/09/2024 text/html ROS as noted in the HPI dysphagiachoking on water, ice creamno swallow evaluationno CVA hx pmhx - 2022 NSTEMI, cath, stents PV 01/05/2019 Hieu dysphagia for saliva, mod ba swallow requested MARYJANE ELI MD [address] [place] [address], [phone], [place] - [facility] 11/09/2024 13:27:41 OBGyn Episode No OBEpisode recorded.
--- OUTSIDE RECORDS SUMMARY | 2025-08-06 13:50 | XMS_ITS | Encounter Summary ---
Author Organization [employer] Address [address] [facility] [address] [place] [address] Care Team Providers Care Manager Clinic Name Role Phone Melani Anderson MD Primary Care Provide r Reason for Visit * Reason Onset Date Comments Error 09/08/2024 Encounter Details Date Type Department Care Team ([facility] st Contact Info) Description 09/08/2024 Telephone [facility] MEDICINE [address] [place] [address] Melani Anderson MD [address] [place] [address] Error Social History Tobacco Use Types Packs/Day [...] 10:00 AM EST Office Visit [facility] MEDICINE [address] [place] [address] Melani Anderson MD [address] [place] [address] documented as of this encounter Visit Diagnoses Not on filedocumented in this encounter Additional Health Concerns Assessment Noted Time PHQ-9 Depression Total Score: 1 02/11/20 24 11:34 AM EDT documented as of this encounter Care Teams Manager Clinic Relationship Specialty Start Date End Date Melani Anderson MD [address] [place] [phone] PCP - General Family Medicine 07/20/19 Darlene Lassiter Coding Quality AnalystClaims Account Manager 10/08/23 Marilynn Garcia Coding Quality AnalystClaims Account Manager 08/19/24 documented as of this encounter
--- OUTSIDE RECORDS SUMMARY | 2025-08-06 13:50 | XMS_ITS | Encounter Summary ---
Author Organization [employer] Address [address] [place] [address] 7 [place] [address] Care Team Providers Care Mailing Jogger Name Role Phone Melani Anderson MD Primary Care Provide r Reason for Visit * Reason Comments Med Refill Encounter Details Date Type Department Care Team ([facility] Contact Info) Description 2023 Refill [facility] MEDICINE [address] [place] [address] [phone] Sherice Kramer MD [address] [place] [address] [phone] Left shoulder tendinitis Social History Tobacco Use [...] Upcoming Encounters Date Type Department Care Team ([facility] Contact Info) Description 09/19/2025 10:00 AM EST Office Visit [facility] MEDICINE [address] [place], [place] [phone] Melani Anderson MD [address] [place], [place] [phone] documented as of this encounter Visit Diagnoses Diagnosis Left shoulder tendinitis documented in this encounter Care Teams Mailing Jogger Relationship Specialty Start Date End Date Melani Anderson MD [address] [place] [address] PCP - General Family Medicine 07/20/19 Darlene Lassiter Pole Lift OperatorMachinist Apprentice 10/08/23 Marilynn Garcia Pole Lift OperatorMachinist Apprentice 08/19/24 documented as of this encounter
[2025-08-06 14:02] LABS: Alanine Aminotransferase 20 U/L (0-31); Albumin Level 4.0 g/dL (3.5-5.0); Alkaline Phosphatase 46 U/L (39-117); Anion Gap 12 (12-20); Aspartate Amino Transferase 30 U/L (5-31); Blood Urea Nitrogen 18 mg/dL (9-16); Calcium 9.2 mg/dL (8.4-10.2); Carbon Dioxide 22 mmol/L (22-29); Chloride 112 mmol/L (96-108); Creatinine Clr Calc Pharmacy 73.8; Estimated Glomerular Filt Rate > 60; Lipase 63 U/L (8-78); Magnesium 2.1 mg/dL (1.6-2.6); Potassium 3.7 mmol/L (3.3-5.1); Sodium 142 mmol/L (135-145); Total Protein 7.2 g/dL (6.5-8.0)
[2025-08-06 14:11] VITALS: BP 143/91; PULSE 81; RESP 16; O2SAT 99
[2025-08-06 15:01] LABS: Appearance Urine Clear; Glucose Urine UA Negative (Negative); PH 5.5 (5.0-9.0); Specific Gravity - Urine 1.015 (1.005-1.025); UMIC TRIGGER UACC YES
[2025-08-06 15:02] LABS: UPreg QC Valid YES
[2025-08-06 17:18] VITALS: BP 141/77; PULSE 66; RESP 16; TEMP 36.4; O2SAT 98
== END 2025-08-06 17:19 | disposition home or self-care (01) ==
PROVIDERS: Physician Assistant; Emergency Provider Emergency Medicine Emergency Medical Services; PCP Internal Medicine
DX: M54.9 Dorsalgia, unspecified (principal); R10.9 Unspecified abdominal pain; I10 Essential (primary) hypertension; K21.9 Gastro-esophageal reflux disease without esophagitis; J45.909 Unspecified asthma, uncomplicated
CPT/HCPCS: 36415; 80048; 80076; 81001; 81003; 81025; 83690; 83735; 85025; 90471; 96372; 99284; J1885

== ENCOUNTER 2025-08-29 19:49 | Outpatient (REF) | payer MEDICAID, SELFPAY ==
--- NOTE | ~2025-08-29 | MR_ITS ---
CLINICAL HISTORY: acute pain not resolved with medication MR lumbar spine without gadolinium Comparison: CR/OH/SR - XR LUMBAR SPINE 2-3 VIEWS - 01/26/24 16:00 EDT Findings: No scoliosis or spondylolisthesis. No acute fracture or pathologic bone lesion. Cauda equina and conus medullaris within normal limits. Conus medullaris terminates at L1-2. T12-L1: Left of midline annular fissure. Left of midline broad-based disc bulge with minimal central canal stenosis and no significant neural foraminal stenosis. L1-2: Left of midline annular fissure. Broad-based disc bulge with minimal central canal stenosis and no significant neural foraminal stenosis. L2-3, L3-4: No significant central canal or neural foraminal stenosis. L4-5: Broad-based disc bulge with minimal central canal stenosis and no significant neural foraminal stenosis. L5-S1: Broad-based disc bulge impinging of the S1 nerve roots with mild central canal stenosis and mild bilateral neural foraminal stenosis impinging of the exiting L5 nerve roots. Paraspinous musculature intact. IMPRESSION: 1. Broad-based disc bulge at L5-S1 impinging on S1 nerve roots with mild central canal stenosis and mild bilateral neural foraminal stenosis impinging on exiting L5 nerve roots. 2. Broad-based disc bulges at T12-L1, L1-2, and L4-5 with minimal central canal stenosis. 3. No acute osseous abnormality. This document has been electronically signed by: Armani Smith MD on 08/29/2025 21:12:40
--- OUTSIDE RECORDS SUMMARY | 2025-08-29 20:39 | XMS_ITS | Clinical Summary ---
Author Organization [employer] Address [address] [place] [address] [address] [place] [address] Care Team Providers Care Shoemaking Finisher Name Role Phone Melani Anderson MD Primary [...] MG chewable tablet Chew 500 mg. Active nicotine polacrilex (Nicorette) 4 MG gumIndications: Tobacco use Chew 1 each (4 mg) if needed for smoking cessation (use in place of cigarettes). 100 each 1 024 Active topiramate (Topamax) 25 MG tabletIndicatio ns:Migraine without status migrainosus, not intractable, unspecified migraine type TAKE 1 TABLET BY MOUTH EVERY DAY 90 tablet 1 024 Active cetirizine (ZyrTEC) 10 MG tablet TAKE 1 TABLET BY MOUTH EVERY DAY IN THE MORNING 90 tablet 2 024 Active azelastine (Astelin) 0.1 % nasal spray [...] times daily. 15 g 025 Active fexofenadine (Adrlyn) 180 MG tablet TAKE 1 TABLET BY MOUTH EVERY DAY NEEDED FOR ALLERGIES 90 tablet 025 Active Tirzepatide-Neftaly ght Management (Zepbound) 2.5 [...] SUBCUTANEOUSLY ONCE A WEEK 2 mL Active cyclobenzaprine (Flexeril) 10 MG tabletIndicatio ns:Acute midline low back pain without sciatica Take 1 tablet (10 mg) by mouth 3 times daily for 10 days. 30 tablet Active lidocaine (Lidoderm) 5 % patchIndication s:Acute midline low back pain without sciatica Apply 1 patch topically Once per day. Remove & discard patch within 12 hours or as directed by MD. 30 patch 3 Active D3 Super Strength 50 MCG (2000 UT) capsule TAKE 1 CAPSULE (50 MCG) BY MOUTH IN THE MORNING 90 capsule 1 025 Active pantoprazole (ProtoNix) 40 MG EC tablet TAKE 1 TABLET BY MOUTH TWICE DAILY. DO NOT CRUSH, CHEW, OR SPLIT. 180 tablet Active lidocaine (Lidoderm) 5 % patch Apply 1 patch topically Once per day. Remove & discard patch within 12 hours or as directed by MD. 30 patch 3 024 2024 Discontinued(R eorder (will not trigger notification to Pharmacy)) cholecalciferol VITAMIN D (Vitamin D-3) 50 MCG (2000 UT) capsule TAKE 1 CAPSULE (50 MCG) BY MOUTH IN THE MORNING 90 capsule 1 025 2024 Discontinued pantoprazole (ProtoNix) 40 MG EC tablet TAKE 1 TABLET BY MOUTH TWICE DAILY. DO NOT CRUSH, CHEW, OR SPLIT. 180 tablet 025 2024 Discontinued(R eorder (will not trigger notification to Pharmacy)) traMADol (Ultram) 50 MG tabletIndicatio ns:Acute midline low back pain without sciatica Take 1 tablet (50 mg) by mouth every 6 (six) hours if needed for severe pain for up to 7 days. 28 tablet 025 2024 Active Problems Problem Noted Date Diagnosed Date Ingrown left greater toenail 08/10/2025 Asthma exacerbation 08/10/2025 Abdominal pain 08/10/2025 Back pain 08/10/2025 Acute midline low back pain without sciatica 02/2025 Assessment & Plan (08/10/2025 10:25 AM EST): Apply heat on affected area I will order tramadol she can take 1 tablet every 6 hours if needed I refill her Flexeril 10 mg every 8 hours I advised not to mix it with tramadol and I advised not to take this medication if she needs to drive or do any activity that requires her attention I ordered an MRI patient will be contacted with results ED precautions reviewed with patient his pain is so severe in spite of taking this medication she will have to go back to the emergency room Acute pain of left shoulder 07/12/2025 Class [...] Leukocytosis 04/27/2024 Patellar tendinitis 03/05/2024 Unstable angina ([facility]) 02/18/2024 Assessment & Plan (03/09/2025 12:01 PM [...] cord dysfunction 11/05/2022 Mitral valve regurgitation 03/22/2019 Dysphagia 01/05/2019 Overview (08/10/2025): Dysphagia, unspecified; Note: Date Diagnosed: 01/05/2019 11:10 AM (R13.10) Iron deficiency anemia due to chronic blood loss 01/04/2019 Dysphonia 05/22/2018 Overview (08/10/2025): Other voice and resonance disorders; Note: Date Diagnosed: 05/22/2018 9:13 AM (R49.8) Other voice and resonance disorders 05/22/2018 Overview (08/10/2025): Other voice and resonance disorders; Note: Date Diagnosed: 05/22/2018 9:13 AM (R49.8) Chronic constipation 04/15/2018 Prediabetes 04/15/2018 Assessment & [...] Bleeding external hemorrhoids 07/17/2017 Prolapsed hemorrhoids 01/23/2016 Otalgia of left ear 01/17/2016 Overview (08/10/2025): Otalgia, left ear; Note: Date Diagnosed: 01/17/2016 2:00 PM (H92.02) Cannabis dependence 08/09/2015 Cocaine abuse 08/09/2015 Tobacco [...] Encounters Date Type Department Care Team Description 08/26/2025 Refill [facility] [address] [place] [address] Melani Anderson MD 08/14/2025 Refill [facility] [address] [place] [phone] Melani Anderson MD 08/10/2025 9:30 AM EST Telemedicine [facility] [address] [place] [phone] Melani Anderson MD Acute pain of left shoulder (Primary Dx); Acute midline low back pain without sciatica 08/10/2025 Patient Outreach [facility] [address] [place] [address] Melani Anderson MD Care Coordination (Communication to pts assigned CP Coordinator ) 08/10/2025 Travel 08/09/2025 Patient Outreach [facility] [address] [place] [address] Melani Anderson MD Care Coordination (CP Care Coordination Chart Review) 08/08/2025 Patient Outreach [facility] [address] [place] [phone] Melani Anderson MD 08/06/2025 Orders Only GENERIC EXTERNAL DATA DEPARTMENT Provider, Generic External Data 07/27/2025 Orders Only [facility] [address] [place] [phone] Melani Anderson MD 07/26/2025 Refill [facility] [address] [place] [phone] Melani Anderson MD 07/16/2025 Refill [facility] [address] [place] [phone] Melani Anderson MD Class 1 obesity due to excess calories with serious comorbidity and body mass index (BMI) of 34.0 to 34.9 in adult 07/16/2025 Refill [facility] [address] [place] [address] Marci Blackman CNP Atopic dermatitis in adult 07/16/2025 Refill [facility] [address] [place] [phone] Vida Qureshi DO Acute pain of left knee 07/12/2025 1:20 PM EDT Office Visit [facility] [address] [place] [phone] Melani Anderson MD Acute pain of left shoulder 07/12/2025 Results Follow-Up [address] [address] Melani Anderson MD XR Shoulder 2+ Views Left 07/12/2025 Travel 07/12/[address] [address] Melani Anderson MD Nurse Triage 07/01/2025 Outside Procedure [facility] [address] [place] [address] Bernadette Donahue, OD Presbyopia (Primary Dx) 06/29/2025 10:45 AM EDT Office Visit [facility] [address] [place] [phone] Bernadette Donahue, OD Hyperopia of left eye (Primary Dx) 06/29/2025 Travel 06/29/2025 Refill [facility] [address] [place] [phone] Melani Anderson MD Essential hypertension 06/27/2025 Refill [facility] [address] [place] [phone] Melani Anderson MD 06/07/2025 1:15 PM EDT Office Visit [facility] [address] [place], [place] [phone] Michelle Beck, OD Refractive amblyopia of right eye (Primary Dx); Hypermetropia, bilateral 06/07/2025 Travel 06/03/2025 10:30 AM EDT Office Visit [facility] [address] [place] [address] Eugene Sarabia MD Androgenic alopecia (Primary Dx); Xerosis of skin 06/03/2025 Travel 06/02/2025 Telephone [facility] [address] [place] [address] Michelle Beck, OD 06/02/2025 Refill [facility] [address] [place] [address] Melani Anderson MD Seasonal allergies 05/31/2025 Refill [facility] [address] [place] [address] Melani Anderson MD Class 1 obesity due to excess calories with serious comorbidity and body mass index (BMI) of 34.0 to 34.9 in adult 05/31/2025 Refill [facility] [address] [place] [address] Melani Anderson MD Seasonal allergies from Last 3 Months Immunizations Immunization Administration [...] Description 09/19/2025 10:00 AM EST Office Visit [facility] [address] [place] [address] Melani Anderson MD [address] [place] [address] Health Maintenance Due Date Last Done Comments CT Colonography 1970 Colonoscopy 1970 Colorectal Cancer Screening 1970 Dental Prophylaxis 1970 Dental X-Ray: Bitewings 1970 FIT DNA/Cologuard 1970 FIT 1970 FOBT 1970 Sigmoidoscopy 1970 RSV Patients and Patients Aged 60 years or older (1 - Risk 50-74 years 1-dose series) 2020 Zoster Vaccines (1 of 2) 2020 Dental Oral Exam 05/28/2023 11/27/2022 DTaP/Tdap/Td Vaccines (2 - Td or Tdap) 11/02/2023 11/02/2013, 10/06/2007 COVID-19 Vaccine ( season) 2025 02/22/2021, 01/25/2021 Influenza Vaccine (#1) 2025 Dental X-Ray: Full Mouth 08/02/2025 08/01/2022, 0912/2020 Diabetes: Hemoglobin A1C 12/07/2025 025, 04/27/2024, 08/28/2021, Additional history exists Alcohol/Substance Use Screening 03/09/2026 03/09/2025 Depression Screening 03/09/2026 03/09/2025, 03/09/20 25 Disability Screening 03/09/2026 03/09/2025 SDOH Screening 03/09/2026 03/09/2025 Tobacco Screening 03/09/2026 03/09/2025 Cervical Cancer Screening 04/24/2026 HPV/Cotest 04/24/2026 04/24/2021, 03/10/2017 Pap Smear 04/24/2026 04/24/2021 Mammogram 01/17/2027 01/17/2025, 12/05, 12/11/2020, Additional history exists Lipid Panel 12/07/2029 12/07/2024, 04/07, 08/28/2021 Hepatitis B Vaccines Completed 03/22/2011, 09/24/2010, 05/16/2010 [...] Procedure Name Priority Date/Time Associated Diagnosis Comments URINALYSIS, COMPLETE, WITH REFLEX TO CULTURE Routine 08/06/2025 2:40 PM EDT HCG, QL, URINE Routine 08/06/2025 2:40 PM EDT LIPASE Routine 08/06/2025 1:42 PM EDT MAGNESIUM Routine 08/06/2025 1:42 PM EDT BASIC METABOLIC PANEL Routine 08/06/2025 1:42 PM EDT HEPATIC FUNCTION PANEL Routine 1:42 PM EDT CBC WITH AUTO DIFFERENTIAL Routine 08/06/2025 1:42 [...] Relevant to Health Maintenance Results * (ABNORMAL) Urinalysis, Complete, with Reflex to Culture (08/06/2025 2:40 PM EDT) Color Urine Yellow [facility] Appearance Urine Clear [facility] PH 5.5 5.0 - 9.0 [facility] Glucose Urine UA Negative Negative mg/dL [facility] Urine Blood Small (1+)(A) Negative [facility] Specific Lutz - Urine 1.015 1.005 - 1.025 [facility] Urine Protein >=1000 (4+)(A) Neg-Trace mg/dL [facility] Urine Ketones Negative Negative mg/dL [facility] Nitrite Urine Negative Negative [facility] Leukocyte Esterase Urine Negative Negative [facility] RBC Urine 0-2 0 - 2 /HPF [facility] Urine WBC 0-5 0 - 5 /HPF [facility] Urine Squamous Epithelial Cell 6-10 0 - 2 /HPF [facility] Urine Bacteria None Seen None Seen [facility] Hyaline Casts, Urine 0-2 0 - 2 /LPF [facility] 08/06/2025 2:40 PM EDT 08/06/2025 2:54 PM EDT Narrative [facility] - 08/06/2025 3:21 PM EDT [id number], Clean Catch Generic External Data Provider LAB URINE ORDERAB LES Final Result Performing Organization Address [facility] Co de Phone Number [facility] [address] [place] [address] [phone] * HCG, Qualitative, Urine (08/06/2025 2:40 PM EDT) Urine NEGATIVE NEGATIVE [facility] Comment:This test was develo ped to detect early . Falsenegative results may occur after the 5th - 7th week ofpregnancy when using this test method. If clinicallyindicated, consider a serum hCG. 08/06/2025 2:40 PM EDT 08/06/2025 2:54 PM EDT Generic External Data Provider LAB URINE ORDERAB LES Final Result Performing Organization Address [facility]/ZIP Co de Phone Number [facility] [address] [place] [address] [phone] * (ABNORMAL) CBC auto differential (08/06/2025 1:42 PM EDT) White Blood Count 10.8 4.8 - 10.8 X10*3/uL [facility] Red Blood Count 3.85(L) 4.20 - 5.50 X10*6/uL [facility] Hemoglobin 9.8(L) 12.0 - 16.0 g/dl [facility] Hematocrit 30.5(L) 37.0 - 47.0 % [facility] Mean Corpuscular Volume 79.2(L) 80.0 - 98.0 fL [facility] Mean Corpuscular Hemoglobin 25.5(L) 27.0 - 33.0 pg [facility] Mean Corpuscular HGB Conc 32.1 31.0 - 35.0 g/dl [facility] Red Cell Distribution Width 15.9 11.0 - 16.0 % [facility] Platelet Count 305 160 - 400 X10*3/uL [facility] Mean Platelet Volume 10.3 9.4 - 12.3 fL [facility] Neutrophils Percent Auto 61.3 45 - 73 % [facility] Imm Gran Pct Auto 0.2 0.0 - 0.4 % [facility] Lymphocytes Percent Auto 32.3 20 - 40 % [facility] Monocytes Percent Auto 5.1 2 - 11 % [facility] Eosinophils Percent Auto 0.6 0 - 4 % [facility] Basophils Percent Auto 0.5 0 - 2 % [facility] NRBC Pct Auto 0.0 0.0 - 0.2 /100WBC [facility] Neutrophils Absolute Auto 6.6 2.0 - 8.3 x10*3/uL [facility] Imm Gran Abs Auto 0.02 0.00 - 0.03 X10*3/uL [facility] Lymphocytes Absolute Auto 3.5 1.2 - 4.9 X10*3/uL [facility] Monocytes Absolute Auto 0.6 0.1 - 1.2 X10*3/uL [facility] Eosinophils Absolute Auto 0.1 0.0 - 0.4 X10*3/uL [facility] Basophils Absolute Auto 0.1 0.0 - 0.2 X10*3/uL [facility] NRBC Abs Auto 0.000 0.0 - 0.012 X10*3/uL [facility] 08/06/2025 1:42 PM EDT 08/06/2025 1:46 PM EDT us Generic External Data Provider LAB BLOOD ORDERAB LES Final Result [facility] [address] [place] [phone] * Magnesium (08/06/2025 1:42 PM EDT) Pathologist [facility] Magnesium 2.1 1.6 - 2.6 mg/dL [facility] 08/06/2025 1:42 PM EDT 08/06/2025 1:46 PM EDT us Generic External Data Provider LAB BLOOD ORDERAB LES Final Result Performing Organization Address [facility] Co de Phone Number [facility] [address] [place] [phone] * Lipase (08/06/2025 1:42 PM EDT) Pathologist [facility] Lipase 63 8 - 78 U/L [facility] 08/06/2025 1:42 PM EDT 08/06/2025 1:46 PM EDT us Generic External Data Provider LAB BLOOD ORDERAB LES Final Result Performing Organization Address [facility] Co de Phone Number [facility] [address] [place] [phone] * Hepatic Function Panel (08/06/2025 1:42 PM EDT) Pathologist [facility] Bilirubin, Total 0.1 0.0 - 1.0 mg/dL [facility] Bilirubin, Direct <0.2 0.0 - 0.5 mg/dL [facility] Aspartate Amino Transferase 30 5 - 31 U/L [facility] Alanine Aminotransferase 20 0 - 31 U/L [facility] Total Protein 7.2 6.5 - 8.0 g/dL [facility] Albumin Level 4.0 3.5 - 5.0 g/dL [facility] Alkaline Phosphatase 46 39 - 117 U/L [facility] 08/06/2025 1:42 PM EDT 08/06/2025 1:46 PM EDT us Generic External Data Provider LAB BLOOD ORDERAB LES Final Result Performing Organization Address City/[facility]/ZIP Co de Phone Number [facility] [address] [place] [phone] [phone] * (ABNORMAL) Basic Metabolic Panel (08/06/2025 1:42 PM EDT) Sodium 142 135 - 145 mmol/L [facility] Potassium 3.7 3.3 - 5.1 mmol/L [facility] Chloride 112(H) 96 - 108 mmol/L [facility] Carbon Dioxide 22 22 - 29 mmol/L [facility] Anion Gap 12 12 - 20 [facility] Urea Nitrogen (BUN) 18(H) 9 - 16 mg/dL [facility] Creatinine, Serum 0.76 0.5 - 1.4 mg/dL [facility] Creatinine Clr Calc Pharmacy 73.8 [facility] Comment:Provided height and weight: 152.4 cm,71.5 kg.eGFR (calculated from the MDRD study equation) and eCrCl(calculated from the Cockcroft-Gault equation) are based ondifferent parameters and may not yield comparable results.If eCrCl result is absurd, please check patient'sheight/weight. Estimated Glomerular Filt Rate >60 [facility] Comment:Chronic Kidney Disea se: Estimated GFR < 60 mL/min/1.24x2Teuqug Kidney Disease: Estimated GFR < 15 mL/min/1.73m2 Glucose 80 60 - 115 mg/dL [facility] Calcium 9.2 8.4 - 10.2 mg/dL [facility] 08/06/2025 1:42 PM EDT 08/06/2025 1:46 PM EDT us Generic External Data Provider LAB BLOOD ORDERAB LES Final Result Performing Organization Address City/[facility]/ZIP Co de Phone Number [facility] [address] [place] [address] [phone] * XR Shoulder 2+ Views Left (07/12/2025 2:00 PM EDT) Anatomical Region Laterality Modality Upper Extremities, Shoulder Left Radi ographic Imaging 07/12/2025 2:00 PM EDT Narrative 07/12/2025 2:10 PM EDT [address] [address] XRay Report Signed Patient: Krys Walker MR#: [id number] 59 : 1970 Acct:[id number] Age/Sex: 55 / F ADM Date: 07/12/25 Loc: .[facility] Attending Dr: Melani Xiong MD Ordering Physician: Melani Anderson MD Date of Service: 07/12/25 Procedure(s): XR shoulder LT min 2V Accession Number(s): [id number] cc: Melani Anderson MD Reason for Exam: [...] 07/12/25 1407 DD/ 1400 TD/TT: 07/12/25 1402 Meter Attendant: Procedure Note Donotuseinterpreter, Image - 07/12/[address] [address] XRay Report Signed Patient: Олег Walker#: [id number] 59 : 1970Acct:[id number] Age/Sex: 55 / FADM Date: 07/12/25 [facility]: Melani Xiong MD Ordering Physician: Melani Anderson MD Date of Service: 07/12/25 Procedure(s): XR shoulder LT min 2V Accession Number(s): [id number] cc: Melani Anderson MD Reason for Exam: [...] OV> 07/12/25 1407 DD/ 1400 TD/TT: 07/12/25 140 Meter Attendant: us Melani Xiong MD IMG XR PROCEDURES Fin al Result * BI Mammogram Screening Tomosynthesis Bilateral (01/17/2025 3:33 PM EDT) Anatomical Region Laterality Modality Breast Bilateral Mammography 01/17/2025 3:33 PM EDT Narrative 01/28/2025 10:37 AM EDT [facility] [address] [place] [address] Mammography Report Signed Patient: Krys Walker MR#: [id number] 59 : 1970 Acct:[id number] Age/Sex: 54 / F ADM Date: 01/17/25 Loc: HO.MAMMO Attending Dr: Melani Xiong MD Ordering Physician: Melani Anderson MD Results: 1Negative Date of Service: 01/17/25 Follow Up: 1 Year From Orig inal Mammogram Procedure(s): MM tomosynthesis screening BI Accession Number(s): [id number] cc: Melani Anderson MD EXAMINATION: MM SCREENING [...] 01/28/25 1033 DD/ 1533 TD/TT: 01/17/25 1603 Meter Attendant: Procedure Note Donotuseinterpreter, Image - 01/28/2025 [facility] [address] [place] [address] Mammography Report Signed Patient: Олег Walker#: [id number] [birth year] : 1970Acct:[id number] Age/Sex: 54 / FADM Date: 01/17/25 Loc: HO.MAMMO Attending Dr: Melani Xiong MD Ordering Physician: Melani Anderson MDResults: 1Negative Date of Service: 01/17/25Follow Up: 1 Year From Orig inal Mammogram Procedure(s): MM tomosynthesis screening BI Accession Number(s): [id number] cc: Melani Anderson MD EXAMINATION: MM SCREENING [...] 01/28/25 1033 DD/ 1533 TD/TT: 01/17/25 1603 Meter Attendant: us Melani Xiong MD IMG BI PROCEDURES Joshua hai Result - Final * Hepatitis C Antibody with Reflex to HCV, RNA, Quantitative, Real-Time PCR (12/07/2024 10:36 AM EST) Hepatitis C Antibody Nonreactive Nonreactive [facility] Comment:Antibodies to HCV no t detected; does not exclude early acuteHCV infection. Blood Venous blood specimen / Unknown 12/07/2024 10:36 AM EST 12/07/2024 11:19 AM EST us Melani Xiong MD LAB BLOOD ORDERABLES Final Result Performing Organization Address City/[facility]/ZIP Co de Phone Number [facility] [address] [place] [phone] [phone] * HIV-1/2 Antigen and Antibodies, Fourth Generation, with Reflexes (12/07/2024 10:36 AM EST) HIV AB/AG Nonreactive Nonreactive [facility] Comment:HIV-1 p24 Ag and/or HIV-1/HIV-2 Ab not detected.A test result that is nonreactive does not exclude thepossibility of exposure to or infection with HIV-1 and/orHIV-2. Nonreactive results in this assay for individualswith prior exposure to HIV-1 and/or HIV-2 may be due toantigen and antibody levels that are below the limit ofdetection of this assay.The [employer] HIV Ag/Ab Combo assay result andsupplemental assay results should be interpreted inconjunction with the patient's clinical presentation,history and other laboratory results. If the results areinconsistent with clinical evidence, additional testing issuggested to confirm the result. Blood Venous blood specimen / Unknown 12/07/2024 10:36 AM EST 12/07/2024 11:19 AM EST us Melani Xiong MD LAB BLOOD ORDERABLES Final Result Performing Organization Address City/[facility]/ZIP Co de Phone Number [facility] [address] [place] [address] [phone] * Hemoglobin A1c (12/07/2024 10:36 AM EST) Hemoglobin A1c 5.9 <6.0 % [facility] Comment:Hemoglobin A1C Refer ence Range Adults: 4.8 - 6.0 % Non diabetic: < 6.0 % Goal: < 7.0 %Additional Action Suggested: > 8.0 %Note: Hemoglobin A1c results are invalid for patients with abnormal amounts of HbF. Blood transfusions may impact the HbA1c concentration in the patient sample. Estimated Average Glucose 123 mg/dL [facility] Comment:eAG = Estimated ave rage glucose which is %A1C expressed asaverage glucose, using the formula of the G3V-FaadtopPhpwunq Glucose study (ADAG), Diabetes Care, Vol.31,#8,May. 2007 Blood Venous blood specimen / Unknown 12/07/2024 10:36 AM EST 12/07/2024 11:19 AM EST Melani Xiong MD LAB BLOOD ORDERABLES Final Result [facility] [address] [place] [phone] * (ABNORMAL) Lipid Panel, Standard (12/07/2024 10:36 AM EST) Triglycerides 183(H) <150 mg/dL [facility] Comment:Desirable Triglyceri de: less than 150 mg/dLBorderline High Triglyceride 150-199 mg/dLHigh Triglyceride: 200-499 mg/dLVery High Triglyceride: greater than or equal to 5OO mg/dL Cholesterol 193 <200 mg/dL [facility] Comment:Desirable Cholestero l: less than 200 mg/dLBorderline High Cholesterol: 200-239 mg/dLHigh Cholesterol: greater than 239 mg/dL LDL Cholesterol Calculated 123(H) <100 mg/dL [facility] Comment:Desirable LDL: less than 100 mg/dLNear Optimal/Above Optimal LDL: 110- 129 mg/dLBorderline High LDL: 130-159 mg/dLHigh LDL: 160-189 mg/dLVery High LDL: greater than or equal to 190 mg/dL HDL Cholesterol 34(L) >40 mg/dL [facility] Comment:Desirable HDL: great er than 40 mg/dL Note: This HDL assay may give artificially low results in patients with liver disease. Blood Venous blood specimen / Unknown 12/07/2024 10:36 AM EST 12/07/2024 11:19 AM EST Melani Xiong MD LAB BLOOD ORDERABLES Final Result Performing Organization Address [facility]/RUST Co de Phone Number [facility] [address] [place] [address] [phone] * THINPREP PAP (04/24/2021 12:00 AM [...] along with historic and current clinical information. Floor Service Worker Spring : SEE COMMENT [facility] Comment: HJP, CT(ASCP) CT screening location: [place] [address] Infection Shift in vaginal tomasa suggestive of [...] ORDERAB LES Final Result Performing Organization Address [facility]/ZIP Co de Phone Number [facility] [address] [place] [address], * HPV GENOTYPES 16,18/45 (04/24/2021 12:00 AM EDT) HPV 16 RNA NOT DETECTED NOT DETECTED [facility] HPV 18/45 RNA NOT DETECTED NOT DETECTED [facility] Comment: Methodology: Freight Rate Specialist Mediated Amplification The analytical performance characteristics of this assay have been determined by [employer]. The modifications have not been cleared or approved by the FDA. This assay has been validated pursuant to the CLIA regulations and is used for clinical purposes. 04/24/2021 Melani Xiong MD LAB CYTOLOGY ORDERABL ES Final Result [facility] [address] from Last 3 Months or Most Recently Relevant to Health Maintenance Insurance [facility] C3 [place] ST[place] ADULT Care Teams Shoemaking Finisher Relationship Specialty Start Date End Date Melani Anderson MD [address] [place] [address] PCP - General Family Medicine 07/20/19 Darlene Lassiter Laborer Tree TappingSubject Scientific Research 10/08/23 Marilynn Garcia Laborer Tree TappingSubject Scientific Research 08/19/24
--- OUTSIDE RECORDS SUMMARY | 2025-08-29 20:39 | XMS_ITS | Encounter Summary ---
Author Organization [employer] Address [address] [place] [address] 7t [place] [address] Care Team Providers Care Tobacco Sorter Name Role Phone Melani Anderson MD Primary Care Provide r Paris Langford Unavailable Encounter Details Date Type Department Care Team (Latest Contact Info) Description 06/08/2021 Abstract [facility] CONVERSIONS Dental, Provider, DDS Social History [...] 10:00 AM EST Office Visit [facility] MEDICINE [address] [place] [address] Melani Anderson MD [address] [place] [address] documented as of this encounter Visit Diagnoses Not on filedocumented in this encounter Care Teams Tobacco Sorter Relationship Specialty Start Date End Date Melani Anderson MD [address] [place], [place] [phone] PCP - General Family Medicine 07/20/19 Paris Langford 08/08/25 08/10/25 Darlene Lassiter Potato PickerControls Operator Molded Goods 10/08/23 Marilynn Garcia Potato PickerControls Operator Molded Goods 08/19/24 documented as of this encounter
--- OUTSIDE RECORDS SUMMARY | 2025-08-29 20:39 | XMS_ITS | Encounter Summary ---
Author Organization [employer] Address [address] [facility] 7t [place] [address] Care Team Providers Care Television Cameraman Name Role Phone Melani Anderson MD Primary Care Provide r Paris Langford Unavailable Encounter Details Date Type Department Care Team ([facility] Contact Info) Description 09/13/2024 Orders Only [facility] MED & PEDS [address] [place], [place] [phone] Kaykay Dunlap MD [address] [place] [address] Social History Tobacco Use Types Packs/Day Years [...] 10:00 AM EST Office Visit [facility] MEDICINE [address] [place] [address] Melani Anderson MD [address] [place] [address] documented as of this encounter Visit Diagnoses Not on filedocumented in this encounter Additional Health Concerns Assessment Noted Time PHQ-9 Depression Total Score: 1 02/11/20 24 11:34 AM EDT documented as of this encounter Care Teams Television Cameraman Relationship Specialty Start Date End Date Melani Anderson MD [address] [place] [address] PCP - General Family Medicine 07/20/19 Paris Langford 08/08/25 08/10/25 Darlene Lassiter Engineering Production WorkerCrystalizer 10/08/23 Marilynn Garcia Engineering Production WorkerCrystalizer 08/19/24 documented as of this encounter
--- OUTSIDE RECORDS SUMMARY | 2025-08-29 20:39 | XMS_ITS | Encounter Summary ---
Author Organization [employer] Address [address] [facility] 7t [place] [address] Care Team Providers Care Alarm Investigator Name Role Phone Melani Anderson MD Primary Care Provide r Paris Langford Unavailable Reason for Visit * Reason Onset Date Comments Error 09/08/2024 Encounter Details Date Type Department Care Team ([facility] st Contact Info) Description 09/08/2024 Telephone [facility] MEDICINE [address] [place] [address] Melani Anderson MD [address] [place], [place] [phone] Error Social History Tobacco Use Types Packs/Day [...] Description 09/19/2025 10:00 AM EST Office Visit [facility] MEDICINE [address] [place] [address] Melani Anderson MD [address] [place] [address] documented as of this encounter Visit Diagnoses Not on filedocumented in this encounter Additional Health Concerns Assessment Noted Time PHQ-9 Depression Total Score: 1 02/11/20 24 11:34 AM EDT documented as of this encounter Care Teams Alarm Investigator Relationship Specialty Start Date End Date Melani Anderson MD [address] [place], [place] [phone] PCP - General Family Medicine 07/20/19 Paris Langford 08/08/25 08/10/25 Darlene Lassiter Body CleanerCircuit Rider 10/08/23 Marilynn Garcia Body CleanerCircuit Rider 08/19/24 documented as of this encounter
--- OUTSIDE RECORDS SUMMARY | 2025-08-29 20:39 | XMS_ITS | Encounter Summary ---
Author Organization [employer] Address [address] [place] [address] 7t [place] [address] Care Team Providers Care Regulator Mechanic Name Role Phone Melani Anderson MD Primary Care Provide r Paris Langford Unavailable Reason for Visit * Reason Onset Date Comments Med Refill 10/13/2023 Encounter Details Date Type Department Care Team (Late st Contact Info) Description 10/13/2023 Refill [facility] [address] [place] [address] Melani Anderson MD [address] [place], [place] [phone] Multiple joint pain (Primary Dx) Social History [...] refill : Tramadol To be sent to: [facility]/pharmacy #[id number] - [place] - [address] documented in this encounter Plan of Treatment Upcoming Encounters Date Type Department Care Team (Late st Contact Info) Description 09/19/2025 10:00 AM EST Office Visit [facility] [address] [place] [address] Melani Anderson MD [address] [place] [address] documented as of this encounter Visit Diagnoses Diagnosis Multiple joint pain- Primary Pain in joint, multiple sites documented in this encounter Care Teams Regulator Mechanic Relationship Specialty Start Date End Date Melani Anderson MD [address] [place] [address] PCP - General Family Medicine 07/20/19 Paris Langford 08/08/25 08/10/25 Darlene Lassiter Curtain FitterWater Quality Manager 10/08/23 Marilynn Garcia Curtain FitterWater Quality Manager 08/19/24 documented as of this encounter
--- OUTSIDE RECORDS SUMMARY | 2025-08-29 20:39 | XMS_ITS | Data Portability ---
Author Organization [place] [facility] Address [address] [place] [phone] Care Team Providers Care Senior Lead Developer Name Role Phone MATTHEW CONN, SHEREE Primary [...] We may review results through the portal [employer] Not available 11/09/2024 13:27:15 Plan of Treatment Reminders Order Date Submit Date Provider Last Modified By Organization Details Last Modified Time Details Appointments None recorded. Lab None recorded. Referral None recorded. Procedures None recorded. Surgeries None recorded. Imaging [place], modified barium swallow study 2024 025 [facility], [address] [place], [address], 10:04:28 Medication Orders None recorded. Patient TargetsNo targets recorded. Patient InstructionsNo instructions recorded. Reason for Referral None Reported. Results Created Date Observation Date Name Description Value Unit Range Abnormal Flag Note LastModifiedBy Organization Detail LastModifiedTime 03/03/20 25 03/03/2025 proce shiela No observ ation record ed. ccomi [facility] U/S Dept [address] [facility], [place], [address], 03/14/2025 10:47:51 03/03/20 25 03/03/2025 xr dawson sterling ow with video and speec h See Note [facility] , a [facility] of [facility] Erin march Name: GALE WALKER Date of : 1969 Reason for Exam: dyspha concha Exam Date: 2024 [id number] EST Report Status : Final Orderi ng [...] ribed Date: 2024 10:39 ET Reside nt/PA/ DIRECTOR OF SOLUTIONS ARCHITECTURE: Karrie Rinaldi [facility] U/S Dept [address] [place], [address], 03/14/2025 10:47:51 Result Notes None recorded. Problems Name Problem SNOMED Code Status Onset Date Resolution Date Notes Provider Name and Address Organization Details Recorded Time Otalgia of left ear 7010699904 Active 2015 Otalgia, left ear; Note: Date Diagnosed : 01/17/2016 2:00 PM (H92.02) Not Available [facility] 4 03:15:30 Dysphonia 44938208 Active 2017 Other voice and resonance disorders ; Note: Date Diagnosed : 05/22/2018 9:13 AM (R49.8) Not Available [facility] 4 03:15:30 Finding of resonance of voice 287062292 Active 2017 Other voice and resonance disorders ; Note: Date Diagnosed : 05/22/2018 9:13 AM (R49.8) Not Available [facility] 4 03:15:30 Dysphagia 88541223 Active 2018 Dysphagia , unspecifi ed; Note: Date Diagnosed : 01/05/2019 11:10 AM (R13.10) Not Available [facility] 4 03:15:29 Problem Notes None recorded. Procedures Surgical History Date Name Laterality Status Provider Name and Address Organization Details Recorded Time 11/09/2024 FOL_DP completed MARYJANE ELI MD [address] [place] [address], [phone], [place] - [facility] 11/09/2024 13:23:35 Imaging Results None recorded. Procedure Notes None recorded. Medical Equipment None Reported. Allergies Allergen ID Allergen Name Allergen Category Reaction Reaction Severity Criticality Documentation Date Start Date Code Code System Note Provider Name and Address Organization Details Recorded Time 462389 acetamino phen / oxycodone medicatio n other Not available Not available 02/17/2024 15657 3 RxNorm React ion: unkno wn, unspe cifie d;; Not Available [facility] 4 01:20:45 158513 Substance with sulfonami de structure and antibacte rial mechanism of action (substanc e) medicatio n other Not available Not available 02/17/2024 97591 8003 SNOMED React ion: unkno wn, unspe cifie d;; Not Available [facility] 4 01:20:46 Medications Name Sig Start [...] mg tablet 11/09 completed Medicati on ID: 736264 D uration Value: 30 Brand Name: marky [...] mg tablet 2018 active Medicati on ID: 587838 D uration Value: 30 Brand Name: lisinopr [...] elayed release 2017 active Medicati on ID: 743508 D uration Value: 30 Brand Name: duloxeti [...] HEALTH spacer 2015 active Medicati on ID: 558598 D uration Value: 1 Brand Name: [facility] Send Method: E-Prescr ibed Sub s Allowed: subs [place] Medic ationGen ericName : [facility] Not Available Not Available Not [...] Updated DateTime 11/09/2024 152.4 cm 33.2 kg/m2 32110.7 g Almita Hale [facility] 11/09/2024 12:59:13 Social History None recorded. Functional Status None recorded. Mental Status None recorded. Family History Nothing Reported. Medical History No medical history recorded. Gynecological HistoryNo gynecological history recorded. Obstetrics History GPAL:G 0 P 0 0 0 0 Past Encounters Encounter ID Performer Location Encounter Start Date Encounter Closed Date Diagnosis/Indication Diagnosis SNOMED-CT Code Diagnosis ICD10 Code Diagnosis IMO Codes Diagnosis Note [id number] MARYJANE ELI MD [facility] [address] [address] 11/09/2024 12:49:40 11/09/2024 13:27:39 Dysphagia 54751937 R13.10 Health Concerns Section Related Observation LastModified by Organization Detai ls LastModified Time None Recorded Concern Status LastModified by Organization Details LastModified Time None Recorded Advance Directives Directive None Recorded Payers Insurance Date Sequence Insurance Name Policy Number Policy Norris Covered Member ID Norris Member ID Guarantor Name 11/09/2024 1 [place] [facility] Krys Walker [id number] Krys Jaquanpas 11/09/2024 1 [place] [facility] Krys Partidapas [id number] Krys Jaquanpas Notes Date Note Type Note Provider Name and Address Organization Details Recorded Time 11/09/2024 text/html ROS as noted in the HPI dysphagiachoking on water, ice creamno swallow evaluationno CVA hx pmhx - 2022 NSTEMI, cath, stents PV 01/05/2019 Hieu dysphagia for saliva, mod ba swallow requested MARYJANE ELI MD [address] [place] [address], [phone], [place] - [facility] 11/09/2024 13:27:41 OBGyn Episode No OBEpisode recorded.
--- OUTSIDE RECORDS SUMMARY | 2025-08-29 20:39 | XMS_ITS | Encounter Summary ---
Author Organization [employer] Address [address] [place] [address] 7t [place] [address] Care Team Providers Care Publishing Agent Name Role Phone Melani Anderson MD Primary Care Provide r Paris Langford Unavailable Reason for Visit * Reason Comments Med Refill Encounter Details Date Type Department Care Team ([facility] Contact Info) Description 2023 Refill [facility] MEDICINE [address] [place], [place] [phone] Sherice Kramer MD [address] [place] [phone] Left shoulder tendinitis Social History Tobacco Use [...] Upcoming Encounters Date Type Department Care Team ([facility] Contact Info) Description 09/19/2025 10:00 AM EST Office Visit [facility] MEDICINE [address] [place], [place] [phone] Melani Anderson MD [address] [place], [place] [phone] documented as of this encounter Visit Diagnoses Diagnosis Left shoulder tendinitis documented in this encounter Care Teams Publishing Agent Relationship Specialty Start Date End Date Melani Anderson MD [address] [place] [address] PCP - General Family Medicine 07/20/19 Paris Langford 08/08/25 08/10/25 Darlene Lassiter Software Engineer AdvisorCommercial Light Fixture Assembler 10/08/23 Marilynn Garcia Software Engineer AdvisorCommercial Light Fixture Assembler 08/19/24 documented as of this encounter
--- OUTSIDE RECORDS SUMMARY | 2025-08-29 20:39 | XMS_ITS | Encounter Summary ---
Author Organization [employer] Address [address] [place] [address] 7t [place] [address] Care Team Providers Care Awning Finisher Name Role Phone Melani Anderson MD Primary Care Provide r Paris Langford Unavailable Reason for Visit * Reason Comments Med Refill Encounter Details Date Type Department Care Team ([facility] Contact Info) Description 10/11/2023 Refill [facility] MEDICINE [address] [place], [place] [phone] Sherice Kramer MD [address] [place] [address] [phone] Left shoulder tendinitis Social History Tobacco Use [...] Upcoming Encounters Date Type Department Care Team ([facility] Contact Info) Description 09/19/2025 10:00 AM EST Office Visit [facility] MEDICINE [address] [place], [place] [phone] Melani Anderson MD [address] [place], [place] [phone] documented as of this encounter Visit Diagnoses Diagnosis Left shoulder tendinitis documented in this encounter Care Teams Awning Finisher Relationship Specialty Start Date End Date Melani Anderson MD [address] [place] [address] PCP - General Family Medicine 07/20/19 Paris Langford 08/08/25 08/10/25 Darlene Lassiter Jewelry SorterRelaster 10/08/23 Marilynn Garcia Jewelry SorterRelaster 08/19/24 documented as of this encounter
--- OUTSIDE RECORDS SUMMARY | 2025-08-29 20:39 | XMS_ITS | Encounter Summary ---
Author Organization [employer] Address [address] [facility] 7t [place] [address] Care Team Providers Care Voice Over Artist Name Role Phone Melani Anderson MD Primary Care Provide r Paris Langford Unavailable Reason for Visit * Reason Onset Date Comments Nurse Triage 09/13/2024 Encounter Details Date Type Department Care Team ([facility] st Contact Info) Description 09/13/2024 Telephone [facility] MEDICINE [address] [place] [address] Melani Anderson MD [address] [place], [place] [phone] Nurse Triage Social History Tobacco Use Types [...] needed. Pt is advised to come to [facility] for Provider to see Pt. Pt [...] caller accepted this outcome. Contact pt at [phone] documented in this encounter Plan of Treatment Upcoming Encounters Date Type Department Care Team (Late st Contact Info) Description 09/19/2025 10:00 AM EST Office Visit [facility] MEDICINE [address] [place] [address] Melani Anderson MD [address] [place], [place] [phone] documented as of this encounter Visit Diagnoses Not on filedocumented in this encounter Additional Health Concerns Assessment Noted Time PHQ-9 Depression Total Score: 1 02/11/20 11:34 AM EDT documented as of this encounter Care Teams Voice Over Artist Relationship Specialty Start Date End Date Melani Anderson MD [address] [place] [phone] PCP - General Family Medicine 07/20/19 Paris Langford 08/08/25 08/10/25 Darlene Lassiter Gravel HaulerSenior Report Developer 10/08/23 Marilynn Garcia Gravel HaulerSenior Report Developer 08/19/24 documented as of this encounter
--- OUTSIDE RECORDS SUMMARY | 2025-08-29 20:39 | XMS_ITS | Encounter Summary ---
Author Organization [employer] Address [address] [facility] [address] 7t [place] [address] Care Team Providers Care Saw Filer Name Role Phone Melani Anderson MD Primary Care Provide r Paris Langford Unavailable Encounter Details Date Type Department Care Team ([facility] Contact Info) Description 06/12/2024 Orders Only [facility] [address] [place] [address] Joby Smallwood MD [address] [place] [address] Social History Tobacco Use Types Packs/Day Years [...] Description 09/19/2025 10:00 AM EST Office Visit [facility] MEDICINE [address] [place] [address] Melani Anderson MD [address] [place] [address] documented as of this encounter Visit Diagnoses Not on filedocumented in this encounter Additional Health Concerns Assessment Noted Time PHQ-9 Depression Total Score: 1 02/11/20 24 11:34 AM EDT documented as of this encounter Care Teams Saw Filer Relationship Specialty Start Date End Date Melani Anderson MD [address] [place] [address] PCP - General Family Medicine 07/20/19 Paris Langford 08/08/25 08/10/25 Darlene Lassiter Flight TeacherLegal Process Specialist 10/08/23 Marilynn Garcia Flight TeacherLegal Process Specialist 08/19/24 documented as of this encounter
--- OUTSIDE RECORDS SUMMARY | 2025-08-29 20:39 | XMS_ITS | Encounter Summary ---
Author Organization [employer] Address [address] [place] [address] 7t [place] [address] Care Team Providers Care Music Typographer Name Role Phone Melani Anderson MD Primary Care Provide r Paris Langford Unavailable Encounter Details Date Type Department Care Team ([facility] Contact Info) Description 11/01/2022 Telephone [facility] ADULT DENTAL [address] [place] [address] Sanchez Edwards, DMD [address] [place] [address] Social History Tobacco Use Types Packs/Day Years [...] Upcoming Encounters Date Type Department Care Team ([facility] Contact Info) Description 09/19/2025 10:00 AM EST Office Visit [facility] MEDICINE [address] [place] [address] Melani Anderson MD [address] [place] [address] documented as of this encounter Visit Diagnoses Not on filedocumented in this encounter Care Teams Music Typographer Relationship Specialty Start Date End Date Melani Anderson MD [address] [place] [address] PCP - General Family Medicine 07/20/19 Paris Langford 08/08/25 08/10/25 Darlene Lassiter Cellular Equipment InstallerBest Worker 10/08/23 Marilynn Garcia Cellular Equipment InstallerBest Worker 08/19/24 documented as of this encounter
--- OUTSIDE RECORDS SUMMARY | 2025-08-29 20:39 | XMS_ITS | Encounter Summary ---
Author Organization [employer] Address [address] [facility] 7t [place] [address] Care Team Providers Care Plant Controls Specialist Name Role Phone Melani Anderson MD Primary Care Provide r Paris Langford Unavailable Reason for Visit * Reason Comments Med Refill Encounter Details Date Type Department Care Team ([facility] st Contact Info) Description 07/16/2025 Refill [facility] MEDICINE [address] [place] [address] Melani Anderson MD [address] [place], [place] [phone] Class 1 obesity due to excess calories [...] Description 09/19/2025 10:00 AM EST Office Visit [facility] MEDICINE [address] [place] [address] Melani Anderson MD [address] [place] [address] documented as of this encounter Visit Diagnoses Diagnosis Class 1 obesity due to excess calories with serious comorbidity and body mass index (BMI) of 34.0 to 34.9 in adult documented in this encounter Additional Health Concerns Assessment Noted Time PHQ-9 Depression Total Score: 1 03/09/20 25 9:07 AM EDT documented as of this encounter Care Teams Plant Controls Specialist Relationship Specialty Start Date End Date Melani Anderson MD [address] [place] [address] PCP - General Family Medicine 07/20/19 Paris Langford 08/08/25 08/10/25 Darlene Lassiter Production LeadNight Time Babysitter 10/08/23 Marilynn Garcia Production LeadNight Time Babysitter 08/19/24 documented as of this encounter
--- OUTSIDE RECORDS SUMMARY | 2025-08-29 20:39 | XMS_ITS | Clinical Summary ---
Author Organization [address] [facility] Address [address] [place] [address] Phone Care Team Providers Care College Tutor Name Role Phone Manjula Brasher MORTGAGE LENDER Primary Care Provider [phone] Allergies No known active allergies Encounters Date Type Department Care Team Description 07/04/2025 3:30 PM EDT Office Visit [facility] [place] [address] [address] Sergio Martino DPM Ingrowing nail [...] Upcoming Encounters Date Type Department Care Team ([facility] st Contact Info) Description 09/05/2025 1:45 PM EST Office Visit [place] [address] [address] Sergio Martino DPM [address] [phone] Health Maintenance Due Date Last Done Comments [...] to complete this topic Insurance [place] Care Teams College Tutor Relationship Specialty Start Date End Date Manjula Brasher FNP [address] [place] [phone] PCP - General Nurse Practitioner 11/17/24
--- OUTSIDE RECORDS SUMMARY | 2025-08-29 20:39 | XMS_ITS | Encounter Summary ---
Author Organization [employer] Address [address] [facility] 7t [place] [address] Care Team Providers Care Independent Contractor Name Role Phone Melani Anderson MD Primary Care Provide r Paris Langford Unavailable Reason for Visit * Reason Comments Med Refill Encounter Details Date Type Department Care Team ([facility] st Contact Info) Description 04/03/2025 Refill [facility] [address] [place] [address] Melani Anderson MD [address] [place], [place] [phone] Class 1 obesity due to excess calories [...] Description 09/19/2025 10:00 AM EST Office Visit [facility] [address] [place] [address] Melani Anderson MD [address] [place] [address] documented as of this encounter Visit Diagnoses Diagnosis Class 1 obesity due to excess calories with serious comorbidity and body mass index (BMI) of 34.0 to 34.9 in adult documented in this encounter Additional Health Concerns Assessment Noted Time PHQ-9 Depression Total Score: 1 03/09/20 25 9:07 AM EDT documented as of this encounter Care Teams Independent Contractor Relationship Specialty Start Date End Date Melani Anderson MD [address] [place] [address] PCP - General Family Medicine 07/20/19 Paris Langford 08/08/25 08/10/25 Darlene Lassiter Bone Drier OperatorTalent Acquisition Coordinator 10/08/23 Marilynn Garcia Bone Drier OperatorTalent Acquisition Coordinator 08/19/24 documented as of this encounter
--- OUTSIDE RECORDS SUMMARY | 2025-08-29 20:39 | XMS_ITS | Encounter Summary ---
Author Organization [employer] Address [address] [place] [address] 7t [place] [address] Care Team Providers Care Cigarette Paper Tester Name Role Phone Melani Anderson MD Primary Care Provide r Paris Langford Unavailable Encounter Details Date Type Department Care Team (Latest Contact Info) Description 11/03/2019 Abstract [facility] CONVERSIONS Dental, Provider, DDS Social History [...] 09/19/2025 10:00 AM EST Office Visit [facility] [address] [place] [address] Melani Anderson MD [address] [place] [address] documented as of this encounter Visit Diagnoses Not on filedocumented in this encounter Care Teams Cigarette Paper Tester Relationship Specialty Start Date End Date Melani Anderson MD [address] [place] [phone] PCP - General Family Medicine 07/20/19 Paris Langford 08/08/25 08/10/25 Darlene Lassiter Senior Information Security ConsultantOutside Upholsterer 10/08/23 Marilynn Garcia Senior Information Security ConsultantOutside Upholsterer 08/19/24 documented as of this encounter
--- OUTSIDE RECORDS SUMMARY | 2025-08-29 20:39 | XMS_ITS | Encounter Summary ---
Author Organization [employer] Address [address] [facility] 7t [place] [address] Care Team Providers Care Machine Precision Etcher Name Role Phone Melani Anderson MD Primary Care Provide r Reason for Visit * Reason Onset Date Comments Med Refill 08/26/2025 Encounter Details Date Type Department Care Team ([facility] Contact Info) Description 08/26/2025 Refill [facility] [address] [place] [address] Melani Anderson MD [address] [place] [address] Social History Tobacco Use Types Packs/Day Years [...] encounter Miscellaneous Notes * Telephone Encounter - Vida Napier LPN - 08/26/2025 11:15 AM EST Last seen 08/10/25. * Telephone Encounter - Flores Fermin - 08/26/2025 11:11 AM EST TC from pt requesting medication refill. Medications needing refill : pantoprazole (ProtoNix) 40 MG EC tablet To be sent to:[facility]/pharmacy #[id number] - [place] DIAZ - [facility] SELINA GUNN documented in this encounter Plan of Treatment Upcoming Encounters Date Type Department Care Team (Late st Contact Info) Description 09/19/2025 10:00 AM EST Office Visit [facility] [address] [place], [place] [phone] Melani Anderson MD [address] [place], [place] [phone] documented as of this encounter Visit Diagnoses Not on filedocumented in this encounter Additional Health Concerns Assessment Noted Time PHQ-9 Depression Total Score: 1 03/09/20 25 9:07 AM EDT documented as of this encounter Care Teams Machine Precision Etcher Relationship Specialty Start Date End Date Melani Anderson MD [address] [place] [phone] PCP - General Family Medicine 07/20/19 Darlene Lassiter Punch Card OperatorProtective Clothing Issuer 10/08/23 Marilynn Garcia Punch Card OperatorProtective Clothing Issuer 08/19/24 documented as of this encounter
--- OUTSIDE RECORDS SUMMARY | 2025-08-29 20:39 | XMS_ITS | Encounter Summary ---
Author Organization [employer] Address [address] [facility] 7t [place] [address] Care Team Providers Care Hybrid Tester Name Role Phone Melani Anderson MD Primary Care Provide r Paris Langford Unavailable Encounter Details Date Type Department Care Team ([facility] st Contact Info) Description 07/27/2025 Orders Only [facility] MED[facility]INE [address] [place] [address] Melani Anderson MD [address] [place] [address] Social History Tobacco Use Types Packs/Day Years [...] Description 09/19/2025 10:00 AM EST Office Visit [facility] [address] [place] [address] Melani Anderson MD [address] [place] [address] documented as of this encounter Visit Diagnoses Not on filedocumented in this encounter Additional Health Concerns Assessment Noted Time PHQ-9 Depression Total Score: 1 03/09/20 25 9:07 AM EDT documented as of this encounter Care Teams Hybrid Tester Relationship Specialty Start Date End Date Melani Anderson MD [address] [place] [phone] PCP - General Family Medicine 07/20/19 Paris Langford 08/08/25 08/10/25 Darlene Lassiter Licensed EstheticianSupervising Airplane Pilot 10/08/23 Marilynn Garcia Licensed EstheticianSupervising Airplane Pilot 08/19/24 documented as of this encounter
--- OUTSIDE RECORDS SUMMARY | 2025-08-29 20:39 | XMS_ITS | Encounter Summary ---
Author Organization [employer] Address [address] [facility] 7t [place] [address] Care Team Providers Care Spinning Operator Name Role Phone Melani Anderson MD Primary Care Provide r Paris Langford Unavailable Reason for Visit * Reason Onset Date Comments Med Refill 12/19/2022 Encounter Details Date Type Department Care Team ([facility] st Contact Info) Description 12/19/2022 Telephone [facility] [address] [place] [address] Melani Anderson MD [address] [place], [place] [phone] Med Refill Social History Tobacco Use Types [...] encounter Miscellaneous Notes * Telephone Encounter - Hollyreji Rosasulaiman Mancilla - 12/19/2022 2:22 PM EDT Tc from pt requesting med refill status on previous message. * Telephone Encounter - Anjelkimberley Star Mancilla - 12/19/2022 12:06 PM EDT Tc from pt requesting med refill on Tramadol 50 mg tablet. Please sen to [facility]/pharmacy #[id number] - [place] DIAZ - [address] [facility] documented in this encounter Plan of Treatment Upcoming Encounters Date Type Department Care Team (Late st Contact Info) Description 09/19/2025 10:00 AM EST Office Visit [facility] MED[facility]INE [address] [place] [phone] Melani Anderson MD [address] [place] [phone] documented as of this encounter Visit Diagnoses Not on filedocumented in this encounter Care Teams Spinning Operator Relationship Specialty Start Date End Date Melani Anderson MD [address] [place] [phone] PCP - General Family Medicine 07/20/19 Paris Langford 08/08/25 08/10/25 Darlene Lassiter Letter CarrierCarbon Sequestration Plant Manager 10/08/23 Marilynn Garcia Letter CarrierCarbon Sequestration Plant Manager 08/19/24 documented as of this encounter
== END 2025-08-29 19:50 | disposition home or self-care (01) ==
LOC: HO.MRI 19:49
PROVIDERS: Visit Provider Internal Medicine
DX: M54.50 Low back pain, unspecified (principal)
CPT/HCPCS: 72148

== ENCOUNTER → 2025-08-29 19:59 | Outpatient (BNV) | payer MEDICAID, SELFPAY | PROVIDERS: Visit Provider Radiology Diagnostic Radiology | DX: M48.061 Spinal stenosis, lumbar region without neurogenic claudication (principal) | CPT/HCPCS: 72148 ==

== ENCOUNTER 2025-09-19 14:38 | Outpatient (AMB) | payer MEDICAID, SELFPAY ==
--- OUTSIDE RECORDS SUMMARY | 2025-09-16 23:59 | XMS_ITS | Continuity of Care Document ---
Author Organization [facility] Address [address] [place] [phone]- Care Team Providers Care Cosmetic Dentist Name Role Phone Endy Xiong MD, Melani Dueñas Primary Care Physici an [id number] Date(s): 08/17/25 - 09/16/25 [facility] [address] [place] [phone]- Encounter Type: Triage Allergies, Adverse Reactions, Alerts Substance Criticality Severity Reaction Reaction Severity Status sulfa drugs hives Active Immunizations Given and Recorded Vaccine Date Status Refusal Reason pneumococcal 23-valent vaccine 03/23/17 Given Medications acetaminophen 500 mg oral tablet 1 tablet = 500 mg, By Mouth, Every 6 hours, PRN Pain , Mild Start Date: 02/15/24 Status: Ordered Medication Dispense Status: Completed Total Allowed Fills: 1 Fills Dispensed: 0 Advair Diskus 500 mcg-50 mcg inhalation powder 1, inhalation, Inhalation, 2 times a day, rinse mouth and throat after use, # 3 each, Refills 3, Tot. Refills 3, Maintenance, 08/29/25 2:56:00 PM EST, Powder, Route to Pharmacy Electronically, [id number], [facility]/pharmacy #[id number], 153, cm, 08/29/25 9:16:00 EST, Height, 77.2, kg,05/01/24 11:18:00 EDT, Dry Weight Start Date: 08/29/25 Status: Ordered Medication Dispense Status: Completed Quantity: 3.0 Unit: each Total Allowed Fills: 4 Fills Dispensed: 0 Air Purifier Air Purifier, See Instructions, # 1 each, Refills 0, Tot. Refills 0, Maintenance, Air purifier Dx J45.909, 08/30/25 11:11:00 AM EST, Supply Start Date: 08/30/25 Status: Ordered Medication Dispense Status: Completed Quantity: 1.0 Unit: each Total Allowed Fills: 1 Fills Dispensed: 0 Albuterol (Eqv-ProAir HFA) 90 mcg/inh inhalation aerosol 2 puffs, Inhalation, Every 6 hours, PRN Wheezing/Shortness of Breath, # 3 each, 3 Refills, Maintenance, 04/19/24 8:58:00 AM EDT, [facility]/pharmacy #[id number], Please give this over ventolin if available., 2 puffs Inhalation Every 6 hours,PRN:Wheezing/Shortness of Breath, 153, cm, 04/19/24 8:37:00 EDT, Height, 77.5, kg, 02/15/24 0:52:00 EDT, Dry Weight Start Date: 04/19/24 Status: Ordered Medication Dispense Status: Completed Quantity: 3.0 Unit: each Total Allowed Fills: 4 Fills Dispensed: 0 Indications: Unspecified asthma, uncomplicated; Other diseases of vocal cords; aspirin 81 mg oral delayed release tablet 81 mg, By Mouth, Daily, # 90 tablet, Refills 0, Tot. Refills 0, Maintenance, 08/17/25 4:34:00 PM EST, Route to Pharmacy Electronically, [facility]/pharmacy #[id number], Partial fill upon patient request if the prescription is for a schedule II opioid drug., 153, cm, 08/12/25 15:03:00 EST, Height, 77.2, kg, 05/01/24 11:18:00 EDT, Dry Weight Start Date: 08/17/25 Status: Ordered Medication Dispense Status: Completed Quantity: 90.0 Unit: tablet Total Allowed Fills: 1 Fills Dispensed: 0 azelastine 137 mcg/inh (0.1%) nasal spray 2 sprays = 274 mcg, Nares, Both, Daily, PRN Other Allergies, # 3 each, 3 Refills, Maintenance, 04/19/24 8:55:00 AM EDT, [place], [facility]/pharmacy #[id number], Partial fill upon patient request if the prescription is for a schedule II opioid drug., 2 sprays Nares, Both Daily,PRN:Other Allergies, 153, cm, 04/19/24 8:37:00 EDT, Height, 77.5, kg, 02/15/24 0:52:00 EDT, Dry Weight Start Date: 04/19/24 Status: Ordered Medication Dispense Status: Completed Quantity: 3.0 Unit: each Total Allowed Fills: 4 Fills Dispensed: 0 Indications: Unspecified asthma, uncomplicated; Other diseases of vocal cords; BiPAP Machine See Instructions, # 1 each, Maintenance, AutoBiPAP with Max IPAP of 15 with Min EPAP 7 with PS 6, 02/06/23 4:38:00 PM EDT, Compound Start Date: 02/06/23 Status: Ordered Medication Dispense Status: Completed Quantity: 1.0 Unit: each Total Allowed Fills: 1 Fills Dispensed: 0 bisacodyl 5 mg oral delayed release tablet TAKE 1 TABLET BY MOUTH EVERY DAY NEEDED FOR CONSTIPATION Start Date: 08/12/25 Status: Ordered Medication Dispense Status: Completed Total Allowed Fills: 1 Fills Dispensed: 0 Carafate 1 gm/10 ml oral suspension 10 mL = 1 Gm, By Mouth, 2 times a day, Maintenance, 02/15/24 9:35:00 AM EDT, Partial fill upon patient request if the prescription is for a schedule II opioid drug. Start Date: 02/15/24 Status: Ordered Medication Dispense Status: Completed Total Allowed Fills: 1 Fills Dispensed: 0 Colace sodium 100 mg oral capsule 100 mg, 1, capsule, By Mouth, 2 times a day, Maintenance, 02/15/24 9:37:00 AM EDT, Partial fill uponpatient request if the prescription is for a schedule II opioid drug. Start Date: 02/15/24 Status: Ordered Medication Dispense Status: Completed Total Allowed Fills: 1 Fills Dispensed: 0 cyclobenzaprine 10 mg oral tablet 10 mg, 1, tablet, By Mouth, Daily at bedtime, Refills 0, Maintenance, 02/15/24 9:35:00 AM EDT, Partial fill upon patient request if the prescription is for a schedule II opioid drug. Start Date: 02/15/24 Stop Date: 02/25/24 Status: Ordered Medication Dispense Status: Completed Total Allowed Fills: 1 Fills Dispensed: 0 E0470 AutoBPAP with E0562 Humidifier E0470 AutoBPAP with E0562 Humidifier, See Instructions, # 1 each, Refills 0, Tot. Refills 0, Maintenance, EPAPmin 5 cm H2O; IPAPmax 15 cm H2O; PS 4 cm H2O Use Daily when sleeping, 01/11/25 5:17:00 PM EDT, Supply Start Date: 01/11/25 Status: Ordered Medication Dispense Status: Completed Quantity: 1.0 Unit: each Total Allowed Fills: 1 Fills Dispensed: 0 Indications: Other sleep apnea; Central sleep apnea in conditions classified elsewhere; Obstructivesleep apnea (adult) (pediatric); Primary central sleep apnea; Flonase Allergy Relief 50 mcg/inh nasal spray See Instructions, 1 to 2 actuations in each nostril daily prn allergy symptoms., # 16 Gm, 11 Refills, Maintenance, 08/29/25 9:39:00 AM EST, [facility]/pharmacy #[id number], Partial fill upon patient request if the prescription is for a schedule II opioid drug., 153, cm, 08/29/25 9:16:00 EST, Height, 77.2, kg, 05/01/24 11:18:00 EDT, Dry Weight Start Date: 08/29/25 Status: Ordered Medication Dispense Status: Completed Quantity: 16.0 Unit: g Total Allowed Fills: 12 Fills Dispensed: 0 Lipitor 80 mg oral tablet = 80 mg, By Mouth, Daily at bedtime, # 90 tablet, 3 Refills, Maintenance, 02/15/25 12:39:00 PM EDT, Tablet, [facility]/pharmacy #[id number], Partial fill upon patient request if the prescription is for a schedule II opioid drug., 153, cm, 12/16/24 15:07:00 EDT, Height, 77.2, kg, 05/01/24 11:18:00 EDT, Dry Weight Start Date: 02/15/25 Status: Ordered Medication Dispense Status: Completed Quantity: 90.0 Unit: tablet Total Allowed Fills: 4 Fills Dispensed: 0 Metoprolol Succinate ER 25 mg oral tablet, extended release 1 tablet = 25 mg, By Mouth, Daily Start Date: 02/15/24 Status: Ordered Medication Dispense Status: Completed Total Allowed Fills: 1 Fills Dispensed: 0 montelukast 10 mg oral tablet 1, tablet, By Mouth, Daily, j45.40, # 90 tablet, Refills 3, Tot. Refills 3, Maintenance, 08/29/25 9:34:00 AM EST, Route to Pharmacy Electronically, [facility]/pharmacy #[id number], 153, cm, 08/29/25 9:16:00 EST, Height, 77.2, kg, 05/01/24 11:18:00 EDT, Dry Weight Start Date: 08/29/25 Status: Ordered Medication Dispense Status: Completed Quantity: 90.0 Unit: tablet Total Allowed Fills: 4 Fills Dispensed: 0 mupirocin 2% topical ointment 1 application, Topically, 3 times a day, Maintenance, 02/15/24 9:36:00 AM EDT, Partial fill upon patient request if the prescription is for a schedule II opioid drug. Start Date: 02/15/24 Stop Date: 02/25/24 Status: Ordered Medication Dispense Status: Completed Total Allowed Fills: 1 Fills Dispensed: 0 pantoprazole 40 mg oral delayed release tablet TAKE 1 TABLET BY MOUTH TWICE DAILY. DO NOT BREAK, CRUSH, DISSOLVE OR CHEW Start Date: 03/16/24 Status: Ordered Medication Dispense Status: Completed Total Allowed Fills: 1 Fills Dispensed: 0 Spiriva Respimat 1.25 mcg/inh inhalation aerosol 2 puffs, Inhalation, Daily, j45.40, # 3 each, 3 Refills, Maintenance, 08/29/25 9:33:00 AM EST, Aerosol, [facility]/pharmacy #[id number], Partial fill upon patient request if the prescription is for a schedule II opioid drug., 153, cm, 08/29/25 9:16:00 EST, Height, 77.2, kg, 05/01/24 11:18:00 EDT, Dry Weight Start Date: 08/29/25 Status: Ordered Medication Dispense Status: Completed Quantity: 3.0 Unit: each Total Allowed Fills: 4 Fills Dispensed: 0 Tums 500 mg oral tablet, chewable 500 mg, 1, tablet, Chew, 4 times a day, PRN, Maintenance, Indigestion, 02/15/24 9:38:00 AM EDT, Partial fill upon patient request if the prescription is for a schedule II opioid drug. Start Date: 02/15/24 Status: Ordered Medication Dispense Status: Completed Total Allowed Fills: 1 Fills Dispensed: 0 Ultram 50 mg oral tablet 1 tablet = 50 mg, By Mouth, Every 8 hours, PRN Pain , Severe, # 21 tablet, Maintenance, 02/15/24 9:38:00 AM EDT, Partial fill upon patient request if the prescription is for a schedule II opioid drug. Start Date: 02/15/24 Status: Ordered Medication Dispense Status: Completed Quantity: 21.0 Unit: tablet Total Allowed Fills: 1 Fills Dispensed: 0 Ventolin HFA 108 mcg/inh inhalation aerosol with adapter 2 puffs, Inhalation, Every 6 hours, PRN NEEDED FOR WHEEZING/SHORTNESS OF BREATH,J44.9, # 3 each,3 Refills, Maintenance, 04/19/24 8:53:00 AM EDT, [facility]pharm[facility] #[id number], 153, cm, 04/19/24 8:37:00 EDT, Height, 77.5, kg, 02/15/24 0:52:00 EDT, Dry Weight Start Date: 04/19/24 Status: Ordered Medication Dispense Status: Completed Quantity: 3.0 Unit: each Total Allowed Fills: 4 Fills Dispensed: 0 Vitamin D3 2000 intl units oral capsule 1 capsule = 50 mcg, By Mouth, Daily, Maintenance, 02/15/24 9:37:00 AM EDT, Partial fill upon patientrequest if the prescription is for a schedule II opioid drug. Start Date: 02/15/24 Status: Ordered Medication Dispense Status: Completed Total Allowed Fills: 1 Fills Dispensed: 0 Zepbound Pen 12.5 mg/0.5 mL subcutaneous solution PLEASE SEE ATTACHED FOR DETAILED DIRECTIONS Start Date: 08/12/25 Status: Ordered Medication Dispense Status: Completed Total Allowed Fills: 1 Fills Dispensed: 0 ZyrTEC 10 mg oral tablet 1 tablet = 10 mg, By Mouth, Daily, Maintenance, 02/15/24 9:36:00 AM EDT, Partial fill upon patient request if the prescription is for a schedule II opioid drug. Start Date: 02/15/24 Status: Ordered Medication Dispense Status: Completed Total Allowed Fills: 1 Fills Dispensed: 0 Problem List Condition Confirmation Course Effective Dates Status Health St atus Informant Asthma Confirmed Active Central sleep apnea Confirmed Active GERD (gastroesophageal reflux disease) Confirmed Active Migraine Confirmed Active Complex sleep apnea syndrome Confirmed Active Obese class I Confirmed Active Obstructive sleep apnea Confirmed Active Vocal cord dysfunction Confirmed Active Social History Social History Type Response Tobacco Use: 4 or less cigar ettes(less than 1/4 pack)/day in last 30 days. Interested in cessation: No. No Sexual Orientation Self described orien tation: ; Straight or heterosexual Sex Sex Representation Female (finding) Patient Care team information Care Team Personnel Name: Uma Shultz RN Position: [facility] RN Member Role: Primary Care Nurse Name: Melani Anderson MD Position: [facility] Outreach Member Role: PCP Address: [address] [place] [address] [address] [place] [address] Telecom: Name: Stephanie Best RN Position: [facility] RN Member Role: Primary Care Nurse Name: Barbara Lagos RN Position: [facility] RN Member Role: Primary Care Nurse Name: Tati Soliman RN Position: S RN Member Role: Primary Care Nurse Name: Yary Coello RN Position: [facility] RN Member Role: Primary Care Nurse Name: Elizabeth Burruoghs RN Position: [facility] AMB Nurse Member Role: Primary Care Nurse Name: Deneen Gerber RN Position: [facility] RN Member Role: Primary Care Nurse Name: Areli Fischer RN Position: [facility] RN Member Role: Primary Care Nurse Name: Sabiha Márquez RN Position: [facility] RN Member Role: Primary Care Nurse Care Team Related Persons Name: DEJA LILLY Name: BRITNI SEARS Insurance Providers Guarantor name: [facility] Information #: 1 Payer: [email or web address]ER [employer] Payer Identifier: NA Member Number: [id number] Group Number: [id number] Subscriber Identifier: NA Relationship to Subscriber: self Coverage Type: MEDICAID Coverage Verification Date: NA Telecom: NA Address: NA
--- OUTSIDE RECORDS SUMMARY | 2025-09-19 10:00 | XMS_ITS | Encounter Summary ---
Author Organization [employer] Address [address] [facility] [address] [place] [address] Care Team Providers Care Second Cutter Name Role Phone Melani Anderson MD Primary Care Provide r Encounter Details Date Type Department Care Team ([facility] Contact Info) Description 09/19/2025 10:00 AM EST Office Visit [facility] MEDICINE [address] [place] [address] Melani Anderson MD [address] [place] [address] Chronic anemia (Primary Dx); Prediabetes; Dietary counseling; Exercise counseling; Class 1 obesity due to excess calories with serious comorbidity and body mass index (BMI) of 31.0 to 31.9 in adult; Chronic bilateral low back pain with bilateral sciatica; Moderate persistent asthma without complication; Encounter for immunization; Essential hypertension Social History Tobacco Use Types Packs/Day Years [...] Sign Reading Time Taken Comments Blood Pressure 150/100 09/19/2025 9:58 AM EST Pulse 68 09/19/2025 9:58 AM EST Temperature - - Respiratory Rate 15 09/19/2025 9:58 AM EST Oxygen Saturation 98% 09/19/2025 9:58 AM EST Inhaled Oxygen Concentration - - Weight 74.5 kg (164 lb 3.2 oz) 09/19/2025 9:58 A M EST Height 152.4 cm (5') 09/19/2025 9:58 AM EST Body Mass Index 32.07 09/19/2025 9:58 AM EST documented in this encounter Progress Notes * Melani Xiong MD - 09/19/2025 10:00 AM EST SUBJECTIVE: Krys Walker is a 55 y.o. year old female who presents for Chronic Disease Management . Krys Walker, 55 years Adverse Reaction to Weight Loss Injection - Developed a severe rash at the injection site after starting weight loss medication - Rash described as really bad and associated with itching, especially at night - Noted bumps ( chichones ) at the site - Symptoms began after increasing the dose; last injection was in July or August 2025 - Stopped the medication due to side effects - Experienced dizziness and inability to eat, leading to significant decrease in oral intake - Denies fever Chronic Anemia - Longstanding history of anemia, present for years - Reports recent worsening of symptoms, including increased fatigue and sleepiness - Receiving iron infusions - Concerned about potential progression to cancer due to chronic anemia Chronic Back Pain and Lumbar Radiculopathy - History of chronic low back pain for over 12 years - Reports pain radiating to lower back and sacral area, associated with nerve impingement - Describes episodes of severe pain with inability to move, requiring assistance to get out of bed - Reports ongoing pain with certain movements and prolonged walking - Has received physical therapy and pain management, including tramadol Asthma - History of asthma, currently controlled with inhalers - Reports recent increase in wheezing and mucus production - Inhaler dose was recently increased Misc - Reports dietary modifications due to heart condition and weight management - Denies current tobacco use - Occasional marijuana use Social History Social History Narrative Not on file Problem List[1] Mitral valve regurgitation Back problem Bleeding external hemorrhoids Chronic constipation Class 1 obesity Cocaine abuse [...] in adult Acute pain of left shoulder Dysphagia Dysphonia Ingrown left greater toenail Otalgia of left ear Other voice and resonance disorders Asthma exacerbation Abdominal pain Back pain Acute midline low back pain without sciatica Chronic anemia Family History[2] Review of Systems Constitutional: Negative. HENT: Negative. Respiratory: Negative. Cardiovascular: Negative. Musculoskeletal: Positive for arthralgias and back pain. OBJECTIVE: Vitals: 09/19/25 0958 BP: (!) 150/100 BP Location: Left arm Patient Position: Sitting BP Cuff Size: Adult Pulse: 68 Resp: 15 SpO2: 98% Weight: 164 lb 3.2 oz (74.5 kg) Height: 5' (1.524 m) Physical Exam Follow Up: No follow-ups on file. Medications Ordered Prior to Encounter[3] Problem List Items Addressed This Visit Prediabetes Relevant Medications Tirzepatide-Weight Management (Zepbound) 5 MG/0.5ML solution auto-injector Other Relevant Orders POCT Hgb A1c (Completed) Chronic anemia - Primary Chronic bilateral low back pain with bilateral sciatica Moderate persistent asthma Relevant Medications RSV Pre-Fusion F A&B Vac Rcmb (Abrysvo) 120 MCG/0.5ML reconstituted solution Essential hypertension - Aerobic exercise to reduce BP. Initial goal of 30 min walk 3-5x/week. Increase as tolerated. - low-sodium diet (goal: <2g/day) and heart healthy diet such as DASH to reduce BP and prevent ASCVD. - Home BP monitoring 1-2 x day with goal of <140/90. - Seek immediate medical attention for chest pain, palpitations, SOB, syncope, or sudden changes inmental status. - Do not change or discontinue current prescriptions without first consulting health care provider Other Visit Diagnoses Dietary counseling Relevant Medications Tirzepatide-Weight Management (Zepbound) 5 MG/0.5ML solution auto-injector Exercise counseling Relevant Medications Tirzepatide-Weight Management (Zepbound) 5 MG/0.5ML solution auto-injector Class 1 obesity due to excess calories with serious comorbidity and body mass index (BMI) of 31.0 to 31.9 in adult Relevant Medications Tirzepatide-Weight Management (Zepbound) 5 MG/0.5ML solution auto-injector Encounter for immunization Relevant Medications RSV Pre-Fusion F A&B Vac Rcmb (Abrysvo) 120 MCG/0.5ML reconstituted solution Other Relevant Orders TDAP VACCINE 7 yrs + (Completed) Dietary counseling: - Provided dietary counseling, including recommendations to avoid fried foods, reduce fat intake, increase consumption of fruits, vegetables, fish, and lean meats, and ensure adequate intake of iron-rich foods such as beef liver and beets. Advised on the importance of balanced nutrition, especiallyin the context of anemia and weight management. Exercise counseling: - Recommended physical therapy and weight loss to reduce impact on lumbar spine and improve low back pain. Encouraged continued physical activity as tolerated. Class 1 obesity due to excess calories with serious comorbidity and body mass index (BMI) of 31.0 to 31.9 in adult: - Class 1 obesity with associated comorbidities. - Adjusted weight loss medication dose to 5 mg for maintenance. Provided dietary counseling. Encouraged continued weight management efforts. Ordered medication with 3 refills. - Risks and side effects: Discussed prior adverse reactions to higher doses of weight loss medication, including rash, pruritus, and poor oral intake. Chronic anemia: - Chronic anemia, longstanding, with ongoing hematology follow-up. Noted upcoming hematology appointment on October 27, 2025. Receiving iron infusions. - Reinforced importance of attending hematology appointment on October 27, 2025. Advised to continue iron-rich diet and iron supplementation as directed by hematology. - Risks and side effects: Discussed potential complications of anemia, including risk of malignancy. Chronic bilateral low back pain with bilateral sciatica: - Chronic bilateral low back pain with bilateral sciatica due to degenerative disc disease and nerve impingement at the lumbosacral region. Advised weight loss to reduce mechanical stress on the spine. Provided education on the importance of adherence to therapy and follow-up with pain management and orthopedics and pain management as scheduled Moderate persistent asthma without complication: - Moderate persistent asthma, currently controlled with inhaled medications. - Continued current inhaler regimen (noted as purple inhaler and montelukast). Reinforced adherenceto prescribed asthma medications. Declined influenza and COVID-19 vaccines. Discussed RSV vaccine availability at pharmacy. -Continue to follow with pulmonology This note was drafted using [employer] technology. The patient/patient's guardian has been informed and has consented to the use of this technology: Yes [1] Patient Active Problem List Diagnosis Mitral valve regurgitation Back problem Bleeding external hemorrhoids Chronic constipation Class 1 obesity Cocaine abuse [...] in adult Acute pain of left shoulder Dysphagia Dysphonia Ingrown left greater toenail Otalgia of left ear Other voice and resonance disorders Asthma exacerbation Abdominal pain Back pain Acute midline low back pain without sciatica Chronic anemia [2] No family history on file. [3] [...] TABLET BY MOUTH EVERY DAY NEEDED FOR [id number] tablet 1 calcium carbonate (Tums) 500 MG chewable tablet Chew 500 mg. cetirizine (ZyrTEC) 10 MG tablet TAKE 1 TABLET BY MOUTH EVERY DAY IN THE MORNING 90 tablet 2 clopidogrel (Plavix) 75 MG tablet Take 1 tablet by mouth Once per day. cyclobenzaprine (Flexeril) 10 MG tablet Take 1 tablet (10 mg) by mouth 3 times daily for 10 days. 30 tablet 0 D3 Super Strength 50 MCG (2000 UT) capsule TAKE 1 CAPSULE (50 MCG) BY MOUTH IN THE MORNING 90 capsule 1 [] dextran 70-hypromellose (artificial tears) 0.1-0.3 % ophthalmic [...] EVERY DAY NEEDED FOR ALLERGIES 90 tablet 3 lidocaine (Lidoderm) 5 % patch Apply 1 [...] AT THE SAME TIME 30 capsule 3 tiZANidine (Zanaflex) 6 MG capsule Take 1 capsule (6 mg) by mouth 3 times daily. 30 capsule 0 topiramate (Topamax) 25 MG tablet TAKE 1 TABLET BY MOUTH EVERY DAY 90 tablet 1 triamcinolone (Kenalog) 0.1 % ointment APPLY TO AFFECTED AREA TWICE A DAY 80 g 0 [DISCONTINUED] Tirzepatide-Weight Management (Zepbound) 12.5 MG/0.5ML solution auto-injector Inject0.5 mL (12.5 mg) under the skin 1 (one) time per week. INJECT ONE PEN (=12.5 MG) SUBCUTANEOUSLY ONCE A WEEK 2 mL 0 [DISCONTINUED] Tirzepatide-Weight Management (Zepbound) 2.5 MG/0.5ML solution auto-injector Inject 0.5 mL (2.5 mg) under the skin 1 (one) time per week. 2 mL 0 [DISCONTINUED] Tirzepatide-Weight Management (Zepbound) 7.5 MG/0.5ML solution auto-injector Inject 0.5 mL (7.5 mg) under the skin 1 (one) time per week. INJECT ONE PEN (=7.5 MG) SUBCUTANEOUSLY ONCE AWEEK 2 mL 0 No current facility-administered medications on file prior to visit. documented in this encounter Miscellaneous Notes * Assessment & Plan Note - Melani Xiong MD - 09/19/2025 1:16 PM EST Associated Problem(s): Essential hypertension - Aerobic exercise to reduce BP. Initial goal of 30 min walk 3-5x/week. Increase as tolerated. - low-sodium diet (goal: <2g/day) and heart healthy diet such as DASH to reduce BP and prevent ASCVD. - Home BP monitoring 1-2 x day with goal of <140/90. - Seek immediate medical attention for chest pain, palpitations, SOB, syncope, or sudden changes inmental status. - Do not change or discontinue current prescriptions without first consulting health care provider documented in this encounter Plan of Treatment Upcoming Encounters Date Type Department Care Team (Late st Contact Info) Description 09/20/2025 11:30 AM EST Immunization [facility] MEDIC[facility] [address] [place] [address] documented as of this encounter Procedures Procedure Name Priority Date/Time Associated Diagnosis Comments POCT GLYCATED HEMOGLOBIN, TOTAL Routine 09/19/2025 10:03 AM EST Prediabetes documented in this encounter Results * POCT Hgb A1c (09/19/2025 10:03 AM EST) Hemoglobin A1C 5.6 4.0 - 5.7 % QC Media Lot # [id number] Lot# Expiration Date [id number] Blood 09/19/2025 10:0 3 AM EST Melani Xiong MD POINT OF CARE TEST EN TER/EDIT ORDERABLES Final Result documented in this encounter Visit Diagnoses Diagnosis Chronic anemia- Primary Unspecified anemia Prediabetes Other abnormal glucose Dietary counseling Dietary surveillance and counseling Exercise counseling Class 1 obesity due to excess calories with serious comorbidity and body mass index (BMI) of 31.0 to 31.9 in adult Chronic bilateral low back pain with bilateral sciatica Moderate persistent asthma without complication Encounter for immunization Essential hypertension Unspecified essential hypertension documented in this encounter Additional Health Concerns Assessment Noted Time PHQ-9 Depression Total Score: 1 03/09/20 25 9:07 AM EDT documented as of this encounter Care Teams Second Cutter Relationship Specialty Start Date End Date Melani Anderson MD [address] [place] [address] PCP - General Family Medicine 07/20/19 Darlene Lassiter [employer] Teacher[employer] Machine Operator 10/08/23 Marilynn Garcia [employer] TeacherT[employer] Machine Operator 08/19/24 documented as of this encounter
--- NOTE | 2025-09-19 14:51 | A.OFFVIS_ITS ---
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 She has had low back pain since 2011, which she describes as an aching, burning, shooting, radiating, and tight sensation. The pain is localized to her lower spine and radiates to her buttocks and sometimes down her legs, with the right side being worse. Her pain is aggravated by walking, lifting, carrying heavy items, pushing, bending forward, and sitting. It is alleviated by rest and using a heating pad. She has completed physical therapy in the past, which provided temporary relief, and she continues with home exercises. Injections received two years ago at [facility] did not provide significant relief. An MRI revealed a broad-based disc bulge at L5-S1 impinging on the S1 nerve root, with mild central canal stenosis and mild bilateral neuroforaminal stenosis impinging the L5 nerve roots. The MRI also showed disc bulges at T12- L1, L1-L2, and L4-L5, as well as mild multilevel lumbar spondylosis and disc degeneration, most significant at L5-S1. She currently takes Tylenol and naproxen for pain, and has tried lidocaine patches without success. She reports that Tramadol was effective in the past. Her medical history is significant for coronary artery disease, for which she has had two cardiac stents placed, with the most recent one placed last year. She also has a history of anemia and takes aspirin, for which she avoids ibuprofen. She has been taking Zepbound for weight loss and has lost some weight, but she recently stopped it due to side effects including bruising, dizziness, and inability to eat at a higher dose; she is now restarting at a lower dose. She denies any history of diabetes. Regarding substance use, she wishes to avoid opioids due to family history. She reports a remote history of cocaine use and past use of marijuana, but has not used it in over three months. Pain Description - Onset: The patient reports her pain began in 2011. - Location: Pain is localized to the lower spine. - Radiation: The pain radiates to the buttocks and sometimes down the back of the legs, with the right leg being worse. - Quality: The pain is described as aching, burning, and tight. - Aggravating Factors: Pain is worsened by walking, lifting, carrying heavy items, pushing, bending forward, and sitting. - Alleviating Factors: Rest, relaxation, and using a heating pad help improve the pain. - Associated Symptoms: She reports numbness in the back of her leg. Pain Management - Affect: The patient reports that her pain has prevented her from going out with friends for more than three months. - Analgesia: She is currently using Tylenol, naproxen, and a heating pad for pain. - Analgesia: Past treatments include physical therapy, which provided temporary relief, and injections at an outside facility that were not significantly helpful. - Analgesia: She found Tramadol to be effective in the past but does not want to take opioids. - Activities of Daily Living: Her pain interferes with walking, lifting, carrying heavy items, pushing, and sitting. - Aberrant Drug-Related Behaviors: The patient expresses a strong desire to avoid opioid medications, citing family history of substance abuse. Oswestry Low Back Pain Disability Score=19 [facility] Medical History (Updated 09/21/25 @ 09:56 by VANDA Tobias) Tobacco dependence syndrome Other voice and resonance disorders Dysphonia Dysphagia Pain in left shoulder Acute pain of left knee Chest pain Unstable angina Hair loss Costochondritis Chronic knee pain Onychomycosis Migraine without aura, not refractory Left shoulder tendinitis Iron deficiency anemia due to chronic blood loss Fatigue Depressive disorder Cocaine abuse Cannabis dependence Bleeding external hemorrhoids Back problem Mitral valve regurgitation Chronic constipation Migraines Acid reflux HTN (hypertension) Sleep apnea Anemia Asthma Surgical History (Updated 09/19/25 @ 15:34 by VANDA Tobias) History of heart artery stent (~2023) H/O hernia repair Hx of carpal tunnel repair H/O bilateral salpingectomy Family History Mother Uterine cancer Father HTN (hypertension) Pacemaker Paternal Aunt History of open heart surgery Social History Household Members: None Alcohol intake: current Alcohol intake frequency: does not drink Patient Tobacco Use Status: Current everyday Tobacco user Tobacco use type: Cigarette Substance Use Type: Marijuana service: No Current occupational status: unemployed and disabled Gender identity: Female Review of Systems Narrative - Constitutional: Reports fatigue. - Musculoskeletal: Reports chronic low back pain. - Neurological: Reports pain radiating down to the buttocks and legs, and numbness in the back of the legs, R>L. Const All systems reviewed & are unremarkable except as noted in HPI and below Physical Exam Vital Signs: Last Vital Signs Pulse 61 09/19/25 14:57 BP 145/82 H 09/19/25 16:07 Pulse Ox 100 09/19/25 14:57 Oxygen Delivery Method Room Air 09/19/25 14:57 BMI result Body Mass Index 32.1 General: Appears afebrile. Alert and oriented. Mood and affect appropriate. Follows and participates in conversation appropriately. Respiratory effort is unlabored. No cough. Able to transition from sit to stand unassisted. Ambulates with bilaterally normal heel strike and toe off, increased back pain with toe standing. General: Yes no CVA tenderness Back/Spine/Pelvis Other: Limited lumbar ROM due to pain with extension and flexion. No midline TTP in cervical through thoracic regions, mild TTP i the lower lumbar region. Demonstrates 5/5 strength of quadriceps bilaterally as well as flexion/dorsif lexion of bilateral feet against resistance. 2+ pedal pulses bilaterally. Straight leg rise with dorsiflexion positive bilaterally. +2 patellar and +1 achilles reflexes bilaterally. Facet loading test positive bilaterally. Sterling sign, Devin?s, Gaenslen, Pelvic compression and Stinchfield tests are positive bilaterally. No groin pain with I/E hip rotations. Valsalva maneuver negative. Back: no CVA tenderness Cervical Spine: cervical ROM normal, cervical muscular tenderness, No Cervical spine scars present and No Cervical spine tenderness Thoracic/Lumbar Spine: thoracic and lumbar spine normal to inspection, No Thoracic/lumbar spine scar(s), Lasegue's sign positive bilateral and localized, pain with thoraco-lumbar ROM, thoraco-lumbar ROM limited, No thoracic spinal tenderness and lumbar spinal tenderness (L4-S1) Sacroiliac joints: bilaterally tender to palpation Results Reviewed Results Reviewed: MR lumbar spine wo con 08/29/25 CLINICAL HISTORY: acute pain not resolved with medication Comparison: CR/ME/SR - XR LUMBAR SPINE 2-3 VIEWS - 01/26/24 16:00 EDT Findings: No scoliosis or spondylolisthesis. No acute fracture or pathologic bone lesion. Cauda equina and conus medullaris within normal limits. Conus medullaris terminates at L1-2. T12-L1: Left of midline annular fissure. Left of midline broad-based disc bulge with minimal central canal stenosis and no significant neural foraminal stenosis. L1-2: Left of midline annular fissure. Broad-based disc bulge with minimal central canal stenosis and no significant neural foraminal stenosis. L2-3, L3-4: No significant central canal or neural foraminal stenosis. L4-5: Broad-based disc bulge with minimal central canal stenosis and no significant neural foraminal stenosis. L5-S1: Broad-based disc bulge impinging of the S1 nerve roots with mild central canal stenosis and mild bilateral neural foraminal stenosis impinging of the exiting L5 nerve roots. Paraspinous musculature intact. IMPRESSION: 1. Broad-based disc bulge at L5-S1 impinging on S1 nerve roots with mild central canal stenosis and mild bilateral neural foraminal stenosis impinging on exiting L5 nerve roots. 2. Broad-based disc bulges at T12-L1, L1-2, and L4-5 with minimal central canal stenosis. 3. No acute osseous abnormality. XR LUMBOSACRAL SPINE 01/25/25 CLINICAL INFORMATION: Chronic low back pain with bilateral sciatica. COMPARISON: 02/05/2023 TECHNIQUE: 4 views of the lumbar spine. FINDINGS: Slight rightward curvature of the lumbar spine. Facet arthritis in the lower lumbar spine. Bilateral sacroiliac joints appear symmetric. Mild multilevel lumbar spondylosis with loss of disc space height at L5-S1. Mild grade 1 anterolisthesis of L5 on S1. IMPRESSION: Mild multilevel lumbar spondylosis with loss of disc space height at L5-S1. Assessment & Plan Assessment & Plan (1) Lumbar degenerative disc disease: Code(s): M51.369 - Other intervertebral disc degeneration, lumbar region without mention of lumbar back pain or lower extremity pain Category: Medical (2) Lumbosacral spondylosis: Code(s): M47.817 - Spondylosis without myelopathy or radiculopathy, lumbosacral region Category: Medical (3) Lumbar disc herniation with radiculopathy: Code(s): M51.16 - Intervertebral disc disorders with radiculopathy, lumbar region Category: Medical (4) Chronic low back pain: Code(s): M54.50 - Low back pain, unspecified; G89.29 - Other chronic pain Category: Medical (5) Sacroiliac joint pain: Code(s): M53.3 - Sacrococcygeal disorders, not elsewhere classified Category: Medical Plan The patient's chronic low back pain with radiculopathy is consistent with her lumbar MRI findings, which include a disc bulge at L5-S1, disc degeneration, and spondylosis. Multiple interventional treatment options were discussed, including a steroidal injection, diagnostic nerve blocks with potential radiofrequency ablation or peripheral nerve stimulation, and spinal cord stimulation for a longer term pain management. Considering her pain with forward flexion and history of an ineffective nerve block for presumed SI joint pain, the agreed- upon plan is to proceed with a bilateral L5-S1 transforaminal epidural steroid injection with local and fluoroscopy. Expectations, risks and benefits were reviewed. Patient is aware she will be contacted to schedule this procedure. We will request her previous medical records from [facility] for review. She will continue managing her pain with Tylenol and naproxen at home. All questions and concerns have been answered and patient agreed with the treatment plan. Follow up after injection and sooner as needed. Patient was informed and verbally consented to the use of an ambient scribe for clinic note documentation during this visit. Coding Level of Care Code New Pt Level 4 (15649) Diagnoses Lumbar degenerative disc disease M51.369 Lumbosacral spondylosis M47.817 Lumbar disc herniation with radiculopathy M51.16 Chronic low back pain M54.50; G89.29 Sacroiliac joint pain M53.3
[2025-09-19 14:57] VITALS: BP 197/96; PULSE 61; O2SAT 100; BMI 32.1
[2025-09-19 16:07] VITALS: BP 145/82
--- OUTSIDE RECORDS SUMMARY | 2025-09-19 21:08 | XMS_ITS | Encounter Summary ---
Author Organization [employer] Address [address] [facility] 7t [place] [address] Care Team Providers Care Retrofit Installer Name Role Phone Melani Anderson MD Primary Care Provide r Paris Langford Unavailable Reason for Visit * Reason Onset Date Comments Med Refill 12/19/2022 Encounter Details Date Type Department Care Team ([facility] st Contact Info) Description 12/19/2022 Telephone [facility] MEDICINE [address] [place] [address] Melani Anderson MD [address] [place], [place] [phone] Med Refill Social History Tobacco Use Types [...] Tramadol 50 mg tablet. Please sen to [facility]/pharmacy #[id number] - [place] - [address] [facility] documented in this encounter Plan of Treatment Upcoming Encounters Date Type Department Care Team (Late st Contact Info) Description 09/20/2025 11:30 AM EST Immunization [facility] MEDICINE [address] [place] [address] documented as of this encounter Visit Diagnoses Not on filedocumented in this encounter Care Teams Retrofit Installer Relationship Specialty Start Date End Date Melani Anderson MD [address] [place] [address] PCP - General Family Medicine 07/20/19 Paris Langford 08/08/25 08/10/25 Darlene Lassiter Braided Rug MakerManager Interventional 10/08/23 Marilynn Garcia Braided Rug MakerManager Interventional 08/19/24 documented as of this encounter
--- OUTSIDE RECORDS SUMMARY | 2025-09-19 21:08 | XMS_ITS | Encounter Summary ---
Author Organization [employer] Address [address] [place] [address] 7t [place] [address] Care Team Providers Care Factory Worker Name Role Phone Melani Anderson MD Primary Care Provide r Paris Langford Unavailable Reason for Visit * Reason Comments Med Refill Encounter Details Date Type Department Care Team ([facility] Contact Info) Description 2023 Refill [facility] MEDICINE [address] [place] [address] Sherice Kramer MD [address] [place] [address] Left shoulder tendinitis Social History Tobacco Use [...] Upcoming Encounters Date Type Department Care Team ([facility] Contact Info) Description 09/20/2025 11:30 AM EST Immunization [facility] MEDICINE [address] [place], [place] [phone] documented as of this encounter Visit Diagnoses Diagnosis Left shoulder tendinitis documented in this encounter Care Teams Factory Worker Relationship Specialty Start Date End Date Melani Anderson MD [address] [place] [address] PCP - General Family Medicine 07/20/19 Paris Langford 08/08/25 08/10/25 Darlene Lassiter Community Health Education CoordinatorEnterprise Mobility Architect 10/08/23 Marilynn Garcia Community Health Education CoordinatorEnterprise Mobility Architect 08/19/24 documented as of this encounter
--- OUTSIDE RECORDS SUMMARY | 2025-09-19 21:08 | XMS_ITS | Encounter Summary ---
Author Organization [employer] Address [address] [place] [address] 7t [place] [address] Care Team Providers Care Drafter Civil Engineering Name Role Phone Melani Anderson MD Primary Care Provide r Paris Langford Unavailable Reason for Visit * Reason Onset Date Comments Med Refill 10/13/2023 Encounter Details Date Type Department Care Team (Late st Contact Info) Description 10/13/2023 Refill [facility] MEDICINE [address] [place] [address] Melani Anderson MD [address] [place], [place] [phone] Multiple joint pain (Primary Dx) Social History [...] refill : Tramadol To be sent to: [facility]/pharmacy #[id number] - [place] - [address] documented in this encounter Plan of Treatment Upcoming Encounters Date Type Department Care Team (Late st Contact Info) Description 09/20/2025 11:30 AM EST Immunization [facility] MEDICINE [address] [place] [address] documented as of this encounter Visit Diagnoses Diagnosis Multiple joint pain- Primary Pain in joint, multiple sites documented in this encounter Care Teams Drafter Civil Engineering Relationship Specialty Start Date End Date Melani Anderson MD [address] [facility] [place] [place] [address] PCP - General Family Medicine 07/20/19 Paris Langford 08/08/25 08/10/25 Darlene Lassiter Dealer Account ManagerMarketing Outreach Coordinator 10/08/23 Marilynn Garcia Dealer Account ManagerMarketing Outreach Coordinator 08/19/24 documented as of this encounter
--- OUTSIDE RECORDS SUMMARY | 2025-09-19 21:08 | XMS_ITS | Clinical Summary ---
Author Organization [facility] Address [address] [place] [address] Phone Care Team Providers Care Night Stocker Name Role Phone Manjula Brasher BRICKLAYER TENDER Primary Care Provider [phone] Allergies No known active allergies Encounters Date Type Department Care Team Description 09/05/2025 1:45 PM EST Office Visit [facility] [place] [address] [phone] Sergio Martino DPM Ingrowing nail (Primary Dx); Dermatophytosis of nail; Pain in toe of right foot; Pain in toe of left foot; Blindness, unspecified laterality 07/04/2025 3:30 PM EDT Office Visit [facility] [place] [address] [phone] Sergio Martino DPM Ingrowing nail [...] Upcoming Encounters Date Type Department Care Team ([facility] st Contact Info) Description 12/06/2025 2:00 PM EST Office Visit [facility] [address] [phone] Sergio Martino DPM [address] [phone] Health Maintenance Due Date Last [...] (#1) 2025 Hypertension/CHF/CAD Annual BMP Blood Test 08/06/2026 08/06/2025, 12/07/2024 Cholesterol Screening (Lipid Panel) 12/07/2029 12/07/2024 [...] topic Insurance MEDICAID - [place] Care Teams Night Stocker Relationship Specialty Start Date End Date Manjula Brasher FNP [address] [place] [id number] PCP - General Nurse Practitioner 11/17/24
--- OUTSIDE RECORDS SUMMARY | 2025-09-19 21:08 | XMS_ITS | Encounter Summary ---
Author Organization [employer] Address [address] [place] [address] 7t [place] [address] Care Team Providers Care Electrical Manufacturing Technician Name Role Phone Melani Anderson MD Primary Care Provide r Paris Langford Unavailable Reason for Visit * Reason Comments Med Refill Encounter Details Date Type Department Care Team ([facility] Contact Info) Description 10/11/2023 Refill [facility] MEDICINE [address] [place] [address] Sherice Kramer MD [address] [place] [address] Left shoulder tendinitis Social History Tobacco Use [...] Upcoming Encounters Date Type Department Care Team ([facility] Contact Info) Description 09/20/2025 11:30 AM EST Immunization [facility] MEDICINE [address] [place], [place] [phone] documented as of this encounter Visit Diagnoses Diagnosis Left shoulder tendinitis documented in this encounter Care Teams Electrical Manufacturing Technician Relationship Specialty Start Date End Date Melani Anderson MD [address] [place] [address] PCP - General Family Medicine 07/20/19 Paris Langford 08/08/25 08/10/25 Darlene Lassiter Gas Engine OperatorManagement Expert 10/08/23 Marilynn Garcia Gas Engine OperatorManagement Expert 08/19/24 documented as of this encounter
--- OUTSIDE RECORDS SUMMARY | 2025-09-19 21:08 | XMS_ITS | Encounter Summary ---
Author Organization [employer] Address [address] [place] [address] 7t [place] [address] Care Team Providers Care Principal Technical Specialist Name Role Phone Melani Anderson MD Primary Care Provide r Paris Langford Unavailable Encounter Details Date Type Department Care Team ([facility] Contact Info) Description 11/01/2022 Telephone [facility] ADULT DENTAL [address] [place] [address] Sanchez Edwards, DMD [address] [place] [address] Social History Tobacco Use Types Packs/Day Years [...] Upcoming Encounters Date Type Department Care Team ([facility] Contact Info) Description 09/20/2025 11:30 AM EST Immunization [facility] MEDICINE [address] [place] [address] documented as of this encounter Visit Diagnoses Not on filedocumented in this encounter Care Teams Principal Technical Specialist Relationship Specialty Start Date End Date Melani Anderson MD [address] [place] [address] PCP - General Family Medicine 07/20/19 Paris Langford 08/08/25 08/10/25 Darlene Lassiter Maintainer PlantDeputy Director Of Finance 10/08/23 Marilynn Garcia Maintainer PlantDeputy Director Of Finance 08/19/24 documented as of this encounter
--- OUTSIDE RECORDS SUMMARY | 2025-09-19 21:09 | XMS_ITS | Encounter Summary ---
Author Organization [employer] Address [address] [facility] 7t [place] [address] Care Team Providers Care Assistant Professor Of Theater Name Role Phone Melani Anderson MD Primary Care Provide r Paris Langford Unavailable Reason for Visit * Reason Comments Med Refill Encounter Details Date Type Department Care Team ([facility] st Contact Info) Description 04/03/2025 Refill [facility] MEDICINE [address] [place] [address] Melani Anderson MD [address] [place], [place] [phone] Class 1 obesity due to excess calories [...] Info) Description 09/20/2025 11:30 AM EST Immunization [facility] MEDICINE [address] [place] [address] documented as of this encounter Visit Diagnoses Diagnosis Class 1 obesity due to excess calories with serious comorbidity and body mass index (BMI) of 34.0 to 34.9 in adult documented in this encounter Additional Health Concerns Assessment Noted Time PHQ-9 Depression Total Score: 1 03/09/20 25 9:07 AM EDT documented as of this encounter Care Teams Assistant Professor Of Theater Relationship Specialty Start Date End Date Melani Anderson MD [address] [place] [address] PCP - General Family Medicine 07/20/19 Paris Langford 08/08/25 08/10/25 Darlene Lassiter Technical Services RepMiddle School Volleyball Coach 10/08/23 Marilynn Garcia Technical Services RepMiddle School Volleyball Coach 08/19/24 documented as of this encounter
--- OUTSIDE RECORDS SUMMARY | 2025-09-19 21:09 | XMS_ITS | Encounter Summary ---
Author Organization [employer] Address [address] [facility] 7t [place] [address] Care Team Providers Care Human Resource Analyst Name Role Phone Melani Anderson MD Primary Care Provide r Paris Langford Unavailable Encounter Details Date Type Department Care Team ([facility] Contact Info) Description 09/13/2024 Orders Only [facility] PEDS [address] [place], [place] [phone] Kaykay Dunlap MD [address] [place] [address] Social History Tobacco Use Types Packs/Day Years [...] EST Immunization [facility] MEDICINE [address] [place] [address] documented as of this encounter Visit Diagnoses Not on filedocumented in this encounter Additional Health Concerns Assessment Noted Time PHQ-9 Depression Total Score: 1 02/11/20 24 11:34 AM EDT documented as of this encounter Care Teams Human Resource Analyst Relationship Specialty Start Date End Date Melani Anderson MD [address] [place] [address] PCP - General Family Medicine 07/20/19 Paris Langford 08/08/25 08/10/25 Darlene Lassiter Pediatric Clinical DieticianExchange Consultant 10/08/23 Marilynn Garcia Pediatric Clinical DieticianExchange Consultant 08/19/24 documented as of this encounter
--- OUTSIDE RECORDS SUMMARY | 2025-09-19 21:09 | XMS_ITS | Clinical Summary ---
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 Use one puff for rescue every 6 hours as needed. RINSE MOUTH AND THROAT AFTER USE. 1 each 023 Active montelukast (Singulair) 10 MG tabletIndication s:Moderate persistent asthma without complication Take 1 tablet (10 mg) by mouth Once per day. 30 tablet 2 024 Active ProAir HFA 108 (90 Base) MCG/ACT inhalerIndicatio ns:Moderate persistent asthma without complication TAKE 2 PUFF INHALATIONS 4 TIMES DAILY NEEDED FOR WHEEZING 18 g 2 024 Active docusate sodium (Colace) 100 MG capsuleIndicatio ns:Chronic constipation TAKE 1 CAPSULE BY MOUTH TWICE A DAY 180 capsule 3 024 Active tiotropium (Spiriva HandiHaler) 18 MCG inhalation capsuleIndicatio ns:Moderate persistent asthma without complication USE 1 CAPSULE FOR INHALATION ONCE A DAY DO NOT SWALLOW CAPSULE AT THE SAME TIME 30 capsule 3 024 Active Aspirin Low Dose 81 MG EC [...] GM/10ML suspension Take 1 g by mouth. 024 Active calcium carbonate (Tums) 500 MG chewable tablet Chew 500 mg. Active nicotine polacrilex (Nicorette) 4 MG gumIndications:T obacco use Chew 1 each (4 mg) if needed for smoking cessation (use in place of cigarettes). 100 each 1 024 Active topiramate (Topamax) 25 MG tabletIndication s:Migraine without status migrainosus, not intractable, unspecified migraine [...] nostril as directed 30 mL 12 024 Active bacitracin-polym yxin b (Polysporin) ointment Apply topically 2 times daily. 15 g 025 Active bisacodyl (Bisacodyl EC) 5 MG EC tabletIndication s:Left shoulder tendinitis TAKE 1 TABLET BY MOUTH EVERY DAY NEEDED FOR CONSTIPATION 90 tablet 1 025 Active diphenhydrAMINE (BENADryl) 25 MG tabletIndication s:Atopic dermatitis in adult Take 1 tablet (25 mg) by mouth if needed at bedtime for itching. 30 tablet 025 Active diphenhydrAMINE (BENADryl) 2 % creamIndications :Atopic dermatitis in adult Apply topically if needed in the morning, at noon, and at bedtime for itching. 30 g 025 2025 Active Acetaminophen Extra Strength 500 MG tabletIndication s:Pain, unspecified TAKE 2 TABLETS (1,000 MG) BY MOUTH EVERY 8 (EIGHT) HOURS IF NEEDED FOR MILD PAIN FOR UP TO 10 DAYS. 90 tablet 1 025 Active fexofenadine (Darlyn) 180 MG tabletIndication s:Seasonal allergies TAKE 1 TABLET BY MOUTH EVERY DAY NEEDED FOR ALLERGIES 90 tablet 025 Active metoprolol succinate XL (Toprol-XL) 25 MG 24 hr tabletIndication s:Essential hypertension TAKE 1 TABLET BY MOUTH EVERY DAY IN THE MORNING 90 tablet 1 025 Active tiZANidine (Zanaflex) 6 MG capsuleIndicatio ns:Acute pain of left shoulder Take 1 capsule (6 mg) by mouth 3 times daily. 30 capsule 025 2025 Active triamcinolone (Kenalog) 0.1 % ointmentIndicati ons:Atopic dermatitis in adult APPLY TO AFFECTED AREA TWICE A DAY 80 g 025 Active cyclobenzaprine (Flexeril) 10 MG tabletIndication s:Acute midline low back pain without sciatica Take 1 tablet (10 mg) by mouth 3 times daily for 10 days. 30 tablet 025 Active lidocaine (Lidoderm) 5 % patchIndications :Acute midline low back pain without sciatica Apply 1 patch topically Once per day. Remove & discard patch within 12 hours or as directed by . 30 patch 3 025 Active D3 Super Strength 50 MCG (2000 UT) capsule TAKE 1 CAPSULE (50 MCG) BY MOUTH IN THE MORNING 90 capsule 1 025 Active pantoprazole (ProtoNix) 40 MG EC tablet TAKE 1 TABLET BY MOUTH TWICE DAILY. DO NOT CRUSH, CHEW, OR SPLIT. 180 tablet 025 Active fexofenadine (Darlyn) 180 MG tablet TAKE 1 TABLET BY MOUTH EVERY DAY NEEDED FOR ALLERGIES 90 tablet 3 025 Active Tirzepatide-Weig ht Management (Zepbound) 5 MG/0.5ML solution auto-injectorInd ications:Class 1 obesity due to excess calories with serious comorbidity and body mass index (BMI) of 31.0 to 31.9 in adult Inject 0.5 mL (5 mg) under the skin 1 (one) time per week. 2 mL 3 Active RSV Pre-Fusion F A&B Vac Rcmb (Abrysvo) 120 MCG/0.5ML reconstituted solutionIndicati ons:Moderate persistent asthma without complication Inject 0.5 mL (120 mcg) into the muscle 1 (one) time for 1 dose. 0.5 mL 025 2024 Active dextran 70-hypromellose (artificial tears) 0.1-0.3 % ophthalmic solutionIndicati ons:Dry eyes, bilateral Administer 1 drop into both eyes if needed in the morning, at noon, and at bedtime for dry eyes. 15 mL 6 024 2024 fexofenadine (Darlyn) 180 MG tablet TAKE 1 TABLET BY MOUTH EVERY DAY NEEDED FOR ALLERGIES 90 tablet 025 2024 Discontinued(R eorder (will not trigger notification to Pharmacy)) Tirzepatide-Weig ht Management (Zepbound) 2.5 MG/0.5ML solution auto-injectorInd ications:Class 1 obesity due to excess calories with serious comorbidity and body mass index (BMI) of 34.0 to 34.9 in adult Inject 0.5 mL (2.5 mg) under the skin 1 (one) time per week. 2 mL 025 2024 Discontinued Tirzepatide-Weig ht Management (Zepbound) 7.5 MG/0.5ML solution auto-injectorInd ications:Class 1 obesity due to excess calories with serious comorbidity and body mass index (BMI) of 34.0 to 34.9 in adult Inject 0.5 mL (7.5 mg) under the skin 1 (one) time per week. INJECT ONE PEN (=7.5 MG) SUBCUTANEOUSLY ONCE A WEEK 2 mL 025 2024 Discontinued pantoprazole (ProtoNix) 40 MG EC tablet TAKE 1 TABLET BY MOUTH TWICE DAILY. DO NOT CRUSH, CHEW, OR SPLIT. 180 tablet 025 2024 Discontinued(R eorder (will not trigger notification to Pharmacy)) Tirzepatide-Weig ht Management (Zepbound) 12.5 MG/0.5ML solution auto-injector Inject 0.5 mL (12.5 mg) under the skin 1 (one) time per week. INJECT ONE PEN (=12.5 MG) SUBCUTANEOUSLY ONCE A WEEK 2 mL 025 2024 Discontinued Active Problems Problem Noted Date Diagnosed Date Chronic anemia 09/19/2025 Ingrown left greater toenail 08/10/2025 Asthma exacerbation [...] Leukocytosis 04/27/2024 Patellar tendinitis 03/05/2024 Unstable angina ([facility]) 02/18/2024 Assessment & Plan (03/09/2025 [...] 10/15/2017 Essential hypertension 07/30/2017 Assessment & Plan (09/19/2025 1:16 PM EST): - Aerobic exercise to reduce BP. Initial [...] consulting health care provider Assessment & Plan (05/12/2025 2:49 PM EDT): [...] Note: Date Diagnosed: 01/17/2016 2:00 PM (H92.02) Cocaine abuse 08/09/2015 Tobacco dependence syndrome 05/04/2015 Back problem 07/24/2012 Depressive disorder 03/24/2012 GERD (gastroesophageal reflux disease) 2 Assessment & Plan (02/02/2024 11:57 AM EDT): - mild, probably exacerbated by recent use of NSAIDs for back pain - discontinue Ibuprofen - prescription for Omeprazole to take x 1 month sent to [facility] - counsled regarding weight reduction Assessment [...] toe 11/05/2022 03/09/2025 Hand pain 07/17/2017 03/09/2025 Cannabis dependence 08/09/2015 09/19/20 25 Encounters Date Type Department Care Team Description 09/19/2025 10:00 AM EST Office Visit [facility] [address] [place] [address] [phone] Melani Anderson MD Chronic anemia (Primary Dx); Prediabetes; Dietary counseling; Exercise counseling; Class 1 obesity due to excess calories with serious comorbidity and body mass index (BMI) of 31.0 to 31.9 in adult; Chronic bilateral low back pain with bilateral sciatica; Moderate persistent asthma without complication; Encounter for immunization; Essential hypertension 09/19/2025 Travel 09/16/2025 Telephone [facility] [address] [place] [address] [phone] Melani Anderson MD Chart Prep 09/08/2025 Patient Outreach [facility] [address] [place] [address] [phone] Melani Anderson MD Pre-visit Planning (SDOH screening completed on 03/09/2025) 09/07/2025 Orders Only [facility] [address] [place] [address] Melani Anderson MD Acute pain of left shoulder (Primary Dx) 09/07/2025 Results Follow-Up [facility] [address] [place] [address] Melani Anderson MD MR Lumbar Spine w/o Contrast 08/26/2025 Refill [facility] [address] [place] [address] Melani Anderson MD 08/14/2025 Refill [facility] [address] [place] [address] [phone] Melani Anderson MD 08/10/2025 9:30 AM EST Telemedicine [facility] [address] [place] [address] [phone] Melani Anderson MD Acute pain of left shoulder (Primary Dx); Acute midline low back pain without sciatica 08/10/[address] [facility] [address] [place] [address] [phone] Melani Anderson MD Care Coordination (Communication to pts assigned CP Coordinator ) 08/10/2025 Travel 08/09/[address] [facility] [address] [place] [address] [phone] Melani Anderson MD Care Coordination (CP Care Coordination Chart Review) 08/08/2025 Patient Outreach [facility] [address] [place] [address] [phone] Melani Anderson MD 08/06/2025 Orders Only GENERIC EXTERNAL DATA DEPARTMENT Provider, Generic External Data 07/27/2025 Orders Only [facility] [address] [place] [address] [phone] Melani Anderson MD 07/26/2025 Refill [facility] [address] [place] [address] [phone] Melani Anderson MD 07/16/2025 Refill [facility] [address] [place] [address] [phone] Melani Anderson MD Class 1 obesity due to excess calories with serious comorbidity and body mass index (BMI) of 34.0 to 34.9 in adult 07/16/2025 Refill [facility] [address] [place] [address] Marci Blackman CNP Atopic dermatitis in adult 07/16/2025 Refill [facility] [address] [place] [address] Vida Qureshi DO Acute pain of left knee 07/12/2025 1:20 PM EDT Office Visit [facility] [address] [place] [address] [phone] Melani Anderson MD Acute pain of left shoulder 07/12/2025 Results Follow-Up [facility] [address] [place] [address] [phone] Melani Anderson MD XR Shoulder 2+ Views Left 07/12/2025 Travel 07/12/2025 Telephone [facility] [address] [place] [address] [phone] Melani Anderson MD Nurse Triage 07/01/2025 Outside Procedure [facility] [address] [place] [address] Bernadette Donahue, OD Presbyopia (Primary Dx) 06/29/2025 10:45 AM EDT Office Visit [facility] [address] [place] [address] [phone] Bernadette Donahue, OD Hyperopia of left eye (Primary Dx) 06/29/2025 Travel 06/29/2025 Refill [facility] [address] [place] [address] [phone] Melani Anderson MD Essential hypertension 06/27/2025 Refill [facility] [address] [place] [address] [phone] Melani Anderson MD from Last 3 Months Immunizations Immunization Administration Dates Next Due Hep B, adult 03/22/2011,09/24/2010,05/16/2010 Pneumococcal Conjugate PCV 20 12/07/2024 Pneumococcal Polysaccharide PPSV23 03/23/2017 TD (adult), 2 Lf tetanus tox oid, preservative free, adsorbed 10/06/2007 Tdap 09/19/2025,11/02/2013 Social History Tobacco Use Types Packs/Day Years [...] Pulse 68 09/19/2025 9:58 AM EST Temperature 36.7 C (98.1 F) 07/12/2025 1:16 PM EDT Respiratory Rate 15 09/19/2025 9:58 AM EST Oxygen Saturation 98% 09/19/2025 9:58 AM EST Inhaled Oxygen Concentration - - Weight 74.5 kg (164 lb 3.2 oz) 09/19/2025 9:58 A M EST Height 152.4 cm (5') 09/19/2025 9:58 AM EST Body Mass Index 32.07 09/19/2025 9:58 AM EST Plan of Treatment Upcoming Encounters Date Type Department Care Team (Late st Contact Info) Description 09/20/2025 11:30 AM EST Immunization [facility] [address] [place] [address] [phone] Health Maintenance Due Date Last Done Comments CT Colonography 1970 Colonoscopy 1970 Colorectal Cancer Screening 1970 Dental Prophylaxis 1970 Dental X-Ray: Bitewings 1970 FIT DNA/Cologuard 1970 FIT 1970 FOBT 1970 Sigmoidoscopy 1970 RSV Patients and Patients Aged 60 years or older (1 - Risk 50-74 years 1-dose series) 2020 Zoster Vaccines (1 of 2) 2020 Dental Oral Exam 05/28/2023 11/27/2022 COVID-19 Vaccine ( season) 2025 02/22/2021, 01/25/2021 Influenza Vaccine (#1) 2025 Dental X-Ray: Full Mouth 08/02/2025 08/01/2022, 09/12/2020 Alcohol/Substance Use Screening 03/09/2026 03/09/2025 Depression Screening 03/09/2026 03/09/2025, 03/09/20 Disability Screening 03/09/2026 03/09/2025 SDOH Screening 03/09/2026 03/09/2025 Cervical Cancer Screening 04/24/2026 HPV/Cotest 04/24/2026 04/24/2021, 03/10/2017 Pap Smear 04/24/2026 04/24/2021 Diabetes: Hemoglobin A1C 09/19/2026 025, 12/07/2024, 04/27/2024, Additional history exists Tobacco Screening 09/19/2026 09/19/2025 Mammogram 01/17/2027 01/17/2025, 12/05, 12/11/2020, Additional history exists Lipid Panel 12/07/2029 12/07/2024, 04/07, 08/28/2021 DTaP/Tdap/Td Vaccines (3 - Td or Tdap) 09/19/2035 09/19/2025, 11/02/2013, 10/06/2007 Hepatitis B Vaccines Completed 03/22/2011, 09/24/2010, 05/16/2010 [...] TOTAL Routine 09/19/2025 10:03 AM EST Prediabetes MR LUMBAR SPINE WO CONTRAST Urgent 08/29/2025 9:12 PM EST Acute midline low back pain without sciatica URINALYSIS, COMPLETE, WITH REFLEX TO CULTURE Routine [...] Recently Relevant to Health Maintenance Results * POCT Hgb A1c (09/19/2025 10:03 AM EST) Hemoglobin A1C 5.6 4.0 - 5.7 % QC Media Lot # [id number] Lot# Expiration Date 72 Blood 09/19/2025 10:0 3 AM EST Melani Xiong MD POINT OF CARE TEST EN TER/EDIT ORDERABLES Final Result * MR Lumbar Spine w/o Contrast (08/29/2025 9:12 PM EST) Anatomical Region Laterality Modality Spine, L-spine Magnetic Resonan ce 08/29/2025 9:12 PM EST Narrative 08/29/2025 9:14 PM EST [place] [id number] Magnetic Resonance Report Signed Patient: Krys Walker MR#: [id number] 59 : 1970 Acct:[id number] Age/Sex: 55 / F ADM Date: 08/29/25 Loc: HO.MRI Attending Dr: Melani Xiong MD Ordering Physician: Melani Anderson MD Date of Service: 08/29/25 Procedure(s): MR lumbar spine wo con Accession Number(s): [id number] cc: Melani Anderson MD Reason for Exam: acute pain not resolved with medication CLINICAL HISTORY: acute pain not resolved with medication MR lumbar spine without gadolinium Comparison: CR/GA/SR - XR LUMBAR SPINE 2-3 VIEWS - 01/26/24 16:00 EDT Findings: No scoliosis or spondylolisthesis. No acute fracture or pathologic bone lesion. Cauda equina and conus medullaris within normal limits. Conus medullaris terminates at L1-2. T12-L1: Left of midline annular fissure. Left of midline broad-based disc bulge with minimal central canal stenosis and no significant neural foraminal stenosis. L1-2: Left of midline annular fissure. Broad-based disc bulge with minimal central canal stenosis and no significant neural foraminal stenosis. L2-3, L3-4: No significant central canal or neural foraminal stenosis. L4-5: Broad-based disc bulge with minimal central canal stenosis and no significant neural foraminal stenosis. L5-S1: Broad-based disc bulge impinging of the S1 nerve roots with mild central canal stenosis and mild bilateral neural foraminal stenosis impinging of the exiting L5 nerve roots. Paraspinous musculature intact. IMPRESSION: 1. Broad-based disc bulge at L5-S1 impinging on S1 nerve roots with mild central canal stenosis and mild bilateral neural foraminal stenosis impinging on exiting L5 nerve roots. 2. Broad-based disc bulges at T12-L1, L1-2, and L4-5 with minimal central canal stenosis. 3. No acute osseous abnormality. This document has been electronically signed by: Armani Smith MD on 08/29/2025 21:12:40 Dictated By: Armani Smith MD Signed By: <Electronically signed by Armani Smith MD in OV> 08/29/252113 DD/ 11 TD/TT: 08/29/252111 Can Line Examiner: Procedure Note Donotuseinterpreter, Image - 08/29/2025 [place] [id number] Magnetic Resonance Report Signed Patient: Олег Walker#: [id number] 59 : 1970Acct:[id number] Age/Sex: 55 / FADM Date: 08/29/25 Loc: HO.MRI Attending Dr: Melani Xiong MD Ordering Physician: Melani Anderson MD Date of Service: 08/29/25 Procedure(s): MR lumbar spine wo con Accession Number(s): [id number] cc: Melani Anderson MD Reason for Exam: acute pain not resolved with medication CLINICAL HISTORY: acute pain not resolved with medication MR lumbar spine without gadolinium Comparison: CR/GA/SR - XR LUMBAR SPINE 2-3 VIEWS - 01/26/24 16:00 EDT Findings: No scoliosis or spondylolisthesis. No acute fracture or pathologic bone lesion. Cauda equina and conus medullaris within normal limits. Conus medullaris terminates at L1-2. T12-L1: Left of midline annular fissure. Left of midline broad-based disc bulge with minimal central canal stenosis and no significant neural foraminal stenosis. L1-2: Left of midline annular fissure. Broad-based disc bulge with minimal central canal stenosis and no significant neural foraminal stenosis. L2-3, L3-4: No significant central canal or neural foraminal stenosis. L4-5: Broad-based disc bulge with minimal central canal stenosis and no significant neural foraminal stenosis. L5-S1: Broad-based disc bulge impinging of the S1 nerve roots with mild central canal stenosis and mild bilateral neural foraminal stenosis impinging of the exiting L5 nerve roots. Paraspinous musculature intact. IMPRESSION: 1. Broad-based disc bulge at L5-S1 impinging on S1 nerve roots with mild central canal stenosis and mild bilateral neural foraminal stenosis impinging on exiting L5 nerve roots. 2. Broad-based disc bulges at T12-L1, L1-2, and L4-5 with minimal central canal stenosis. 3. No acute osseous abnormality. This document has been electronically signed by: Armani Smith MD on 08/29/2025 21:12:40 Dictated By: Armani Smith MD Signed By: <Electronically signed by Armani Smith MD in OV> 08/29/252113 DD/ 11 TD/TT: 08/29/252111 Can Line Examiner: us Melani Xiong MD IMG MRI PROCEDURES Fi nal Result * (ABNORMAL) Urinalysis, Complete, with Reflex to Culture (08/06/2025 2:40 PM EDT) Color Urine Yellow [facility] Appearance Urine Clear [facility] PH 5.5 5.0 - 9.0 [facility] Glucose Urine UA Negative Negative mg/dL [facility] Urine Blood Small (1+)(A) Negative [facility] Specific [place] - Urine 1.015 1.005 - 1.025 [facility] Urine Protein >=1000 (4+)(A) Neg-Trace mg/dL [facility] Urine Ketones Negative Negative mg/dL [facility] Nitrite Urine Negative Negative [facility] Leukocyte Esterase Urine Negative Negative [facility] RBC Urine 0-2 0 - 2 /HPF [facility] Urine WBC 0-5 0 - 5 /HPF [facility] Urine Squamous Epithelial Cell 6-10 0 - 2 /HPF [facility] Urine Bacteria None Seen None Seen [facility] Hyaline Casts, Urine 0-2 0 - 2 /LPF [facility] 08/06/2025 2:40 PM EDT 08/06/2025 2:54 PM EDT Narrative [facility] - 08/06/2025 3:21 PM EDT [id number], Clean Catch Generic External Data Provider LAB URINE ORDERAB LES Final Result Performing Organization Address [facility] Co de Phone Number [facility] [address] [place] [phone] * HCG, Qualitative, Urine (08/06/2025 2:40 PM EDT) Urine NEGATIVE NEGATIVE [facility] Comment:This test was develo ped to detect early . Falsenegative results may occur after the 5th - 7th week ofpregnancy when using this test method. If clinicallyindicated, consider a serum hCG. 08/06/2025 2:40 PM EDT 08/06/2025 2:54 PM EDT us Generic External Data Provider LAB URINE ORDERAB LES Final Result Performing Organization Address [facility] Co de Phone Number [facility] [address] [place] [address] [phone] * (ABNORMAL) CBC auto differential (08/06/2025 1:42 PM EDT) White Blood Count 10.8 4.8 - 10.8 X10*3/uL [facility] Red Blood Count 3.85(L) 4.20 - 5.50 X10*6/uL [facility] Hemoglobin 9.8(L) 12.0 - 16.0 g/dl [facility] Hematocrit 30.5(L) 37.0 - 47.0 % [facility] Mean Corpuscular Volume 79.2(L) 80.0 - 98.0 fL [facility] Mean Corpuscular Hemoglobin 25.5(L) 27.0 - 33.0 pg [facility] Mean Corpuscular HGB Conc 32.1 31.0 - 35.0 g/dl [facility] Red Cell Distribution Width 15.9 11.0 - 16.0 % [facility] Platelet Count 305 160 - 400 X10*3/uL [facility] Mean Platelet Volume 10.3 9.4 - 12.3 fL [facility] Neutrophils Percent Auto 61.3 45 - 73 % [facility] Imm Gran Pct Auto 0.2 0.0 - 0.4 % [facility] Lymphocytes Percent Auto 32.3 20 - 40 % [facility] Monocytes Percent Auto 5.1 2 - 11 % [facility] Eosinophils Percent Auto 0.6 0 - 4 % [facility] Basophils Percent Auto 0.5 0 - 2 % [facility] NRBC Pct Auto 0.0 0.0 - 0.2 /100WBC [facility] Neutrophils Absolute Auto 6.6 2.0 - 8.3 x10*3/uL [facility] Imm Gran Abs Auto 0.02 0.00 - 0.03 X10*3/uL [facility] Lymphocytes Absolute Auto 3.5 1.2 - 4.9 X10*3/uL [facility] Monocytes Absolute Auto 0.6 0.1 - 1.2 X10*3/uL [facility] Eosinophils Absolute Auto 0.1 0.0 - 0.4 X10*3/uL [facility] Basophils Absolute Auto 0.1 0.0 - 0.2 X10*3/uL [facility] NRBC Abs Auto 0.000 0.0 - 0.012 X10*3/uL [facility] 08/06/2025 1:42 PM EDT 08/06/2025 1:46 PM EDT us Generic External Data Provider LAB BLOOD ORDERAB LES Final Result Performing Organization Address [facility] Phone Number [facility] [address] [place] [phone] * Magnesium (08/06/2025 1:42 PM EDT) Magnesium 2.1 1.6 - 2.6 mg/dL [facility] 08/06/2025 1:42 PM EDT 08/06/2025 1:46 PM EDT Generic External Data Provider LAB BLOOD ORDERAB LES Final Result Performing Organization Address [facility] Phone Number [facility] [address] [place] [phone] * Lipase (08/06/2025 1:42 PM EDT) Lipase 63 8 - 78 U/L [facility] 08/06/2025 1:42 PM EDT 08/06/2025 1:46 PM EDT Generic External Data Provider LAB BLOOD ORDERAB LES Final Result Performing Organization Address [facility] Phone Number [facility] [address] [place] [address] [phone] * Hepatic Function Panel (08/06/2025 1:42 PM EDT) Bilirubin, Total 0.1 0.0 - 1.0 mg/dL [facility] Bilirubin, Direct <0.2 0.0 - 0.5 mg/dL [facility] Aspartate Amino Transferase 30 5 - 31 U/L [facility] Alanine Aminotransferase 20 0 - 31 U/L [facility] Total Protein 7.2 6.5 - 8.0 g/dL [facility] Albumin Level 4.0 3.5 - 5.0 g/dL [facility] Alkaline Phosphatase 46 39 - 117 U/L [facility] 08/06/2025 1:42 PM EDT 08/06/2025 1:46 PM EDT us Generic External Data Provider LAB BLOOD ORDERAB LES Final Result [facility] [address] [place] [phone] * (ABNORMAL) Basic Metabolic Panel (08/06/2025 1:42 PM EDT) Sodium 142 135 - 145 mmol/L [facility] Potassium 3.7 3.3 - 5.1 mmol/L [facility] Chloride 112(H) 96 - 108 mmol/L [facility] Carbon Dioxide 22 22 - 29 mmol/L [facility] Anion Gap 12 12 - 20 [facility] Urea Nitrogen (BUN) 18(H) 9 - 16 mg/dL [facility] Creatinine, Serum 0.76 0.5 - 1.4 mg/dL [facility] Creatinine Clr Calc Pharmacy 73.8 [facility] Comment:Provided height and weight: 152.4 cm,71.5 kg.eGFR (calculated from the MDRD study equation) and eCrCl(calculated from the Cockcroft-Gault equation) are based ondifferent parameters and may not yield comparable results.If eCrCl result is absurd, please check patient'sheight/weight. Estimated Glomerular Filt Rate >60 [facility] Comment:Chronic Kidney Disea se: Estimated GFR < 60 mL/min/1.18i5Dwzcsn Kidney Disease: Estimated GFR < 15 mL/min/1.73m2 Glucose 80 60 - 115 mg/dL [facility] Calcium 9.2 8.4 - 10.2 mg/dL [facility] 08/06/2025 1:42 PM EDT 08/06/2025 1:46 PM EDT us Generic External Data Provider LAB BLOOD ORDERAB LES Final Result [facility] [address] [place] [phone] * XR Shoulder 2+ Views Left (07/12/2025 2:00 PM EDT) Anatomical Region Laterality Modality Upper Extremities, Shoulder Left Radi ographic Imaging 07/12/2025 2:00 PM EDT Narrative 07/12/2025 2:10 PM EDT [facility] [address] [place] [address] XRay Report Signed Patient: Kyrs Walker MR#: [id number] [birth year] : 1970 Acct:[id number] Age/Sex: 55 / F ADM Date: 07/12/25 Loc: .HHCX Attending Dr: Melani Xiong MD Ordering Physician: Melani Anderson MD Date of Service: 07/12/25 Procedure(s): XR shoulder LT min 2V Accession Number(s): [id number] cc: Melani Anderson MD Reason for Exam: [...] by Mao Moore MD in OV> 07/12/25 140 DD/ 1400 TD/TT: 07/12/25 140 Can Line Examiner: Procedure Note Davide, Image - 07/12/[address] [address] XRay Report Signed Patient: Олег Walker#: [id number] [birth year] : 1970Acct:[id number] Age/Sex: 55 / FADM Date: 07/12/25 Loc: HO.HHCX Attending Dr: Melani Xiong MD Ordering Physician: Melani Anderson MD Date of Service: 07/12/25 Procedure(s): XR shoulder LT min 2V Accession Number(s): [id number] cc: Melani Anderson MD Reason for Exam: [...] OV> 07/12/25 1407 DD/ 1400 TD/TT: 07/12/25 0116 Can Line Examiner: us Melani Xiong MD IMG XR PROCEDURES Fin al Result * BI Mammogram Screening Tomosynthesis Bilateral (01/17/2025 3:33 PM EDT) Anatomical Region Laterality Modality Breast Bilateral Mammography 01/17/2025 3:33 PM EDT Narrative 01/28/2025 10:37 AM EDT [facility] [place] [address] Mammography Report Signed Patient: Krys Walker MR#: [id number] [birth year] : 1970 Acct:[id number] Age/Sex: 54 / F ADM Date: 01/17/25 Loc: HO.MAMMO Attending Dr: Melani Xiong MD Ordering Physician: Melani Anderson MD Results: 1Negative Date of Service: 01/17/25 Follow Up: 1 Year From [facility] ina Mammogram Procedure(s): MM tomosynthesis screening BI Accession Number(s): [id number] cc: Melani Anderson MD EXAMINATION: MM SCREENING [...] for their next mammogram. Electronically signed by: Ankiat Dumont DO 01/28/2025 10:33 AM EDT Dictated By: Ankita Dumont DO Signed By: <Electronically signed by Ankita Dumont DO in OV> 01/28/25 1033 DD/ 1533 TD/TT: 01/17/25 1603 Can Line Examiner: Procedure Note Donotjanayinterpreter, Image - 01/28/2025 [facility] [address] [place] [address] Mammography Report Signed Patient: Олег Walker#: [id number] [birth year] : 1970Acct:[id number] Age/Sex: 54 / FADM Date: 01/17/25 Loc: HO.MAMMO Attending Dr: Melani Xiong MD Ordering Physician: Melani Anderson MDResults: 1Negative Date of Service: 01/17/25Follow Up: 1 Year From Orig inal Mammogram Procedure(s): MM tomosynthesis screening BI Accession Number(s): [id number] cc: Melani Anderson MD EXAMINATION: MM SCREENING [...] 01/28/25 1033 DD/ 1533 TD/TT: 01/17/25 1603 Can Line Examiner: Melani Xiong MD IMG BI PROCEDURES Joshua hai Result - Final * Hepatitis C Antibody with Reflex to HCV, RNA, Quantitative, Real-Time PCR (12/07/2024 10:36 AM EST) Hepatitis C Antibody Nonreactive Nonreactive [facility] Comment:Antibodies to HCV no t detected; does not exclude early acuteHCV infection. Blood Venous blood specimen / Unknown 12/07/2024 10:36 AM EST 12/07/2024 11:19 AM EST Melani Xiong MD LAB BLOOD ORDERABLES Final Result [facility] [address] [place] [phone] * HIV-1/2 Antigen and Antibodies, Fourth Generation, with Reflexes (12/07/2024 10:36 AM EST) HIV AB/AG Nonreactive Nonreactive [facility] Comment:HIV-1 p24 Ag and/or HIV-1/HIV-2 Ab not detected.A test result that is nonreactive does not exclude thepossibility of exposure to or infection with HIV-1 and/orHIV-2. Nonreactive results in this assay for individualswith prior exposure to HIV-1 and/or HIV-2 may be due toantigen and antibody levels that are below the limit ofdetection of this assay.The [email or web address] HIV Ag/Ab Combo assay result andsupplemental assay results should be interpreted inconjunction with the patient's clinical presentation,history and other laboratory results. If the results areinconsistent with clinical evidence, additional testing issuggested to confirm the result. Blood Venous blood specimen / Unknown 12/07/2024 10:36 AM EST 12/07/2024 11:19 AM EST Melani Xiong MD LAB BLOOD ORDERABLES Final Result Performing Organization Address [facility]/ZIP Co de Phone Number [facility] [address] [place] [address] [phone] * (ABNORMAL) Lipid Panel, Standard (12/07/2024 10:36 AM EST) Triglycerides 183(H) <150 mg/dL [facility] Comment:Desirable Triglyceri de: less than 150 mg/dLBorderline High Triglyceride 150-199 mg/dLHigh Triglyceride: 200-499 mg/dLVery High Triglyceride: greater than or equal to 5OO mg/dL Cholesterol 193 <200 mg/dL [facility] Comment:Desirable Cholestero l: less than 200 mg/dLBorderline High Cholesterol: 200-239 mg/dLHigh Cholesterol: greater than 239 mg/dL LDL Cholesterol Calculated 123(H) <100 mg/dL [facility] Comment:Desirable LDL: less than 100 mg/dLNear Optimal/Above Optimal LDL: 110- 129 mg/dLBorderline High LDL: 130-159 mg/dLHigh LDL: 160-189 mg/dLVery High LDL: greater than or equal to 190 mg/dL HDL Cholesterol 34(L) >40 mg/dL [facility] Comment:Desirable HDL: great er than 40 mg/dL Note: This HDL assay may give artificially low results in patients with liver disease. Blood Venous blood specimen / Unknown 12/07/2024 10:36 AM EST 12/07/2024 11:19 AM EST us Melani Xiong MD LAB BLOOD ORDERABLES Final Result Performing Organization Address [facility]/ZIP Co de Phone Number [facility] [address] [place] [address] [phone] * THINPREP PAP (04/24/2021 12:00 AM [...] along with historic and current clinical information. Bicycle Technician : SEE COMMENT [facility] Comment: HJP, CT(ASCP) CT screening location: [place] [address] Infection Shift in vaginal tomasa suggestive of bacterial vaginosis. [facility] Interpretation/R esult: Negative for intraepithelial lesion or malignancy. [facility] LMP: NONE GIVEN FOUNDATIO N [...] ORDERAB LES Final Result Performing Organization Address [facility] de Phone Number [facility] [address] * HPV GENOTYPES 16,18/45 (04/24/2021 12:00 AM EDT) HPV 16 RNA NOT DETECTED NOT DETECTED [facility] HPV 18/45 RNA NOT DETECTED NOT DETECTED [facility] Comment: Methodology: Procedure Writer Mediated Amplification The analytical performance characteristics of this assay have been determined by [employer]. The modifications have not been cleared or approved by the FDA. This assay has been validated pursuant to the CLIA regulations and is used for clinical purposes. 04/24/2021 Melani Xiong MD LAB CYTOLOGY ORDERABL ES Final Result Performing Organization Address [facility] de Phone Number [facility] [address] from Last 3 Months or Most Recently Relevant to Health Maintenance Insurance Care Teams Electric Locomotive Crane Operator Relationship Specialty Start Date End Date Melani Anderson MD [address] [place] [phone] PCP - General Family Medicine 07[facility]20[facility]19 [facility] Svp OperationsCorner Block Cutter 10/08/23 Marilynn Garcia Svp OperationsCorner Block Cutter 08/19/24
--- OUTSIDE RECORDS SUMMARY | 2025-09-19 21:09 | XMS_ITS | Encounter Summary ---
Author Organization [employer] Address [address] [facility] 7t [place] [address] Care Team Providers Care Capsule Filling Machine Operator Name Role Phone Melani Anderson MD Primary Care Provide r Paris Langford Unavailable Reason for Visit * Reason Comments Med Refill Encounter Details Date Type Department Care Team ([facility] st Contact Info) Description 07/16/2025 Refill [facility] [address] [place] [address] Melani Anderson MD [address] [place], [place] [phone] Class 1 obesity due to excess calories [...] Info) Description 09/20/2025 11:30 AM EST Immunization [facility] [address] [place] [address] documented as of this encounter Visit Diagnoses Diagnosis Class 1 obesity due to excess calories with serious comorbidity and body mass index (BMI) of 34.0 to 34.9 in adult documented in this encounter Additional Health Concerns Assessment Noted Time PHQ-9 Depression Total Score: 1 03/09/20 25 9:07 AM EDT documented as of this encounter Care Teams Capsule Filling Machine Operator Relationship Specialty Start Date End Date Melani Anderson MD [address] [place] [address] PCP - General Family Medicine 07/20/19 Paris Langford 08/08/25 08/10/25 Darlene Lassiter Claim AnalystLoad Dispatcher 10/08/23 Marilynn Garcia Claim AnalystLoad Dispatcher 08/19/24 documented as of this encounter
--- OUTSIDE RECORDS SUMMARY | 2025-09-19 21:09 | XMS_ITS | Encounter Summary ---
Author Organization [employer] Address [address] [facility] [address] [place] [address] Care Team Providers Care Oil Well Logger Name Role Phone Melani Anderson MD Primary Care Provide r Encounter Details Date Type Department Care Team (Latest Contact Info) Description 09/19/2025 Travel Social History Tobacco Use Types Packs/Day [...] Info) Description 09/20/2025 11:30 AM EST Immunization [facility] [address] [place] [address] documented as of this encounter Visit Diagnoses Not on filedocumented in this encounter Additional Health Concerns Assessment Noted Time PHQ-9 Depression Total Score: 1 03/09/20 25 9:07 AM EDT documented as of this encounter Care Teams Oil Well Logger Relationship Specialty Start Date End Date Melani Anderson MD [address] [place] [address] PCP - General Family Medicine 07/20/19 Darlene Lassiter Accordion RepairerFrench Polisher 10/08/23 Marilynn Garcia [employer]ion RepairerFrench Polisher 08/19/24 documented as of this encounter
--- OUTSIDE RECORDS SUMMARY | 2025-09-19 21:09 | XMS_ITS | Data Portability ---
Author Organization [place] [facility], Allergy Address [address] [place] [phone] Care Team Providers Care Film Composer Name Role Phone MATTHEW CONN, SHEREE Primary [...] We may review results through the portal InstantQ Not available 11/09/2024 13:27:15 Plan of Treatment Reminders Order Date Submit Date Provider Last Modified By Organization Details Last Modified Time Details Appointments None recorded. Lab None recorded. Referral None recorded. Procedures None recorded. Surgeries None recorded. Imaging [place], modified barium swallow study 2024 025 [facility] Diagnosit Imaging Dept, [address] [place], [address], 10:04:28 Medication Orders None recorded. Patient TargetsNo targets recorded. Patient InstructionsNo instructions recorded. Reason for Referral None Reported. Results Created Date Observation Date Name Description Value Unit Range Abnormal Flag Note LastModifiedBy Organization Detail LastModifiedTime 03/03/20 25 03/03/2025 proce shiela No observ ation record ed. ccomi [facility] U/S Dept [address] [facility], [place], [address], 03/14/2025 10:47:51 03/03/20 25 03/03/2025 xr dawson sterling ow with video and speec h See Note [facility] , a member of [facility] Erin march Name: GALE WALKER Date of : 1969 Reason for Exam: dyspha concha Exam Date: 2024 [id number] EST Report Status : Final Orderi ng Provid er: MARYJANE ELI PCP: [facility] Y: dyspha conhca. STUDY: Modifi ed barium swallo w study [...] ribed Date: 2024 10:39 ET Reside nt/PA/ SHUTDOWN COORDINATOR: Karrie Rinaldi [facility] U/S Dept [address] [place], [address], 03/14/2025 10:47:51 Result Notes None recorded. Problems Name Problem SNOMED Code Status Onset Date Resolution Date Notes Provider Name and Address Organization Details Recorded Time Otalgia of left ear 7660122680 Active 2015 Otalgia, left ear; Note: Date Diagnosed : 01/17/2016 2:00 PM (H92.02) Not Available [facility] 4 03:15:30 Dysphonia 79501409 Active 2017 Other voice and resonance disorders ; Note: Date Diagnosed : 05/22/2018 9:13 AM (R49.8) Not Available [facility] 4 03:15:30 Finding of resonance of voice 489463295 Active 2017 Other voice and resonance disorders ; Note: Date Diagnosed : 05/22/2018 9:13 AM (R49.8) Not Available [facility] 4 03:15:30 Dysphagia 31461601 Active 2018 Dysphagia , unspecifi ed; Note: Date Diagnosed : 01/05/2019 11:10 AM (R13.10) Not Available [facility] 4 03:15:29 Problem Notes None recorded. Procedures Surgical History Date Name Laterality Status Provider Name and Address Organization Details Recorded Time 11/09/2024 FOL_DP completed MARYJANE ELI MD [address] [place] [address], [phone], [place] [facility] 11/09/2024 13:23:35 Imaging Results None recorded. Procedure Notes None recorded. Medical Equipment None Reported. Allergies Allergen ID Allergen Name Allergen Category Reaction Reaction Severity Criticality Documentation Date Start Date Code Code System Note Provider Name and Address Organization Details Recorded Time 260542 acetamino phen / oxycodone medicatio n other Not available Not available 02/17/2024 53973 3 RxNorm React ion: unkno wn, unspe cifie d;; Not Available [facility] 4 01:20:45 674215 Substance with sulfonami de structure and antibacte rial mechanism of action (substanc e) medicatio n other Not available Not available 02/17/2024 89108 8003 SNOMED React ion: unkno wn, unspe cifie d;; Not Available [facility] 4 01:20:46 Medications Name Sig Start Date [...] mg tablet 11/09 completed Medicati on ID: 191460 D uration Value: 30 Brand Name: marky [...] mg tablet 2018 active Medicati on ID: 035445 D uration Value: 30 Brand Name: lisinopr [...] elayed release 2017 active Medicati on ID: 271210 D uration Value: 30 Brand Name: duloxeti [...] Not Available No t Available Kristina Quintana [facility] spacer 2015 active Medicati on ID: 947586 D uration Value: 1 Brand Name: [facility] Send Method: E-Prescr ibed Sub s Allowed: subs OK Medic ationGen ericName : [facility] Not Available Not Available Not [...] Updated DateTime 11/09/2024 152.4 cm 33.2 kg/m2 59437.7 g Almita Hale [facility] 11/09/2024 12:59:13 Social History None recorded. Functional Status None recorded. Mental Status None recorded. Family History Nothing Reported. Medical History No medical history recorded. Gynecological HistoryNo gynecological history recorded. Obstetrics History GPAL:G 0 P 0 0 0 0 Past Encounters Encounter ID Performer Location Encounter Start Date Encounter Closed Date Diagnosis/Indication Diagnosis SNOMED-CT Code Diagnosis ICD10 Code Diagnosis IMO Codes Diagnosis Note [id number] MARYJANE ELI MD [facility] [address] [phone] 11/09/2024 12:49:40 11/09/2024 13:27:39 Dysphagia 34249064 R13.10 Health Concerns Section Related Observation LastModified by Organization Detai ls LastModified Time None Recorded Concern Status LastModified by Organization Details LastModified Time None Recorded Advance Directives Directive None Recorded Payers Insurance Date Sequence Insurance Name Policy Number Policy Norris Covered Member ID Norris Member ID Guarantor Name 11/09/2024 1 [place] [employer] [facility] [place] Krys Walker [id number] Krys Jaquanpas 11/09/2024 1 [place] [employer] Krys Partidapas [id number] Krys Jaquanpas Notes Date Note Type Note Provider Name and Address Organization Details Recorded Time 11/09/2024 text/html ROS as noted in the HPI dysphagiachoking on water, ice creamno swallow evaluationno CVA hx pmhx - 2022 NSTEMI, cath, stents PV 01/05/2019 Hieu dysphagia for saliva, mod ba swallow requested MARYJANE ELI MD [address] [place] [address], [phone], [place] [facility] 11/09/2024 13:27:41 OBGyn Episode No OBEpisode recorded.
--- OUTSIDE RECORDS SUMMARY | 2025-09-19 21:09 | XMS_ITS | Encounter Summary ---
Author Organization [employer] Address [address] [place] [address] [address] [place] [address] Care Team Providers Care Network Technical Analyst Name Role Phone Melani Anderson MD Primary Care Provide r Paris Langford Unavailable Encounter Details Date Type Department Care Team (Latest Contact Info) Description 11/03/2019 Abstract [facility] CONVERSIONS Dental, Provider, DDS Social [...] Info) Description 09/20/2025 11:30 AM EST Immunization [facility] [address] [place] [address] documented as of this encounter Visit Diagnoses Not on filedocumented in this encounter Care Teams Network Technical Analyst Relationship Specialty Start Date End Date Melani Anderson MD [address] [place] [address] PCP - General Family Medicine 07/20/19 Paris Langford 08/08/25 08/10/25 Darlene Lassiter Bank AppraiserTaxicab Coordinator 10/08/23 Marilynn Garcia Bank AppraiserTaxicab Coordinator 08/19/24 documented as of this encounter
--- OUTSIDE RECORDS SUMMARY | 2025-09-19 21:09 | XMS_ITS | Encounter Summary ---
Author Organization [employer] Address [address] [place] [address] [address] [place] [address] Care Team Providers Care Reflesher Name Role Phone Melani Anderson MD Primary Care Provide r Paris Langford Unavailable Encounter Details Date Type Department Care Team (Latest Contact Info) Description 06/08/2021 Abstract [facility] CONVERSIONS Dental, Provider, DDS Social History [...] Info) Description 09/20/2025 11:30 AM EST Immunization [facility] [address] [place] [address] documented as of this encounter Visit Diagnoses Not on filedocumented in this encounter Care Teams Reflesher Relationship Specialty Start Date End Date Melani Anderson MD [address] [place] [address] PCP - General Family Medicine 07/20/19 Paris Langford 08/08/25 08/10/25 Darlene Lassiter Deputy Juvenile OfficerAnalyzer Sales 10/08/23 Marilynn Garcia Deputy Juvenile OfficerAnalyzer Sales 08/19/24 documented as of this encounter
--- OUTSIDE RECORDS SUMMARY | 2025-09-19 21:09 | XMS_ITS | Encounter Summary ---
Author Organization [employer] Address [address] [facility] 7t [place] [address] Care Team Providers Care Rn Orthopedic Name Role Phone Melani Anderson MD Primary Care Provide r Paris Langford Unavailable Reason for Visit * Reason Onset Date Comments Nurse Triage 09/13/2024 Encounter Details Date Type Department Care Team ([facility] st Contact Info) Description 09/13/2024 Telephone [facility] [address] [place] [address] Melani Anderson MD [address] [place], [place] [phone] Nurse Triage Social History Tobacco Use Types [...] needed. Pt is advised to come to [facility] for Provider to see Pt. Pt agrees [...] caller accepted this outcome. Contact pt at [phone] documented in this encounter Plan of Treatment Upcoming Encounters Date Type Department Care Team (Late st Contact Info) Description 09/20/2025 11:30 AM EST Immunization [facility] [address] [place] [address] documented as of this encounter Visit Diagnoses Not on filedocumented in this encounter Additional Health Concerns Assessment Noted Time PHQ-9 Depression Total Score: 1 02/11/20 24 11:34 AM EDT documented as of this encounter Care Teams Rn Orthopedic Relationship Specialty Start Date End Date Melani Anderson MD [address] [place] [address] PCP - General Family Medicine 07/20/19 Paris Langford 08/08/25 08/10/25 Darlene Lassiter Watch Dial PrinterCigarette Filter Inspector 10/08/23 Marilynn Garcia Watch Dial PrinterCigarette Filter Inspector 08/19/24 documented as of this encounter
--- OUTSIDE RECORDS SUMMARY | 2025-09-19 21:09 | XMS_ITS | Encounter Summary ---
Author Organization [employer] Address [address] [facility] [address] [place] [address] Care Team Providers Care Free Lance Artist Name Role Phone Melani Anderson MD Primary Care Provide r Paris Langford Unavailable Reason for Visit * Reason Onset Date Comments Error 09/08/2024 Encounter Details Date Type Department Care Team ([facility] st Contact Info) Description 09/08/2024 Telephone [facility] [address] [place] [address] Melani Anderson MD [address] [place], [place] [phone] Error Social History Tobacco Use Types Packs/Day [...] your housing situation today? I have jacquie weathesr 04/19/[address] you li [...] Info) Description 09/20/2025 11:30 AM EST Immunization [facility] [address] [place] [address] documented as of this encounter Visit Diagnoses Not on filedocumented in this encounter Additional Health Concerns Assessment Noted Time PHQ-9 Depression Total Score: 1 02/11/20 24 11:34 AM EDT documented as of this encounter Care Teams Free Lance Artist Relationship Specialty Start Date End Date Melani Anderson MD [address] [place] [address] PCP - General Family Medicine 07/20/19 Paris Langford 08/08/25 08/10/25 Darlene Lassiter Residential Team LeaderAir Support Control Officer 10/08/23 Marilynn Garcia Residential Team LeaderAir Support Control Officer 08/19/24 documented as of this encounter"
--- OUTSIDE RECORDS SUMMARY | 2025-09-19 21:09 | XMS_ITS | Encounter Summary ---
Author Organization [employer] Address [address] [facility] [address] [place] [address] Care Team Providers Care Dynamic Balancer Set Up Worker Name Role Phone Melani Anderson MD Primary Care Provide r Paris Langford Unavailable Encounter Details Date Type Department Care Team ([facility] Contact Info) Description 06/12/2024 Orders Only [facility] [address] [place] [address] Joby Smallwood MD [address] [place] [address] Social History Tobacco Use Types Packs/Day Years [...] Info) Description 09/20/2025 11:30 AM EST Immunization [facility] [address] [place] [address] documented as of this encounter Visit Diagnoses Not on filedocumented in this encounter Additional Health Concerns Assessment Noted Time PHQ-9 Depression Total Score: 1 02/11/20 24 11:34 AM EDT documented as of this encounter Care Teams Dynamic Balancer Set Up Worker Relationship Specialty Start Date End Date Melani Anderson MD [address] [place] [address] PCP - General Family Medicine 07/20/19 Paris Langford 08/08/25 08/10/25 Darlene Lassiter Health Care Facilities InspectorAccount Services Analyst 10/08/23 Marilynn Garcia Health Care Facilities InspectorAccount Services Analyst 08/19/24 documented as of this encounter
--- OUTSIDE RECORDS SUMMARY | 2025-09-19 21:09 | XMS_ITS | Encounter Summary ---
Author Organization [email or web address] Address [address] [facility] [address] [place] [address] Care Team Providers Care Weatherization Administrator Name Role Phone Melani Anderson MD Primary Care Provide r Paris Langford Unavailable Encounter Details Date Type Department Care Team ([facility] st Contact Info) Description 07/27/2025 Orders Only [facility] [address] [place] [address] Melani Anderson MD [address] [place] [address] Social History Tobacco Use Types Packs/Day Years [...] Info) Description 09/20/2025 11:30 AM EST Immunization [facility] [address] [place] [address] documented as of this encounter Visit Diagnoses Not on filedocumented in this encounter Additional Health Concerns Assessment Noted Time PHQ-9 Depression Total Score: 1 03/09/20 25 9:07 AM EDT documented as of this encounter Care Teams Weatherization Administrator Relationship Specialty Start Date End Date Melani Anderson MD [address] [place] [address] PCP - General Family Medicine 07/20/19 Paris Langford 08/08/25 08/10/25 Darlene Lassiter [employer] 10/08/23 Marilynn Garcia [employer] 08/19/24 documented as of this encounter
--- OUTSIDE RECORDS SUMMARY | 2025-09-19 21:09 | XMS_ITS | Encounter Summary ---
Author Organization [employer] Address [address] [facility] [address] [place] [address] Care Team Providers Care Animal Sitter Name Role Phone Melani Anderson MD Primary Care Provide r Reason for Visit * Reason Onset Date Comments Chart Prep 09/16/2025 Encounter Details Date Type Department Care Team ([facility] Contact Info) Description 09/16/2025 Telephone [facility] [address] [place] [address] Melani Anderson MD [address] [place] [address] Chart Prep Social History Tobacco Use Types Packs/Day Years [...] encounter Miscellaneous Notes * Telephone Encounter - Carrol Dow [place] - 09/16/2025 2:23 PM EST Chart Prep Labs: done Images: done MRI L-Spine Report-08/29/25([facility] [place]) Referrals: appointment pending Vaccines due: Covid, Flu, Tdap, RSV, and Zoster Screenings: colonoscopy Overdue care gaps: Glucose, PHQ-9, and EDUARDO-7 documented in this encounter Plan of Treatment Upcoming Encounters Date Type Department Care Team (Late st Contact Info) Description 09/20/2025 11:30 AM EST Immunization [facility] [address] [place] [address] documented as of this encounter Visit Diagnoses Not on filedocumented in this encounter Additional Health Concerns Assessment Noted Time PHQ-9 Depression Total Score: 1 03/09/20 25 9:07 AM EDT documented as of this encounter Care Teams Animal Sitter Relationship Specialty Start Date End Date Melani Anderson MD [address] [place] [address] PCP - General Family Medicine 07/20/19 Darlene Lassiter [employer] 10/08/23 Marilynn Garcia [employer] .[employer] Developer 08/19/24 documented as of this encounter
== END 2025-09-19 15:42 | disposition home or self-care (01) ==
LOC: HO.PMC 14:38
PROVIDERS: PCP Internal Medicine; Visit Provider Nurse Practitioner Family
DX: M51.369 Other intervertebral disc degeneration, lumbar region without mention of lumbar back pain or lower extremity pain (principal); M47.817 Spondylosis without myelopathy or radiculopathy, lumbosacral region; M51.16 Intervertebral disc disorders with radiculopathy, lumbar region; M54.50 Low back pain, unspecified; G89.29 Other chronic pain; M53.3 Sacrococcygeal disorders, not elsewhere classified
CPT/HCPCS: 99204

== ENCOUNTER → 2025-09-19 14:38 | Outpatient (BNVA) | payer MEDICAID, SELFPAY | PROVIDERS: PCP Internal Medicine; Visit Provider Nurse Practitioner Family | DX: M47.26 Other spondylosis with radiculopathy, lumbar region (principal); M51.369 Other intervertebral disc degeneration, lumbar region without mention of lumbar back pain or lower extremity pain; M53.3 Sacrococcygeal disorders, not elsewhere classified; M54.50 Low back pain, unspecified; G89.29 Other chronic pain | CPT/HCPCS: 99212 ==